=== PATIENT | female | born 1950 | race Caucasian/White ===

== ENCOUNTER 2022-09-21 09:51 | Outpatient (OUT) | payer MEDICARE, SELFPAY ==
--- NOTE | 2022-09-21 | MM_ITS ---
Patient: SANTOS VILLALPANDO Exam Date: 09/21/2022 : 1950 Gender:F Ordering : DR Jimmie Melendez D.O. Admission #: [id number] Family : Order #: [id number] CLICK HERE TO VIEW EXAM RADIOLOGY REPORT PROCEDURE: MM TOMOSYNTHESIS SCREENING BI COMPARISON: MG MAMM SCREEN 3D FERMÍN CAD, 09/05/2020. MG MAMM SCREEN 3D FERMÍN CAD, 09/17/2021. INDICATIONS: Screening Calculator Name NCI Breast Cancer Risk Assessment Tool 5 Year Breast Cancer Risk 8.90% Lifetime Breast Cancer Risk 22.70% Personal Breast Cancer No Personal Ovarian Cancer No Treatments None Family Cancers Sister with breast cancer at age 69; Sister with breast cancer at age 74. LOCATION: [facility] BREAST COMPOSITION: Heterogeneously dense,which may obscure small masses. FINDINGS: DIAGNOSTIC CATEGORY 1--NEGATIVE. NO CHANGE FROM COMPARISON ASSESSMENT. Scattered benign-appearing calcifications are present. RIGHT BREAST: No significant suspicious finding. LEFT BREAST: No significant suspicious finding. RECOMMENDATIONS: ROUTINE MAMMOGRAM AND CLINICAL EVALUATION IN 12 MONTHS. PLEASE NOTE: A NORMAL MAMMOGRAM DOES NOT EXCLUDE THE POSSIBILITY OF BREAST CANCER. A CLINICALLY SUSPICIOUS PALPABLE LUMP SHOULD BE BIOPSIED. Dictated by: Denzel Spears MD on 09/21/2022 at 13:09 Approved by: Denzel Spears MD on 09/21/2022 at 13:10
[2022-09-21 10:07] LABS: Basophils Percent Auto 0.7 % (0.2-2.0); Eosinophils Absolute Auto 0.1 10^3/uL (0.0-0.7); Eosinophils Percent Auto 1.9 % (0.9-7.0); Hematocrit 42.7 % (36.0-48.0); Immature Granulocytes Abs Auto 0.01 10^3/uL (0.00-0.03); Immature Granulocytes Pct Auto 0.2 % (0.0-0.5); Lymphocytes Absolute Auto 2.2 10^3/uL (1.2-3.8); Lymphocytes Percent Auto 37.4 % (20.5-60.0); Mean Corpuscular HGB Conc 32.8 g/dL (29.9-35.2); Mean Corpuscular Hemoglobin 30.1 pg (26.7-34.0); Mean Corpuscular Volume 91.8 fL (81.0-99.0); Mean Platelet Volume 8.9 fL (9.5-13.5); Monocytes Absolute Auto 0.4 10^3/uL (0.3-0.8); Monocytes Percent Auto 6.9 % (1.7-12.0); Neutrophils Absolute Auto 3.1 10^3/uL (1.4-6.5); Neutrophils Percent Auto 52.9 % (43.0-75.0); Platelet Count 233 10^3/uL (150-450); Red Blood Count 4.65 10^6/uL (4.20-5.40); Red Cell Distribution Width 13.9 % (11.0-15.0); White Blood Count 5.8 10^3/uL (4.0-11.0)
[2022-09-21 11:11] LABS: Alanine Aminotransferase 30 U/L (14-59); Anion Gap 12.1; BUN Creatinine Ratio 17.2; Carbon Dioxide 27.7 mmol/L (21.0-32.0); Chloride 106 mmol/L (98-107); Chol HDL Ratio 2.6; Cholesterol 159 mg/dL (<=200); Estimated GFR (African America 56 (>=60); Estimated GFR (Non-African Ame 46 (>=60); Glucose 99 mg/dL (74-106); HDL Cholesterol 61 mg/dL (40-60); Potassium 4.8 mmol/L (3.5-5.1); Sodium 141 mmol/L (136-145); Triglycerides 74 mg/dL (<=150); VLDL CHOLESTEROL 14.8 mg/dL
--- NOTE | 2022-09-21 11:15 | XR_ITS ---
[address] [address] Patient Name: SANTOS VILLALPANDO MRN: [id number] date: 1950 Sex: F Assigned Patient Location: [facility] Current Patient Location: [facility] Accession/Order Number: [id number] Exam Date: 09/21/2022 11:00 Report Date: 09/21/2022 18:34 At the request of: LANCE LONG Procedure: XR DEXA axial skeleton EXAMINATION: XR DEXA axial skeleton, 09/21/2022 11:00 AM EDT HISTORY: Screening for osteoporosis COMPARISON: 2019. TECHNIQUE: Dual-energy X-ray absorptiometry (DEXA) bone density study performed for the axial skeleton. HISTORY: Screening for osteoporosis FINDINGS: Bone mineral density left forearm radius measures 0.616 g/sq cm. T score -1.4. WHO classification: Osteopenia. Lowest bone mineral density left femoral neck measures 0.795 g/sq cm. T score -1.7. WHO classification: Osteopenia XR/XR DEXA axial skeleton IMPRESSION: Osteopenia. Moderate fracture risk Electronically authenticated by: PURNIMA CORTEZ Date: 09/21/2022 18:34
== END 2022-09-21 09:52 | disposition home or self-care (01) ==
LOC: RAD 09:51
PROVIDERS: PCP Internal Medicine; Visit Provider Internal Medicine
DX: E78.01 Familial hypercholesterolemia (principal); I10 Essential (primary) hypertension; Z79.899 Other long term (current) drug therapy; Z12.31 Encounter for screening mammogram for malignant neoplasm of breast; Z78.0 Asymptomatic menopausal state; Z80.3 Family history of malignant neoplasm of breast; M85.852 Other specified disorders of bone density and structure, left thigh; M85.832 Other specified disorders of bone density and structure, left forearm
CPT/HCPCS: 36415; 77063; 77067; 77080; 80048; 80061; 84460; 85025

== ENCOUNTER 2022-11-12 10:10 | Outpatient (OUT) | payer MEDICARE, SELFPAY ==
--- NOTE | 2022-11-12 10:21 | XR_ITS ---
[address] [address] Patient Name: SANTOS VILLALPANDO MRN: [id number] date: 1950 Sex: F Assigned Patient Location: [facility] Current Patient Location: [facility] Accession/Order Number: [id number] Exam Date: 11/12/2022 10:25 Report Date: 11/12/2022 11:17 At the request of: LANCE LONG Procedure: XR lumbar spine 6V w bending EXAMINATION: XR thoracic spine 2V, XR cervical spine 2-3V, XR lumbar spine 6V w bending HISTORY: Thoracogenic Scoliosis Of Thoracolumbar Region M41.35 ; chronic back pain , kufb-yxq-cvcmucs sensation in right arm COMPARISON: No relevant comparison available. FINDINGS: BONES: Reversal of normal lordotic curvature of cervical spine and mild grade 1 anterolisthesis of C4 on 5.. Moderate degenerative facet arthropathy throughout the cervical spine. No fracture. Thoracic spine marked left convex curvature and multilevel mild degenerative endplate changes. Lumbar spine moderate right convex curvature. 10 mm anterior listhesis of L4 on 5; stable between flexion and extension. Moderate-marked degenerative facet arthropathy L3-4 through L5-S1. No fracture. DISC SPACES: Moderate-marked degenerative disc disease C4-5, C5-6, C6-7. Multilevel mild degenerative disc disease of thoracic spine. Moderate-marked degenerative disc disease L4-5, L5-S1. PARASPINOUS: Negative. No paraspinous abnormality is seen. OTHER: Negative. XR/XR lumbar spine 6V w bending IMPRESSION: 1. Cervical spine reversal of normal lordotic curvature, moderate degenerative facet arthropathy, and moderate-marked degenerative disc disease. MRI should be considered for further evaluation 2. Thoracic spine and levoscoliosis and multilevel mild degenerative changes. 3. Lumbar spine dextroscoliosis with grade 1-2 anterior listhesis of L4 on 5, and marked degenerative disc disease and degenerative facet arthropathy of the lower lumbar spine. MRI should be considered for further evaluation. Electronically authenticated by: RONA MALONEY Date: 11/12/2022 11:17
--- NOTE | 2022-11-12 10:21 | XR_ITS ---
[address] [address] Patient Name: SANTOS VILLALPANDO MRN: [id number] date: 1950 Sex: F Assigned Patient Location: [facility] Current Patient Location: [facility] Accession/Order Number: [id number] Exam Date: 11/12/2022 10:25 Report Date: 11/12/2022 11:17 At the request of: LANCE LONG Procedure: XR thoracic spine 2V EXAMINATION: XR thoracic spine 2V, XR cervical spine 2-3V, XR lumbar spine 6V w bending HISTORY: Thoracogenic Scoliosis Of Thoracolumbar Region M41.35 ; chronic back pain , hhgk-aoc-dtesxhu sensation in right arm COMPARISON: No relevant comparison available. FINDINGS: BONES: Reversal of normal lordotic curvature of cervical spine and mild grade 1 anterolisthesis of C4 on 5.. Moderate degenerative facet arthropathy throughout the cervical spine. No fracture. Thoracic spine marked left convex curvature and multilevel mild degenerative endplate changes. Lumbar spine moderate right convex curvature. 10 mm anterior listhesis of L4 on 5; stable between flexion and extension. Moderate-marked degenerative facet arthropathy L3-4 through L5-S1. No fracture. DISC SPACES: Moderate-marked degenerative disc disease C4-5, C5-6, C6-7. Multilevel mild degenerative disc disease of thoracic spine. Moderate-marked degenerative disc disease L4-5, L5-S1. PARASPINOUS: Negative. No paraspinous abnormality is seen. OTHER: Negative. XR/XR thoracic spine 2V IMPRESSION: 1. Cervical spine reversal of normal lordotic curvature, moderate degenerative facet arthropathy, and moderate-marked degenerative disc disease. MRI should be considered for further evaluation 2. Thoracic spine and levoscoliosis and multilevel mild degenerative changes. 3. Lumbar spine dextroscoliosis with grade 1-2 anterior listhesis of L4 on 5, and marked degenerative disc disease and degenerative facet arthropathy of the lower lumbar spine. MRI should be considered for further evaluation. Electronically authenticated by: RONA MALONEY Date: 11/12/2022 11:17
--- NOTE | 2022-11-12 10:21 | XR_ITS ---
[address] [address] Patient Name: SANTOS VILLALPANDO MRN: [id number] date: 1950 Sex: F Assigned Patient Location: [facility] Current Patient Location: [facility] Accession/Order Number: [id number] Exam Date: 11/12/2022 10:25 Report Date: 11/12/2022 11:17 At the request of: LANCE LONG Procedure: XR cervical spine 2-3V EXAMINATION: XR thoracic spine 2V, XR cervical spine 2-3V, XR lumbar spine 6V w bending HISTORY: Thoracogenic Scoliosis Of Thoracolumbar Region M41.35 ; chronic back pain , tuqt-imh-mniinkx sensation in right arm COMPARISON: No relevant comparison available. FINDINGS: BONES: Reversal of normal lordotic curvature of cervical spine and mild grade 1 anterolisthesis of C4 on 5.. Moderate degenerative facet arthropathy throughout the cervical spine. No fracture. Thoracic spine marked left convex curvature and multilevel mild degenerative endplate changes. Lumbar spine moderate right convex curvature. 10 mm anterior listhesis of L4 on 5; stable between flexion and extension. Moderate-marked degenerative facet arthropathy L3-4 through L5-S1. No fracture. DISC SPACES: Moderate-marked degenerative disc disease C4-5, C5-6, C6-7. Multilevel mild degenerative disc disease of thoracic spine. Moderate-marked degenerative disc disease L4-5, L5-S1. PARASPINOUS: Negative. No paraspinous abnormality is seen. OTHER: Negative. XR/XR cervical spine 2-3V IMPRESSION: 1. Cervical spine reversal of normal lordotic curvature, moderate degenerative facet arthropathy, and moderate-marked degenerative disc disease. MRI should be considered for further evaluation 2. Thoracic spine and levoscoliosis and multilevel mild degenerative changes. 3. Lumbar spine dextroscoliosis with grade 1-2 anterior listhesis of L4 on 5, and marked degenerative disc disease and degenerative facet arthropathy of the lower lumbar spine. MRI should be considered for further evaluation. Electronically authenticated by: RONA MALONEY Date: 11/12/2022 11:17
== END 2022-11-12 10:11 | disposition home or self-care (01) ==
LOC: RAD 10:12
PROVIDERS: PCP Internal Medicine; Visit Provider Internal Medicine
DX: M41.35 Thoracogenic scoliosis, thoracolumbar region (principal)
CPT/HCPCS: 72040; 72070; 72114

== ENCOUNTER 2022-11-15 07:23 | Outpatient (RCR) | payer MEDICARE, SELFPAY | END 2022-11-16 16:39 | disposition home or self-care (01) | LOC: PT 07:23 | PROVIDERS: PCP Internal Medicine; Visit Provider Internal Medicine | DX: M41.9 Scoliosis, unspecified (principal); M62.830 Muscle spasm of back; M19.90 Unspecified osteoarthritis, unspecified site | CPT/HCPCS: 97110; 97161 ==

== ENCOUNTER 2022-12-02 08:13 | Outpatient (OUT) | payer MEDICARE, SELFPAY ==
--- NOTE | 2022-12-01 | XR_ITS ---
[address] [address] Patient Name: SANTOS VILLALPANDO MRN: [id number] date: 1950 Sex: F Assigned Patient Location: [facility] Current Patient Location: [facility] Accession/Order Number: [id number] Exam Date: 12/01/2022 10:22 Report Date: 12/01/2022 11:07 At the request of: KIERRA CASTORENA Procedure: XR foot LT min 3V STUDY: XR foot LT min 3V, [id number] HISTORY: LEFT FOOT PAIN COMPARISON: None FINDINGS/IMPRESSION: No acute fracture, dislocation, or suspicious osseous lesion. Hallux valgus with bunion deformity and severe osteophytosis of the first metatarsophalangeal joint. The first and second toes are crossed. Severe Achilles insertional enthesopathy and large plantar calcaneal spur. Moderate osteoarthritis at the dorsal talonavicular joint. Mild pes planus. Electronically authenticated by: CA PANDA Date: 12/01/2022 11:07
== END 2022-12-02 08:14 | disposition home or self-care (01) ==
LOC: RAD 08:13
PROVIDERS: PCP Internal Medicine; Visit Provider Podiatrist Foot & Ankle Surgery
DX: M79.672 Pain in left foot (principal); M20.12 Hallux valgus (acquired), left foot; M21.612 Bunion of left foot; M25.775 Osteophyte, left foot; M20.5X2 Other deformities of toe(s) (acquired), left foot; M76.62 Achilles tendinitis, left leg; M77.32 Calcaneal spur, left foot; M19.072 Primary osteoarthritis, left ankle and foot
CPT/HCPCS: 73630

== ENCOUNTER 2022-12-16 13:27 | Outpatient (OUT) | payer MEDICARE, SELFPAY ==
--- NOTE | 2022-12-16 11:10 | ECG_ITS ---
[facility] Test Date: 2022-12-16 Pat Name: SANTOS VILLALPANDO Department: Room: - Gender: Female Tipple Operator: : 1950 Requested By: KIERRA CASTORENA Order Number: [id number] Reading MD: LANCE LONG Measurements Intervals [place] Rate: 77 P: 37 MN: 180 QRS: 14 QRSD: 85 T: 17 QT: 334 QTc: 380 Interpretive Statements SINUS RHYTHM WITH OCCASIONAL SUPRAVENTRICULAR PREMATURE COMPLEXES No previous ECG available for comparison Electronically Signed On 12-17-2022 6:53:10 EDT by LANCE LONG
--- NOTE | 2022-12-16 11:52 | PM.PRESUREVA ---
History of Present Illness History of Present Illness Chief complaint: Halux valgus left foot, hammertoes left foot Narrative: Patient presents for preadmission testing. Please see HPI from Dr. Steele dated 12/01/2022. Review of Systems ROS Narrative Please see ROS from Dr. Steele dated 12/01/2022. [facility] Medical History (Updated 12/16/22 @ 11:51 by Andreia Valdes NP) Acquired hammer toe ?M20.40 - Other hammer toe(s) (acquired), unspecified foot (ICD-10) Arthritis ?M19.90 - Unspecified osteoarthritis, unspecified site (ICD-10) Breast mass ?N63.0 - Unspecified lump in unspecified breast (ICD-10) Bronchitis (09/18/20) ?J40 - Bronchitis, not specified as acute or chronic (ICD-10) COVID-19 ?U07.1 - COVID-19 (ICD-10) Delayed recovery from anesthesia Elevated liver enzymes (09/18/20) ?R74.8 - Abnormal levels of other serum enzymes (ICD-10) Hallux valgus ?M20.10 - Hallux valgus (acquired), unspecified foot (ICD-10) Heart murmur (~2020) ?R01.1 - Cardiac murmur, unspecified (ICD-10) High cholesterol ?E78.00 - Pure hypercholesterolemia, unspecified (ICD-10) History of blood transfusion ?Z92.89 - Personal history of other medical treatment (ICD-10) Hypertension ?I10 - Essential (primary) hypertension (ICD-10) Pneumonia ?J18.9 - Pneumonia, unspecified organism (ICD-10) Scoliosis ?M41.9 - Scoliosis, unspecified (ICD-10) Surgical History (Updated 12/16/22 @ 11:51 by Andreia Valdes NP) H/O left breast biopsy (09/24/20) ?Z98.890 - Other specified postprocedural states (ICD-10) H/O myringotomy ?Z98.890 - Other specified postprocedural states (ICD-10) H/O tubal ligation ?Z98.51 - Tubal ligation status (ICD-10) History of breast lump/mass excision ?Z98.890 - Other specified postprocedural states (ICD-10) History of ERCP ?Z98.890 - Other specified postprocedural states (ICD-10) Hx of tonsillectomy ?Z90.89 - Acquired absence of other organs (ICD-10) S/P spinal surgery ?Z98.890 - Other specified postprocedural states (ICD-10) S/P total knee replacement ?Z96.659 - Presence of unspecified artificial knee joint (ICD-10) Family History (Updated 12/16/22 @ 11:37 by Andreia Valdes NP) Other Family history of CHF (congestive heart failure) Family history of cancer Heart disease Suicide Social History (Updated 12/16/22 @ 11:51 by Andreia Valdes NP) Within the past year, how often did you have a drink containing alcohol: never Score interpretation: A score less than 3 is consistent with normal alcohol consumption. Smoking status: Never smoker Meds Home Medications and Allergies Home Medications Medication Instructions Recorded Confirmed Type atorvastatin 40 mg tablet 40 mg PO QDAY 12/16/22 12/16/22 History benazepril 20 mg tablet 20 mg PO QDAY 12/16/22 12/16/22 History latanoprost 0.005 % eye drops drp ophthalmic (eye) QPM 12/16/22 History triamcinolone acetonide 0.1 % applic topical 12/16/22 History topical cream Allergies Allergy/AdvReac Type Severity Reaction Status Date / Time bee venom protein (honey bee) Allergy Swelling Verified 12/16/22 11:13 of Lip/Tongue/Throat fish derived Allergy Hives Verified 12/16/22 11:13 latex Allergy itchy Verified 12/16/22 11:13 Exam Narrative Exam Narrative: Constitutional: Awake, alert, comfortable, well-appearing, nontoxic, interactive, vital signs as charted Head: Normocephalic, atraumatic Neck: Supple, normal appearance, normal range of motion, no meningeal signs, no lymphadenopathy Respiratory: No respiratory distress, breath sounds clear Cardiovascular: Regular rate and rhythm, strong and regular heart tones Psychiatric: Oriented ?3, normal affect Assessment and Plan Assessment and Plan (1) Acquired hammer toe: (2) Hallux valgus: Plan Left 1st MPJ fusion, hammertoe repairs as needed with soft tissue balancing/releases and repairs as needed, 2nd and possibly 3rd metatarsal osteotomy and bone graft as needed scheduled with Dr. Steele 12/30/2022.
[2022-12-16 12:23] LABS: Anion Gap 9.6; BUN Creatinine Ratio 19.8; Calcium 9.3 mg/dL (8.5-10.1); Chloride 107 mmol/L (98-107); Estimated GFR (African America 56 (>=60); Estimated GFR (Non-African Ame 46 (>=60); Glucose 81 mg/dL (74-106); Potassium 4.6 mmol/L (3.5-5.1); Sodium 139 mmol/L (136-145)
== END 2022-12-16 13:28 | disposition home or self-care (01) ==
LOC: PST 13:27
PROVIDERS: PCP Internal Medicine; Visit Provider Podiatrist Foot & Ankle Surgery
DX: Z01.810 Encounter for preprocedural cardiovascular examination (principal); M20.12 Hallux valgus (acquired), left foot; M20.42 Other hammer toe(s) (acquired), left foot; I10 Essential (primary) hypertension
CPT/HCPCS: 80048; 93005; G0463

== ENCOUNTER 2022-12-30 06:25 | Day surgery (SDC) | payer MEDICARE, SELFPAY ==
[2022-12-16 11:35] VITALS: BP 119/66; PULSE 82; RESP 18; TEMP 36.3; O2SAT 97; BMI 33.8
[2022-12-30] VITALS (16 sets, daily range): BP systolic 108–157; BP diastolic 56–83; PULSE 84–99; RESP 10–18; TEMP 36.3–37.1; O2SAT 91–97; BMI 33.6
--- NOTE | 2022-12-30 | FL_ITS ---
[address] [address] Patient Name: SANTOS VILLALPANDO MRN: [id number] date: 1950 Sex: F Assigned Patient Location: [facility] Current Patient Location: [facility] Accession/Order Number: [id number] Exam Date: 12/30/2022 08:10 Report Date: 01/03/2023 06:58 At the request of: KIERRA CASTORENA Procedure: FL fluoroscopy <1hr NON-READ EXAM: FL fluoroscopy <1hr NON-READ HISTORY: TECHNIQUE: FINDINGS: Please see Operative Report. Electronically authenticated by: RADIOLOGIST NO Date: 01/03/2023 06:58
[2022-12-30 06:54] LABS: Glucometer 88 mg/dL (74-106)
[2022-12-30 06:55] LABS: Basophils Percent Auto 0.6 % (0.2-2.0); Eosinophils Absolute Auto 0.2 10^3/uL (0.0-0.7); Eosinophils Percent Auto 3.2 % (0.9-7.0); Hematocrit 41.3 % (36.0-48.0); Hemoglobin 13.5 g/dL (12.0-16.0); Immature Granulocytes Abs Auto 0.01 10^3/uL (0.00-0.03); Immature Granulocytes Pct Auto 0.2 % (0.0-0.5); Lymphocytes Absolute Auto 2.1 10^3/uL (1.2-3.8); Lymphocytes Percent Auto 31.1 % (20.5-60.0); Mean Corpuscular HGB Conc 32.7 g/dL (29.9-35.2); Mean Corpuscular Volume 94.7 fL (81.0-99.0); Monocytes Absolute Auto 0.5 10^3/uL (0.3-0.8); Monocytes Percent Auto 8.2 % (1.7-12.0); Neutrophils Absolute Auto 3.8 10^3/uL (1.4-6.5); Neutrophils Percent Auto 56.7 % (43.0-75.0); Platelet Count 244 10^3/uL (150-450); Red Blood Count 4.36 10^6/uL (4.20-5.40); Red Cell Distribution Width 13.7 % (11.0-15.0); White Blood Count 6.6 10^3/uL (4.0-11.0)
[2022-12-30] MEDS: LACTATED RINGER'S SOLUTION 1,000 ML 50 ML IV (06:57)
[2022-12-30] MEDS: CEFAZOLIN SODIUM/DEXTROSE,ISO 2 GM/50 ML PIGGYBACK IV (07:37)
--- NOTE | 2022-12-30 07:38 | PC.NURSE ---
Time out performed with patient at 0726. Patient positioned per anesthesia request on right lateral hip. Patient alert and oriented and hooked up to monitors. Using ultrasound guidance, Dr. Mcguire initiated a popliteal block using sterile technique. 20cc's injected of ropivacaine using the ultrasound for guidance. patient tolerated well. See documented vital signs.
[2022-12-30] MEDS: LACTATED RINGER'S SOLUTION 1,000 ML 1000 ML IV (08:29)
[2022-12-30] MEDS: THROMBI-GEL SIZE 40 HEMOSTAT 1 EACH TOPICAL (08:44)
--- NOTE | 2022-12-30 09:42 | P.ORON_ITS ---
Brief Operative Note Date of procedure: 12/30/22 Pre-op diagnosis: left hallux valgus, 2+3 hammertoes, pre-dislocation syndrome Post-op diagnosis: other (left hallux valgus with arthritis, 2nd and 3rd hammertoes, pre-dislocation syndrome 2nd metatarsal phalangeal joint, toe contracture at 3rd metatarsophalangeal joint) Procedure: PROCEDURE(S) PERFORMED: 1. First metarsal phalangeal joint fusion 2. Holton of distal tibial bone graft 3. correction of 2nd and 3rd hammertoes with PIPJ arthroplasty 4. 2nd metatarsal Lauren osteotomy 5. Capsulotomy of 3rd metatarsal phalangeal joint 6. Application of short leg splint 7. Intraoperative fluoroscopy examination *All procedures were performed on the LEFT foot INTRAOPERATIVE FINDINGS: severe arthritic changes to the 1st metatarsophalangeal joint with large periarticular osteophytes and full-thickness cartilage erosion of seventy-five percent of the metatarsal head and greater than fifty percent of the proximal phalanx base. Bone quality of the 1st metatarsal head was soft and consistent with osteopenia whereas the phalanx was very sclerotic and hard. 2nd toe contracture at the metatarsal phalangeal joint and proximal interphalangeal joint is nonreducible and 2nd toe contracturecausing overlapping of the great toe. 3rd toe contracture also at the metatarsal phalangeal joint and proximal interphalangeal joint which were reducible. plantar plate noted to be intact of the 2nd metatarsophalangeal joint PROCEDURE IN DETAIL: Patient was identified in pre op and consent was reviewed. Correct side and site were identified and marked. Pre-op antibiotics were started. Patient was brought to OR suite and place on table in a supine position. General anesthesia was administered. A tourniquet was applied. Operative extremity was prepped and draped in usual sterile fashion. Formal time-out was performed and the foot/ankle were exsanguinated and tourniquet inflated. Incision created over dorsal aspect of the 1st MPJ. Bleeders coagulated. EHL protected throughout the procedure. Capsulotomy performed and McGlammry elevator inserted into 1st MPJ. Guide Pin place in 1st metatarsal head. Conical reamers used on 1st metatarsal head to remove cartilage and subchondral bone. Guide pin removed. Conical reamers used on proximal phalanx in a similar manner. 2.0 mm drill used to on each side of the joint. The site was irrigated. Distal Tibial Bone Graft: A 2 cm incision was created 2 cm proximal to the ank le joint and just medial to the tibialis anterior tendon. Combination sharp blunt dissection gained access to the distal tibial metaphysis and the periosteum was reflected carefully. An 65 mm bone harvester was drilled into the distal tibial metaphysis and 3 cc of cancellus autograft was obtained. Gelfoam was then packed into the harvest site and deep closure with absorbable suture was performed followed by closure with skin suture. Bone graft was mixed with 1 cc of Sparc allograft then packed into the fusion site. A stab incision was placed on the medial aspect of the hallux and blunt dissection down to the proximal phalanx base was performed. Two guide wires were then used to pin the MPJ in a rectus position under fluoroscopic guidance. Position was checked both on the table and under fluoroscopy. A saw was used to contour the dorsal aspect of the 1st metatarsal and proximal phalanx to accommodate plate fixation. A 3.[address] over the fusion site and temporarily fixed. Then airline transport pilot holes were drilled for locking 3.5 mm screws which were measured and placed according to the manufactor's standard directions. Again position was checked under fluoroscopy as well as on the table. Temporary fixation was removed and additional screws were placed. A 3.5 mm cannulated headed screw was inserted over the previously placed guide wire accordingly. Again position of the great toe and hardware placement were checked on the table and under fluoroscopy. The surgical site was irrigated with copious amounts of sterile saline. A dorsal incision over the 2nd digit and extended over the 2nd metatarsal was utilized to expose the extensor tendon. The tendon was cut and reflected dorsally and proximally exposing the proximal interphalangeal joint and metatarsophalangeal joint. Capsulotomy of the 2nd metatarsophalangeal joint was performed sharply. A McGlammry elevator was utilized to expose the 2nd metatarsal head and a sagittal saw was used to create an osteotomy parallel to the weightbearing surface of the foot. The metatarsal head was then translated proximally and temporarily fixated with a K wire and the elevator was removed. Position was checked under fluoroscopy followed by a 2.0 mm snap off screw which was placed from a dorsal plantar direction. an additional 2.0 mm screw was placed adjacent to the 1st for additional rotational stability. A rongeur was used to remove the dorsal cortical shelf. Temporary fixation was removed. Surgical site was irrigated with copious amounts of sterile saline. Capsulotomy was then performed exposing the proximal interphalangeal joint. A sagittal saw was used to remove the head of the proximal phalanx. The foot was then loaded noting reduction at the PIPJ and MPJ. A 1.6 mm K wire was then placed through the toe and into the metatarsal in an ideal position. Position was checked under fluoroscopy the K wire was then cut and bent. the extensor tendon was then repaired with absorbable suture. Surgical site was irrigated with copious saline. With attention to the 3rd digit a dorsal incision was created over the PIPJ. Sharp and blunt dissection down to the extensor tendon was performed. The tendon was incised transversely then reflected proximally. A sagittal saw was used to remove the proximal phalanx head. The site was flushed with sterile saline. the toe contracture at the proximal interphalangeal joint was corrected however reducible contracture of the 3rd metatarsophalangeal joint remained. The extensor tendon was then reflected further proximally in the incision was extended proximally as well. Combination sharp and blunt dissection gained access to the 3rd metatarsophalangeal joint which was sharply released of its capsule dorsally, medially and laterally. Then a McGlamry elevator was used to release the plantar soft tissues. The toe was now rectus at the metatarsal phalangeal joint and proximal interphalangeal joint. The tendon was repaired with absorbable suture. surgical sites were irrigated with copious saline and all incisions were then closed in layers. The tourniquet was deflated and a prompt hyperemic response was noted. A dry sterile dressing consisting of Xeroform on the incisions followed by 4 x 4 gauze, ABDs, and Kerlix were applied. Multiple layers of cast padding were then applied to ensure all bony prominences were well-padded. A plaster posterior splint was then applied which was held in place by Sarwat wraps. Capillary refill time to all digits was evaluated and had appropriate response. POSTOPERATIVE PLAN: Discharge home under family's care Post op instructions provided verbally and written prescription(s) were placed in chart NWB operative foot/ankle x1 wk Follow-up in 1 week Implants: Medline 3.5 mm 1st MPJ plate & 3.5 mm cannulated screw; 2.0 mm snap off screws x2; 1.6 mm k-wire Anesthesia: regional and General-ET Surgeon: Jarocho Steele Production Line Operator: Sp Alaniz Estimated blood loss (mL): 10 Pathology: none sent Condition: stable Disposition: PACU Preoperative Details Reason for procedure: patient is a 72-year-old female with long-standing left forefoot deformity associated with hallux valgus and toe contractures. She's had daily pain which is affected activities daily living over the last year. Despite conservative treatment with shoe modification, activity modification OTC pain medicine her symptoms only worsened. She presented to me for surgical consultation. Findings showed rigid hallux valgus deformity with associated arthritic changes and severe contractures of toes two and three with painful callus plantar forefoot. Due to failure to respond to nonsurgical care and she wished to proceed with surgery and I recommended the below procedures. She was educated all potential risks and benefits and all questions were answered to her satisfaction.
--- NOTE | 2022-12-30 10:28 | XR_ITS ---
The [address] [address] Patient Name: SANTOS VILLALPANDO MRN: [id number] date: 1950 Sex: F Assigned Patient Location: [facility] Current Patient Location: Accession/Order Number: [id number] Exam Date: 12/30/2022 10:50 Report Date: 12/31/2022 07:57 At the request of: RACHELE BUSTAMANTE Procedure: XR foot LT min 3V PROCEDURE: XR foot LT min 3V HISTORY: postop xr COMPARISON: XR foot left 12/01/2022, intraoperative left foot images 12/30/2022 FINDINGS: BONES:Mechanical fusion of the first metatarsophalangeal joint via dorsal plate and screws. Pinning of the second and third toes. 2 screws within head of second metatarsal. Marked degenerative enthesopathic spurring of the calcaneus. SOFT TISSUES:Images were obtained to cast material which limits evaluation. No appreciable significant swelling. EFFUSION:None visible. OTHER: Negative. XR/XR foot LT min 3V IMPRESSION: 1. Surgical changes without evidence of hardware failure or change in alignment compared to intraoperative images. Electronically authenticated by: RONA MALONEY Date: 12/31/2022 07:57
[2022-12-30 10:33] LABS: Glucometer 138 mg/dL (74-106)
== END 2022-12-30 13:15 | disposition home or self-care (01) ==
PROVIDERS: PCP Internal Medicine; Visit Provider Podiatrist Foot & Ankle Surgery
PROC: (CPT 20900; principal; 2022-12-30 07:30)
DX: M20.12 Hallux valgus (acquired), left foot (principal); M20.42 Other hammer toe(s) (acquired), left foot; I10 Essential (primary) hypertension; Z86.16 Personal history of COVID-19; E78.00 Pure hypercholesterolemia, unspecified; Z87.01 Personal history of pneumonia (recurrent); Z96.653 Presence of artificial knee joint, bilateral; Z90.49 Acquired absence of other specified parts of digestive tract
CPT/HCPCS: 20900; 28285 ×2; 28308; 28750; 36415; 64445; 73630; 76000; 76942; 82948; 85025; C1713; J1170; J2704

== ENCOUNTER 2023-01-20 13:53 | Outpatient (OUT) | payer MEDICARE, SELFPAY ==
--- NOTE | 2023-01-20 | XR_ITS ---
The [address] [address] Patient Name: SANTOS VILLALPANDO MRN: [id number] date: 1950 Sex: F Assigned Patient Location: [facility] Current Patient Location: Accession/Order Number: [id number] Exam Date: 01/20/2023 13:58 Report Date: 01/21/2023 01:19 At the request of: JERSEY BOB Procedure: XR foot LT min 3V PROCEDURE: XR foot LT min 3V HISTORY: LEFT FOOT PAIN COMPARISON: XR foot left 12/30/2022 FINDINGS: BONES:Mechanical fusion of the first metatarsophalangeal joint via dorsal plate and screws. Resection of heads of the second third proximal phalanges and pinning of the second third toes. 2 screws within head of second metatarsal. No bone fracture dislocation. Prominent degenerative enthesopathic spurring of the calcaneus. SOFT TISSUES:No visible soft tissue swelling. Cast material has been removed. EFFUSION:None visible. OTHER: Negative. XR/XR foot LT min 3V IMPRESSION: 1. Stable surgical changes without evidence of hardware failure or change in alignment. Electronically authenticated by: RONA MALONEY Date: 01/21/2023 01:19
== END 2023-01-20 13:54 | disposition home or self-care (01) ==
LOC: RAD 13:54
PROVIDERS: PCP Internal Medicine; Visit Provider Physician Assistant
DX: M79.672 Pain in left foot (principal)
CPT/HCPCS: 73630

== ENCOUNTER 2023-02-10 15:03 | Outpatient (OUT) | payer MEDICARE, SELFPAY ==
--- NOTE | 2023-02-10 | XR_ITS ---
The [address] [address] Patient Name: SANTOS VILLALPANDO MRN: [id number] date: 1950 Sex: F Assigned Patient Location: [facility] Current Patient Location: [facility] Accession/Order Number: [id number] Exam Date: 02/10/2023 15:10 Report Date: 02/10/2023 15:43 At the request of: JERSEY BOB Procedure: XR foot LT min 3V PROCEDURE: XR foot LT min 3V COMPARISON: 01/20/2023 HISTORY: LEFT FOOT PAIN FINDINGS: BONES:No acute fracture or dislocation. Severe enthesopathic spurring of the calcaneus. Stable fusion of the first metatarsal-phalangeal joint with a dorsal plate and screws. No mechanical failure. Remote osteotomy and internal fixation utilizing 2 screws head of the second metatarsal. Remote resection head of the second and third proximal phalanges. SOFT TISSUES:Negative. No visible soft tissue swelling. EFFUSION:None visible. OTHER: Negative. XR/XR foot LT min 3V IMPRESSION: Stable postsurgical changes Electronically authenticated by: PURNIMA CORTEZ Date: 02/10/2023 15:43
== END 2023-02-10 15:04 | disposition home or self-care (01) ==
LOC: RAD 15:03
PROVIDERS: PCP Internal Medicine; Visit Provider Physician Assistant
DX: M20.12 Hallux valgus (acquired), left foot (principal)
CPT/HCPCS: 73630

== ENCOUNTER 2023-03-03 10:23 | Outpatient (REF) | payer MEDICARE, SELFPAY ==
--- OUTSIDE RECORDS SUMMARY | 2023-03-03 10:43 | XMS_ITS | CCD ---
Author Name Unknown Address [address] [place] [address] Organization [facility] Care Team Providers Care Composition Floor Setter Name Role Phone Marivel Whitlock Unavailable AL, DR SAMUEL Primary Care Unavailable COLLIER, DR TOMEKA Delong Consulting Unavailable COLLIER, DR TOMEKA Delong Attending Unavailable COLLIER, DR TOMEKA Delong Admitting Unavailable ZIEBER, DR RONA Delong Consulting Unavailable YAROSH, RITA Consulting Unavailable MARKER, DR FLOWERS Consulting Unavailable MARKER, DR FLOWERS Attending Unavailable BALL, DR SAMUEL Primary Care Unavailable MARKER, DR FLOWERS Admitting Unavailable KLIPPER, PURNIMA Consulting Unavailable TIMMIS, DR KLINE Admitting Unavailable TIMMIS, DR KLINE Consulting Unavailable TIMMIS, DR KLINE Attending Unavailable BALL, DR SAMUEL Primary Care Unavailable TIMMIS, DR KLINE Admitting Unavailable TIMMIS, DR KLINE Attending Unavailable BALL, DR SAMUEL Primary Care Unavailable TIMMIS, DR KLINE Admitting Unavailable TIMMIS, DR KLINE Consulting Unavailable TIMMIS, DR KLINE Attending Unavailable BALL, DR SAMUEL Primary Care Unavailable AGUBOSIM, ANGELICA Consulting Unavailable LONG, SHAI Consulting Unavailable DORKOSKIE, RSAHIDA Consulting Unavailable TIMMIS, DR KLINE Admitting Unavailable TIMMIS, DR KLINE Consulting Unavailable TIMMIS, DR KLINE Attending Unavailable BALL, DR SAMUEL Primary Care Unavailable WEST, DR PURNIMA Sarkar Consulting Unavailable AL, DR SAMUEL Admitting Unavailable BALL, DR SAMUEL Primary Care Unavailable AL, DR SAMUEL Consulting Unavailable AL, DR SAMUEL Attending Unavailable BALL, DR SAMUEL Admitting Unavailable BALL, DR SAMUEL Primary Care Unavailable BALL, DR SAMUEL Consulting Unavailable BALL, DR SAMUEL Attending Unavailable BALL, DR SAMUEL Primary Care Unavailable HIGHLASHLEY, KIERRA Colmenares Attending Unavailable HIGHLASHLEY, KIERRA Colmenares Admitting Unavailable DANA, DR PURNIMA Sarkar Consulting Unavailable HIGHLASHLEY, KIERRA Colmenares Consulting Unavailable AL, DR SAMUEL Admitting Unavailable BALL, DR SAMUEL Primary Care Unavailable BALL, DR SAMUEL Consulting Unavailable BALL, DR SAMUEL Attending Unavailable PALMYRA, DR PURNIMA Sarkar Consulting Unavailable Jimmie Melendez Unavailable Alvaro Melendez DO Primary Care Unavailab laura Lopez PA-C, [address] Attending Alvaro Mars DO Primary Care Unavailab laura Lopez PA-C, [address] Attending Mee Melendez DO, Alvaro Samuel Primary Care Unavailab Alvaro Fernandez DO Primary Care Unavailab laura Lopez PA-C, [address] Attending Siomara Rodriguez Unavailable Allergies Allergy Classification Reported Allergen(s) Allergy Type Date of Onset Reaction(s) Facility (1 source) Chlorotrianisene Drug Allergy 02-27-20 13 [facility] (1 source) Latex Drug allergy (disorder) 02-27-20 13 [facility] (9 sources) Gold Drug Allergy Unknown [facility] Other (9 sources) Latex Drug allergy Unknown [facility] Other (7 sources) Gold and/or gold compound (FN) Drug allergy Unknown [facility] Other (1 source) No Known Medication Allergies; Translations: [No Known Medication Allergies] Propensity to adverse reactions to drug (disorder) [facility] Medications Current Medications Medication Drug Class(es) Dates Sig (Normalized) Sig (Original) alendronic acid 70 mg oral tablet (2 sources) Bisphosphonate Start: 02-05-2023 take 1 tablet by mouth once daily Alendronate Sodium 70 MG 1 tablet 30 minutes before the first food, beverage or medicine of the day with plain water Orally for 30 day(s) Feb, Active amoxicillin 875 mg / clavulanate 125 mg oral tablet (2 sources) Penicillin-class Antibacterial Start: 02-05-2023 take 1 tablet by mouth every twelve hours Amoxicillin-Pot Clavulanate 875-125 MG 1 tablet Orally every 12 hrs for 10 day(s) Feb, Active atorvastatin 40 mg oral tablet (11 sources) HMG-CoA Reductase Inhibitor take 1 tablet by mouth once daily Atorvastatin Calcium 40 MG TAKE 1 TABLET BY MOUTH EVERY DAY for 90 Active Atorvastatin [place] [facility] Active benazepril hydrochloride 20 mg oral tablet (7 sources) Angiotensin Converting Enzyme Inhibitor take 1 tablet by mouth every twenty-four hours Benazepril HCl 20 MG 1 tablet Orally Once a day Active latanoprost 0.05 mg/ml ophthalmic solution (2 sources) Prostaglandin Analog take 1 drop(s) into the eye(s) once daily in the evening Latanoprost 0.005 % 1 drop into affected eye in the evening Ophthalmic Once a day Active take 1 drop(s) into the eye(s) once daily in the evening Latanoprost 0.005 % 1 drop into affected eye in the evening Ophthalmic Once a day Active Lisinopril (1 source) Angiotensin Converting Enzyme Inhibitor Lisinopril Active predniSONE 20 mg oral tablet (1 source) Start: 02-28-20 take 1 tablet by mouth every twelve hours predniSONE 20 MG 1 tablet Orally bid for 5 day(s) Feb, Active Triamcinolone (2 sources) Corticosteroid Triamcinolone (oint)-Silicone Active Completed/Discontinued Medications Medication Drug Class(es) Dates Sig (Normalized) Sig (Original) hydroCHLOROthiazide 25 mg / triamterene 37.5 mg oral capsule (9 sources) Potassium-sparing Diuretic, Thiazide Diuretic Start: 06-21-2022 take 1 capsule by mouth every twenty-four hours Triamterene-HCT Z 37.5-25 MG 1 capsule in the morning Orally Once a day for 30 days Jun, Not-Taking/PRN hydrocortisone 10 mg/ml / neomycin 3.5 mg/ml / polymyxin b [id number] unt/ml otic suspension (6 sources) Aminoglycoside Antibacterial, Polymyxin-class Antibacterial, Corticosteroid Start: 11-02-2022 Neomycin-Polymy bee-HC 3.5-83538-8 3 drops right ear Three times a day for 7 days Oct, Not-Taking/PRN methylPREDNISolone 4 mg oral tablet (6 sources) Corticosteroid Start: 11-02-2022 Medrol 4 MG as directed Orally As Directed for 6 days Oct, Not-Taking/PRN Toradol 30 mg/ml (6 sources) Start: 11-02-2022 Toradol 30 mg/ml Oct, 30 mg Problems Active Problems Problem Classification Problem Date Documented Da te Episodic/Chronic Biliary tract disease (10 sources) Biliary sludge; Translations: [Other specified diseases of biliary tract] Chronic Cardiac dysrhythmias (10 sources) Intermittent palpitations; Translations: [Palpitations] Episodic Chronic kidney disease (7 sources) Chronic kidney disease stage 3A ; Translations: [Stage 3a chronic kidney disease] Chronic Disorders of lipid metabolism (12 sources) Pure hypercholesterolemi a, unspecified; Translations: [Hyperlipidemia, unspecified] Onset: 07-17-2021 Chronic E Codes: Fall (1 source) Fall from other furniture, initial encounter; Translations: [FALL FROM OTHER FURNITURE INITIAL] Onset: 11-30-2021 Episodic Essential hypertension (20 sources) Essential (primary) hypertension; Translations: [Essential hypertension] Onset: 09-18-2021 Chronic Headache; including migraine (3 sources) Headache; including migraine; Translations: [HEADACHE UNSPECIFIED] Onset: 11-26-2021 Heart valve disorders (10 sources) Murmur; Translations: [Cardiac murmur, unspecified] Episodic Immunizations and screening for infectious disease (2 sources) Contact with and (suspected) exposure to other viral communicable diseases; Translations: [Encounter for immunization] Onset: 02-27-2021 Resolved: 02-27-2021 Episodic Malaise and fatigue (1 source) Other fatigue; Translations: [OTHER FATIGUE] Onset: 11-24-2021 Episodic Open wounds of head; neck; and trunk (1 source) Laceration without foreign body of scalp, initial encounter; Translations: [LACERATION W/O FB SCALP INITIAL ENC] Onset: 11-30-2021 Episodic Osteoarthritis (2 sources) Unspecified osteoarthritis, unspecified site; Translations: [Primary osteoarthritis, right ankle and foot] Onset: 09-28-2021 Chronic Other acquired deformities (1 source) Scoliosis, unspecified; Translations: [SCOLIOSIS UNSPECIFIED] Onset: 09-18-2021 Chronic Other acquired deformities (5 sources) Thoracogenic scoliosis, thoracolumbar region; Translations: [Thoracogenic scoliosis of thoracolumbar region] Chronic Other aftercare (2 sources) Other remote computer terminal operator (current) drug therapy; Translations: [OTH [facility] CURRENT DRUG THERAPY] Onset: 11-30-2021 Episodic Other circulatory disease (9 sources) Orthostatic hypotension; Translations: [Orthostatic hypotension] Episodic Other connective tissue disease (1 source) Presence of artificial knee joint, bilateral; Translations: [PRESENCE ARTIFICIAL KNEE JNT BILAT] Onset: 09-18-2021 Chronic Other connective tissue disease (3 sources) Pain in right leg; Translations: [PAIN IN RIGHT LEG] Onset: 09-16-2021 Episodic Other connective tissue disease (1 source) Other specified soft tissue disorders; Translations: [OTHER SPEC SOFT TISSUE DISORDERS] Onset: 09-18-2021 Episodic Other connective tissue disease (9 sources) Muscle pain; Translations: [Myalgia, other site] Episodic Other ear and sense organ disorders (1 source) Unspecified acute noninfective otitis externa, right ear Episodic Other gastrointestinal disorders (9 sources) Irritable bowel syndrome with diarrhea; Translations: [Irritable bowel syndrome with diarrhea] Chronic Other gastrointestinal disorders (4 sources) Diarrhea, unspecified; Translations: [DIARRHEA UNSPECIFIED] Onset: 11-20-2021 Episodic Other gastrointestinal disorders (9 sources) Abnormal feces; Translations: [Other fecal abnormalities] Episodic Other liver diseases (1 source) Non-alcoholic fatty liver; Translations: [Fatty (change of) liver, not elsewhere classified] Chronic Other liver diseases (9 sources) Fatty (change of) liver, not elsewhere classified; Translations: [Non-alcoholic fatty liver disease] Chronic Other non-traumatic joint disorders (4 sources) Pain in right ankle and joints of right foot; Translations: [PAIN IN RIGHT ANKLE] Onset: 09-23-2021 Episodic Other nutritional; endocrine; and metabolic disorders (9 sources) Body mass index 30+ - obesity; Translations: [Obesity, unspecified] Chronic Other nutritional; endocrine; and metabolic disorders (1 source) Obesity, unspecified Chronic Other screening for suspected conditions (not mental disorders or infectious disease) (5 sources) Encounter for screening mammogram for malignant neoplasm of breast; Translations: [ENC SCR MAMMO MALIG NEOPLASM BREAST] Onset: 09-17-2021 Episodic Other skin disorders (9 sources) Callosity; Translations: [Corns and callosities] Episodic Other upper respiratory infections (7 sources) Acute sinusitis, unspecified; Translations: [Acute maxillary sinusitis, unspecified] Onset: 02-27-2021 Resolved: 02-27-2021 Episodic Residual codes; unclassified (1 source) Family history of malignant neoplasm of breast; Translations: [FAMILY HX MALIG NEOPLASM OF BREAST] Onset: 09-18-2021 Episodic Residual codes; unclassified (1 source) Asymptomatic menopausal state Episodic Spondylosis; intervertebral disc disorders; other back problems (15 sources) Lumbar spondylosis; Translations: [Spondylosis without myelopathy or radiculopathy, lumbar region] Chronic Sprains and strains (2 sources) Strain of muscle, fascia and tendon at neck level, initial encounter; Translations: [Strain of muscle, fascia and tendon of lower back, initial encounter] Onset: 11-30-2021 Episodic Superficial injury; contusion (1 source) Contusion of unspecified part of head, initial encounter; Translations: [CONTUS UNS PRT HEAD INITIAL ENCNTR] Onset: 11-30-2021 Episodic Past or Other Problems Problem Classification Problem Date Documented Da te Episodic/Chronic Chronic kidney disease (1 source) Chronic kidney disease Otitis media and related conditions (5 sources) Other specified disorders of Eustachian tube, right ear; Translations: [OTH SPEC D/O EUST TUBE RT EAR] Onset: 07-08-2021 Episodic Unclassified (9 sources) Elevated transaminase level; Translations: [Elevated transaminase level] Unclassified (1 source) Suspected COVID-19 virus infection Z20.822 Results Test Name Value Interpretation Reference Range Facility Otolaryngology Office/Clinic Noteon 12-15-2022 Otolaryngology Office/Clinic Note Chief Complaint pt states here for a follow up for my right ear after urgent care History of Present Illness Molly is a very pleasant 72-year-old female who presents today as a new patient, self-referral, for an overall ENT evaluation. Previous right PE tube was placed in July 2021 at an outlying otolaryngology office for middle ear effusion. About 8 months ago patient developed diminished hearing on the right side after COVID-19. She was having some bouts of imbalance at that time. She had an audiogram in July 2022 which was relatively unchanged from October 2021. 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 She took Dyazide for a short period of time though her blood pressure was dropping low as she was also on an ADALI inhibitor. She has not had any further vertigo. She has had a couple bouts of sharp pain to her right ear followed by otorrhea. She has not used otic drops during this time. This is patient's first tube placement. Currently she feels as though her hearing is stable bilaterally. She denies any associated otalgia, otorrhea, or vertigo. She has had no previous MRI, ECOG or VNG performed. Denies any history of loud noise exposure. Patient states that previous front desk agent had mentioned cochlear hydrops and/or M?ni?re's disease to her. She has maintained a low-salt diet. Past medical history is rather unremarkable. She does have a history of hypertension and cataracts. Physical Exam Vitals & Measurements T: 36.5 ?C (Temporal Artery) HR: 77 (Peripheral) BP: 126/74 HT: 155 cm WT: 78.6 kg WT: 78.6 kg (Dosing) BMI: 32.72 Additional Vitals BP Position/Location: Sitting, Left arm Constitutional: Well-developed, well-nourished Communication and Voice: Clear pitch and clarity, age appropriate Head and Face Inspection: Normocephalic and atraumatic without masses or lesions Palpation: Facial skeleton intact without bony stepoffs, no sinus tenderness Salivary Glands: No masses or tenderness Facial Strength: Left - House-Brackman Grade 1/6, normal rapid eye blink Right - House-Brackman Grade 1/6, normal rapid eye blink Eyes Nystagmus: None EOM: Equal extraocular motion bilaterally ENT External nose: No scar or anatomic deformity Internal Nose: Septum intact and midline. No edema, polyps, or rhinorrhea Lips, Teeth, and gums: Mucosa and teeth intact and viable TMJ: No pain to palpation with full mobility Oral cavity/oropharynx: No erythema or exudate with non-obstructive tonsils Neck Neck and Trachea: Midline trachea without mass or lesion Thyroid: No mass or nodularity Lymphatics No cervical lymphadenopathy Respiratory Equal inspiration & expiration without use of accessory muscles No stridor Cardiovascular Peripheral Vascular: Warm extremities with good skin perfusion Skin Warm and well-perfused Neuro/Psych/Balance Orientation: Patient oriented to person, place, and time Affect: Appropriate mood and affect Gait: Intact with no imbalance Cranial nerves: II-XII are intact bilaterally Ear Pinna: Left - External ear intact and fully developed Right - External ear intact and fully developed External canal: Left - Canal is patent with intact skin Right - Canal is patent with intact skin Cerumen: Left - Normal amount and character, non-obstructing Right - Normal amount and character, non-obstructing Tympanic Membranes: Left - Clear and mobile Right - TIPP Middle Ears: Left - Aerated, no effusion, no masses Right - Aerated, no effusion, no masses Data Reviewed Audiogram: Left: Mild downsloping to moderate and upsloping to mild sensorineural hearing loss. Right: Moderate mixed upsloping to mild and downsloping to severe hearing loss. SRT of 40 on the right 35 on the left. WRS of 84% on the right 92% on the left. Flat tympanogram on the right with a large canal volume consistent with a patent PE tube. Type a tympanogram on the left. 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 2. Left SNHL Reviewed patient's audiogram in depth today. This is relatively unchanged from previous performed in July 2022 at an outlying facility. Unclear if patient has cochlear hydrops or M?ni?re's disease. She is currently asymptomatic from this standpoint. Therefore, we discussed continued monitoring and a low-salt diet. We will defer any Dyazide at this time. If she redevelops any vertigo she will give me a call for further evaluation. Could always consider an ECOG versus VNG at that time. If patient ever needed to be placed back on Dyazide I would discuss with PCP as she is already on an ADALI inhibitor. We will plan to perform a 1 year follow-up with an audiogram prior. She is going to call sooner with any concerns, new symptoms, or worsening symptoms. 3. Tympanostomy tube check Tube is in place and patent. Medical Decision Making Chronic conditions NOT treated during this visit that (more content not included)... Normal [facility] PROF CHEM 8 (BAS METB)on Anion gap [Moles/Vol] 11.4 mmol/L Normal [facility] Comment on above: Performed By: #### B MP ####[facility] [id number] [place] [id number]. Glenda Basurto Calcium [Mass/Vol] 9.2 mg/dL Normal 8.5-10.1 [facility] Comment on above: Performed By: #### B MP ####[facility] [address] [place], [place] [address]Ue. Glenda Basurto Chloride [Moles/Vol] 106 mmol/L Normal 98-107 [facility] Comment on above: Performed By: #### B MP ####[facility] [address] [place] [address]Dr. Glenda Basurto CO2 [Moles/Vol] 27.6 mmol/L Normal 21.0-32.0 [facility] Comment on above: Performed By: #### B MP ####[facility] [address] [place], [place] [address]Dr. Glenda Basurto Creatinine [Mass/Vol] 1.19 mg/dL Critically high 0.55-1.02 [facility] Comment on above: Performed By: #### B MP ####[facility] [address] [place], [place] [address]Dr. Glenda Basurto EGFR-AF TANZANIAN 54 mL/min/1.73m2 Critically low >=60 [facility] Comment on above: Performed By: #### B MP ####[facility] [address] [place], [place] [address]Dr. Glenda Basurto EGFR-NON AF TANZANIAN 45 mL/min/1.73m2 Critically low >=60 [facility] Comment on above: Performed By: #### B MP ####[facility] [address] [place], [place] [address]Dr. Glenda Basurto Glucose [Mass/Vol] 100 mg/dL Normal 74-106 [facility] Comment on above: Performed By: #### B MP ####[facility] [address] [place], [place] [address]Dr. Glenda Basurto Potassium [Moles/Vol] 4.0 mmol/L Normal 3.5-5.1 [facility] Comment on above: Performed By: #### B MP ####[facility] [address] [place], [place] [address]Dr. Glenda Basurto Sodium [Moles/Vol] 141 mmol/L Normal 136-145 [facility] Comment on above: Performed By: #### B MP ####[facility] [address] [place], [place] [address]Dr. Glenda Basurto Urea nitrogen [Mass/Vol] 20.0 mg/dL Critically high 7.0-18.0 [facility] Comment on above: Performed By: #### B MP ####[facility] [address] [place], [place] [address]Cp. Glenda Basurto Urea nitrogen/Creatinin e [Mass ratio] 16.8 mg/mg Normal [facility] Comment on above: Performed By: #### B MP ####[facility] [address] [place], [place] [address]Qe. Glenda Basurto CT CSPINE WO CONon CT CSPINE WO CON EXAMINATION: CT CSPINE WO CON HISTORY: UNSPECIFIED INJURY OF HEAD, INITIAL ENCOUNTER ; fell, posterior head laceration COMPARISON: No relevant comparison available. TECHNIQUE: Axial, Coronal, and Sagittal images were created without IV contrast. Dose reduction techniques were achieved by using automated exposure control and/or adjustment of mA and/or kV according to patient size and/or use of iterative reconstruction technique. FINDINGS: VERTEBRAL BODIES: Slight reversal of normal lordotic curvature of lower cervical spine. No fracture or significant spondylolisthesis. FACET JOINTS: No disruption or abnormal widening. Multilevel marked degenerative facet arthropathy on the left side; mild-moderate on right side. CERVICAL DISCS: Moderate marked narrowing C4-C5 through C6-C7 with posterior endplate osteophytes causing moderate central canal and moderate-marked foramen narrowing. CENTRAL CANAL: No evidence of hemorrhage. PARASPINAL AREA: No visible mass. IMPRESSION: 1. No appreciable acute abnormality. 2. Multilevel moderate-marked degenerative changes of the cervical spine. Electronically authenticated by: RONA MALONEY Date: 2021-11-26 22:[address] [facility] [address] HEAD WO CONon 11-26-2021 CT HEAD WO CON EXAMINATION: CT HEAD WO CON HISTORY: UNSPECIFIED INJURY OF HEAD, INITIAL ENCOUNTER ; fall; posterior head laceration COMPARISON: No relevant comparison available. TECHNIQUE: Axial CT images were obtained without IV contrast. Dose reduction techniques were achieved by using automated exposure control and/or adjustment of mA and/or kV according to patient size and/or use of iterative reconstruction technique. FINDINGS: BRAIN: No edema, hemorrhage, mass, acute infarction, or inappropriate atrophy. CSF SPACES: No hydrocephalus, subarachnoid hemorrhage, or mass. Appropriate for age. SKULL: No fracture, mass, or other significant visible lesion. SINUSES: No significant mucosal thickening or fluid on the limited views. ORBITS: No appreciable abnormality on the limited views. OTHER: Scalp laceration posterior head extending to near vertex with moderate size subcutaneous hematoma. IMPRESSION: 1. No intracranial hemorrhage or acute abnormality of the brain. Age consistent atrophy. 2. No fracture of the calvarium. 3. Posterior scalp laceration and subcutaneous moderate size hematoma. Electronically authenticated by: RONA MALONEY Date: 2021-11-26 21:43 Normal [facility] CBC AUTO DIFFon 11-20-2021 BASO # 0.0 103/ul Normal 0.0-0.1 [facility] Comment on above: Performed By: #### C BC #### [facility] [address] [place] [address] Dr. Glenda Basurto Basophils/100 WBC (Bld) 0.7 % Normal 0.2-2.0 [facility] Comment on above: Performed By: #### C BC #### [facility] [address] [place] [address] Dr. Glenda Basurto EO # 0.1 103/ul Normal 0.0-0.7 [facility] Comment on above: Performed By: #### C BC #### [facility] [address] [place] [address] Dr. Glenda Basurto Eosinophils/100 WBC (Bld) 1.8 % Normal 0.9-7.0 [facility] Comment on above: Performed By: #### C BC #### [facility] [address] [place] [address] Dr. Glenda Basurto Erythrocyte distribution width (RBC) [Ratio] 13.2 % Normal 11.0-15.0 [facility] Comment on above: Performed By: #### C BC #### [facility] [address] [place] [address] Dr. Glenda Basurto Hematocrit (Bld) [Volume fraction] 39.4 % Normal 36.0-48.0 [facility] Comment on above: Performed By: #### C BC #### [facility] [address] [place] [address] Dr. Glenda Basurto Hemoglobin (Bld) [Mass/Vol] 12.9 g/dL Normal 12.0-16.0 [facility] Comment on above: Performed By: #### C BC #### [facility] [address] [place] [address] Dr. Glenda Basurto IG # 0.01 10e3/ul Normal 0.00-0.03 [facility] Comment on above: Performed By: #### C BC #### [facility] [address] [place] [address] Dr. Glenda Basurto IG % 0.2 % Normal 0.0-0.5 [facility] Comment on above: Performed By: #### C BC #### [facility] [address] [place] [address] Dr. Glenda Basurto LYMPH # 2.6 103/ul Normal 1.2-3.8 [facility] Comment on above: Performed By: #### C BC #### [facility] [address] [place] [address] Dr. Glenda Basurto Lymphocytes/100 WBC (Bld) 41.9 % Normal 20.5-60.0 [facility] Comment on above: Performed By: #### C BC #### [facility] [address] [place] [address] Dr. Glenda Basurto MANUAL DIFF REQ NO Normal [facility] Comment on above: Performed By: #### C BC #### [facility] [address] [place] [address] Dr. Glenda Basurto MCH (RBC) [Entitic mass] 30.1 pg Normal 26.7-34.0 [facility] Comment on above: Performed By: #### C BC #### [facility] [address] [place] [address] Dr. Glenda Basurto MCHC (RBC) [Mass/Vol] 32.7 g/dL Normal 29.9-35.2 [facility] Comment on above: Performed By: #### C BC #### [facility] [address] [place] [address] Dr. Glenda Basurto MCV (RBC) [Entitic vol] 92.1 fL Normal 81.0-99.0 [facility] Comment on above: Performed By: #### C BC #### [facility] [address] [place] [address] Dr. Glenda Basurto MONO # 0.5 103/ul Normal 0.3-0.8 [facility] Comment on above: Performed By: #### C BC #### [facility] [address] [place] [address] Dr. Glenda Basurto Monocytes/100 WBC (Bld) 7.7 % Normal 1.7-12.0 [facility] Comment on above: Performed By: #### C BC #### [facility] [address] [place] [address] Dr. Glenda Basurto NEUT # 2.9 103/ul Normal 1.4-6.5 [facility] Comment on above: Performed By: #### C BC #### [facility] [address] [place] [address] Dr. Glenda Basurto Neutrophils/100 WBC (Bld) 47.7 % Normal 43.0-75.0 [facility] Comment on above: Performed By: #### C BC #### [facility] [address] [place] [address] Dr. Glenda Basurto Platelet mean volume (Bld) [Entitic vol] 8.8 fL Critically low 9.5-13.5 [facility] Comment on above: Performed By: #### C BC #### [facility] [address] [place] [address] Dr. Glenda Basurto PLT 215 103/ul Normal 150-450 [facility] Comment on above: Performed By: #### C BC #### [facility] [address] [place] [address] Dr. Glenda Basurto RBC 4.28 106/ul Normal 4.20-5.40 [facility] Comment on above: Performed By: #### C BC #### [facility] [address] [place] [address] Dr. Glenda Basurto WBC 6.1 103/ul Normal 4.0-11.0 [facility] Comment on above: Performed By: #### C BC #### [facility] [address] [place], [place] [address] Dr. Glenda Basurto PROF CHEM 8 (BAS METB)on Anion gap [Moles/Vol] 10.1 mmol/L Normal [facility] Comment on above: Performed By: #### B MP, TSH ####[facility] [address] [place] [id number]. Glenda Basurto Calcium [Mass/Vol] 8.8 mg/dL Normal 8.5-10.1 [facility] Comment on above: Performed By: #### B NATALY, TSH ####[facility] [address] [place] [address]Dr. Glenda Basurto Chloride [Moles/Vol] 103 mmol/L Normal 98-107 [facility] Comment on above: Performed By: #### B NATALY, TSH ####[facility] [address] [place] [address]Dr. Glenda Basurto CO2 [Moles/Vol] 29.1 mmol/L Normal 21.0-32.0 [facility] Comment on above: Performed By: #### B MP, TSH ####[facility] [address] [place] [address]Dr. Glenda Basurto Creatinine [Mass/Vol] 1.62 mg/dL Critically high 0.55-1.02 [facility] Comment on above: Performed By: #### B MP, TSH ####[facility] [address] [place] [id number]. Glenda Basurto EGFR-AF TANZANIAN 38 mL/min/1.73m2 Critically low >=60 [facility] Comment on above: Performed By: #### B MP, TSH ####[facility] [address] [place] [address]Dr. Glenda Basurto EGFR-NON AF TANZANIAN 31 mL/min/1.73m2 Critically low >=60 [facility] Comment on above: Performed By: #### B NATALY, TSH ####[facility] [address] [place] [id number]. Glenda Basurto Glucose [Mass/Vol] 112 mg/dL Critically high 74-106 [facility] Comment on above: Performed By: #### B NATALY, TSH ####[facility] [address] [place] [address]Dr. Glenda Basurto Potassium [Moles/Vol] 4.2 mmol/L Normal 3.5-5.1 [facility] Comment on above: Performed By: #### B NATALY, TSH ####[facility] [address] [place] [address]Dr. Glenda Basurto Sodium [Moles/Vol] 138 mmol/L Normal 136-145 [facility] Comment on above: Performed By: #### B NATALY, TSH ####[facility] [address] [place], [place] [address]Dr. Glenda Basurto Urea nitrogen [Mass/Vol] 25.0 mg/dL Critically high 7.0-18.0 [facility] Comment on above: Performed By: #### Richelle INGRAM, TSH ####[facility] [address] [place], [place] [address]Dr. Glenda Basurto Urea nitrogen/Creatinin e [Mass ratio] 15.4 mg/mg Normal [facility] Comment on above: Performed By: #### B NATALY, TSH ####[facility] [address] [place], [place] [address]Dr. Glenda Basurto TSHon 11-20-2021 TSH 0.942 uIU/mL Normal 0.358-3.740 [facility] Comment on above: Performed By: #### Richelle INGRAM, TSH ####[facility] [address] [place], [place] [address]Dr. Glenda Basurto MG MAMM SCREEN 3D FERMÍN CADon 09-17-2021 MG MAMM SCREEN 3D FERMÍN CAD Patient: OMLLY GARCIA Exam Date: 09/17/2021 : 1950 Gender:F Ordering : DR JIMMIE MELENDEZ D.O. Admission #: [id number] Family : Order #: [id number] CLICK HERE TO VIEW EXAM RADIOLOGY REPORT PROCEDURE: MAMMOGRAM SCREENING 3D BILATERAL CAD COMPARISON: MG MAMM SCREEN 3D FERMÍN CAD, 09/05/2020. INDICATIONS: Screening mammography Calculator Name NCI Breast Cancer Risk Assessment Tool 5 Year Breast Cancer Risk 8.80% Lifetime Breast Cancer Risk 23.60% Personal Breast Cancer No Personal Ovarian Cancer No Treatments None Family Cancers Sister with breast cancer at age 69; Sister with breast cancer at age 74. LOCATION: [facility] BREAST COMPOSITION: Heterogeneously dense,which may obscure small masses. FINDINGS: DIAGNOSTIC CATEGORY 1--NEGATIVE. NO CHANGE FROM COMPARISON ASSESSMENT. Scattered benign-appearing nodules are present. Scattered benign-appearing calcifications are present. Scattered benign-appearing lymph nodes are present. RIGHT BREAST: No significant suspicious finding. LEFT BREAST: No significant suspicious finding. Previously noted nodule is absent likely representing interval resection with presence of a linear scar marker. RECOMMENDATIONS: ROUTINE MAMMOGRAM AND CLINICAL EVALUATION IN 12 MONTHS. PLEASE NOTE: A NORMAL MAMMOGRAM DOES NOT EXCLUDE THE POSSIBILITY OF BREAST CANCER. A CLINICALLY SUSPICIOUS PALPABLE LUMP SHOULD BE BIOPSIED. Dictated by: Purnima Cortez MD on 09/17/2021 at 12:42 Approved by: Purnima Cortez MD on 09/17/2021 at 12:43 Normal [facility] CBC AUTO DIFFon 09-16-2021 BASO # 0.0 103/ul Normal 0.0-0.1 [facility] Comment on above: Performed By: #### C BC #### [facility] [address] [place] [address] Dr. Glenda Basurto Basophils/100 WBC (Bld) 0.5 % Normal 0.2-2.0 [facility] Comment on above: Performed By: #### C BC #### [facility] [address] [place] [address] Dr. Glenda Basurto EO # 0.1 103/ul Normal 0.0-0.7 [facility] Comment on above: Performed By: #### C BC #### [facility] [address] [place] [address] Dr. Glenda Basurto Eosinophils/100 WBC (Bld) 2.2 % Normal 0.9-7.0 [facility] Comment on above: Performed By: #### C BC #### [facility] [address] [place] [address] Dr. Glenda Basurto Erythrocyte distribution width (RBC) [Ratio] 13.2 % Normal 11.0-15.0 [facility] Comment on above: Performed By: #### C BC #### [facility] [address] [place] [address] Dr. Glenda Basurto Hematocrit (Bld) [Volume fraction] 42.0 % Normal 36.0-48.0 [facility] Comment on above: Performed By: #### C BC #### [facility] [address] [place] [address] Dr. Glenda Basurto Hemoglobin (Bld) [Mass/Vol] 13.7 g/dL Normal 12.0-16.0 [facility] Comment on above: Performed By: #### C BC #### [facility] [address] [place] [address] Dr. Glenda Basurto IG # 0.01 10e3/ul Normal 0.00-0.03 [facility] Comment on above: Performed By: #### C BC #### [facility] [address] [place] [address] Dr. Glenda Basurto IG % 0.2 % Normal 0.0-0.5 [facility] Comment on above: Performed By: #### C BC #### [facility] [address] [place] [address] Dr. Glenda Basurto LYMPH # 2.7 103/ul Normal 1.2-3.8 [facility] Comment on above: Performed By: #### C BC #### [facility] [address] [place] [address] Dr. Glenda Basurto Lymphocytes/100 WBC (Bld) 41.9 % Normal 20.5-60.0 [facility] Comment on above: Performed By: #### C BC #### [facility] [address] [place] [address] Dr. Glenda Basurto MANUAL DIFF REQ NO Normal [facility] Comment on above: Performed By: #### C BC #### [facility] [address] [place] [address] Dr. Glenda Basurto MCH (RBC) [Entitic mass] 30.6 pg Normal 26.7-34.0 [facility] Comment on above: Performed By: #### C BC #### [facility] [address] [place] [address] [address] Glenda Basurto MCHC (RBC) [Mass/Vol] 32.6 g/dL Normal 29.9-35.2 [facility] Comment on above: Performed By: #### C BC #### [facility] [address] [place] [address] Dr. Glenda Basurto MCV (RBC) [Entitic vol] 93.8 fL Normal 81.0-99.0 [facility] Comment on above: Performed By: #### C BC #### [facility] [address] [place] [address] Dr. Glenda Basurto MONO # 0.6 103/ul Normal 0.3-0.8 [facility] Comment on above: Performed By: #### C BC #### [facility] [address] [place] [address] Dr. Glenda Basurto Monocytes/100 WBC (Bld) 9.8 % Normal 1.7-12.0 [facility] Comment on above: Performed By: #### C BC #### [facility] [address] [place] [address] Dr. Glenda Basurto NEUT # 2.9 103/ul Normal 1.4-6.5 [facility] Comment on above: Performed By: #### C BC #### [facility] [address] [place] [address] Dr. Glenda Basurto Neutrophils/100 WBC (Bld) 45.4 % Normal 43.0-75.0 [facility] Comment on above: Performed By: #### C BC #### [facility] [address] [place] [address] Dr. Glenda Basurto Platelet mean volume (Bld) [Entitic vol] 8.9 fL Critically low 9.5-13.5 [facility] Comment on above: Performed By: #### C BC #### [facility] [address] [place] [address] Dr. Glenda Basurto PLT 226 103/ul Normal 150-450 [facility] Comment on above: Performed By: #### C BC #### [facility] [address] [place] [address] [address] Glenda Basurto RBC 4.48 106/ul Normal 4.20-5.40 [facility] Comment on above: Performed By: #### C BC #### [facility] [address] [place] [address] [address] Glenda Basurto WBC 6.4 103/ul Normal 4.0-11.0 [facility] Comment on above: Performed By: #### C BC #### [facility] [address] [place] [address] [address] Glenda Basurto CRPon 09-16-2021 CRP [Mass/Vol] mg/L Normal <=1.0 [facility] Comment on above: Performed By: #### U LEANNA, CRP #### [facility] [address] [place] [address] [address] Glenda Basurto PROF CHEM 8 (BAS METB)on Anion gap [Moles/Vol] 12.2 mmol/L Normal [facility] Comment on above: Performed By: #### B MP #### [facility] [address] [place] [address] Dr. Glenda Basurto Calcium [Mass/Vol] 9.3 mg/dL Normal 8.5-10.1 [facility] Comment on above: Performed By: #### B MP #### [facility] [address] [address] [address] Glenda Basurto Chloride [Moles/Vol] 107 mmol/L Normal 98-107 [facility] Comment on above: Performed By: #### B MP #### [facility] [address] [place] [address] [address] Glenda Basurto CO2 [Moles/Vol] 27.3 mmol/L Normal 21.0-32.0 [facility] Comment on above: Performed By: #### B MP #### [facility] [address] [place] [address] [address] Glenda Basurto Creatinine [Mass/Vol] 1.04 mg/dL Critically high 0.55-1.02 [facility] Comment on above: Performed By: #### B MP #### [facility] [address] [place] [address] [address] Glenda Basurto EGFR-AF TANZANIAN >60 Normal >=60 [facility] Comment on above: Performed By: #### B MP #### [facility] [address] [place] [address] [address] Glenda Basurto EGFR-NON AF TANZANIAN 52 mL/min/1.73m2 Critically low >=60 [facility] Comment on above: Performed By: #### B MP #### [facility] [address] [place] [address] [address] Glenda Basurto Glucose [Mass/Vol] 92 mg/dL Normal 74-106 [facility] Comment on above: Performed By: #### B MP #### [facility] [address] [place] [address] [address] Glenda Basurto Potassium [Moles/Vol] 4.5 mmol/L Normal 3.5-5.1 [facility] Comment on above: Performed By: #### B MP #### [facility] [address] [place] [address] [address] Glenda Basurto Sodium [Moles/Vol] 142 mmol/L Normal 136-145 [facility] Comment on above: Performed By: #### B MP #### [facility] [address] [place] [address] [address] Glenda Basurto Urea nitrogen [Mass/Vol] 21.0 mg/dL Critically high 7.0-18.0 [facility] Comment on above: Performed By: #### B MP #### [facility] [address] [place] [address] [address] Glenda Basurto Urea nitrogen/Creatinin e [Mass ratio] 20.2 mg/mg Normal [facility] Comment on above: Performed By: #### B MP #### [facility] [address] [place] [address] [address] [facility] mm/hr Normal <=30 [facility] Comment on above: Performed By: #### S EDR ####[facility] [address] [place] [address]Dr. Glenda Basurto URIC ACID SERUMon 09-16-2021 Urate [Mass/Vol] 4.8 mg/dL Normal 2.6-6.0 [facility] Comment on above: Performed By: #### U LEANNA, CRP #### [facility] [address] [place] [address] [address] Glenda Basurto XR TIB_FIB RT 2Von 2 XR TIB_FIB RT 2V EXAM: XR TIB_FIB RT 2V HISTORY: Pain in lower limb COMPARISON: None. TECHNIQUE: 5 views FINDINGS: No fracture, dislocation, subluxation or osseous lesion. Patient is status post total knee replacement arthroplasty. The prosthesis is unremarkable. No joint effusion. Age-related dorsal bossing of the hindfoot. Dorsal and plantar calcaneal enthesophytes. IMPRESSION: No acute osseous abnormalities Electronically authenticated by: PURNIMA SANDOVAL Date: 2021-09-16 21:21 Normal [facility] CBC AUTO DIFFon 07-06-2021 BASO # 0.0 103/ul Normal 0.0-0.1 [facility] Comment on above: Performed By: #### C BC #### [facility] [address] [place] [address] Dr. Glenda Basurto Basophils/100 WBC (Bld) 0.6 % Normal 0.2-2.0 [facility] Comment on above: Performed By: #### C BC #### [facility] [address] [place] [address] Dr. Glenda Basurto EO # 0.1 103/ul Normal 0.0-0.7 [facility] Comment on above: Performed By: #### C BC #### [facility] [address] [place] [address] Dr. Glenda Basurto Eosinophils/100 WBC (Bld) 1.5 % Normal 0.9-7.0 [facility] Comment on above: Performed By: #### C BC #### [facility] [address] [place] [address] Dr. Glenda Basurto Erythrocyte distribution width (RBC) [Ratio] 13.6 % Normal 11.0-15.0 [facility] Comment on above: Performed By: #### C BC #### [facility] [address] [place] [address] Dr. Glenda Basurto Hematocrit (Bld) [Volume fraction] 43.9 % Normal 36.0-48.0 [facility] Comment on above: Performed By: #### C BC #### [facility] [address] [place] [address] Dr. Glenda Basurto Hemoglobin (Bld) [Mass/Vol] 14.2 g/dL Normal 12.0-16.0 [facility] Comment on above: Performed By: #### C BC #### [facility] [address] [place] [address] Dr. Glenda Basurto IG # 0.02 10e3/ul Normal 0.00-0.03 [facility] Comment on above: Performed By: #### C BC #### [facility] [address] [place] [address] Dr. Glenda Basurto IG % 0.3 % Normal 0.0-0.5 [facility] Comment on above: Performed By: #### C BC #### [facility] [address] [place] [address] Dr. Glenda Basurto LYMPH # 2.0 103/ul Normal 1.2-3.8 [facility] Comment on above: Performed By: #### C BC #### [facility] [address] [place] [address] Dr. Glenda Basurto Lymphocytes/100 WBC (Bld) 29.8 % Normal 20.5-60.0 [facility] Comment on above: Performed By: #### C BC #### [facility] [address] [place] [address] Dr. Glenda Basurto MANUAL DIFF REQ NO Normal [facility] Comment on above: Performed By: #### C BC #### [facility] [address] [place] [address] Dr. Glenda Basurto MCH (RBC) [Entitic mass] 30.9 pg Normal 26.7-34.0 [facility] Comment on above: Performed By: #### C BC #### [facility] [address] [place] [address] Dr. Glenda Basurto MCHC (RBC) [Mass/Vol] 32.3 g/dL Normal 29.9-35.2 [facility] Comment on above: Performed By: #### C BC #### [facility] [address] [place] [address] Dr. Glenda Basurto MCV (RBC) [Entitic vol] 95.4 fL Normal 81.0-99.0 [facility] Comment on above: Performed By: #### C BC #### [facility] [address] [place] [address] Dr. Glenda Basurto MONO # 0.5 103/ul Normal 0.3-0.8 [facility] Comment on above: Performed By: #### C BC #### [facility] [address] [place] [address] Dr. Glenda Basurto Monocytes/100 WBC (Bld) 7.1 % Normal 1.7-12.0 [facility] Comment on above: Performed By: #### C BC #### [facility] [address] [place] [address] Dr. Glenda Basurto NEUT # 4.1 103/ul Normal 1.4-6.5 [facility] Comment on above: Performed By: #### C BC #### [facility] [address] [place] [address] Dr. Glenda Basurto Neutrophils/100 WBC (Bld) 60.7 % Normal 43.0-75.0 [facility] Comment on above: Performed By: #### C BC #### [facility] [address] [place] [address] Dr. Glenda Basurto Platelet mean volume (Bld) [Entitic vol] 8.7 fL Critically low 9.5-13.5 [facility] Comment on above: Performed By: #### C BC #### [facility] [address] [place] [address] Dr. Glenda Basurto PLT 234 103/ul Normal 150-450 [facility] Comment on above: Performed By: #### C BC #### [facility] [address] [place], [place] [address] Dr. Glenda Basurto RBC 4.60 106/ul Normal 4.20-5.40 [facility] Comment on above: Performed By: #### C BC #### [facility] [address] [place], [place] [address] Dr. Glenda Basurto WBC 6.7 103/ul Normal 4.0-11.0 [facility] Comment on above: Performed By: #### C BC #### [facility] [address] [place], [place] [address] Dr. Glenda Basurto XR SINUSES 3 VIEWS OR GREATE Ray 05-21-2021 XR SINUSES 3 VIEWS OR GREATER EXAMINATION: XR SINUSES 3 VIEWS OR GREATER HISTORY: Acute maxillary sinusitis COMPARISON: No relevant comparison available. FINDINGS: MAXILLARY: No mucosal thickening or fluid level. ETHMOID: No mucosal thickening or fluid level. FRONTAL: No mucosal thickening or fluid level. SPHENOID: No mucosal thickening or fluid level. OTHER: Negative. IMPRESSION: Clear paranasal sinuses Electronically authenticated by: PURNIMA CORTEZ Date: 2021-05-21 12:11 Normal [facility] COVID Quick Testingon 2020 Result Negative [facility] Other Complete Blood Count Auto Di ffon 10-31-2020 Basophils (Bld) [#/Vol] 0.0 10*3/uL Normal 0.0-0.2 [facility] Comment on above: Result Comment: PERF ORMED BY: [place] [address] PATHOLOGIST [employer] JENNIFER IRIZARRY M.D. Performed By: #### C MP, LIPASE, CBC, JACOB #### [place] [address] [place] Basophils/100 WBC (Bld) 0.2 % Normal . [facility] Comment on above: Performed By: #### C MP, LIPASE, CBC, JACOB #### [facility] [address] [place] [address] [place] Eosinophils (Bld) [#/Vol] 0.1 10*3/uL Normal 0.0-0.45 [facility] Comment on above: Performed By: #### C MP, LIPASE, CBC, JACOB #### [address] Eosinophils/100 WBC (Bld) 1.0 % Normal . [facility] Comment on above: Performed By: #### C MP, LIPASE, CBC, JACOB #### [address] Erythrocyte distribution width (RBC) [Ratio] 13.9 % Normal 11.9-15.3 [facility] Comment on above: Performed By: #### C MP, LIPASE, CBC, JACOB #### [address] Hematocrit (Bld) [Volume fraction] 35.5 % Normal 34.0-46.4 [facility] Comment on above: Performed By: #### C MP, LIPASE, CBC, JACOB #### [address] Hemoglobin (Bld) [Mass/Vol] 12.1 g/dL Normal 11.8-15.4 [facility] Comment on above: Performed By: #### C MP, LIPASE, CBC, JACOB #### [address] Lymphocytes (Bld) [#/Vol] 1.3 10*3/uL Normal 1.00-4.8 [facility] Comment on above: Performed By: #### C MP, LIPASE, CBC, JACOB #### [address] Lymphocytes/100 WBC (Bld) 21.0 % Normal . [facility] Comment on above: Performed By: #### C MP, LIPASE, CBC, JACOB #### [address] MCH (RBC) [Entitic mass] 31.4 pg Normal 24.7-34.3 [facility] Comment on above: Performed By: #### C MP, LIPASE, CBC, JACOB #### [facility] [address] MCV (RBC) [Entitic vol] 92.3 fL Normal 80-100 [facility] Comment on above: Performed By: #### C MP, LIPASE, CBC, JACOB #### [address] Mean Corpuscular HGB Conc 34.0 g/dL Normal 32.0-35.0 [facility] Comment on above: Performed By: #### C MP, LIPASE, CBC, JACOB #### [address] Monocytes (Bld) [#/Vol] 0.4 10*3/uL Normal 0.0-0.8 [facility] Comment on above: Performed By: #### C MP, LIPASE, CBC, JACOB #### [address] Monocytes/100 WBC (Bld) 7.2 % Normal . [facility] Comment on above: Performed By: #### C MP, LIPASE, CBC, JACOB #### [address] Neutrophils (Bld) [#/Vol] 4.3 10*3/uL Normal 1.8-7.7 [facility] Comment on above: Performed By: #### C MP, LIPASE, CBC, JACOB #### [address] Neutrophils/100 WBC (Bld) 70.6 % Normal . [facility] Comment on above: Performed By: #### C MP, LIPASE, CBC, JACOB #### [place] [address] [place] Nucleated RBC/100 WBC (Bld) [Ratio] 0.0 % Normal 0-0.5 [facility] Comment on above: Performed By: #### C MP, LIPASE, CBC, JACOB #### [address] Platelet mean volume (Bld) [Entitic vol] 8.1 fL Normal 6.3-10.7 [facility] Comment on above: Performed By: #### C MP, LIPASE, CBC, JACOB #### [address] Platelets (Bld) [#/Vol] 163 10*3/uL Normal 150-450 [facility] Comment on above: Performed By: #### C MP, LIPASE, CBC, JACOB #### [address] RBC (Bld) [#/Vol] 3.85 10*6/uL Normal 3.60-5.00 [facility] Comment on above: Performed By: #### C MP, LIPASE, CBC, JACOB #### [address] WBC (Bld) [#/Vol] 6.0 10*3/uL Normal 4.5-11.0 [facility] Comment on above: Performed By: #### C MP, LIPASE, CBC, JACOB #### [address] Comprehensive Metabolic Pane phoebe 10-31-2020 Albumin [Mass/Vol] 2.6 g/dL Low 3.2-5.5 [facility] Comment on above: Performed By: #### C MP, LIPASE, CBC, JACOB #### [address] Albumin/Globulin [Mass ratio] 0.9 {ratio} Normal [facility] Comment on above: Performed By: #### C MP, LIPASE, CBC, JACOB #### [address] ALP [Catalytic activity/Vol] 269 U/L High 32-92 [facility] Comment on above: Performed By: #### C MP, LIPASE, CBC, JACOB #### [address] ALT [Catalytic activity/Vol] 180 U/L High 10-60 [facility] Comment on above: Performed By: #### C MP, LIPASE, CBC, JACOB #### [address] [place] [address] [place] AST [Catalytic activity/Vol] 73 U/L High 10-42 [facility] Comment on above: Performed By: #### C MP, LIPASE, CBC, JACOB #### [address] Bilirubin [Mass/Vol] 1.6 mg/dL High 0.3-1.2 [facility] Comment on above: Result Comment: Samp les from patients who have taken Naproxen have shown spurious elevation in Total Bilirubin levels. A metabolite of Naproxen, O-desmethylnaproxen, has been shown to interfere with the Jendrassik-Grof method for measuring Total Bilirubin. Performed By: #### C MP, LIPASE, CBC, JACOB #### [address] Calcium [Mass/Vol] 8.7 mg/dL Normal 8.2-10.2 [facility] Comment on above: Performed By: #### C MP, LIPASE, CBC, JACOB #### [address] Chloride [Moles/Vol] 108 mmol/L Normal 95-114 [facility] Comment on above: Performed By: #### C MP, LIPASE, CBC, JACOB #### [address] CO2 [Moles/Vol] 23.3 mmol/L Normal 22.0-30.0 [facility] Comment on above: Performed By: #### C MP, LIPASE, CBC, JACOB #### [address] Creatinine [Mass/Vol] 0.93 mg/dL Normal 0.44-1.03 [facility] Comment on above: Performed By: #### C MP, LIPASE, CBC, JACOB #### [address] Creatinine Clr Calc Pharmacy 53.01 Normal [facility] Comment on above: Result Comment: PERF ORMED BY: [place] [address] PATHOLOGIST [employer] JENNIFER IRIZARRY M.D. Performed By: #### C MP, LIPASE, CBC, JACOB #### [address] Estimated GFR ( Mariaa > 60 Normal [facility] Comment on above: Result Comment: GFR estimated reference range: According to KDOQI guidelines, <60 ml/min/1.73m2 is sufficient to diagnose a patient with chronic kidney disease. Performed By: #### C MP, LIPASE, CBC, JACOB #### [address] Estimated GFR (Non- Am 60 [facility] Comment on above: Performed By: #### C MP, LIPASE, CBC, JACOB #### [address] Globulin (S) [Mass/Vol] 2.9 g/dL Normal [facility] Comment on above: Performed By: #### C MP, LIPASE, CBC, JACOB #### [address] Glucose [Mass/Vol] 80 mg/dL Normal 70-100 [facility] Comment on above: Result Comment: [place] Glucose Reference Range is dependent on time and content of last meal. Glucose of more than 200 mg/dL in a nonstressed, ambulatory subject supports the diagnosis of Diabetes Mellitus. ADA recommended reference range Performed By: #### C MP, LIPASE, CBC, JACOB #### [address] Potassium [Moles/Vol] 3.7 mmol/L Normal 3.5-5.1 [facility] Comment on above: Performed By: #### C MP, LIPASE, CBC, JACOB #### [address] Protein [Mass/Vol] 5.5 g/dL Low 6.1-7.9 [facility] Comment on above: Performed By: #### C MP, LIPASE, CBC, JACOB #### [address] Sodium [Moles/Vol] 139 mmol/L Normal 136-146 [facility] Comment on above: Performed By: #### C MP, LIPASE, CBC, JACOB #### [address] Urea nitrogen [Mass/Vol] 13 mg/dL Normal 9-23 [facility] Comment on above: Performed By: #### C MP, LIPASE, CBC, JACOB #### [address] ABO/Rh Retypeon 10-30-2020 ABO/RH Recheck Result Positive Normal [facility] Comment on above: Result Comment: PERF ORMED BY: [place] [address] PATHOLOGIST [employer] JENNIFER IRIZARRY M.D. Complete Blood Count Auto Di ffon 10-30-2020 Basophils (Bld) [#/Vol] 0.0 10*3/uL Normal 0.0-0.2 [facility] Comment on above: Result Comment: PERF ORMED BY: [place] [address] PATHOLOGIST [employer] JENNIFER IRIZARRY M.D. Performed By: #### C BC, CMP, LIPASE #### [address] Basophils/100 WBC (Bld) 0.3 % Normal . [facility] Comment on above: Performed By: #### C BC, CMP, LIPASE #### [address] Eosinophils (Bld) [#/Vol] 0.0 10*3/uL Normal 0.0-0.45 [facility] Comment on above: Performed By: #### C BC, CMP, LIPASE #### [address] Eosinophils/100 WBC (Bld) 0.5 % Normal . [facility] Comment on above: Performed By: #### C BC, CMP, LIPASE #### [address] Erythrocyte distribution width (RBC) [Ratio] 13.9 % Normal 11.9-15.3 [facility] Comment on above: Performed By: #### C BC, CMP, LIPASE #### [address] Hematocrit (Bld) [Volume fraction] 39.3 % Normal 34.0-46.4 [facility] Comment on above: Performed By: #### C BC, CMP, LIPASE #### [address] Hemoglobin (Bld) [Mass/Vol] 13.3 g/dL Normal 11.8-15.4 [facility] Comment on above: Performed By: #### C BC, CMP, LIPASE #### [address] Lymphocytes (Bld) [#/Vol] 1.4 10*3/uL Normal 1.00-4.8 [facility] Comment on above: Performed By: #### C BC, CMP, LIPASE #### [address] Lymphocytes/100 WBC (Bld) 19.1 % Normal . [facility] Comment on above: Performed By: #### C BC, CMP, LIPASE #### [address] MCH (RBC) [Entitic mass] 31.1 pg Normal 24.7-34.3 [facility] Comment on above: Performed By: #### C BC, CMP, LIPASE #### [address] MCV (RBC) [Entitic vol] 91.7 fL Normal 80-100 [facility] Comment on above: Performed By: #### C BC, CMP, LIPASE #### [address] Mean Corpuscular HGB Conc 34.0 g/dL Normal 32.0-35.0 [facility] Comment on above: Performed By: #### C BC, CMP, LIPASE #### [address] [place] [address] [place] Monocytes (Bld) [#/Vol] 0.5 10*3/uL Normal 0.0-0.8 [facility] Comment on above: Performed By: #### C BC, CMP, LIPASE #### [facility] [address] [place] [address] [place] Monocytes/100 WBC (Bld) 7.1 % Normal . [facility] Comment on above: Performed By: #### C BC, CMP, LIPASE #### [facility] [address] [place] [address] [place] Neutrophils (Bld) [#/Vol] 5.5 10*3/uL Normal 1.8-7.7 [facility] Comment on above: Performed By: #### C BC, CMP, LIPASE #### [place] [address] [place] Neutrophils/100 WBC (Bld) 73.0 % Normal . [facility] Comment on above: Performed By: #### C BC, CMP, LIPASE #### [facility] [address] [place] [address] [place] Nucleated RBC/100 WBC (Bld) [Ratio] 0.1 % Normal 0-0.5 [facility] Comment on above: Performed By: #### C BC, CMP, LIPASE #### [place] [address] [place] Platelet mean volume (Bld) [Entitic vol] 7.6 fL Normal 6.3-10.7 [facility] Comment on above: Performed By: #### C BC, CMP, LIPASE #### [facility] [address] [place] [address] [place] Platelets (Bld) [#/Vol] 197 10*3/uL Normal 150-450 [facility] Comment on above: Performed By: #### C BC, CMP, LIPASE #### [facility] [address] [place] [address] [place] RBC (Bld) [#/Vol] 4.29 10*6/uL Normal 3.60-5.00 [facility] Comment on above: Performed By: #### C BC, CMP, LIPASE #### [facility] [address] WBC (Bld) [#/Vol] 7.5 10*3/uL Normal 4.5-11.0 [facility] Comment on above: Performed By: #### C BC, CMP, LIPASE #### [facility] [address] Comprehensive Metabolic Pane phoebe 10-30-2020 Albumin [Mass/Vol] 3.0 g/dL Low 3.2-5.5 [facility] Comment on above: Performed By: #### C BC, CMP, LIPASE #### [address] Albumin/Globulin [Mass ratio] 1.0 {ratio} Normal [facility] Comment on above: Performed By: #### C BC, CMP, LIPASE #### [address] ALP [Catalytic activity/Vol] 305 U/L High 32-92 [facility] Comment on above: Performed By: #### C BC, CMP, LIPASE #### [place] [id number] [facility] ALT [Catalytic activity/Vol] 275 U/L High 10-60 [facility] Comment on above: Performed By: #### C BC, CMP, LIPASE #### [place] [id number] [facility] AST [Catalytic activity/Vol] 142 U/L High 10-42 [facility] Comment on above: Performed By: #### C BC, CMP, LIPASE #### [place] [id number] [facility] Bilirubin [Mass/Vol] 2.4 mg/dL High 0.3-1.2 [facility] Comment on above: Result Comment: Samp les from patients who have taken Naproxen have shown spurious elevation in Total Bilirubin levels. A metabolite of Naproxen, O-desmethylnaproxen, has been shown to interfere with the Shanel-Sami method for measuring Total Bilirubin. Performed By: #### C BC, CMP, LIPASE #### [facility] [address] Calcium [Mass/Vol] 9.1 mg/dL Normal 8.2-10.2 [facility] Comment on above: Performed By: #### C BC, CMP, LIPASE #### [facility] [address] Chloride [Moles/Vol] 107 mmol/L Normal 95-114 [facility] Comment on above: Performed By: #### C BC, CMP, LIPASE #### [address] CO2 [Moles/Vol] 25.5 mmol/L Normal 22.0-30.0 [facility] Comment on above: Performed By: #### C BC, CMP, LIPASE #### [address] Creatinine [Mass/Vol] 1.03 mg/dL Normal 0.44-1.03 [facility] Comment on above: Performed By: #### C BC, CMP, LIPASE #### [place] [address] [place] Creatinine Clr Calc Pharmacy 46.30 [facility] Comment on above: Performed By: #### C BC, CMP, LIPASE #### [address] Estimated GFR ( Mariaa > 60 [facility] Comment on above: Result Comment: GFR estimated reference range: According to KDOQI guidelines, <60 ml/min/1.73m2 is sufficient to diagnose a patient with chronic kidney disease. Performed By: #### C BC, CMP, LIPASE #### [address] Estimated GFR (Non- Am 53 [facility] Comment on above: Performed By: #### C BC, CMP, LIPASE #### [address] Globulin (S) [Mass/Vol] 3.0 g/dL [facility] Comment on above: Performed By: #### C BC, CMP, LIPASE #### [facility] [address] Glucose [Mass/Vol] 114 mg/dL High 70-100 [facility] Comment on above: Result Comment: [place] Glucose Reference Range is dependent on time and content of last meal. Glucose of more than 200 mg/dL in a nonstressed, ambulatory subject supports the diagnosis of Diabetes Mellitus. ADA recommended reference range Performed By: #### C BC, CMP, LIPASE #### [facility] [address] Potassium [Moles/Vol] 4.0 mmol/L Normal 3.5-5.1 [facility] Comment on above: Performed By: #### C BC, CMP, LIPASE #### [facility] [address] Protein [Mass/Vol] 6.0 g/dL Low 6.1-7.9 [facility] Comment on above: Performed By: #### C BC, CMP, LIPASE #### [facility] [address] Sodium [Moles/Vol] 140 mmol/L Normal 136-146 [facility] Comment on above: Performed By: #### C BC, CMP, LIPASE #### [facility] [address] Urea nitrogen [Mass/Vol] 15 mg/dL Normal 9-23 [facility] Comment on above: Performed By: #### C BC, CMP, LIPASE #### [facility] [address] [place] ERCPon 10-30-2020 [place] ERCP [facility] [place] [address] [place] [address] Fluoroscopy Report Signed Patient: Molly Garcia MR#: [id number] : 1950 Acct:[id number] Age/Sex: 70 / F ADM Date: 10/29/20 Loc: Room: [address] [place] [address] Type: ADM IN Attending Dr: Amor Vaca MD Ordering Provider: Amor Vaca MD Date of Service: 10/30/20 [place]/FL ERCP: ERCP Copies to: Amor Vaca MD ERCP - 12 images CLINICAL DATA: Nausea. Biliary obstruction. Recent laparoscopic cholecystectomy. COMPARISON: None The procedure was performed by Dr. Vera. Multiple spot films were obtained during retrograde injection of contrast into the distal common duct. The duct is not significantly distended. Subsequent images demonstrate a wire passed through the duct and a balloon catheter. 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 Fluoroscopy time: 11 minutes 24 seconds Impression dictated by: Loyda Miranda M.D.10/30/2020 8:06 PM Dictation Location: [place] [address] Transcribed By: [facility] 10/30/202005 Dictated By: Loyda Miranda MD 10/30/202002 Signed By: 10/30/202005 Normal [facility] Lipaseon 10-30-2020 Lipase [Catalytic activity/Vol] 198.0 U/L High 22-51 [facility] Comment on above: Result Comment: PERF ORMED BY: [place] [address] PATHOLOGIST [employer] JENNIFER IRIZARRY M.D. Performed By: #### C BC, CMP, LIPASE #### [facility] [address] [place], [place] [id number] [facility] Prothrombin Time INRon 10-30 INR Coag (PPP) [Relative time] 1.2 {INR} [facility] Comment on above: Result Comment: INR Therapeutic Range A) Pre- and Peroperative OAT started two weeks before surgery. NOT HIP SURGERY: 1.5 - 2.5 HIP SURGERY: 2 - 3 B) Primary and secondary prevention of venous THROMBOSIS: 2 - 3 C) Active venous thrombosis, pulmonary embolism and prevention of recurrent venous thrombosis: 2 - 3 D) Prevention of arterial thromboembolism including patients with mechanical heart valves: 3 - 4.5 PERFORMED BY: [place] [address] PATHOLOGIST [employer] JENNIFER IRIZARRY M.D. Performed By: #### P T #### [facility] [address] [place] [id number] [facility] PT Coag (PPP) [Time] 13.3 s High 9.0-12.9 [facility] Comment on above: Performed By: #### P T #### [facility] [address] Type and Screenon 10-30-2020 ABO and Rh group Nom (Bld) Blood group O Rh(D) positive Normal [facility] Amylaseon 10-29-2020 Amylase [Catalytic activity/Vol] 1490 U/L High 28-100 [facility] Comment on above: Performed By: #### C MP, LIPASE, CBC, JACOB #### [facility] [address] [place] [address] COVID-19 FRMCon 10-29-2020 SARS-CoV-2 (COVID-19) RNA ROBE+probe Ql (Unsp spec) Negative Normal Negative [facility] Comment on above: Order Comment: Healt hcare Worker?: N Result Comment: Testing for SARS-CoV-2 by RT-PCR This test was developed and its performance characteristics determined by [employer] and validated at the [facility]. This test has not been FDA cleared or approved. This test has been authorized by FDA under an Emergency Use Authorization (EUA). This test has been validated in accordance with the FDA's Guidance Document (Policy for Diagnostics Testing in Laboratories Certified to Perform High Complexity Testing under CLIA prior to Emergency Use Authorization for Coronavirus Disease-2019 during the Public Health Emergency) issued on June 07, 2019. This test is only authorized for the duration of time the declaration that circumstances exist justifying the authorization of the emergency use of in vitro diagnostic tests for detection of SARS-CoV-2 virus and/or diagnosis of COVID-19 infection under section 564(b)(1) of the Act, 21 U.S.C. 360bbb-3(b)(1), unless the authorization is terminated or revoked sooner. PERFORMED BY: [address] [place] [address] PATHOLOGIST [employer] JENNIFER IRIZARRY M.D. Performed By: #### C MP, LIPASE, CBC, JACOB #### [address] Complete Blood Count Auto Di ffon 10-29-2020 Basophils (Bld) [#/Vol] 0.0 10*3/uL Normal 0.0-0.2 [facility] Comment on above: Result Comment: PERF ORMED BY: [place] [address] PATHOLOGIST [employer] JENNIFER IRIZARRY M.D. Performed By: #### C MP, LIPASE, CBC, JACOB #### [address] Basophils/100 WBC (Bld) 0.4 % Normal . [facility] Comment on above: Performed By: #### C MP, LIPASE, CBC, JACOB #### [address] Eosinophils (Bld) [#/Vol] 0.0 10*3/uL Normal 0.0-0.45 [facility] Comment on above: Performed By: #### C MP, LIPASE, CBC, JACOB #### [address] Eosinophils/100 WBC (Bld) 0.3 % Normal . [facility] Comment on above: Performed By: #### C MP, LIPASE, CBC, JACOB #### [address] Erythrocyte distribution width (RBC) [Ratio] 14.0 % Normal 11.9-15.3 [facility] Comment on above: Performed By: #### C MP, LIPASE, CBC, JACOB #### [address] Hematocrit (Bld) [Volume fraction] 39.7 % Normal 34.0-46.4 [facility] Comment on above: Performed By: #### C MP, LIPASE, CBC, JACOB #### [address] Hemoglobin (Bld) [Mass/Vol] 13.4 g/dL Normal 11.8-15.4 [facility] Comment on above: Performed By: #### C MP, LIPASE, CBC, JACOB #### [address] Lymphocytes (Bld) [#/Vol] 1.4 10*3/uL Normal 1.00-4.8 [facility] Comment on above: Performed By: #### C MP, LIPASE, CBC, JACOB #### [address] Lymphocytes/100 WBC (Bld) 19.0 % Normal . [facility] Comment on above: Performed By: #### C MP, LIPASE, CBC, JACOB #### [address] MCH (RBC) [Entitic mass] 31.0 pg Normal 24.7-34.3 [facility] Comment on above: Performed By: #### C MP, LIPASE, CBC, JACOB #### [address] MCV (RBC) [Entitic vol] 91.7 fL Normal 80-100 [facility] Comment on above: Performed By: #### C MP, LIPASE, CBC, JACOB #### [address] Mean Corpuscular HGB Conc 33.9 g/dL Normal 32.0-35.0 [facility] Comment on above: Performed By: #### C MP, LIPASE, CBC, JACOB #### [address] Monocytes (Bld) [#/Vol] 0.6 10*3/uL Normal 0.0-0.8 [facility] Comment on above: Performed By: #### C MP, LIPASE, CBC, JACOB #### [address] Monocytes/100 WBC (Bld) 7.7 % Normal . [facility] Comment on above: Performed By: #### C MP, LIPASE, CBC, JACOB #### [address] Neutrophils (Bld) [#/Vol] 5.4 10*3/uL Normal 1.8-7.7 [facility] Comment on above: Performed By: #### C MP, LIPASE, CBC, JACOB #### [address] Neutrophils/100 WBC (Bld) 72.6 % Normal . [facility] Comment on above: Performed By: #### C MP, LIPASE, CBC, JACOB #### [address] Nucleated RBC/100 WBC (Bld) [Ratio] 0.0 % Normal 0-0.5 [facility] Comment on above: Performed By: #### C MP, LIPASE, CBC, JACOB #### [address] Platelet mean volume (Bld) [Entitic vol] 7.4 fL Normal 6.3-10.7 [facility] Comment on above: Performed By: #### C MP, LIPASE, CBC, JACOB #### [address] Platelets (Bld) [#/Vol] 212 10*3/uL Normal 150-450 [facility] Comment on above: Performed By: #### C MP, LIPASE, CBC, JACOB #### [address] RBC (Bld) [#/Vol] 4.33 10*6/uL Normal 3.60-5.00 [facility] Comment on above: Performed By: #### C MP, LIPASE, CBC, JACOB #### [address] WBC (Bld) [#/Vol] 7.5 10*3/uL Normal 4.5-11.0 [facility] Comment on above: Performed By: #### C MP, LIPASE, CBC, JACOB #### [address] Comprehensive Metabolic Pane phoebe 10-29-2020 Albumin [Mass/Vol] 3.1 g/dL Low 3.2-5.5 [facility] Comment on above: Performed By: #### C MP, LIPASE, CBC, JACOB #### [facility] [address] Albumin/Globulin [Mass ratio] 1.0 {ratio} Normal [facility] Comment on above: Performed By: #### C MP, LIPASE, CBC, JACOB #### [facility] [address] [place] [id number] [facility] ALP [Catalytic activity/Vol] 295 U/L High 32-92 [facility] Comment on above: Performed By: #### C MP, LIPASE, CBC, JACOB #### [facility] [address] ALT [Catalytic activity/Vol] 331 U/L High 10-60 [facility] Comment on above: Performed By: #### C MP, LIPASE, CBC, JACOB #### [facility] [address] AST [Catalytic activity/Vol] 189 U/L High 10-42 [facility] Comment on above: Performed By: #### C MP, LIPASE, CBC, JACOB #### [facility] [address] Bilirubin [Mass/Vol] 5.4 mg/dL High 0.3-1.2 [facility] Comment on above: Result Comment: Samp les from patients who have taken Naproxen have shown spurious elevation in Total Bilirubin levels. A metabolite of Naproxen, O-desmethylnaproxen, has been shown to interfere with the Jendrassik-Grof method for measuring Total Bilirubin. Performed By: #### C MP, LIPASE, CBC, JACOB #### [facility] [address] [place] [id number] [place] Calcium [Mass/Vol] 9.2 mg/dL Normal 8.2-10.2 [facility] Comment on above: Performed By: #### C MP, LIPASE, CBC, JACOB #### [facility] [address] [place] [id number] [place] Chloride [Moles/Vol] 105 mmol/L Normal 95-114 [facility] Comment on above: Performed By: #### C MP, LIPASE, CBC, JACOB #### [facility] [address] CO2 [Moles/Vol] 24.0 mmol/L Normal 22.0-30.0 [facility] Comment on above: Performed By: #### C MP, LIPASE, CBC, JACOB #### [address] Creatinine [Mass/Vol] 1.23 mg/dL High 0.44-1.03 [facility] Comment on above: Performed By: #### C MP, LIPASE, CBC, JACOB #### [address] Creatinine Clr Calc Pharmacy 38.78 [facility] Comment on above: Performed By: #### C MP, LIPASE, CBC, JACOB #### [address] Estimated GFR ( Mariaa 52 [facility] Comment on above: Result Comment: GFR estimated reference range: According to KDOQI guidelines, <60 ml/min/1.73m2 is sufficient to diagnose a patient with chronic kidney disease. Performed By: #### C MP, LIPASE, CBC, JACOB #### [address] Estimated GFR (Non- Am 43 [facility] Comment on above: Performed By: #### C MP, LIPASE, CBC, JACOB #### [address] Globulin (S) [Mass/Vol] 3.0 g/dL [facility] Comment on above: Performed By: #### C MP, LIPASE, CBC, JACOB #### [address] Glucose [Mass/Vol] 92 mg/dL Normal 70-100 [facility] Comment on above: Result Comment: [place] Glucose Reference Range is dependent on time and content of last meal. Glucose of more than 200 mg/dL in a nonstressed, ambulatory subject supports the diagnosis of Diabetes Mellitus. ADA recommended reference range Performed By: #### C MP, LIPASE, CBC, JACOB #### [address] Potassium [Moles/Vol] 4.1 mmol/L Normal 3.5-5.1 [facility] Comment on above: Performed By: #### C MP, LIPASE, CBC, JACOB #### [address] Protein [Mass/Vol] 6.1 g/dL Normal 6.1-7.9 [facility] Comment on above: Performed By: #### C MP, LIPASE, CBC, JACOB #### [address] Sodium [Moles/Vol] 138 mmol/L Normal 136-146 [facility] Comment on above: Performed By: #### C MP, LIPASE, CBC, JACOB #### [address] Urea nitrogen [Mass/Vol] 16 mg/dL Normal 9-23 [facility] Comment on above: Performed By: #### C MP, LIPASE, CBC, JACOB #### [address] Dipstick and Microscopicon 0 10-29-2020 Appearance (U) Cloudy Critically abnormal Clear [facility] Comment on above: Order Comment: Name Collection Type:: Clean-Voided Midstream Performed By: #### A DDONUAPLUS, CUU #### [place] [address] [place] Bacteria,Urine None Seen Normal None Seen [facility] Comment on above: Order Comment: Name Collection Type:: Clean-Voided Midstream Performed By: #### A DDONUAPLUS, CUU #### [place] [address] [place] Bilirubin,Urine 2+ High Negative [facility] Comment on above: Order Comment: Name Collection Type:: Clean-Voided Midstream Performed By: #### A DDONUAPLUS, CUU #### [address] Color (U) Dark Yellow Critically abnormal Yellow [facility] Comment on above: Order Comment: Name Collection Type:: Clean-Voided Midstream Performed By: #### A DDONUAPLUS, CUU #### [facility] [address] [place] [address] [place] Glucose Ql (U) Normal Normal Normal [facility] Comment on above: Order Comment: Name Collection Type:: Clean-Voided Midstream Performed By: #### A DDONUAPLUS, CUU #### [place] [address] [place] Hyaline Casts,Urine 0-8 Normal 0-8 [facility] Comment on above: Order Comment: Name Collection Type:: Clean-Voided Midstream Result Comment: PERF ORMED BY: [place] [address] PATHOLOGIST [employer] JENNIFER IRIZARRY M.D. Performed By: #### A DDONUAPLUS, CUU #### [facility] [address] [place] [address] [place] Ketones Ql (U) 1+ High Negative [facility] Comment on above: Order Comment: Name Collection Type:: Clean-Voided Midstream Performed By: #### A DDONUAPLUS, CUU #### [place] [address] [place] Leukocyte esterase Test strip Ql (U) 2+ High Negative [facility] Comment on above: Order Comment: Name Collection Type:: Clean-Voided Midstream Performed By: #### A DDONUAPLUS, CUU #### [facility] [address] [place] [address] [place] Nitrite,Urine Negative Normal Negative [facility] Comment on above: Order Comment: Name Collection Type:: Clean-Voided Midstream Performed By: #### A DDONUAPLUS, CUU #### [place] [address] [place] Occult Blood,Urine Negative Normal Negative [facility] Comment on above: Order Comment: Name Collection Type:: Clean-Voided Midstream Result Comment: PERF ORMED BY: [place] [address] PATHOLOGIST POWER LINEMAN JENNIFER IRIZARRY M.D. Performed By: #### A DDONUAPLUS, CUU #### [address] pH (U) 5.5 [pH] Normal 5.0-9.0 [facility] Comment on above: Order Comment: Name Collection Type:: Clean-Voided Midstream Performed By: #### A DDONUAPLUS, CUU #### [address] Protein,Urine Trace High Negative [facility] Comment on above: Order Comment: Name Collection Type:: Clean-Voided Midstream Performed By: #### A DDONUAPLUS, CUU #### [address] RBC,Urine 3-4 Normal 0-4 [facility] Comment on above: Order Comment: Name Collection Type:: Clean-Voided Midstream Performed By: #### A DDONUAPLUS, CUU #### [address] Specificy [place],Urine 1.022 Normal 1.001-1.030 [facility] Comment on above: Order Comment: Name Collection Type:: Clean-Voided Midstream Performed By: #### A DDONUAPLUS, CUU #### [address] Squamous Epithelial Cell,Urine 0-1 Normal 0-2 [facility] Comment on above: Order Comment: Name Collection Type:: Clean-Voided Midstream Performed By: #### A DDONUAPLUS, CUU #### [address] Urobilinogen,Urine Normal Normal Normal [facility] Comment on above: Order Comment: Name Collection Type:: Clean-Voided Midstream Performed By: #### A DDONUAPLUS, CUU #### [place] [address] [place] WBC,Urine 10-19 High 0-4 [facility] Comment on above: Order Comment: Name Collection Type:: Clean-Voided Midstream Performed By: #### A DDONUAPLUS, CUU #### [facility] [address] [place] [address] Lipaseon 10-29-2020 Lipase [Catalytic activity/Vol] 662.0 U/L High 22-51 [facility] Comment on above: Result Comment: PERF ORMED BY: [place] [address] PATHOLOGIST POWER LINEMAN JENNIFER IRIZARRY M.D. Performed By: #### C MP, LIPASE, CBC, JACOB #### [facility] [address] [place] [address] Urine Cultureon 10-29-2020 Bacteria identified Cx Nom (U) No Growth 2 Days PERFORMED BY: [place] [address] PATHOLOGIST POWER LINEMAN JENNIFER IRIZARRY M.D. [facility] Comment on above: Performed By: #### A DDONUAPLUS, CUU #### [facility] [address] [place] [address] Vital Signs Date Time Vital Sign Value Performing Clinician Facility 02-05-2023 12:00-0500 Body height 154.94 cm Siomara Mcfarland Other [facility] Other 02-05-2023 12:00-0500 Body mass index (BMI) [Ratio] 34.2 kg/m2 Siomara Mcfarland Other [facility] Other 02-05-2023 12:00-0500 Body temperature 98.2 [degF] Siomara Mcfarland Other [facility] Other 02-05-2023 12:00-0500 Body weight 82.1 kg Siomara Mcfarland Other [facility] Other 02-05-2023 12:00-0500 Diastolic blood pressure 78 mm[Hg] Siomara Mcfarland Other [facility] Other 02-05-2023 12:00-0500 Respiratory rate 19 /min Siomara Mcfarland Other [facility] Other 02-05-2023 12:00-0500 SaO2% (BldA) [Mass fraction] 97 % Siomara Mcfarland Other [facility] Other 02-05-2023 12:00-0500 Systolic blood pressure 135 mm[Hg] Siomara Mcfarland Other [facility] Other 11-12-2022 09:15-0400 Body height 154.94 cm Jimmie Ball Other [facility] Other 11-12-2022 09:15-0400 Body mass index (BMI) [Ratio] 32.91 kg/m2 Jimmie Ball Other [facility] Other 11-12-2022 09:15-0400 Body weight 79.02 kg Jimmie Ball Other [facility] Other 11-12-2022 09:15-0400 Diastolic blood pressure 71 mm[Hg] Jimmie Ball Other [facility] Other 11-12-2022 09:15-0400 Respiratory rate 12 /min Jimmie Ball Other [facility] Other 11-12-2022 09:15-0400 Systolic blood pressure 130 mm[Hg] Jimmie Ball Other [facility] Other 11-02-2022 17:55-0400 Body height 154.94 cm Marivel Whitlock Other [facility] Other 11-02-2022 17:55-0400 Body mass index (BMI) [Ratio] 32.87 kg/m2 Marivel Whitlock Other [facility] Other 11-02-2022 17:55-0400 Body temperature 98.2 [degF] Marivel Whitlock Other [facility] Other 11-02-2022 17:55-0400 Body weight 78.93 kg Marivel Whitlock Other [facility] Other 11-02-2022 17:55-0400 Diastolic blood pressure 72 mm[Hg] Marivel Whitlock Other [facility] Other 11-02-2022 17:55-0400 Respiratory rate 18 /min Marivel Whitlock Other [facility] Other 11-02-2022 17:55-0400 SaO2% (BldA) [Mass fraction] 97 % Marivel Whitlock Other [facility] Other 11-02-2022 17:55-0400 Systolic blood pressure 136 mm[Hg] Marivel Whitlock Other [facility] Other 06-21-2022 12:30-0400 Body height 154.94 cm Jimmie Ball Other [facility] Other 06-21-2022 12:30-0400 Body mass index (BMI) [Ratio] 32.42 kg/m2 Jimmie Ball Other [facility] Other 06-21-2022 12:30-0400 Body weight 77.84 kg Jimmie Ball Other [facility] Other 06-21-2022 12:30-0400 Diastolic blood pressure 75 mm[Hg] Jimmie Ball Other [facility] Other 06-21-2022 12:30-0400 Respiratory rate 12 /min Jimmie Melendez Other [facility] Other 06-21-2022 12:30-0400 Systolic blood pressure 126 mm[Hg] Jimmie Melendez Other [facility] Other 02-27-2021 11:30-0500 Body height 154.94 cm Marivel Alvesmond Other [facility] Other 02-27-2021 11:30-0500 Body mass index (BMI) [Ratio] 31.17 kg/m2 Marivel Alvesmond Other [facility] Other 02-27-2021 11:30-0500 Body temperature 97.5 [degF] Marivel Alvesmond Other [facility] Other 02-27-2021 11:30-0500 Body weight 74.84 kg Marivel Whitlock Other [facility] Other 02-27-2021 11:30-0500 Respiratory rate 18 /min Marivel Alvesmond Other [facility] Other 02-27-2021 11:30-0500 SaO2% (BldA) [Mass fraction] 98 % Marivel Chinyere Other [facility] Other Encounters Encounter Date Encounter Type Care Provider Facility Start: 03-02-2023 End: 03-02-2023 ambulatory Jimmie Melendez Other [facility] Other Start: 03-02-2023 Office outpatient vi sit 15 minutes Jimmie Melendez [facility] Start: 02-05-2023 End: 02-05-2023 ambulatory Siomara Mcfarland Other [facility] Other Start: 02-05-2023 Office outpatient vi sit 15 minutes Siomara Mcfarland [facility] Start: 12-15-2022 ambulatory Alvaro Melendez DO [facility] Start: 12-15-2022 End: 12-16-2022 ambulatory Alvaro Melendez DO Facility[facility] Start: 11-12-2022 End: 11-12-2022 ambulatory Jimmie Melendez Other [facility] Other Start: 11-12-2022 Office outpatient vi sit 15 minutes Jimmie Melendez [facility] Start: 11-12-2022 Telephone encounter Jimmie Melendez [facility] Start: 11-05-2022 End: 11-05-2022 ambulatory Jimmie Melendez Other [facility] Other Start: 11-05-2022 Telephone encounter Jimmie Melendez [facility] Start: 11-02-2022 Office outpatient vi sit 15 minutes Marivel Whitlock [facility] Start: 11-02-2022 End: 11-02-2022 ambulatory Zulay Lopez PA-C [facility] Start: 10-05-2022 End: 10-05-2022 ambulatory Jimmie Melendez Other [facility] Other Start: 10-05-2022 Nursing evaluation o f patient and report Jimmie Melendez [facility] Start: 08-17-2022 End: 08-17-2022 ambulatory Jimmie Melendez Other [facility] Other Start: 08-17-2022 Telephone encounter Jimmie Melendez [facility] Start: 06-21-2022 End: 06-21-2022 ambulatory Jimmie Melendez Other [facility] Other Start: 06-21-2022 Office outpatient vi sit 25 minutes Jimmie LE [facility] Start: 12-07-2021 End: 12-08-[address] JIMMIE MELENDEZ Facility:[facility] Start: 11-26-2021 End: 11-27-[address] JIMMIE MELENDEZ Facility:[facility] Start: 11-20-2021 End: 11-21-[address] JIMMIE MELENDEZ Facility:[facility] Start: 09-23-2021 End: 09-24-[address] JIMMIE MELENDEZ Facility:[facility] Start: 09-17-2021 End: 09-18-[address] JIMMIE MELENDEZ Facility:[facility] Start: 09-16-2021 End: 09-17-[address] KRISTIE CERVANTES Facility:[facility] Start: 07-14-2021 End: 07-14-[address] CINTHIA BERNARD Facility:[facility] Start: 07-11-[address] CINTHIA BERNARD Facili ty:[facility] Start: 07-08-2021 Encounter for preprocedural cardiovascular examination DR CINTHIA BERNARD [facility] Start: 07-08-2021 Encounter for preprocedural laboratory examination DR CINTHIA BERNARD [facility] Start: 07-06-2021 End: 07-07-[address] CINTHIA BERNARD Facility:[facility] Start: 07-06-2021 End: 07-07-2021 Encounter for preprocedural cardiovascular examination DR CINTHIA BERNARD Facility:[facility] Start: 05-21-2021 End: 05-22-[address] CINTHIA BERNARD Facility:[facility] Start: 02-27-2021 End: 02-27-2021 ambulatory Marivel Whitlock Other [facility] Other Start: 02-27-2021 Office outpatient vi sit 15 minutes Marivel Whitlock [facility] Procedures Date Procedure Procedure Detail Performing Clinician Start: 10-30-2020 Antibody screen Comment on above: Result Comment: PERF ORMED BY: [facility] [address] [place] [address] PATHOLOGIST POWER LINEMAN JENNIFER IRIZARRY M.D. History of cholecystectomy B melchor Melendez Other Immunizations Immunization Date Immunization Notes Care Provider Venu modi 10-05-2022 Prevnar 20 Jimmie Al Other [facility] Other 01-20-2022 COVID-19 Pfizer (Pediatric) Jimmie Melendez Other [facility] Other 12-21-2021 influenza, high dose seasonal, preservative-free Jimmie Al Other [facility] Other 11-26-2021 diphtheria, tetanus toxoids and acellular pertussis vaccine, unspecified formulation Jimmie Melendez Other [facility] Other 08-20-2021 COVID-19 Vaccine Pfi zer - Documentation Purposes Only Jimmie Melendez Other [facility] Other 12-22-2020 COVID-19 Vaccine Pfi zer - Documentation Purposes Only Jimmie Melendez Other [facility] Other 11-30-2020 influenza virus vaccine, split virus (incl. purified surface antigen) Jimmie Melendez Other [facility] Other 04-23-2020 COVID-19 Vaccine Pfi zer - Documentation Purposes Only Jimmie Melendez Other [facility] Other 03-31-2020 COVID-19 Vaccine Pfi zer - Documentation Purposes Only Jimmie Melendez Other [facility] Other 12-27-2019 influenza virus vaccine, split virus (incl. purified surface antigen) Jimmie Melendez Other [facility] Other 08-09-2019 pneumococcal polysaccharide vaccine, 23 valent Jimmie Melendez Other [facility] Other 01-02-2019 influenza virus vaccine, split virus (incl. purified surface antigen) Jimmie Melendez Other [facility] Other 12-14-2017 diphtheria, tetanus toxoids and acellular pertussis vaccine, unspecified formulation Jimmie Melendez Other [facility] Other Payers Date Payer Category Payer Unknown 2016 Medicare 1958 Medicare [id number] 2.1 [id number] 1959 Private Health Insurance CLI [id number] 1951 Unknown [id number] 2.16.84 [id number] 1951 Unknown [id number] 2.16.84 0.1.891827.3.579.2.593 1951 Unknown [id number] 2.16.84 0.1.204935.3.579.2.593 1951 Unknown [id number] 2.16.84 0.1.544592.3.579.2.593 1951 Unknown [id number] 2.16.84 0.1.353456.3.579.2.593 1951 Unknown [id number] 2.16.84 0.1.522160.3.579.2.593 1951 Unknown [id number] 2.16.84 0.1.677231.3.579.2.593 1951 Unknown [id number] 2.16.84 0.1.520883.3.579.2.593 1951 Unknown [id number] 2.16.84 0.1.936385.3.579.2.593 1951 Unknown [id number] 2.16.84 0.1.801656.3.579.2.593 1951 Unknown [id number] 2.16. 840.1.303472.3.579.2.196 1951 Unknown [id number] 2.16. 840.1.183794.3.579.2.196 1950 Unknown [id number] 2.16. 840.1.582035.3.579.2.196 1950 Unknown [id number] 2.16. [id number] Self-pay Social History Date Type Detail Facility Sex Assigned At [facility] Other Clinical Notes 02-27-2021 to 03-02-2023 Note Date & Type Note Facility 03-02-2023 Evaluation note Encounter Date Diagnosis Assessment Notes Feb, Acute non-recurrent maxillary sinusitis (ICD-10 - J01.00) Instructed to use Robitussin or Mucinex for cough, saline or Flonase NS for congestion, Tylenol for pain and fever. Feb, Suspected COVID-19 virus infection (ICD-10 - Z20.822) Will send testing to [facility] to be completed tomorrow - this will decrease the risk of a FN w/ both Ag and PCR testing. Self isolate at home. - Cannot work - avoid contact with others - avoid pets - wipe counters, door knobs if touched - if can't avoid leaving home, must wear mask to protect others - need to stay isolated for 10 days from onset of symptoms - to discontinue isolation must be 5 days AND must be without fever for 24 hours AND symptoms must be improving. Always wear a mask in public places for complete 10 days Feb, Primary hypertension (ICD-10 - I10) Avoid use of decongestants. Rest and push fluids. Increases risk of more severe, prolonged illness [facility] Other 12-02-2023 Evaluation note* Encounter Date Diagnosis Assessment Notes Treatment Notes Treatment Clinical Notes Feb, Acute pansinusitis (ICD-10 - J01.40) rx sent, take as directed. continue symptomatic tx c otc meds prn. recommended hot steam baths and/or cool mist humidifier. push rest/fluids. reinforced universal infection control protocols and good hand hygiene for infection control. pt education and anticipatory guidance provided on viral vs bacterial infection progression. immediate eval if warning s/s of intractable fevers, respir distress or other emergent symptoms. otherwise f/u with PCP if febrile or new/worsening s/s. [facility] Other 09-08-2023 Evaluation note* Encounter Date Diagnosis Assessment Notes Treatment Notes Treatment Clinical Notes Nov, Thoracogenic scoliosis of thoracolumbar region (ICD-10 - M41.35) ROM/stretching exercises Heat/ice and Tylenol Has Oxycodone from previous surgery using for severe pain - aware of sedative side effects Nov, Cervical spondylosis (ICD-10 - M47.812) ROM exercises, heat/ice and Tylenol. XR to assess for arthritis Refer to PT if XR negative for fx Nov, Lumbar spondylosis (ICD-10 - M47.816) ROM exercises, heat/ice and Tylenol. XR to assess for arthritis Refer to PT if XR negative for fx Nov, Stage 3a chronic kidney disease (ICD-10 - N18.31) The patient is instructed on adequate control of hypertension and diabetes, if appropriate. They are also educated on the associated risks of NSAIDs and PPI use with kidney disease. They were instructed on adequate fluid balance and to avoid dehydration. AVoid use of NSAIDs Nov, Primary hypertension (ICD-10 - I10) This patient is instructed to consume a healthy, low-fat, low-salt diet. They are also encouraged to continue exercise to achieve/maintain a normal BMI. [facility] Other 08-29-2023 Evaluation note* Encounter Date Diagnosis Assessment Notes Treatment Notes Treatment Clinical Notes Oct, Acute otitis externa of right ear, unspecified type (ICD-10 - H60.501) Otitis externa home care material was printed Drink plenty fluids, get plenty of rest. Continue home medications as prescribed. Take the Medrol Dosepak as prescribed until gone. Use eardrops as prescribed. Follow-up with your family doctor if no improvement in 2 to 3 days. Take Tylenol as needed for pain. Oct, Strain of lumbar region, initial encounter (ICD-10 - S39.012A) Low back pain home care material was printed [facility] Other 04-17-2023 Evaluation note* Encounter Date Diagnosis Assessment Notes Treatment Notes Treatment Clinical Notes Jun, Essential (primary) hypertension (ICD-10 - I10) This patient is instructed to consume a healthy, low-fat, low-salt diet. They are also encouraged to continue exercise to achieve/maintain a normal BMI. Jun, Hyperlipidemia type II (ICD-10 - E78.01) Diet and exercise with continued statin therapy. Jun, Non-alcoholic fatty liver disease (ICD-10 - K76.0) Healthy low fat, high protein diet. Exercise w/ goal of weight loss Jun, Intermittent palpitations (ICD-10 - R00.2) Avoid stimulants and hydrate Jun, Obesity (BMI 30-39.9 ) (ICD-10 - E66.9) This patient has been instructed on a low-fat, high-fiber diet. They are instructed to reduce calories, portion sizes and snacks. It is recommended that they exercise for 30 minutes, 3-5 times weekly. Jun, Heart murmur (ICD-10 - R01.1) Asymptomatic, denies CP, palpitations, lightheadedness, orthopnea or edema Jun, Screening mammogram for breast cancer (ICD-10 - Z12.31) Monthly SBE and yearly mammogram Jun, Menopause (ICD-10 - Z78.0) DEXA scan qoy. Exercise, Ca and Vitamine D supplements Jun, High risk medication use (ICD-10 - Z79.899) [facility] Other 07-21-2022 NotePROCEDURE: XR FOOT RT MIN 3 VIEWS, XR ANKLE RT MIN 3 VIEWS COMPARISON: None. HISTORY: Pain FINDINGS: BONES:No acute fracture or dislocation. Severe osteoarthritis of the first metatarsal phalangeal joint with urux-nf-pcjv articulation and bony remodeling. Moderate bulky enthesopathic spurring of the calcaneus at the Achilles and plantar insertions. Moderate degenerative changes mid foot with joint space narrowing and marginal osteophyte formation SOFT TISSUES:Negative. No visible soft tissue swelling. EFFUSION:None visible. OTHER: Negative. IMPRESSION: Degenerative osteoarthritis with severe changes at the first metatarsal-phalangeal joint Electronically authenticated by: PURNIMA CORTEZ Date: 2021-09-24 07:23[facility]07-21-2022 NotePROCEDURE: XR FOOT RT MIN 3 VIEWS, XR ANKLE RT MIN 3 VIEWS COMPARISON: None. HISTORY: Pain FINDINGS: BONES:No acute fracture or dislocation. Severe osteoarthritis of the first metatarsal phalangeal joint with gsmc-ky-hcqc articulation and bony remodeling. Moderate bulky enthesopathic spurring of the calcaneus at the Achilles and plantar insertions. Moderate degenerative changes mid foot with joint space narrowing and marginal osteophyte formation SOFT TISSUES:Negative. No visible soft tissue swelling. EFFUSION:None visible. OTHER: Negative. IMPRESSION: Degenerative osteoarthritis with severe changes at the first metatarsal-phalangeal joint Electronically authenticated by: PURNIMA CORTEZ Date: 2021-09-24 07:23[facility]05-10-2022 NoteOPERATIVE NOTE OPERATION DATE: 07/14/2021 PRIMARY CARE PHYSICIAN: Jimmie Melendez D.O. SURGEON: Cinthia Bernard M.D. PREOPERATIVE DIAGNOSIS: Right eustachian tube dysfunction. POSTOPERATIVE DIAGNOSIS: Right eustachian tube dysfunction. PROCEDURE: Right myringotomy and tube with microdissection, placement of T-tube. ANESTHESIA: General LMA. COMPLICATIONS: None. FINDINGS: Dry middle ear with reduced posterior tympanic membrane retraction. INDICATIONS: This 71-year-old 2 woman presented with right eustachian tube dysfunction, unresponsive to aggressive medical management. PROCEDURE: Patient identified in the holding area and taken back to the OR where she was placed in the supine position. After induction of general anesthesia by LMA, the right ear was approached with the otomicroscope. An anterior radial myringotomy was performed. A modified Pierce's T-tube was folded and inserted through the myringotomy and opened in the middle ear using microdissection. Patient was then awakened and taken to the recovery room in good condition. [facility] Signed and Approved by: DR CINTHIA BERNARD 07/15/2021 07:48:00[facility]12-24-2021 Evaluation note* Encounter Date Diagnosis Assessment Notes Treatment Notes Treatment Clinical Notes Feb, Contact with and (suspected) exposure to other viral communicable diseases (ICD-10 - Z20.828) Feb, Acute sinusitis, recurrence not specified, unspecified location (ICD-10 - J01.90) Drink plenty fluids, get plenty of rest. Take Tylenol Motrin as needed for aches pains or fevers. Continue to use your Flonase inhaler as prescribed. Take your home medications as prescribed including the Zithromax. Take the prednisone as prescribed until gone. Follow-up with your family physician if no improvement in 2 to 3 days. Feb, Other Additional time spent conducting pre-visit phone call, screening for symptoms, instructions on social distancing, application and removal of PPE, and cleaning of examination room, equipment and supplies was preformed. Patient education given for testing methodology and results. Patient care instructions given in writting by [facility] document. [facility] Other Evaluation noteNo InformationNortWinkapp Other [facility] Narrative - Reported* Type Description Date Surgical History Bilateral Knees Replacement 03/07 4 Surgical History Herniated Discs-Low back Surgical History gallbladder removed 2020 Hospitalization History See past surgical histor y [facility] Other [facility] Narrative - Reported* Type Description Date Medical History Positive colorectal cancer screening using Cologuard test Medical History Intermittent palpitations Medical History Hyperlipidemia type II Medical History Irritable bowel syndrome with di arrhea Medical History Non-alcoholic fatty liver diseas e Medical History Essential (primary) hypertension Medical History Orthostatic hypotension Medical History Callus Medical History Murmur Medical History Brachioradialis muscle tendernes s Medical History History of cholecystectomy Medical History Elevated transaminase level Medical History Lumbar spondylosis Surgical History Bilateral Knees Replacement 03/07 4 Surgical History Herniated Discs-Low back Surgical History gallbladder removed 2020 Surgical History EXPLORATORY MYRINGOTOMY OF RIGH T EAR Surgical History ERCP, ADULT Hospitalization History See past surgical histor y [facility] Other [facility] Narrative - Reported* Type Description Date Medical History Positive colorectal cancer screening using Cologuard test Medical History Intermittent palpitations Medical History Hyperlipidemia type II Medical History Irritable bowel syndrome with di arrhea Medical History Non-alcoholic fatty liver diseas e Medical History Essential (primary) hypertension Medical History Orthostatic hypotension Medical History Callus Medical History Murmur Medical History Brachioradialis muscle tendernes s Medical History History of cholecystectomy Medical History Elevated transaminase level Medical History Lumbar spondylosis Surgical History Bilateral Knees Replacement 03/07 Surgical History Herniated Discs-Low back Surgical History gallbladder removed 2020 Surgical History EXPLORATORY MYRINGOTOMY OF RIGH T EAR Surgical History ERCP, ADULT Surgical History cataract surgery Surgical History bunionectomy Hospitalization History See past surgical histor y [employer] Other Summary Purpose Family History No Family History Records FoundNo Family History Records FoundNo Family History Records Found Advance Directives No Advanced Directives Records FoundNo Advanced Directives Records FoundNo Advanced Directives Records Found Additional Source Comments INFORMATION SOURCE (unrecogn ized section and content) DATE CREATED AUTHOR 11/01/2020 [facility] DATE CREATED AUTHOR AUTHOR'S ORGANIZ ATION 12/11/2021 [facility] DATE CREATED AUTHOR AUTHOR'S ORGANIZ ATION 12/17/2022 [place] REASON FOR VISIT (unrecogniz ed section and content) #7 [facility] COUGH, CONGESTI ON, SORE THROAT4 MONTH CHECK UPMedication ClarificationPNEUMONIA SHOTEAR ACHE IN RIGHT EAR, BACK PAIN ALSORefillReferralXray resultsPOSS SINUS INFECTIONExposed to COVID-Negative, All symptoms- [phone] FOR RECORDS PERTAINING TO PATIENTS WHO ARE OR HAVE BEEN ENROLLED IN A CHEMICAL DEPENDENCY/SUBSTANCEABUSE PROGRAM, SOME INFORMATION MAY BE OMITTED. This clinical summary was aggregated from multiple sources. Caution should be exercised in using it in the provision of clinical care. This summary normalizes information from multiple sources, and as a consequence, information in this document may materially change the coding, format and clinical context of patient data. In addition, data may be omitted in some cases. CLINICAL DECISIONS SHOULD BE BASED ON THE PRIMARY CLINICAL RECORDS. [employer] provides no warranty or guarantee of the accuracy or completeness of information in this document.
[2023-03-03 11:30] LABS: SARS-CoV-2 Ag NEGATIVE (NEGATIVE)
[2023-03-04 08:30] LABS: SARS-CoV-2 NAA NOT DETECTED (NOT DETECTE)
== END 2023-03-03 10:24 | disposition home or self-care (01) ==
LOC: LAB 10:23
PROVIDERS: PCP Internal Medicine; Visit Provider Internal Medicine
DX: Z20.822 Contact with and (suspected) exposure to COVID-19 (principal)
CPT/HCPCS: 87635; 87811

== ENCOUNTER 2023-03-15 09:05 | Outpatient (OUT) | payer MEDICARE, SELFPAY ==
--- NOTE | 2023-03-15 | XR_ITS ---
[address] [address] Patient Name: SANTOS VILLALPANDO MRN: [id number] date: 1950 Sex: F Assigned Patient Location: [facility] Current Patient Location: [facility] Accession/Order Number: [id number] Exam Date: 03/15/2023 09:07 Report Date: 03/15/2023 10:02 At the request of: KIERRA CASTORENA Procedure: XR foot LT min 3V PROCEDURE: XR foot LT min 3V COMPARISON: 02/10/2023 HISTORY: LEFT FOOT PAIN FINDINGS: BONES:Stable fusion of the first metatarsal-phalangeal joint with a dorsal plate and multiple screws. Osteotomy and screw placement at of the second metatarsal. Remote resection suspected head of the third proximal phalanx. No acute fracture, dislocation or mechanical failure. Mild to moderate diffuse degenerative changes with joint space narrowing marginal osteophyte formation. Bulky enthesopathic spurring of the calcaneus at the Achilles and plantar insertions SOFT TISSUES:Negative. No visible soft tissue swelling. EFFUSION:None visible. OTHER: Negative. XR/XR foot LT min 3V IMPRESSION: Stable degenerative and postsurgical changes Electronically authenticated by: PURNIMA CORTEZ Date: 03/15/2023 10:02
== END 2023-03-15 09:06 | disposition home or self-care (01) ==
LOC: RAD 09:05
PROVIDERS: PCP Internal Medicine; Visit Provider Podiatrist Foot & Ankle Surgery
DX: M20.12 Hallux valgus (acquired), left foot (principal)
CPT/HCPCS: 73630

== ENCOUNTER 2023-06-14 11:12 | Outpatient (OUT) | payer MEDICARE, SELFPAY ==
--- NOTE | 2023-06-14 | XR_ITS ---
The [address] [address] Patient Name: SANTOS VILLALPANDO MRN: [id number] date: 1950 Sex: F Assigned Patient Location: Current Patient Location: Accession/Order Number: [id number] Exam Date: 06/14/2023 11:15 Report Date: 06/15/2023 09:14 At the request of: KIERRA CASTORENA Procedure: XR foot LT min 3V PROCEDURE: XR foot LT min 3V COMPARISON: 03/15/2023 HISTORY: LEFT FOOT PAIN FINDINGS: BONES:Stable fusion first metatarsal-phalangeal joint with dorsal plate and screws. Osteotomy and screw placement at of the second metatarsal. Bulky enthesopathic spurring of the calcaneus at the Achilles and plantar insertions. Mild to moderate degenerative changes with joint space narrowing marginal osteophyte formation SOFT TISSUES:Negative. No visible soft tissue swelling. EFFUSION:None visible. OTHER: Negative. XR/XR foot LT min 3V IMPRESSION: Stable postsurgical and degenerative changes Electronically authenticated by: PURNIMA CORTEZ Date: 06/15/2023 09:14
== END 2023-06-14 11:13 | disposition home or self-care (01) ==
LOC: EC 11:12
PROVIDERS: PCP Internal Medicine; Visit Provider Podiatrist Foot & Ankle Surgery
DX: M20.12 Hallux valgus (acquired), left foot (principal); Z98.890 Other specified postprocedural states
CPT/HCPCS: 73630

== ENCOUNTER 2023-12-05 10:25 | Outpatient (OUT) | payer MEDICARE, SELFPAY ==
--- NOTE | 2023-12-05 10:29 | MM_ITS ---
Patient Name: SANTOS VILLALPANDO MR#: [id number] : 1950 Exam Date: 12/05/2023 Ordering Doctor: DR Jimmie Melendez D.O. RADIOLOGY REPORT PROCEDURE: MM TOMOSYNTHESIS SCREENING BI COMPARISON: MM TOMOSYNTHESIS SCREENING BI, 09/21/2022. MG MAMM SCREEN 3D FERMÍN CAD, 09/17/2021. MG MAMM SCREEN 3D FERMÍN CAD, 09/05/2020. INDICATIONS: Screening Calculator Name NCI Breast Cancer Risk Assessment Tool 5 Year Breast Cancer Risk 9.00% Lifetime Breast Cancer Risk 21.70% Personal Breast Cancer No Personal Ovarian Cancer No Treatments None Family Cancers Sister with breast cancer at age 69; Sister with breast cancer at age 74. LOCATION: [facility] BREAST COMPOSITION: The breasts are heterogeneously dense,which may obscure small masses. FINDINGS: DIAGNOSTIC CATEGORY 1--NEGATIVE. RIGHT BREAST: No significant suspicious finding. No significant change has occurred. LEFT BREAST: No significant suspicious finding. No significant change has occurred. RECOMMENDATIONS: ROUTINE MAMMOGRAM AND CLINICAL EVALUATION IN 12 MONTHS. PLEASE NOTE: A NORMAL MAMMOGRAM DOES NOT EXCLUDE THE POSSIBILITY OF BREAST CANCER. A CLINICALLY SUSPICIOUS PALPABLE LUMP SHOULD BE BIOPSIED. Dictated by: Luis Queen M.D. on 12/05/2023 at 16:32 Approved by: Luis Queen M.D. on 12/05/2023 at 16:33
--- OUTSIDE RECORDS SUMMARY | 2023-12-05 10:37 | XMS_ITS | CCD ---
Author Organization [facility] Inform ion Partnership [facility] Care Team Providers Care Buyer Intern Name Role Phone Marivel Whitlock Unavailable AL, DR LUCAS Primary Care Unavailable COLLIER, DR TOMEKA Delong Consulting Unavailable COLLIER, DR TOMEKA Delong Attending Unavailable COLLIER, DR TOMEKA Delong Admitting Unavailable ZIEBER, DR RONA Delong Consulting Unavailable YAROSH, RITA Consulting Unavailable MARKER, DR FLOWERS Consulting Unavailable MARKER, DR FLOWERS Attending Unavailable BALL, DR LUCAS Primary Care Unavailable MARKER, DR FLOWERS Admitting Unavailable KLIPPER, PURNIMA Consulting Unavailable TIMMIS, DR KLINE Admitting Unavailable TIMMIS, DR KLINE Consulting Unavailable TIMMIS, DR KLINE Attending Unavailable BALL, DR LUCAS Primary Care Unavailable TIMMIS, DR KLINE Admitting Unavailable TIMMIS, DR KLINE Attending Unavailable BALL, DR LUCAS Primary Care Unavailable TIMMIS, DR KLINE Admitting Unavailable TIMMIS, DR KLINE Consulting Unavailable TIMMIS, DR KLINE Attending Unavailable BALL, DR LUCAS Primary Care Unavailable AGUBOSIM, ANGELICA Consulting Unavailable LONG, SHAI Consulting Unavailable DORKOSKIE, RASHIDA Consulting Unavailable TIMMIS, DR KLINE Admitting Unavailable TIMMIS, DR KLINE Consulting Unavailable TIMMIS, DR KLINE Attending Unavailable BALL, DR LUCAS Primary Care Unavailable WEST, DR PURNIMA Sarkar Consulting Unavailable BALL, DR LUCAS Admitting Unavailable BALL, DR LUCAS Primary Care Unavailable BALL, DR LUCAS Consulting Unavailable BALL, DR LUCAS Attending Unavailable BALL, DR LUCAS Admitting Unavailable BALL, DR LUCAS Primary Care Unavailable BALL, DR LUCAS Consulting Unavailable BALL, DR LUCAS Attending Unavailable BALL, DR LUCAS Primary Care Unavailable HIGHLANDER, KIERRA Colmenares Attending Unavailable HIGHLASHLEY, KIERRA Colmenares Admitting Unavailable DANA, DR PURNIMA Sarkar Consulting Unavailable KIERRA CASTORENA Consulting Unavailable AL, DR LUCAS Admitting Unavailable BALL, DR LUCAS Primary Care Unavailable BALL, DR LUCAS Consulting Unavailable BALL, DR LUCAS Attending Unavailable WEST, DR PURNIMA Sarkar Consulting Unavailable Jimmie Melendez Unavailable Siomara Mcfarland Unavailable John NOEL, Zulay St Attending Unavai lable Ball DO, [facility] Unavailab le John ZUNIGA-C, Zulay St Attending Unavai lable Ball DO, [facility] Unavailab le John NADIA-C, Zulay St Attending Unavai lable Ball DO, [facility] [place] Unavailab le Ball DO, [facility] Care Unavailab le John ZUNIGA-C, Zulay St Attending Unava lable John ZUNIGA-C, Zulay St Attending Unavai lable Ball DO, [facility] Unavailab le John ZUNIGA-C, Zulay St Attending Unavai lable Ball DO, [facility] Unavailab le John ZUNIGA-C, Zulay St Attending Unavai lable Ball DO, [facility] Unavailab le Allergies Allergy Classification Reported Allergen(s) Allergy Type Date of Onset Reaction(s) Facility (1 source) Chlorotrianisene Drug Allergy 02-27-20 13 [facility] Repository (2 sources) Latex Drug allergy (disorder) 02-27-20 13 [facility] Repository (9 sources) Gold Drug Allergy Unknown [facility] [employer] Other (9 sources) Latex Drug allergy Unknown [facility] [employer] Other (7 sources) Gold and/or gold compound (FN) Drug allergy Unknown [facility] [employer] Other (1 source) No Known Medication Allergies; Translations: [No Known Medication Allergies] Propensity to adverse reactions to drug (disorder) [facility] Repository (1 source) Bee pollen Allergy to substance 09-20-19 [facility] (1 source) Gold Drug Allergy 09-20-19 Unknown Reaction [facility] (1 source) Gold-containing Drug Products Allergy to substance 09-20-19 24 Unknown Reaction [facility] (1 source) gold jewery Allergy to substance 10-30-19 21 [facility] Medications Current Medications Medication Drug Class(es) Dates Sig (Normalized) Sig (Original) acetaminophen 325 mg / oxyCODONE hydrochloride 5 mg oral tablet (1 source) Opioid Agonist Start: 10-29-2020 take 1 tablet by mouth every six hours Oxycodone-Acetami nophen Active 1 TAB PO Q6H October 29, 2020 12:00am [id number] 200 actuat albuterol 0.09 mg/actuat metered dose inhaler (1 source) beta2-Adrenergic Agonist Start: 09-20-2023 Albuterol Sulfate Active INHALATION September 20, 2023 12:00am alendronic acid 70 mg oral tablet (2 [...] Feb, Active atorvastatin 40 mg oral tablet (12 sources) HMG-CoA Reductase Inhibitor Start: 10-29-2020 take 40 mg by mouth once daily Atorvastatin Active 40 MG PO Daily October 29, 2020 12:00am Atorvastatin [place] cium Active benazepril (9 sources) Angiotensin Converting Enzyme Inhibitor Start: 08-17-2023 take 1 tablet by mouth once daily Benazepril Active 0 .ROUTE .COMPLEX 90 August 17, 2023 12:53pm TAKE 1 TABLET BY MOUTH EVERY DAY FOR 90 DAYS Start: 10-29-2020 End: 08-17-2023 take 20 mg by mouth once daily Benazepril Discontinued 20 MG PO Daily October 29, 2020 12:00am August 17, 2023 12:53pm benzonatate 200 mg oral capsule (1 source) Non-narcotic Antitussive Start: 09-20-2023 Benzonatate Active MG PO September 20, 2023 12:00am doxycycline hyclate 100 mg oral capsule (1 source) Tetracycline-class Drug Start: 09-20-2023 Doxycycline Hyclate Active MG PO September 20, 2023 12:00am latanoprost 0.05 mg/ml ophthalmic solution (2 sources) [...] source) Angiotensin Converting Enzyme Inhibitor Lisinopril Active Methylprednisolone (7 sources) Corticosteroid Start: 09-20-2023 Methylprednisolone Active MG PO September 20, 2023 12:00am Start: 11-02-2022 Medrol 4 MG as directed Orally As Directed for 6 days Oct, Not-Taking/PRN predniSONE 20 mg oral tablet (1 source) Start: 02-27-2021 take 1 tablet by mouth every twelve [...] / neomycin 3.5 mg/ml / polymyxin b [id number] unt/ml otic suspension (6 sources) Aminoglycoside Antibacterial, Polymyxin-class Antibacterial, Corticosteroid Start: 11-02-2022 Neomycin-Polymy bee-HC [id number] 3 drops right ear Three times a day for 7 days Oct, Not-Taking/PRN Toradol 30 mg/ml (6 sources) Start: 11-02-2022 Toradol 30 mg/ml Oct, 30 mg Problems Active Problems Problem Classification Problem Date Documented Da te Episodic/Chronic Acute and unspecified renal failure (1 source) Acute renal failure syndrome; Translations: [Acute kidney failure, unspecified] 02-16-2023 Episodic Biliary tract disease (11 sources) Biliary sludge; Translations: [Other specified diseases of biliary tract] 02-16-2023 Chronic Cardiac dysrhythmias (10 sources) Intermittent palpitations; Translations: [Palpitations] Episodic Chronic kidney disease (7 sources) Chronic kidney disease stage 3A ; Translations: [Stage 3a chronic kidney disease] Chronic Disorders of lipid metabolism (13 sources) Pure hypercholesterolemi a, unspecified; Translations: [Hyperlipidemia, [...] fatigue; Translations: [OTHER FATIGUE] Onset: 11-24-2021 Episodic Nausea and vomiting (1 source) Nausea and vomiting; Translations: [Nausea with vomiting, unspecified] 02-16-2023 Episodic Open wounds of head; neck; and [...] region] Chronic Other aftercare (2 sources) Other usp (current) drug therapy; Translations: [OTH INSPECTOR MATERIALS AND PROCESSES CURRENT DRUG THERAPY] Onset: 11-30-2021 Episodic Other [...] conditions (not mental disorders or infectious disease) (6 sources) Encounter for screening mammogram for malignant neoplasm of breast; Translations: [Other specified abnormal findings of blood chemistry] Onset: 09-17-2021 Episodic Other skin disorders (9 sources) Callosity; Translations: [Corns and callosities] Episodic Other upper respiratory infections (7 sources) Acute sinusitis, unspecified; Translations: [Acute maxillary sinusitis, unspecified] Onset: 02-27-2021 Resolved: 02-27-2021 Episodic Pancreatic disorders (not diabetes) (2 sources) Acute pancreatitis; Translations: [Biliary acute pancreatitis without necrosis or infection] 02-16-2023 Episodic Residual codes; unclassified (1 source) Family [...] Interpretation Reference Range Facility Otolaryngology Office/Clinic Noteon 05-31-2023 Otolaryngology Office/Clinic Note Chief Complaint pt states I am here to have my ears checked History of Present Illness Molly is a very pleasant 73-year-old female who presents today as a fu. Last visit was 12/15/22. Previous right PE tube was placed in July 2021 at an outlying otolaryngology office for middle ear effusion. Previous grinder operator had mentioned that she may have cochlear hydrops and/or M?ni?re's disease. She had been on a low-salt diet for several years. She did take Dyazide for short period of time though her blood pressure was dropping and she was switched to an ADALI inhibitor. She has not had any vertigo episodes in over 2 years. No previous MRI, ECOG, or VNG. 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 She presents today for repeat audiogram and ear check. She denies any otalgia, otorrhea, or vertigo. She has had some intermittent plugging of her right ear for the last couple months. This was thought to be due to eustachian tube dysfunction by PCP. She was placed on Flonase though she did not like this medication. She has since started Astepro. Physical Exam Vitals & Measurements T: 36.6 ?C (Temporal Artery) HT: 156 cm WT: 82 kg WT: 82 kg (Dosing) BMI: 33.69 Constitutional: Well-developed, well-nourished Communication and Voice: Clear pitch and clarity, age appropriate Head and Face Inspection: Normocephalic and atraumatic without masses or lesions Palpation: Facial skeleton intact without bony stepoffs, no sinus tenderness Ear Pinna: Left - External ear intact and fully developed Right - External ear intact and fully developed External canal: Left - Canal is patent with intact skin Right - Canal is patent with intact skin Cerumen: Left -cerumen removed with microinstrumentation Right -cerumen removed with microinstrumentation Tympanic Membranes: Left - Clear and mobile Right - TIPP Middle Ears: Left - Aerated, no effusion, no masses Right - Aerated, no effusion, no masses Audiogram: Compared to previous on 12-15-2022 and there has been slight worsening of right sided hearing loss at a couple frequencies. Left: Mild downsloping to moderate sensorineural hearing loss. Right: Moderate downsloping to severe mixed hearing loss. SRT of 45 on the right and 35 on the left. WRs of 92% bilaterally. Flat tympanogram on the right with a large canal volume consistent with a patent PE tube. Type a tympanogram on the left. Additional Vitals No qualifying data available. Assessment/Plan 1. Tympanostomy tube check PE tube is in place and patent. 2. Mixed hearing loss of right ear She has persistent mixed hearing loss on the right that is slightly worsened at a couple frequencies. We discussed taking her audiogram from today to her nuclear medical technologist for hearing aid adjustment. 3. Left SNHL Continue to wear hearing amplification. 4. Bilateral impacted cerumen Cerumen was removed without difficulty today. Patient's hearing has improved after cerumen removal. Patient has had no vertigo since our last appointment. If she were to have any reoccurrence of vertigo we discussed how she may benefit from an ECOG versus VNG to further evaluate for the possibility of M?ni?re's disease. Suspicion for M?ni?re's disease or cochlear hydrops is low at this time. She will continue on a low-salt diet in the meantime. Medical Decision Making Chronic conditions NOT treated during this visit that affected my overall medical decision making: [] Treatment plans discussed but not opted for at this time: [] Prescribed medication that requires intensive monitoring for toxicity: [] I have reviewed the patient?s medication list for medication interactions/contraindi cations and/or for upcoming procedures: [yes or no] Time Spent with the Patient I have personally spent [] minutes on this date, directly related to today's patient visit, including pre and post visit work, for this date of service. Time listed does not include time spent on separately billable services. Problem List/Past Medical History Ongoing Bilateral cataracts Historical No qualifying data Procedure/Surgical History Ear and auditory finding (07/09/2021) bilateral cataract surgery (12/05/2022) Medications atorvastatin 40 mg oral tablet benazepril 20 mg oral tablet latanoprost 0.005% ophthalmic solution, 1 drops, Eye-Both, HS (at bedtime) Allergies No Known Allergies No Known Medication Allergies Social History Tobacco Never (less than 100 in lifetime) Use:. Family History Family history is negative Immunizations Vaccine Date Status diphth/haemoph/pertussi s/tetanus/polio 11/13/2022 Given pneumococcal 13-valent conjugate vaccine 07/11/2022 Given Electronically signed by ___ Zulay Lopez PA-C 05/31/23 14:44 EDT Patient is also having some residual nasal congestion. A exam was performed. Anterior rhinoscopy revealed anterior septal deviation with (more content not included)... Normal [facility] Otolaryngology Office/Clinic Noteon 10-11-2023 Otolaryngology Office/Clinic Note Chief Complaint pt states [...] loud noise exposure. Patient states that previous grinder operator had mentioned cochlear hydrops and/or M?ni?re's disease [...] visit that (more content not included)... Normal [facility] PROF CHEM 8 (BAS METB)on Anion gap [Moles/Vol] 11.4 mmol/L Normal [facility] Comment on above: Performed By: #### B MP ####[facility] [address] [address]Dr. Glenda Basurto Calcium [Mass/Vol] 9.2 mg/dL Normal 8.5-10.1 [facility] Comment on above: Performed By: #### B MP ####[facility] [address] [place], [place] [address]Dr. Glenda Basurto Chloride [Moles/Vol] 106 mmol/L Normal 98-107 [facility] Comment on above: Performed By: #### B MP ####[facility] [address] [place], [place] [address]Dr. Glenda Basurto CO2 [Moles/Vol] 27.6 mmol/L Normal 21.0-32.0 [facility] Comment on above: Performed By: #### B MP ####[facility] [address] [place], [place] [address]Dr. Glenda Basurto Creatinine [Mass/Vol] 1.19 mg/dL Critically high 0.55-1.02 [facility] Comment on above: Performed By: #### B MP ####[facility] [address] [place], [place] [address]Dr. Glenda Basurto EGFR-AF BELARUSIAN 54 mL/min/1.73m2 Critically low >=60 [facility] Comment on above: Performed By: #### B MP ####[facility] [address] [place], [place] [address]Dr. Glenda Basurto EGFR-NON AF BELARUSIAN 45 mL/min/1.73m2 Critically low >=60 [facility] Comment on above: Performed By: #### B MP ####[facility] [address] [address]Dr. Glenda Basurto Glucose [Mass/Vol] 100 mg/dL Normal 74-106 [facility] Comment on above: Performed By: #### B MP ####[facility] [address] [address]Dr. Rolajaron Sb Potassium [Moles/Vol] 4.0 mmol/L Normal 3.5-5.1 [facility] Comment on above: Performed By: #### B MP ####[facility] [address] [address]Dr. Rolajaron Sb Sodium [Moles/Vol] 141 mmol/L Normal 136-145 [facility] Comment on above: Performed By: #### B MP ####[facility] [address] [address]Dr. Glenda Sb Urea nitrogen [Mass/Vol] 20.0 mg/dL Critically high 7.0-18.0 [facility] Comment on above: Performed By: #### B MP ####[facility] [address] [place], [place] [address]Dr. Rolajaron Sb Urea nitrogen/Creatinin e [Mass ratio] 16.8 mg/mg Normal [facility] Comment on above: Performed By: #### B MP ####[facility] [address] [place], [place] [address]Dr. Glenda Sb CT CSPINE WO CONon 2 CT CSPINE WO CON EXAMINATION: CT CSPI NE WO CON HISTORY: UNSPECIFIED INJURY OF HEAD, [...] by: RONA MALONEY Date: 2021-11-26 22:07 Normal [facility] CT HEAD WO CONon 11-26-2021 CT [...] RONA MALONEY Date: 2021-11-26 21:43 Normal [facility] CBC AUTO DIFFon 11-20-2021 BASO # 0.0 103/ul Normal 0.0-0.1 [facility] Comment on above: Performed By: #### C BC #### [facility] [address] [address] [address] Glenda Basurto Basophils/100 WBC (Bld) 0.7 % Normal 0.2-2.0 [facility] Comment on above: Performed By: #### C BC #### [facility] [address] [address] [address] Glenda Basurto EO # 0.1 103/ul Normal 0.0-0.7 [facility] Comment on above: Performed By: #### C BC #### [facility] [address] [place] [address] Dr. Glenda Basurto Eosinophils/100 WBC (Bld) 1.8 % Normal 0.9-7.0 [facility] Comment on above: Performed By: #### C BC #### [facility] [address] [place] [address] Dr. Glenda Basurto Erythrocyte distribution width (RBC) [Ratio] 13.2 % Normal 11.0-15.0 [facility] Comment on above: Performed By: #### C BC #### [facility] [address] [place] [address] Dr. Glenda Basurto Hematocrit (Bld) [Volume fraction] 39.4 % Normal 36.0-48.0 [facility] Comment on above: Performed By: #### C BC #### [facility] [address] [place] [address] Dr. Glenda Basurto Hemoglobin (Bld) [Mass/Vol] 12.9 g/dL Normal 12.0-16.0 [facility] Comment on above: Performed By: #### C BC #### [facility] [address] [place] [address] Dr. Glenda Basurto IG # 0.01 10e3/ul Normal 0.00-0.03 [facility] Comment on above: Performed By: #### C BC #### [facility] [address] [place] [address] Dr. Glenda Basurto IG % 0.2 % Normal 0.0-0.5 [facility] Comment on above: Performed By: #### C BC #### [facility] [address] [place] [address] Dr. Glenda Basurto LYMPH # 2.6 103/ul Normal 1.2-3.8 [facility] Comment on above: Performed By: #### C BC #### [facility] [address] [place] [address] Dr. Glenda Basurto Lymphocytes/100 WBC (Bld) 41.9 % Normal 20.5-60.0 [facility] Comment on above: Performed By: #### C BC #### [facility] [address] [place] [address] Dr. Glenda Basurto MANUAL DIFF REQ NO Normal [facility] Comment on above: Performed By: #### C BC #### [facility] [address] [place] [address] Dr. Glenda Basurto MCH (RBC) [Entitic mass] 30.1 pg Normal 26.7-34.0 [facility] Comment on above: Performed By: #### C BC #### [facility] [address] [place] [address] Dr. Glenda Basurto MCHC (RBC) [Mass/Vol] 32.7 g/dL Normal 29.9-35.2 [facility] Comment on above: Performed By: #### C BC #### [facility] [address] [place] [address] Dr. Glenda Basurto MCV (RBC) [Entitic vol] 92.1 fL Normal 81.0-99.0 [facility] Comment on above: Performed By: #### C BC #### [facility] [address] [place] [address] Dr. Glenda Basurto MONO # 0.5 103/ul Normal 0.3-0.8 [facility] Comment on above: Performed By: #### C BC #### [facility] [address] [place] [address] Dr. Glenda Basurto Monocytes/100 WBC (Bld) 7.7 % Normal 1.7-12.0 [facility] Comment on above: Performed By: #### C BC #### [facility] [address] [place] [address] Dr. Glenda Basurto NEUT # 2.9 103/ul Normal 1.4-6.5 [facility] Comment on above: Performed By: #### C BC #### [facility] [address] [place] [address] Dr. Glenda Basurto Neutrophils/100 WBC (Bld) 47.7 % Normal 43.0-75.0 [facility] Comment on above: Performed By: #### C BC #### [facility] [address] [address] [address] Glenda Basurto Platelet mean volume (Bld) [Entitic vol] 8.8 fL Critically low 9.5-13.5 [facility] Comment on above: Performed By: #### C BC #### [facility] [address] [address] [address] Glenda Basurto PLT 215 103/ul Normal 150-450 [facility] Comment on above: Performed By: #### C BC #### [facility] [address] [address] [address] Glenda Basurto RBC 4.28 106/ul Normal 4.20-5.40 [facility] Comment on above: Performed By: #### C BC #### [facility] [address] [address] [address] Glenda Basurto WBC 6.1 103/ul Normal 4.0-11.0 [facility] Comment on above: Performed By: #### C BC #### [facility] [address] [address] [address] Glenda Basurto PROF CHEM 8 (BAS METB)on Anion gap [Moles/Vol] 10.1 mmol/L Normal [facility] Comment on above: Performed By: #### B MP, TSH ####[facility] [address] [address]Dr. Glenda Basurto Calcium [Mass/Vol] 8.8 mg/dL Normal 8.5-10.1 [facility] Comment on above: Performed By: #### B MP, TSH ####[facility] [address]DrHamzah Basurto Chloride [Moles/Vol] 103 mmol/L Normal 98-107 [facility] Comment on above: Performed By: #### B MP, TSH ####[facility] [address] [id number]. Glenda Basurto CO2 [Moles/Vol] 29.1 mmol/L Normal 21.0-32.0 [facility] Comment on above: Performed By: #### B MP, TSH ####[facility] [address] [address]Dr. Glenda Basurto Creatinine [Mass/Vol] 1.62 mg/dL Critically high 0.55-1.02 [facility] Comment on above: Performed By: #### B MP, TSH ####[facility] [address] [address]Dr. Glenda Basurto EGFR-AF BELARUSIAN 38 mL/min/1.73m2 Critically low >=60 [facility] Comment on above: Performed By: #### B NATALY, TSH ####[facility] [address] [address]Dr. Glenda Sb EGFR-NON AF BELARUSIAN 31 mL/min/1.73m2 Critically low >=60 [facility] Comment on above: Performed By: #### B NATALY, TSH ####[facility] [address] [place], [place] [address]Dr. Glenda Basurto Glucose [Mass/Vol] 112 mg/dL Critically high 74-106 [facility] Comment on above: Performed By: #### B NATALY, TSH ####[facility] [address] [place], [place] [address]Dr. Glenda Basurto Potassium [Moles/Vol] 4.2 mmol/L Normal 3.5-5.1 [facility] Comment on above: Performed By: #### B NATALY, TSH ####[facility] [address] [place], [place] [address]Dr. Glenda Basurto Sodium [Moles/Vol] 138 mmol/L Normal 136-145 [facility] Comment on above: Performed By: #### B NATALY, TSH ####[facility] [address] [place] [address]Dr. Glenda Sb Urea nitrogen [Mass/Vol] 25.0 mg/dL Critically high 7.0-18.0 [facility] Comment on above: Performed By: #### B NATALY, TSH ####[facility] [address] [place], [place] [address]DrHamzah Basurto Urea nitrogen/Creatinin e [Mass ratio] 15.4 mg/mg Normal [facility] Comment on above: Performed By: #### B MP, TSH ####[facility] [address] [place], [place] [address]VeHamzah Basurto TSHon 11-20-2021 TSH 0.942 uIU/mL Normal 0.358-3.740 [facility] Comment on above: Performed By: #### B MP, TSH ####[facility] [address] [place], [place] [address]Qi. Glenda Basurto MG MAMM SCREEN 3D FERMÍN CADon 09-17-2021 MG MAMM SCREEN 3D FERMÍN CAD Patient: MOLLY GARCIA Exam Date: 09/17/2021 : 1950 Gender:F Ordering : DR JIMMIE MELENDEZ D.O. Admission #: [id number] Family : Order #: [id number] CLICK HERE TO VIEW EXAM RADIOLOGY REPORT [...] breast cancer at age 75. LOCATION: [facility] BREAST COMPOSITION: Heterogeneously dense,which may obscure [...] MD on 09/17/2021 at 12:42 Approved by: Purnmia Cortez MD on 09/17/2021 at 12:43 Normal [facility] CBC AUTO DIFFon 09-16-2021 BASO # 0.0 103/ul Normal 0.0-0.1 [facility] Comment on above: Performed By: #### C BC #### [facility] [address] [place] [address] Dr. Glenda Basurto Basophils/100 WBC (Bld) 0.5 % Normal 0.2-2.0 [facility] Comment on above: Performed By: #### C BC #### [facility] [address] [place] [address] Dr. Glenda Basurto EO # 0.1 103/ul Normal 0.0-0.7 [facility] Comment on above: Performed By: #### C BC #### [facility] [address] [place] [address] Dr. Glenda Basurto Eosinophils/100 WBC (Bld) 2.2 % Normal 0.9-7.0 [facility] Comment on above: Performed By: #### C BC #### [facility] [address] [place] [address] Dr. Glenda Basurto Erythrocyte distribution width (RBC) [Ratio] 13.2 % Normal 11.0-15.0 [facility] Comment on above: Performed By: #### C BC #### [facility] [address] [place] [address] Dr. Glenda Basurto Hematocrit (Bld) [Volume fraction] 42.0 % Normal 36.0-48.0 [facility] Comment on above: Performed By: #### C BC #### [facility] [address] [place] [address] Dr. Glenda Basurto Hemoglobin (Bld) [Mass/Vol] 13.7 g/dL Normal 12.0-16.0 [facility] Comment on above: Performed By: #### C BC #### [facility] [address] [place] [address] Dr. Glenda Basurto IG # 0.01 10e3/ul Normal 0.00-0.03 [facility] Comment on above: Performed By: #### C BC #### [facility] [address] [place] [address] Dr. Glenda Basurto IG % 0.2 % Normal 0.0-0.5 [facility] Comment on above: Performed By: #### C BC #### [facility] [address] [place] [address] Dr. Glenda Basurto LYMPH # 2.7 103/ul Normal 1.2-3.8 [facility] Comment on above: Performed By: #### C BC #### [facility] [address] [place] [address] Dr. Glenda Basurto Lymphocytes/100 WBC (Bld) 41.9 % Normal 20.5-60.0 [facility] Comment on above: Performed By: #### C BC #### [facility] [address] [place] [address] Dr. Glenda Basurto MANUAL DIFF REQ NO Normal [facility] Comment on above: Performed By: #### C BC #### [facility] [address] [place] [address] Dr. Glenda Basurto MCH (RBC) [Entitic mass] 30.6 pg Normal 26.7-34.0 [facility] Comment on above: Performed By: #### C BC #### [facility] [address] [place] [address] Dr. Glenda Basurto MCHC (RBC) [Mass/Vol] 32.6 g/dL Normal 29.9-35.2 [facility] Comment on above: Performed By: #### C BC #### [facility] [address] [place] [address] Dr. Glenda Basurto MCV (RBC) [Entitic vol] 93.8 fL Normal 81.0-99.0 [facility] Comment on above: Performed By: #### C BC #### [facility] [address] [place] [address] Dr. Glenda Basurto MONO # 0.6 103/ul Normal 0.3-0.8 [facility] Comment on above: Performed By: #### C BC #### [facility] [address] [place] [address] Dr. Glenda Basurto Monocytes/100 WBC (Bld) 9.8 % Normal 1.7-12.0 [facility] Comment on above: Performed By: #### C BC #### [facility] [address] [address] [address] Glenda Basurto NEUT # 2.9 103/ul Normal 1.4-6.5 [facility] Comment on above: Performed By: #### C BC #### [facility] [address] [place] [address] Dr. Glenda Basurot Neutrophils/100 WBC (Bld) 45.4 % Normal 43.0-75.0 [facility] Comment on above: Performed By: #### C BC #### [facility] [address] [place] [address] Dr. Glenda Basurto Platelet mean volume (Bld) [Entitic vol] 8.9 fL Critically low 9.5-13.5 [facility] Comment on above: Performed By: #### C BC #### [facility] [address] [place] [address] Dr. Glenda Basurto PLT 226 103/ul Normal 150-450 [facility] Comment on above: Performed By: #### C BC #### [facility] [address] [place] [address] Dr. Glenda Basurto RBC 4.48 106/ul Normal 4.20-5.40 [facility] Comment on above: Performed By: #### C BC #### [facility] [address] [place] [address] Dr. Glenda Basurto WBC 6.4 103/ul Normal 4.0-11.0 [facility] Comment on above: Performed By: #### C BC #### [facility] [address] [place] [address] Dr. Glenda Basurto CRPon 09-16-2021 CRP [Mass/Vol] mg/L Normal <=1.0 [facility] Comment on above: Performed By: #### U LEANNA, CRP #### [facility] [address] [place] [address] Dr. Glenda Basurto PROF CHEM 8 (BAS METB)on Anion gap [Moles/Vol] 12.2 mmol/L Normal [facility] Comment on above: Performed By: #### B MP #### [facility] [address] [address] [address] Glenda Basurto Calcium [Mass/Vol] 9.3 mg/dL Normal 8.5-10.1 [facility] Comment on above: Performed By: #### B MP #### [facility] [address] [address] [address] Glenda Basurto Chloride [Moles/Vol] 107 mmol/L Normal 98-107 [facility] Comment on above: Performed By: #### B MP #### [facility] [address] [address] [address] Glenda Basurto CO2 [Moles/Vol] 27.3 mmol/L Normal 21.0-32.0 [facility] Comment on above: Performed By: #### B MP #### [facility] [address] [address] [address] Glenda Basurto Creatinine [Mass/Vol] 1.04 mg/dL Critically high 0.55-1.02 [facility] Comment on above: Performed By: #### B MP #### [facility] [address] [address] [address] Glenda Basurto EGFR-AF BELARUSIAN >60 Normal >=60 [facility] Comment on above: Performed By: #### B MP #### [facility] [address] [address] [address] Glenda Basurto EGFR-NON AF BELARUSIAN 52 mL/min/1.73m2 Critically low >=60 [facility] Comment on above: Performed By: #### B MP #### [facility] [address] [address] [address] Glenda Basurto Glucose [Mass/Vol] 92 mg/dL Normal 74-106 [facility] Comment on above: Performed By: #### B MP #### [facility] [address] [address] [address] Glenda Basurto Potassium [Moles/Vol] 4.5 mmol/L Normal 3.5-5.1 [facility] Comment on above: Performed By: #### B MP #### [facility] [address] [place], [place] [address] Dr. Glenda Basurto Sodium [Moles/Vol] 142 mmol/L Normal 136-145 [facility] Comment on above: Performed By: #### B MP #### [facility] [address] [place], [place] [address] Dr. Glenda Basurto Urea nitrogen [Mass/Vol] 21.0 mg/dL Critically high 7.0-18.0 [facility] Comment on above: Performed By: #### B MP #### [facility] [address] [address] [address] Glenda Basurto Urea nitrogen/Creatinin e [Mass ratio] 20.2 mg/mg Normal [facility] Comment on above: Performed By: #### B MP #### [facility] [address] [address] [address] Glenda Basurto SED RATE WESTERGRENon 2021 SED RATE 22 mm/hr Normal <=30 [facility] Comment on above: Performed By: #### S EDR ####[facility] [address] [place], [place] [address]HzDr. Glenda Basurto URIC ACID SERUMon 09-16-2021 Urate [Mass/Vol] 4.8 mg/dL Normal 2.6-6.0 [facility] Comment on above: Performed By: #### U LEANNA, CRP #### [facility] [address] [address] [address] Glenda Basurto XR TIB_FIB RT 2Von [...] PURNIMA SANDOVAL Date: 2021-09-16 21:21 Normal [facility] CBC AUTO DIFFon 07-06-2021 BASO # 0.0 103/ul Normal 0.0-0.1 [facility] Comment on above: Performed By: #### C BC #### [facility] [address] [place] [address] Dr. Glenda Basurto Basophils/100 WBC (Bld) 0.6 % Normal 0.2-2.0 [facility] Comment on above: Performed By: #### C BC #### [facility] [address] [place] [address] Dr. Glenda Basurto EO # 0.1 103/ul Normal 0.0-0.7 [facility] Comment on above: Performed By: #### C BC #### [facility] [address] [place] [address] Dr. Glenda Basurto Eosinophils/100 WBC (Bld) 1.5 % Normal 0.9-7.0 [facility] Comment on above: Performed By: #### C BC #### [facility] [address] [place] [address] Dr. Glenda Basurto Erythrocyte distribution width (RBC) [Ratio] 13.6 % Normal 11.0-15.0 [facility] Comment on above: Performed By: #### C BC #### [facility] [address] [place] [address] Dr. Glenda Basurto Hematocrit (Bld) [Volume fraction] 43.9 % Normal 36.0-48.0 [facility] Comment on above: Performed By: #### C BC #### [facility] [address] [place] [address] Dr. Glenda Basurto Hemoglobin (Bld) [Mass/Vol] 14.2 g/dL Normal 12.0-16.0 [facility] Comment on above: Performed By: #### C BC #### [facility] [address] [place] [address] Dr. Glenda Basurto IG # 0.02 10e3/ul Normal 0.00-0.03 [facility] Comment on above: Performed By: #### C BC #### [facility] [address] [place] [address] Dr. Glenda Basurto IG % 0.3 % Normal 0.0-0.5 [facility] Comment on above: Performed By: #### C BC #### [facility] [address] [place] [address] Dr. Glenda Basurto LYMPH # 2.0 103/ul Normal 1.2-3.8 [facility] Comment on above: Performed By: #### C BC #### [facility] [address] [place] [address] Dr. Glenda Basurto Lymphocytes/100 WBC (Bld) 29.8 % Normal 20.5-60.0 [facility] Comment on above: Performed By: #### C BC #### [facility] [address] [place] [address] Dr. Glenda Basurto MANUAL DIFF REQ NO Normal [facility] Comment on above: Performed By: #### C BC #### [facility] [address] [place] [address] Dr. Glenda Basurto MCH (RBC) [Entitic mass] 30.9 pg Normal 26.7-34.0 [facility] Comment on above: Performed By: #### C BC #### [facility] [address] [place] [address] Dr. Glenda Basurto MCHC (RBC) [Mass/Vol] 32.3 g/dL Normal 29.9-35.2 [facility] Comment on above: Performed By: #### C BC #### [facility] [address] [place] [address] Dr. Glenda Basurto MCV (RBC) [Entitic vol] 95.4 fL Normal 81.0-99.0 [facility] Comment on above: Performed By: #### C BC #### [facility] [address] [place] [address] Dr. Glenda Basurto MONO # 0.5 103/ul Normal 0.3-0.8 [facility] Comment on above: Performed By: #### C BC #### [facility] [address] [place] [address] Dr. Glenda Basurto Monocytes/100 WBC (Bld) 7.1 % Normal 1.7-12.0 [facility] Comment on above: Performed By: #### C BC #### [facility] [address] [address] [address] Glenda Basruto NEUT # 4.1 103/ul Normal 1.4-6.5 [facility] Comment on above: Performed By: #### C BC #### [facility] [address] [address] [address] Glenda Basurto Neutrophils/100 WBC (Bld) 60.7 % Normal 43.0-75.0 [facility] Comment on above: Performed By: #### C BC #### [facility] [address] [place] [address] Dr. Glenda Basurto Platelet mean volume (Bld) [Entitic vol] 8.7 fL Critically low 9.5-13.5 [facility] Comment on above: Performed By: #### C BC #### [facility] [address] [place] [address] Dr. Glenda Basurto PLT 234 103/ul Normal 150-450 [facility] Comment on above: Performed By: #### C BC #### [facility] [address] [place] [address] Dr. Glenda Basurto RBC 4.60 106/ul Normal 4.20-5.40 [facility] Comment on above: Performed By: #### C BC #### [facility] [address] [place] [address] Dr. Glenda Basurto WBC 6.7 103/ul Normal 4.0-11.0 [facility] Comment on above: Performed By: #### C BC #### [facility] [address] [place] [address] Dr. Glenda Basurto XR SINUSES 3 VIEWS [...] PURNIMA CORTEZ Date: 2021-05-21 12:11 Normal [facility] COVID Quick Testingon 2020 Result Negative [employer] Other Complete Blood Count Auto Di ffon 10-31-2020 Basophils (Bld) [#/Vol] 0.0 10*3/uL Normal 0.0-0.2 [facility] Comment on above: Result Comment: PERF ORMED BY: [place] [address] PATHOLOGIST [employer] JENNIFER IRIZARRY M.D. Performed By: #### C MP, LIPASE, CBC, JACOB #### [address] Basophils/100 WBC (Bld) 0.2 % Normal . [facility] Comment on above: Performed By: #### C MP, LIPASE, CBC, JACOB #### [address] Eosinophils (Bld) [#/Vol] 0.1 10*3/uL Normal 0.0-0.45 [facility] Comment on above: Performed By: #### C MP, LIPASE, CBC, JACOB #### [address] Eosinophils/100 WBC (Bld) 1.0 % Normal . [facility] Comment on above: Performed By: #### C MP, LIPASE, CBC, JACOB #### [address] Erythrocyte distribution width (RBC) [Ratio] 13.9 % Normal 11.9-15.3 [facility] Comment on above: Performed By: #### C MP, LIPASE, CBC, JACOB #### [address] Hematocrit (Bld) [Volume fraction] 35.5 % Normal 34.0-46.4 [facility] Comment on above: Performed By: #### C MP, LIPASE, CBC, JACOB #### [address] Hemoglobin (Bld) [Mass/Vol] 12.1 g/dL Normal 11.8-15.4 [facility] Comment on above: Performed By: #### C MP, LIPASE, CBC, JACOB #### [address] Lymphocytes (Bld) [#/Vol] 1.3 10*3/uL Normal 1.00-4.8 [facility] Comment on above: Performed By: #### C MP, LIPASE, CBC, JACOB #### [address] Lymphocytes/100 WBC (Bld) 21.0 % Normal . [facility] Comment on above: Performed By: #### C MP, LIPASE, CBC, JACOB #### [address] MCH (RBC) [Entitic mass] 31.4 pg Normal 24.7-34.3 [facility] Comment on above: Performed By: #### C MP, LIPASE, CBC, JACOB #### [address] MCV (RBC) [Entitic vol] 92.3 fL Normal 80-100 [facility] Comment on above: Performed By: #### C MP, LIPASE, CBC, JACOB #### [address] Mean Corpuscular HGB Conc 34.0 g/dL Normal 32.0-35.0 [facility] Comment on above: Performed By: #### C MP, LIPASE, CBC, JACOB #### [address] Monocytes (Bld) [#/Vol] 0.4 10*3/uL Normal 0.0-0.8 [facility] Comment on above: Performed By: #### C MP, LIPASE, CBC, JACOB #### [address] Monocytes/100 WBC (Bld) 7.2 % Normal . [facility] Comment on above: Performed By: #### C MP, LIPASE, CBC, JACOB #### [address] [place] [address] [place] Neutrophils (Bld) [#/Vol] 4.3 10*3/uL Normal 1.8-7.7 [facility] Comment on above: Performed By: #### C MP, LIPASE, CBC, JACOB #### [address] Neutrophils/100 WBC (Bld) 70.6 % Normal . [facility] Comment on above: Performed By: #### C MP, LIPASE, CBC, JACOB #### [address] Nucleated RBC/100 WBC (Bld) [Ratio] 0.0 % Normal 0-0.5 [facility] Comment on above: Performed By: #### C MP, LIPASE, CBC, JACOB #### [address] Platelet mean volume (Bld) [Entitic vol] 8.1 fL Normal 6.3-10.7 [facility] Comment on above: Performed By: #### C MP, LIPASE, CBC, JACOB #### [address] Platelets (Bld) [#/Vol] 163 10*3/uL Normal 150-450 [facility] Comment on above: Performed By: #### C MP, LIPASE, CBC, JACOB #### [address] RBC (Bld) [#/Vol] 3.85 10*6/uL Normal 3.60-5.00 [facility] Comment on above: Performed By: #### C MP, LIPASE, CBC, JACOB #### [address] WBC (Bld) [#/Vol] 6.0 10*3/uL Normal 4.5-11.0 [facility] Comment on above: Performed By: #### C MP, LIPASE, CBC, JACOB #### [address] Comprehensive Metabolic Pane phoebe 10-31-2020 Albumin [Mass/Vol] 2.6 g/dL Low 3.2-5.5 [facility] Comment on above: Performed By: #### C MP, LIPASE, CBC, JACOB #### [address] Albumin/Globulin [Mass ratio] 0.9 {ratio} Normal [facility] Comment on above: Performed By: #### C MP, LIPASE, CBC, JACOB #### [facility] [address] ALP [Catalytic activity/Vol] 269 U/L High 32-92 [facility] Comment on above: Performed By: #### C MP, LIPASE, CBC, JACOB #### [address] ALT [Catalytic activity/Vol] 180 U/L High 10-60 [facility] Comment on above: Performed By: #### C MP, LIPASE, CBC, JACOB #### [address] AST [Catalytic activity/Vol] 73 U/L High 10-42 [facility] Comment on above: Performed By: #### C MP, LIPASE, CBC, JACOB #### [address] Bilirubin [Mass/Vol] 1.6 mg/dL High 0.3-1.2 [facility] Comment on above: Result Comment: [facility] who have taken Nap[facility]en have shown spurious elevation in Total Bilirubin levels. A metabolite of Naproxen, O-desmethylnaproxen, has been shown to interfere with the Jendrassik-Grof method for measuring Total Bilirubin. Performed By: #### C MP, LIPASE, CBC, JACOB #### [address] Calcium [Mass/Vol] 8.7 mg/dL Normal 8.2-10.2 [facility] Comment on above: Performed By: #### C MP, LIPASE, CBC, JACOB #### [place] [address] [place] Chloride [Moles/Vol] 108 mmol/L Normal 95-114 [facility] Comment on above: Performed By: #### C MP, LIPASE, CBC, JACOB #### [address] CO2 [Moles/Vol] 23.3 mmol/L Normal 22.0-30.0 [facility] Comment on above: Performed By: #### C MP, LIPASE, CBC, JACOB #### [address] Creatinine [Mass/Vol] 0.93 mg/dL Normal 0.44-1.03 [facility] Comment on above: Performed By: #### C MP, LIPASE, CBC, JACOB #### [address] Creatinine Clr Calc Pharmacy 53.01 [facility] Comment on above: Result Comment: PERF ORMED BY: [place] [address] PATHOLOGIST [employer] T[employer]ER JENNIFER IRIZARRY M.D. Performed By: #### C MP, LIPASE, CBC, JACOB #### [address] Estimated GFR ( Mariaa > 60 [facility] Comment on above: Result Comment: GFR estimated reference range: According to KDOQI guidelines, <60 ml/min/1.73m2 is sufficient to diagnose a patient with chronic kidney disease. Performed By: #### C MP, LIPASE, CBC, JACOB #### [address] Estimated GFR (Non- Am 60 [facility] Comment on above: Performed By: #### C MP, LIPASE, CBC, JACOB #### [address] Globulin (S) [Mass/Vol] 2.9 g/dL [facility] Comment on above: Performed By: #### C MP, LIPASE, CBC, JACOB #### [address] Glucose [Mass/Vol] 80 mg/dL Normal 70-100 [facility] Comment on above: Result Comment: [facility] Glucose Reference Range is dependent on time and content of last meal. Glucose of more than 200 mg/dL in a nonstressed, ambulatory subject supports the diagnosis of Diabetes Mellitus. ADA recommended reference range Performed By: #### C MP, LIPASE, CBC, JACOB #### [facility] [address] Potassium [Moles/Vol] 3.7 mmol/L Normal 3.5-5.1 [facility] Comment on above: Performed By: #### C MP, LIPASE, CBC, JACOB #### [facility] [address] Protein [Mass/Vol] 5.5 g/dL Low 6.1-7.9 [facility] Comment on above: Performed By: #### C MP, LIPASE, CBC, JACOB #### [address] Sodium [Moles/Vol] 139 mmol/L Normal 136-146 [facility] Comment on above: Performed By: #### C MP, LIPASE, CBC, JACOB #### [address] Urea nitrogen [Mass/Vol] 13 mg/dL Normal 9-23 [facility] Comment on above: Performed By: #### C MP, LIPASE, CBC, JACOB #### [address] ABO/Rh Retypeon 10-30-2020 ABO/RH Recheck Result Positive Normal [facility] Comment on above: Result Comment: PERF ORMED BY: [place] [address] PATHOLOGIST [employer] T[employer] JENNIFER IRIZARRY M.D. Complete Blood Count Auto Di ffon 10-30-2020 Basophils (Bld) [#/Vol] 0.0 10*3/uL Normal 0.0-0.2 [facility] Comment on above: Result Comment: PERF ORMED BY: [place] [address] PATHOLOGIST [employer] T[employer] JENNIFER IRIZARRY M.D. Performed By: #### C BC, CMP, LIPASE #### [facility] [address] Basophils/100 WBC (Bld) 0.3 % Normal . [facility] Comment on above: Performed By: #### C BC, CMP, LIPASE #### [address] Eosinophils (Bld) [#/Vol] 0.0 10*3/uL Normal 0.0-0.45 [facility] [facility] Comment on above: Performed By: #### C BC, CMP, LIPASE #### [address] Eosinophils/100 WBC (Bld) 0.5 % Normal . [facility] Comment on above: Performed By: #### C BC, CMP, LIPASE #### [address] Erythrocyte distribution width (RBC) [Ratio] 13.9 % Normal 11.9-15.3 [facility] Comment on above: Performed By: #### C BC, CMP, LIPASE #### [address] Hematocrit (Bld) [Volume fraction] 39.3 % Normal 34.0-46.4 [facility] Comment on above: Performed By: #### C BC, CMP, LIPASE #### [place] [address] [place] Hemoglobin (Bld) [Mass/Vol] 13.3 g/dL Normal 11.8-15.4 [facility] Comment on above: Performed By: #### C BC, CMP, LIPASE #### [place] [address] [place] Lymphocytes (Bld) [#/Vol] 1.4 10*3/uL Normal 1.00-4.8 [facility] Comment on above: Performed By: #### C BC, CMP, LIPASE #### [place] [address] [place] Lymphocytes/100 WBC (Bld) 19.1 % Normal . [facility] Comment on above: Performed By: #### C BC, CMP, LIPASE #### [address] MCH (RBC) [Entitic mass] 31.1 pg Normal 24.7-34.3 [facility] Comment on above: Performed By: #### C BC, CMP, LIPASE #### [address] MCV (RBC) [Entitic vol] 91.7 fL Normal 80-100 [facility] Comment on above: Performed By: #### C BC, CMP, LIPASE #### [address] Mean Corpuscular HGB Conc 34.0 g/dL Normal 32.0-35.0 [facility] Comment on above: Performed By: #### C BC, CMP, LIPASE #### [address] Monocytes (Bld) [#/Vol] 0.5 10*3/uL Normal 0.0-0.8 [facility] Comment on above: Performed By: #### C BC, CMP, LIPASE #### [address] Monocytes/100 WBC (Bld) 7.1 % Normal . [facility] Comment on above: Performed By: #### C BC, CMP, LIPASE #### [address] Neutrophils (Bld) [#/Vol] 5.5 10*3/uL Normal 1.8-7.7 [facility] Comment on above: Performed By: #### C BC, CMP, LIPASE #### [address] Neutrophils/100 WBC (Bld) 73.0 % Normal . [facility] Comment on above: Performed By: #### C BC, CMP, LIPASE #### [address] Nucleated RBC/100 WBC (Bld) [Ratio] 0.1 % Normal 0-0.5 [facility] Comment on above: Performed By: #### C BC, CMP, LIPASE #### [address] Platelet mean volume (Bld) [Entitic vol] 7.6 fL Normal 6.3-10.7 [facility] Comment on above: Performed By: #### C BC, CMP, LIPASE #### [address] Platelets (Bld) [#/Vol] 197 10*3/uL Normal 150-450 [facility] Comment on above: Performed By: #### C BC, CMP, LIPASE #### [address] RBC (Bld) [#/Vol] 4.29 10*6/uL Normal 3.60-5.00 [facility] Comment on above: Performed By: #### C BC, CMP, LIPASE #### [address] WBC (Bld) [#/Vol] 7.5 10*3/uL Normal 4.5-11.0 [facility] Comment on above: Performed By: #### C BC, CMP, LIPASE #### [address] Comprehensive Metabolic Pane phoebe 10-30-2020 Albumin [Mass/Vol] 3.0 g/dL Low 3.2-5.5 [facility] Comment on above: Performed By: #### C BC, CMP, LIPASE #### [address] Albumin/Globulin [Mass ratio] 1.0 {ratio} Normal [facility] Comment on above: Performed By: #### C BC, CMP, LIPASE #### [address] ALP [Catalytic activity/Vol] 305 U/L High 32-92 [facility] Comment on above: Performed By: #### C BC, CMP, LIPASE #### [facility] [address] [place] [id number] [place] ALT [Catalytic activity/Vol] 275 U/L High 10-60 [facility] Comment on above: Performed By: #### C BC, CMP, LIPASE #### [facility] [address] [place] [id number] [place] AST [Catalytic activity/Vol] 142 U/L High 10-42 [facility] Comment on above: Performed By: #### C BC, CMP, LIPASE #### [facility] [address] Bilirubin [Mass/Vol] 2.4 mg/dL High 0.3-1.2 [facility] Comment on above: Result Comment: Samp les from patients who have taken Naproxen have shown spurious elevation in Total Bilirubin levels. A metabolite of Naproxen, O-desmethylnaproxen, has been shown to interfere with the Jendrmelizaik-Grof method for measuring Total Bilirubin. Performed By: #### C BC, CMP, LIPASE #### [facility] [address] Calcium [Mass/Vol] 9.1 mg/dL Normal 8.2-10.2 [facility] Comment on above: Performed By: #### C BC, CMP, LIPASE #### [facility] [address] [place] [address] [place] Chloride [Moles/Vol] 107 mmol/L Normal 95-114 [facility] Comment on above: Performed By: #### C BC, CMP, LIPASE #### [facility] [address] [place] [id number] [place] CO2 [Moles/Vol] 25.5 mmol/L Normal 22.0-30.0 [facility] Comment on above: Performed By: #### C BC, CMP, LIPASE #### [facility] [address] [place] [id number] [place] Creatinine [Mass/Vol] 1.03 mg/dL Normal 0.44-1.03 [facility] Comment on above: Performed By: #### C BC, CMP, LIPASE #### [facility] [address] Creatinine Clr Calc Pharmacy 46.30 [facility] Comment on above: Performed By: #### C BC, CMP, LIPASE #### [facility] [address] Estimated GFR ( Mariaa > 60 [facility] Comment on above: Result Comment: GFR estimated reference range: According to KDOQI guidelines, <60 ml/min/1.73m2 is sufficient to diagnose a patient with chronic kidney disease. Performed By: #### C BC, CMP, LIPASE #### [address] Estimated GFR (Non- Am 53 [facility] Comment on above: Performed By: #### C BC, CMP, LIPASE #### [address] Globulin (S) [Mass/Vol] 3.0 g/dL [facility] Comment on above: Performed By: #### C BC, CMP, LIPASE #### [address] Glucose [Mass/Vol] 114 mg/dL High 70-100 [facility] Comment on above: Result Comment: [place] Glucose Reference Range is dependent on time and content of last meal. Glucose of more than 200 mg/dL in a nonstressed, ambulatory subject supports the diagnosis of Diabetes Mellitus. ADA recommended reference range Performed By: #### C BC, CMP, LIPASE #### [address] Potassium [Moles/Vol] 4.0 mmol/L Normal 3.5-5.1 [facility] Comment on above: Performed By: #### C BC, CMP, LIPASE #### [address] Protein [Mass/Vol] 6.0 g/dL Low 6.1-7.9 [facility] Comment on above: Performed By: #### C BC, CMP, LIPASE #### [address] Sodium [Moles/Vol] 140 mmol/L Normal 136-146 [facility] Comment on above: Performed By: #### C BC, CMP, LIPASE #### [facility] [address] [place], [place] [id number] [facility] Urea nitrogen [Mass/Vol] 15 mg/dL Normal 9-23 [facility] Comment on above: Performed By: #### C BC, CMP, LIPASE #### [facility] [address] [place] [id number] [facility] [place] ERCPon 10-30-2020 [place] ERCP [facility] [place] [address] [place] [address] Fluoroscopy Report Signed Patient: Molly Garcia MR#: [id number] : 1950 Acct:[id number] Age/Sex: 70 / F ADM Date: 10/29/20 Loc: Room: [address] [place] [address] Type: ADM IN Attending Dr: Amor Vaca [...] Loyda Miranda M.D.10/30/2020 8:06 PM Dictation Location: [place] [address] Transcribed By: [facility] 10/30/202005 Dictated By: Loyda Miranda MD 10/30/202002 Signed By: 10/30/202005 Normal [facility] Lipaseon 10-30-2020 Lipase [Catalytic activity/Vol] 198.0 U/L High 22-51 [facility] Comment on above: Result Comment: PERF ORMED BY: [place] [address] PATHOLOGIST PULPER TENDER JENNIFER IRIZARRY M.D. Performed By: #### C BC, CMP, LIPASE #### [address] Prothrombin Time INRon 10-30 INR Coag (PPP) [Relative time] 1.2 {INR} Normal [facility] Comment on above: Result Comment: INR [...] heart valves: 3 - 4.5 PERFORMED BY: [place] [address] PATHOLOGIST PULPER TENDER JENNIFER IRIZARRY M.D. Performed By: #### P T #### [address] PT Coag (PPP) [Time] 13.3 s High 9.0-12.9 [facility] Comment on above: Performed By: #### P T #### [address] Type and Screenon 10-30-2020 ABO and Rh group Nom (Bld) Blood group O Rh(D) positive Normal [facility] Amylaseon 10-29-2020 Amylase [Catalytic activity/Vol] 1490 U/L High 28-100 [facility] Comment on above: Performed By: #### C MP, LIPASE, CBC, JACOB #### [facility] [address] [place] [address] COVID-19 FRMCon 10-29-2020 SARS-CoV-2 (COVID-19) RNA ROBE+probe Ql (Unsp spec) Negative Normal Negative [facility] Comment on above: Order Comment: Healt hcare Worker?: N Result Comment: Testing for SARS-CoV-2 by RT-PCR This test was developed and its performance characteristics determined by [employer] ([employer] and validated at the [facility]. This test has not been FDA [...] is terminated or revoked sooner. PERFORMED BY: [place] [address] PATHOLOGIST PULPER TENDER JENNIFER IRIZARRY M.D. Performed By: #### C MP, LIPASE, CBC, JACOB #### [address] Complete Blood Count Auto Di ffon 10-29-2020 Basophils (Bld) [#/Vol] 0.0 10*3/uL Normal 0.0-0.2 [facility] Comment on above: Result Comment: PERF ORMED BY: [place] [address] PATHOLOGIST PULPER TENDER JENNIFER IRIZARRY M.D. Performed By: #### C MP, LIPASE, CBC, JACOB #### [address] Basophils/100 WBC (Bld) 0.4 % Normal . [facility] Comment on above: Performed By: #### C MP, LIPASE, CBC, JACOB #### [address] Eosinophils (Bld) [#/Vol] 0.0 10*3/uL Normal 0.0-0.45 [facility] Comment on above: Performed By: #### C MP, LIPASE, CBC, JACOB #### [address] Eosinophils/100 WBC (Bld) 0.3 % Normal . [facility] Comment on above: Performed By: #### C MP, LIPASE, CBC, JACOB #### [address] Erythrocyte distribution width (RBC) [Ratio] 14.0 % Normal 11.9-15.3 [facility] Comment on above: Performed By: #### C MP, LIPASE, CBC, JACOB #### [address] Hematocrit (Bld) [Volume fraction] 39.7 % Normal 34.0-46.4 [facility] Comment on above: Performed By: #### C MP, LIPASE, CBC, JACOB #### [address] Hemoglobin (Bld) [Mass/Vol] 13.4 g/dL Normal 11.8-15.4 [facility] Comment on above: Performed By: #### C MP, LIPASE, CBC, JACOB #### [address] Lymphocytes (Bld) [#/Vol] 1.4 10*3/uL Normal 1.00-4.8 [facility] Comment on above: Performed By: #### C MP, LIPASE, CBC, JACOB #### [address] Lymphocytes/100 WBC (Bld) 19.0 % Normal . [facility] Comment on above: Performed By: #### C MP, LIPASE, CBC, JACOB #### [address] MCH (RBC) [Entitic mass] 31.0 pg Normal 24.7-34.3 [facility] Comment on above: Performed By: #### C MP, LIPASE, CBC, JACOB #### [address] MCV (RBC) [Entitic vol] 91.7 fL Normal 80-100 [facility] Comment on above: Performed By: #### C MP, LIPASE, CBC, JACOB #### [address] Mean Corpuscular HGB Conc 33.9 g/dL Normal 32.0-35.0 [facility] Comment on above: Performed By: #### C MP, LIPASE, CBC, JACOB #### [address] Monocytes (Bld) [#/Vol] 0.6 10*3/uL Normal 0.0-0.8 [facility] Comment on above: Performed By: #### C MP, LIPASE, CBC, JACOB #### [address] Monocytes/100 WBC (Bld) 7.7 % Normal . [facility] Comment on above: Performed By: #### C MP, LIPASE, CBC, JACOB #### [address] Neutrophils (Bld) [#/Vol] 5.4 10*3/uL Normal 1.8-7.7 [facility] Comment on above: Performed By: #### C MP, LIPASE, CBC, JACOB #### [address] Neutrophils/100 WBC (Bld) 72.6 % Normal . [facility] Comment on above: Performed By: #### C MP, LIPASE, CBC, JACOB #### [place] [address] [place] Nucleated RBC/100 WBC (Bld) [Ratio] 0.0 % Normal 0-0.5 [facility] Comment on above: Performed By: #### C MP, LIPASE, CBC, JACOB #### [address] Platelet mean volume (Bld) [Entitic vol] 7.4 fL Normal 6.3-10.7 [facility] Comment on above: Performed By: #### C MP, LIPASE, CBC, JACOB #### [place] [address] [place] Platelets (Bld) [#/Vol] 212 10*3/uL Normal 150-450 [facility] Comment on above: Performed By: #### C MP, LIPASE, CBC, JACOB #### [address] RBC (Bld) [#/Vol] 4.33 10*6/uL Normal 3.60-5.00 [facility] Comment on above: Performed By: #### C MP, LIPASE, CBC, JACOB #### [address] WBC (Bld) [#/Vol] 7.5 10*3/uL Normal 4.5-11.0 [facility] Comment on above: Performed By: #### C MP, LIPASE, CBC, JACOB #### [address] Comprehensive Metabolic Pane phoebe 10-29-2020 Albumin [Mass/Vol] 3.1 g/dL Low 3.2-5.5 [facility] Comment on above: Performed By: #### C MP, LIPASE, CBC, JACOB #### [address] Albumin/Globulin [Mass ratio] 1.0 {ratio} Normal [facility] Comment on above: Performed By: #### C MP, LIPASE, CBC, JACOB #### [facility] [address] [place] [address] ALP [Catalytic activity/Vol] 295 U/L High 32-92 [facility] Comment on above: Performed By: #### C MP, LIPASE, CBC, JACOB #### [facility] [address] [place] [address] ALT [Catalytic activity/Vol] 331 U/L High 10-60 [facility] Comment on above: Performed By: #### C MP, LIPASE, CBC, JACOB #### [address] AST [Catalytic activity/Vol] 189 U/L High 10-42 [facility] Comment on above: Performed By: #### C MP, LIPASE, CBC, JACOB #### [facility] [address] Bilirubin [Mass/Vol] 5.4 mg/dL High 0.3-1.2 [facility] Comment on above: Result Comment: Samp les from patients who have taken Naproxen have shown spurious elevation in Total Bilirubin levels. A metabolite of Naproxen, O-desmethylnaproxen, has been shown to interfere with the Jendrassik-Grof method for measuring Total Bilirubin. Performed By: #### C MP, LIPASE, CBC, JACOB #### [facility] [address] Calcium [Mass/Vol] 9.2 mg/dL Normal 8.2-10.2 [facility] Comment on above: Performed By: #### C MP, LIPASE, CBC, JACOB #### [address] Chloride [Moles/Vol] 105 mmol/L Normal 95-114 [facility] Comment on above: Performed By: #### C MP, LIPASE, CBC, JACOB #### [address] CO2 [Moles/Vol] 24.0 mmol/L Normal 22.0-30.0 [facility] Comment on above: Performed By: #### C MP, LIPASE, CBC, JACOB #### [place] [id number] [place] Creatinine [Mass/Vol] 1.23 mg/dL High 0.44-1.03 [facility] Comment on above: Performed By: #### C MP, LIPASE, CBC, JACOB #### [place] [address] [place] Creatinine Clr Calc Pharmacy 38.78 [facility] Comment on above: Performed By: #### C MP, LIPASE, CBC, JACOB #### [facility] [address] Estimated GFR ( Mariaa 52 Normal [facility] Comment on above: Result Comment: GFR estimated reference range: According to KDOQI guidelines, <60 ml/min/1.73m2 is sufficient to diagnose a patient with chronic kidney disease. Performed By: #### C MP, LIPASE, CBC, JACOB #### [facility] [address] Estimated GFR (Non- Am 43 Normal [facility] Comment on above: Performed By: #### C MP, LIPASE, CBC, JACOB #### [facility] [address] Globulin (S) [Mass/Vol] 3.0 g/dL Normal [facility] Comment on above: Performed By: #### C MP, LIPASE, CBC, JACOB #### [address] Glucose [Mass/Vol] 92 mg/dL Normal 70-100 [facility] Comment on above: Result Comment: [facility] Glucose Reference Range is dependent on time and content of last meal. Glucose of more than 200 mg/dL in a nonstressed, ambulatory subject supports the diagnosis of Diabetes Mellitus. ADA recommended reference range Performed By: #### C MP, LIPASE, CBC, JACOB #### [address] Potassium [Moles/Vol] 4.1 mmol/L Normal 3.5-5.1 [facility] Comment on above: Performed By: #### C MP, LIPASE, CBC, JACOB #### [address] Protein [Mass/Vol] 6.1 g/dL Normal 6.1-7.9 [facility] Comment on above: Performed By: #### C MP, LIPASE, CBC, JACOB #### [address] Sodium [Moles/Vol] 138 mmol/L Normal 136-146 [facility] Comment on above: Performed By: #### C MP, LIPASE, CBC, JACOB #### [address] Urea nitrogen [Mass/Vol] 16 mg/dL Normal 9-23 [facility] Comment on above: Performed By: #### C MP, LIPASE, CBC, JACOB #### [facility] [address] [place] [address] [place] Dipstick and Microscopicon 0 10-29-2020 Appearance (U) Cloudy Critically abnormal Clear [facility] Comment on above: Order Comment: Name Collection Type:: Clean-Voided Midstream Performed By: #### A DDONUAPLUS, CUU #### [address] Bacteria,Urine None Seen Normal None Seen [facility] Comment on above: Order Comment: Name Collection Type:: Clean-Voided Midstream Performed By: #### A DDONUAPLUS, CUU #### [place] [address] [place] Bilirubin,Urine 2+ High Negative [facility] Comment on above: Order Comment: Name Collection Type:: Clean-Voided Midstream Performed By: #### A DDONUAPLUS, CUU #### [place] [address] [place] Color (U) Dark Yellow Critically abnormal Yellow [facility] Comment on above: Order Comment: Name Collection Type:: Clean-Voided Midstream Performed By: #### A DDONUAPLUS, CUU #### [place] [address] [place] Glucose Ql (U) Normal Normal Normal [facility] Comment on above: Order Comment: Name Collection Type:: Clean-Voided Midstream Performed By: #### A DDONUAPLUS, CUU #### [place] [address] [place] Hyaline Casts,Urine 0-8 Normal 0-8 [facility] Comment on above: Order Comment: Name Collection Type:: Clean-Voided Midstream Result Comment: PERF ORMED BY: [place] [address] PATHOLOGIST PULPER TENDER JENNIFER IRIZARRY M.D. Performed By: #### A DDONUAPLUS, CUU #### [place] [address] [place] Ketones Ql (U) 1+ High Negative [facility] Comment on above: Order Comment: Name Collection Type:: Clean-Voided Midstream Performed By: #### A DDONUAPLUS, CUU #### [address] Leukocyte esterase Test strip Ql (U) 2+ High Negative [facility] Comment on above: Order Comment: Name Collection Type:: Clean-Voided Midstream Performed By: #### A DDONUAPLUS, CUU #### [address] Nitrite,Urine Negative Normal Negative [facility] Comment on above: Order Comment: Name Collection Type:: Clean-Voided Midstream Performed By: #### A DDONUAPLUS, CUU #### [address] Occult Blood,Urine Negative Normal Negative [facility] Comment on above: Order Comment: Name Collection Type:: Clean-Voided Midstream Result Comment: PERF ORMED BY: [place] [address] PATHOLOGIST PULPER TENDER JENNIFER IRIZARRY M.D. Performed By: #### A DDONUAPLUS, CUU #### [address] pH (U) 5.5 [pH] Normal 5.0-9.0 [facility] Comment on above: Order Comment: Name Collection Type:: Clean-Voided Midstream Performed By: #### A DDONUAPLUS, CUU #### [address] Protein,Urine Trace High Negative [facility] Comment on above: Order Comment: Name Collection Type:: Clean-Voided Midstream Performed By: #### A DDONUAPLUS, CUU #### [address] RBC,Urine 3-4 Normal 0-4 [facility] Comment on above: Order Comment: Name Collection Type:: Clean-Voided Midstream Performed By: #### A DDONUAPLUS, CUU #### [facility] [address] [place] [address] Specificy [place],Urine 1.022 Normal 1.001-1.030 [facility] Comment on above: Order Comment: Name Collection Type:: Clean-Voided Midstream Performed By: #### A DDONUAPLUS, CUU #### [address] Squamous Epithelial Cell,Urine 0-1 Normal 0-2 [facility] Comment on above: Order Comment: Name Collection Type:: Clean-Voided Midstream Performed By: #### A DDONUAPLUS, CUU #### [address] Urobilinogen,Urine Normal Normal Normal [facility] Comment on above: Order Comment: Name Collection Type:: Clean-Voided Midstream Performed By: #### A DDONUAPLUS, CUU #### [address] WBC,Urine 10-19 High 0-4 [facility] Comment on above: Order Comment: Name Collection Type:: Clean-Voided Midstream Performed By: #### A DDONUAPLUS, CUU #### [address] Lipaseon 10-29-2020 Lipase [Catalytic activity/Vol] 662.0 U/L High 22-51 [facility] Comment on above: Result Comment: PERF ORMED BY: [place] [address] PATHOLOGIST PULPER TENDER JENNIFER IRIZARRY M.D. Performed By: #### C MP, LIPASE, CBC, JACOB #### [facility] [address] [place] [address] Urine Cultureon 10-29-2020 Bacteria identified Cx Nom (U) No Growth 2 Days PERFORMED BY: [place] [address] PATHOLOGIST PULPER TENDER JENNIFER IRIZARRY M.D. Normal [facility] Comment on above: Performed By: #### A DDONUAPLUS, CUU #### [facility] [address] [place] [id number] [facility] Vital Signs Date Time Vital Sign Value Performing Clinician Facility 09-20-2023 10:54-0400 Body height 154.94 cm [facility] 09-20-2023 10:54-0400 Body mass index (BMI) [Ratio] 33.3 kg/m2 [facility] 09-20-2023 10:54-0400 Body temperature 97.5 [degF] [facility] 09-20-2023 10:54-0400 Body weight 79.97 kg [facility] 09-20-2023 10:54-0400 Diastolic blood pressure 78 mm[Hg] [facility] 09-20-2023 10:54-0400 Heart rate 70 /min [facility] 09-20-2023 10:54-0400 Respiratory rate 16 /min [facility] 09-20-2023 10:54-0400 SaO2% (BldA) [Mass fraction] 96 % [facility] 09-20-2023 10:54-0400 Systolic blood pressure 121 mm[Hg] [facility] 02-05-2023 12:00-0500 Body height 154.94 cm Siomara Mcfarland Other [employer] [facility] [employer] Other 02-05-2023 12:00-0500 Body mass index (BMI) [Ratio] 34.2 kg/m2 Siomara Mcfarland Other [employer] Other 02-05-2023 12:00-0500 Body temperature 98.2 [degF] Siomara Mcfarland Other [employer] Other 02-05-2023 12:00-0500 Body weight 82.1 kg Siomara Mcfarland Other [employer] Other 02-05-2023 12:00-0500 Diastolic blood pressure 78 mm[Hg] Siomara Mcfarland Other [employer] Other 02-05-2023 12:00-0500 Respiratory rate 19 /min Siomara Mcfarland Other [employer] Other 02-05-2023 12:00-0500 SaO2% (BldA) [Mass fraction] 97 % Siomara Mcfarland Other [employer] Other 02-05-2023 12:00-0500 Systolic blood pressure 135 mm[Hg] Siomara Mcfarland Other [employer] Other 11-12-2022 09:15-0400 Body height 154.94 cm Jimmie Ball Other [employer] Other 11-12-2022 09:15-0400 Body mass index (BMI) [Ratio] 32.91 kg/m2 Jmimie Ball Other [employer] Other 11-12-2022 09:15-0400 Body weight 79.02 kg Jimmie Ball Other [employer] Other 11-12-2022 09:15-0400 Diastolic blood pressure 71 mm[Hg] Jimmie Ball Other [employer] Other 11-12-2022 09:15-0400 Respiratory rate 12 /min Jimmie Ball Other [employer] Other 11-12-2022 09:15-0400 Systolic blood pressure 130 mm[Hg] Jimmie Ball Other [employer] Other 11-02-2022 17:55-0400 Body height 154.94 cm Marivel Whitlock Other [employer] Other 11-02-2022 17:55-0400 Body mass index (BMI) [Ratio] 32.87 kg/m2 Marivel Whitlock Other [employer] Other 11-02-2022 17:55-0400 Body temperature 98.2 [degF] Marivel Whitlock Other [employer] Other 11-02-2022 17:55-0400 Body weight 78.93 kg Marivel Whitlock Other [employer] Other 11-02-2022 17:55-0400 Diastolic blood pressure 72 mm[Hg] Marivel Alvesmond Other [employer] Other 11-02-2022 17:55-0400 Respiratory rate 18 /min Marivel Whitlock Other [employer] Other 11-02-2022 17:55-0400 SaO2% (BldA) [Mass fraction] 97 % Marivel Whitlock Other [employer] Other 11-02-2022 17:55-0400 Systolic blood pressure 136 mm[Hg] Marivel Whitlock Other [employer] Other 06-21-2022 12:30-0400 Body height 154.94 cm Jimmie Ball Other [employer] Other 06-21-2022 12:30-0400 Body mass index (BMI) [Ratio] 32.42 kg/m2 Jimmie Ball Other [employer] Other 06-21-2022 12:30-0400 Body weight 77.84 kg Jimmie Ball Other [employer] Other 06-21-2022 12:30-0400 Diastolic blood pressure 75 mm[Hg] Jimmie Ball Other [employer] Other 06-21-2022 12:30-0400 Respiratory rate 12 /min Jimmie Ball Other [employer] Other 06-21-2022 12:30-0400 Systolic blood pressure 126 mm[Hg] Jimmie Ball Other [employer] Other 02-27-2021 11:30-0500 Body height 154.94 cm Marivel Whitlock Other [employer] Other 02-27-2021 11:30-0500 Body mass index (BMI) [Ratio] 31.17 kg/m2 Marivel Whitlock Other [employer] Other 02-27-2021 11:30-0500 Body temperature 97.5 [degF] Marivel Whitlock Other [employer] Other 02-27-2021 11:30-0500 Body weight 74.84 kg Marivel Whitlock Other [employer] Other 02-27-2021 11:30-0500 Respiratory rate 18 /min Marivel Alvesmond Other [employer] Other 02-27-2021 11:30-0500 SaO2% (BldA) [Mass fraction] 98 % Marivel Whitlock Other [employer] Other Encounters Encounter Date Encounter Type Care Provider Facility Start: 05-29-2024 ambulatory Zulay oh PA-C [facility] Start: 05-29-2024 ambulatory Zulay oh PA-C Facility[facility] Start: 09-20-2023 End: 09-20-2023 ambulatory [facility] Work Phone: Start: 09-20-2023 End: 09-20-2023 Patient encounter procedure [facility] Work Phone: Start: 05-31-2023 ambulatory Zulay ZUNIGA-C Facility[facility] Start: 05-31-2023 End: 06-01-2023 ambulatory Zulay Lopez PA-C Facility[facility] Start: 03-02-2023 End: 03-02-2023 ambulatory Jimmie Melendez Other [employer] Other Start: 03-02-2023 Office outpatient vi sit 15 minutes Jimmie Melendez [facility] Start: 02-05-2023 End: 02-05-2023 ambulatory Siomara Mcfarland Other [employer] Other Start: 02-05-2023 Office outpatient vi sit 15 minutes Siomara Mcfarland [facility] Start: 12-15-2022 ambulatory Zulay ZUNIGA-C Facility:[facility] Start: 12-15-2022 End: 12-16-2022 ambulatory Zulay ZUNIGA-Shaista [facility] Start: 11-12-2022 End: 11-12-2022 ambulatory Jimmie Melendez Other [employer] Other Start: 11-12-2022 Office outpatient vi sit 15 minutes Jimmie Melendez [facility] Start: 11-12-2022 Telephone encounter Jimmie Al [facility] Start: 11-05-2022 End: 11-05-2022 ambulatory Jimmie Melendez Other [employer] Other Start: 11-05-2022 Telephone encounter Jimmie Melendez [facility] Start: 11-02-2022 Office outpatient vi sit 15 minutes Marivel Chinyere [facility] Start: 11-02-2022 End: 11-02-2022 ambulatory Alvaro Melendez DO [employer] Other Start: 10-05-2022 End: 10-05-2022 ambulatory Jimmie Melendez Other [employer] Other Start: 10-05-2022 Nursing evaluation o f patient and report Jimmie Melendez [facility] Start: 08-17-2022 End: 08-17-2022 ambulatory Jimmie Melendez Other [employer] Other Start: 08-17-2022 Telephone encounter Jimmie Melendez [facility] Start: 06-21-2022 End: 06-21-2022 ambulatory Jimmie Melendez Other [employer] Other Start: 06-21-2022 Office outpatient vi sit 25 minutes Jimmie Melendez [facility] Start: 12-07-2021 End: 12-08-[address] JIMMIE [...] preprocedural cardiovascular examination DR CINTHIA BERNARD [facility] Start: 07-08-2021 Encounter for preprocedural laboratory examination DR CINTHIA BERNARD [facility] Start: 07-06-2021 End: 07-07-[address] CINTHIA BERNARD Facility:[facility] Start: 07-06-2021 End: 07-07-2021 Encounter for preprocedural cardiovascular examination DR CINTHIA BERNARD Facility:[facility] Start: 05-21-2021 End: 05-22-[address] CINTHIA BERNARD Facility:[facility] Start: 02-27-2021 End: 02-27-2021 ambulatory Marivel Whitlock Other [employer] Other Start: 02-27-2021 Office outpatient vi sit 15 minutes Marivel Whitlock [facility] Procedures Date Procedure Procedure Detail Performing Clinician Start: 10-30-2020 Antibody screen Comment on above: Result Comment: PERF ORMED BY: [facility] [address] [place] [address] PATHOLOGIST PULPER T[employer]ER JENNIFER IRIZARRY M.D. History of cholecystectomy Jimmie Melendez Other History of cholecystectomy Status post laparoscopic cholecystectomy Immunizations Immunization Date Immunization Notes Care Provider [facility] 10-05-2022 Prevnar 20 Jimmie Melendez Other [facility] 01-20-2022 COVID-19 Pfizer (Pediatric) Jimmie Melendez Other [facility] 12-21-2021 influenza virus vaccine, unspecified formulation [facility] 12-21-2021 influenza, high dose seasonal, preservative-free Jimmie Melendez Other [facility] [employer] Other 11-26-2021 diphtheria, tetanus toxoids and acellular pertussis vaccine, unspecified formulation Jimmie Melendez Other [facility] 08-20-2021 COVID-19 Vaccine Pfi zer - Documentation Purposes Only Jimmie Melendez Other [facility] 12-22-2020 COVID-19 Vaccine Pfi zer - Documentation Purposes Only Jimmie Melendez Other [facility] 11-30-2020 influenza virus vaccine, split virus (incl. purified surface antigen) Jimmie Melendez Other [employer] Other 11-30-2020 influenza virus vaccine, unspecified formulation [facility] 04-23-2020 COVID-19 Vaccine Pfi zer - Documentation Purposes Only Jimmie Melendez Other [facility] 03-31-2020 COVID-19 Vaccine Pfi zer - Documentation Purposes Only Jimmie Melendez Other [facility] 12-27-2019 influenza virus vaccine, split virus (incl. purified surface antigen) Jimmie Melendez Other [employer] Other 12-27-2019 influenza virus vaccine, unspecified formulation [facility] 08-09-2019 pneumococcal polysaccharide vaccine, 23 valent Jimmie Melendez Other [facility] 01-02-2019 influenza virus vaccine, split virus (incl. purified surface antigen) Jimmie Melendez Other [employer] Other 01-02-2019 influenza virus vaccine, unspecified formulation [facility] 12-14-2017 diphtheria, tetanus toxoids and acellular pertussis vaccine, unspecified formulation Jimmie Melendez Other [facility] Payers Date Payer Category Payer Unknown 2016 Medicare 1958 Medicare [id number] 2.1 [id number] 1959 Private Health Insurance CLI [id number] 1950 Unknown [id number] 2.16.84 0.1.600665.3.579.2.593 1950 Unknown [id number] 2.16.84 0.1.009035.3.579.2.593 1950 Unknown [id number] 2.16.84 0.1.597467.3.579.2.593 1950 Unknown [id number] 2.16.84 0.1.452437.3.579.2.593 1950 Unknown [id number] 2.16.84 0.1.403817.3.579.2.593 1950 Unknown [id number] 2.16.84 0.1.889707.3.579.2.593 1950 Unknown [id number] 2.16.84 0.1.978786.3.579.2.593 1950 Unknown [id number] 2.16.84 0.1.247820.3.579.2.593 1950 Unknown [id number] 2.16.84 0.1.410825.3.579.2.593 1950 Unknown [id number] 2.16.84 0.1.321076.3.579.2.593 1950 Unknown [id number] 2.16. 840.1.446598.3.579.2.196 1950 Unknown [id number] 2.16. 840.1.997806.3.579.2.196 1950 Unknown [id number] 2.16. 840.1.067092.3.579.2.196 1950 Unknown [id number] 2.16. 840.1.472785.3.579.2.196 1950 Unknown [id number] 2.16. 840.1.488622.3.579.2.196 1950 Unknown [id number] 2.16. 840.1.648261.3.579.2.196 1950 Unknown [id number] 2.16. 840.1.937296.3.579.2.196 Self-pay Social History Date Type Detail Facility Sex Assigned At [employer] Other Start: 03-02-2023 Tobacco smoking stat us MAIS Never smoked tobacco (finding) [facility] Start: 1950 Sex Assigned At Female [facility] Clinical Notes 02-27-2021 to 03-02-2023 Note Date & Type Note Facility 03-02-2023 Evaluation note Encounter Date Diagnosis Assessment Notes Feb, Acute non-recurrent maxillary sinusitis (ICD-10 - J01.00) Instructed to use Robitussin or Mucinex for cough, saline or Flonase NS for congestion, Tylenol for pain and fever. Feb, Suspected COVID-19 virus infection (ICD-10 - Z20.822) Will send testing to [facility] to be completed tomorrow - this will [...] Increases risk of more severe, prolonged illness [employer] Other 12-02-2023 Evaluation note* Encounter Date Diagnosis [...] with PCP if febrile or new/worsening s/s. [employer] Other 09-08-2023 Evaluation note* Encounter Date Diagnosis [...] continue exercise to achieve/maintain a normal BMI. [employer] Other 08-29-2023 Evaluation note* Encounter Date Diagnosis [...] back pain home care material was printed [employer] Other 04-17-2023 Evaluation note* Encounter Date Diagnosis [...] High risk medication use (ICD-10 - Z79.899) [employer] Other 07-21-2022 NotePROCEDURE: XR FOOT RT MIN 3 VIEWS, XR ANKLE RT MIN 3 VIEWS COMPARISON: None. HISTORY: Pain FINDINGS: BONES:No acute fracture or dislocation. Severe osteoarthritis of the first metatarsal phalangeal joint with cjqb-zu-whnq articulation and bony remodeling. Moderate bulky enthesopathic spurring of the calcaneus at the Achilles and plantar insertions. Moderate degenerative changes mid foot with joint space narrowing and marginal osteophyte formation SOFT TISSUES:Negative. No visible soft tissue swelling. EFFUSION:None visible. OTHER: Negative. IMPRESSION: Degenerative osteoarthritis with severe changes at the first metatarsal-phalangeal joint Electronically authenticated by: PURNIMA CORTEZ Date: 2021-09-24 07:[facility]07-21-2022 NotePROCEDURE: XR FOOT RT MIN 3 VIEWS, XR ANKLE RT MIN 3 VIEWS COMPARISON: None. HISTORY: Pain FINDINGS: BONES:No acute fracture or dislocation. Severe osteoarthritis of the first metatarsal phalangeal joint with xphy-ak-kalm articulation and bony remodeling. Moderate bulky enthesopathic spurring of the calcaneus at the Achilles and plantar insertions. Moderate degenerative changes mid foot with joint space narrowing and marginal osteophyte formation SOFT TISSUES:Negative. No visible soft tissue swelling. EFFUSION:None visible. OTHER: Negative. IMPRESSION: Degenerative osteoarthritis with severe changes at the first metatarsal-phalangeal joint Electronically authenticated by: PURNIMA CORTEZ Date: 2021-09-24 07:[address] [place], [place] [address]05-10-2022 NoteOPERATIVE NOTE OPERATION DATE: 07/14/2021 PRIMARY CARE [...] to the recovery room in good condition. [facility] Signed and Approved by: DR CINTHIA BERNARD 07/15/2021 07:48:00[facility]12-24-2021 Evaluation note* Encounter Date Diagnosis Assessment [...] Patient care instructions given in writting by [facility] document. [employer] Other Evaluation noteNo InformationNort [employer] Other Evaluation noteNo assessment information available [facility] Work Phone: History general Narrative - Reported* Type Description Date Surgical History Bilateral Knees Replacement 03/07 Surgical History Herniated Discs-Low back Surgical History gallbladder removed 2020 Hospitalization History See past surgical histor Group 47 Other Hisgzny general Narrative - Reported* Type Description Date [...] ADULT Hospitalization History See past surgical histor Group 47 Other history general Narrative - Reported* Type Description Date [...] bunionectomy Hospitalization History See past surgical histor Group 47 Other Summary Purpose Family History Relationship Condition Age at Onset Recorded Date/T lavonne sister Malignant neoplasm of breast Unknown mother Hypertension Unknown Heart failure Unknown father Unknown mother Unknown Hypertension Unknown son Unknown Advance Directives Advance Directive Response Recorded Date/ Time Advance Directives Yes October 29, 2020 2:29pm Chief Complaint and Reason for Visit Chief Complaint Congestion Additional Source Comments INFORMATION SOURCE (unrecogn ized section and content) DATE CREATED AUTHOR 11/01/2020 [facility] DATE CREATED AUTHOR AUTHOR'S ORGANIZ ATION 12/11/2021 [facility] DATE CREATED AUTHOR AUTHOR'S ORGANIZ ATION 06/02/[address] [facility] REASON FOR VISIT (unrecogniz ed section and content) #7 [facility] COUGH, CONGESTI ON, SORE THROAT4 MONTH CHECK UPMedication ClarificationPNEUMONIA SHOTEAR ACHE IN RIGHT EAR, BACK PAIN ALSORefillReferralXray resultsPOSS SINUS INFECTIONExposed to COVID-Negative, All symptoms- [phone] Care Teams (unrecognized sec tion and content) Team Status: Active Member Role Status Dates Jimmie Melendez DO Primary Care Provider Active Team Status: Inactive Member Role Status Dates Jimmie Melendez DO Primary Care Provider Active Start: September 20, 2023 End: September 20, 2023 Doreen Cortez APRN Attending Provider Active S tart: September 20, 2023 End: September 20, 2023 Goals (unrecognized section and content) Goals may be documented in a n alternate section FOR RECORDS PERTAINING TO PATIENTS WHO ARE [...] BE BASED ON THE PRIMARY CLINICAL RECORDS. [facility] 9+ [facility]. provides no warranty or guarantee of the accuracy or completeness of information in this document.
== END 2023-12-05 10:26 | disposition home or self-care (01) ==
LOC: MAMMO 10:25
PROVIDERS: PCP Internal Medicine; Visit Provider Internal Medicine
DX: Z12.31 Encounter for screening mammogram for malignant neoplasm of breast (principal); Z80.3 Family history of malignant neoplasm of breast
CPT/HCPCS: 77063; 77067

== ENCOUNTER 2023-12-08 09:01 | Outpatient (OUT) | payer MEDICARE, SELFPAY ==
[2023-12-08 09:52] LABS: Basophils Percent Auto 0.6 % (0.2-2.0); Eosinophils Absolute Auto 0.1 10^3/uL (0.0-0.7); Eosinophils Percent Auto 2.3 % (0.9-7.0); Hematocrit 44.4 % (36.0-48.0); Hemoglobin 14.3 g/dL (12.0-16.0); Immature Granulocytes Abs Auto 0.01 10^3/uL (0.00-0.03); Immature Granulocytes Pct Auto 0.2 % (0.0-0.5); Lymphocytes Absolute Auto 1.8 10^3/uL (1.2-3.8); Lymphocytes Percent Auto 33.6 % (20.5-60.0); Mean Corpuscular HGB Conc 32.2 g/dL (29.9-35.2); Mean Corpuscular Hemoglobin 30.1 pg (26.7-34.0); Mean Corpuscular Volume 93.5 fL (81.0-99.0); Monocytes Absolute Auto 0.4 10^3/uL (0.3-0.8); Neutrophils Percent Auto 56.3 % (43.0-75.0); Platelet Count 241 10^3/uL (150-450); Red Blood Count 4.75 10^6/uL (4.20-5.40); Red Cell Distribution Width 13.2 % (11.0-15.0); White Blood Count 5.3 10^3/uL (4.0-11.0)
[2023-12-08 10:31] LABS: Alanine Aminotransferase 31 U/L (14-59); Albumin Globulin Ratio 1.1; Albumin Level 3.7 g/dL (3.4-5.0); Alkaline Phosphatase 124 U/L (46-116); Anion Gap 12.3; Aspartate Amino Transferase 25 U/L (15-37); BUN Creatinine Ratio 16.3; Bilirubin Total 0.7 mg/dL (0.2-1.0); Calcium 9.6 mg/dL (8.5-10.1); Carbon Dioxide 26.5 mmol/L (21.0-32.0); Chloride 104 mmol/L (98-107); Chol HDL Ratio 2.6; Cholesterol 161 mg/dL (<=200); Estimated GFR (African America 52 (>=60 mL/min/1.73m^2); Estimated GFR (Non-African Ame 43 (>=60 mL/min/1.73m^2); Globulin 3.5 g/dL; Glucose 88 mg/dL (74-106); HDL Cholesterol 61 mg/dL (40-60); Potassium 3.8 mmol/L (3.5-5.1); Sodium 139 mmol/L (136-145); Thyroid Stimulating Hormone 1.173 uIU/mL (0.358-3.740); Total Protein 7.2 g/dL (6.4-8.2); Triglycerides 62 mg/dL (<=150); VLDL CHOLESTEROL 12.4 mg/dL
[2023-12-08 10:35] LABS: C Reactive Protein <0.50 mg/dL (<=0.50)
[2023-12-09 08:13] LABS: Rheumatoid Factor (RF) <10.0 IU/mL (<14.0)
[2023-12-09 15:08] LABS: Antinuclear Antibodies, IFA Positive (.)
== END 2023-12-08 09:02 | disposition home or self-care (01) ==
LOC: LAB 09:03
PROVIDERS: PCP Internal Medicine; Visit Provider Internal Medicine
DX: R53.83 Other fatigue (principal); N18.9 Chronic kidney disease, unspecified; E78.00 Pure hypercholesterolemia, unspecified; K76.0 Fatty (change of) liver, not elsewhere classified; M06.4 Inflammatory polyarthropathy; I12.9 Hypertensive chronic kidney disease with stage 1 through stage 4 chronic kidney disease, or unspecified chronic kidney disease
CPT/HCPCS: 36415; 80053; 80061; 84443; 85025; 86038; 86140; 86431

== ENCOUNTER 2024-02-03 12:58 | Outpatient (OUT) | payer MEDICARE, SELFPAY ==
--- NOTE | 2024-02-03 | US_ITS ---
The [address] [address] Patient Name: SANTOS VILLALPANDO MRN: [id number] date: 1950 Sex: F Assigned Patient Location: US Current Patient Location: Accession/Order Number: [id number] Exam Date: 02/03/2024 13:03 Report Date: 02/04/2024 08:46 At the request of: LANCE LONG Procedure: US thyroid EXAMINATION: US thyroid HISTORY: E04.1, Thyroid nodule COMPARISON: No relevant comparison available. FINDINGS: RIGHT LOBE: Contains a 6 mm TR 3 nodule. Lobe size: 5.3 x 1.8 x 1.4 cm LEFT LOBE: Contains a few tiny colloid cysts. Lobe size: 4.3 x 1.6 x 1.5 cm ISTHMUS: Normal size and echotexture. Thickness: 3 mm US/US thyroid IMPRESSION: 1. Normal size and echogenicity of the thyroid gland. 2. Within the right lobe is a 6 mm TR 3 nodule. No additional follow-up is recommended. TR3 (mildly suspicious): > 1.5 cm, follow-up ultrasound in 1, 3, and 5 years. > 2.5 cm, fine needle aspiration. Electronically authenticated by: RONA MALONEY Date: 02/04/2024 08:46
--- OUTSIDE RECORDS SUMMARY | 2024-02-03 13:01 | XMS_ITS | CCD ---
Author Organization [facility] Inform ion Partnership [facility] Care Team Providers Care Steam Tunnel Feeder Name Role Phone Marivel Whitlock Unavailable AL, [...] Unavailable WEST, DR PURNIMA Sarkar Consulting Unavailable Al, Jimmie Unavailable Siomara Mcfarland Unavailable John NOEL, [address] Attending Unavai lable Ball DO, [facility] Unavailab le John PA-C, [address] Attending Unavai lable Ball DO, [facility] Unavailab le John PA-C, [address] Attending Unavai lable Ball DO, [facility] Unavailab le Ball DO, [facility] Unavailab le John PA-C, [address] Attending Unavai lable John PA-C, [address] [facility] Attending Unavai lable Ball DO, [facility] Unavailab le John ZUNIGA-C, [address] Attending Unavai lable Ball DO, [facility] Unavailab le John PA-C, [address] Attending Unavai lable Ball DO, [facility] Unavailab le Ball, DO Jimmie Primary [facility] Provider MD Mohamud Lee Attending Provider [phone] Mohamud Lee Attending Unavailable Mohamud Lee Admitting Unavailable Al Jimmie Primary Care Unavailable Allergies Allergy Classification Reported Allergen(s) Allergy Type Date of Onset Reaction(s) Facility (1 source) Chlorotrianisene Drug Allergy 02-27-20 13 [facility] Repository (4 sources) Latex Drug allergy (disorder) 02-27-20 13 [facility] Repository (9 sources) Gold Drug Allergy Unknown [facility] [employer] ([place] Other (9 sources) Latex Drug allergy Unknown [facility] [employer] ([place] Other (7 sources) Gold and/or gold compound (FN) Drug allergy Unknown [facility] [employer] ([place] Other (1 source) No Known Medication Allergies; Translations: [No Known Medication Allergies] Propensity to adverse reactions to drug (disorder) [facility] Repository (3 sources) Bee pollen Allergy to substance 09-20-19 24 [facility] (3 sources) Gold Drug Allergy 09-20-19 24 Unknown Reaction [facility] (3 sources) Gold-containing Drug Products Allergy to substance 09-20-19 24 Unknown Reaction [facility] (3 sources) gold jewery Allergy to substance 10-30-19 21 Hives [facility] Medications Current Medications Medication Drug Class(es) Dates Sig (Normalized) Sig (Original) alendronic acid 70 mg oral tablet (2 sources) Bisphosphonate Start: 02-05-2023 take 1 tablet by mouth once daily Alendronate Sodium 70 MG 1 tablet 30 minutes before the first food, beverage or medicine of the day with plain water Orally for 30 day(s) Feb, Active atorvastatin 40 mg oral tablet (14 sources) HMG-CoA Reductase Inhibitor Start: 10-29-2020 take 40 mg by mouth once daily Atorvastatin Active 40 MG PO Daily October 29, 2020 12:00am Atorvastatin [place] cium Active benazepril (15 sources) Angiotensin Converting Enzyme Inhibitor Start: 11-22-2023 take 1 tablet by mouth once daily Benazepril Active 0 .ROUTE .COMPLEX November 22, 2023 10:18pm TAKE 1 TABLET BY MOUTH EVERY DAY FOR 90 DAYS Start: 08-17-2023 End: 11-22-2023 take 1 tablet by mouth once daily Benazepril Discontinued 0 .ROUTE .COMPLEX August 17, 2023 12:53pm November 22, 2023 10:20pm TAKE 1 TABLET BY MOUTH EVERY DAY FOR 90 DAYS Start: 08-17-2023 take 1 tablet by arvind th once daily Benazepril Active 0 .ROUTE .COMPLEX August 17, 2023 12:53pm TAKE 1 TABLET BY MOUTH EVERY DAY FOR 90 DAYS Start: 10-29-2020 End: 08-17-2023 take 20 mg by mouth once daily Benazepril Discontinued 20 MG PO Daily October 29, 2020 12:00am August 17, 2023 12:53pm latanoprost 0.05 mg/ml ophthalmic solution (2 sources) [...] / oxyCODONE hydrochloride 5 mg oral tablet (3 sources) Opioid Agonist Start: 10-29-2020 End: 12-07-2023 take 1 tablet by mouth every six hours Oxycodone-Acetamin ophen Discontinued 1 TAB PO Q6H October 29, 2020 12:00am December 07, 2023 11:30am [id number] 200 actuat albuterol 0.09 mg/actuat metered dose inhaler (3 sources) beta2-Adrenergic Agonist Start: 09-20-2023 End: 12-07-2023 Albuterol Sulfate Discontinued INHALATION September 20, 2023 12:00am December 07, 2023 11:31am amoxicillin 875 mg / clavulanate 125 mg oral tablet (4 sources) Penicillin-class Antibacterial Start: 09-20-2023 End: 12-07-2023 take 1 tablet by mouth twice daily Amoxicillin-Pot Clavulanate Discontinued 1 TAB PO Twice daily 20 September 20, 2023 12:00am December 07, 2023 11:30am Start: 02-05-2023 take 1 tablet by arvind th every twelve hours Amoxicillin-Pot Clavulanate 875-125 MG 1 tablet Orally every 12 hrs for 10 day(s) Feb, Active benzonatate 200 mg oral capsule (3 sources) Non-narcotic Antitussive Start: 09-20-2023 End: 12-07-2023 Benzonatate Discontinued MG PO September 20, 2023 12:00am December 07, 2023 11:31am doxycycline hyclate 100 mg oral capsule (3 sources) Tetracycline-class Drug Start: 09-20-2023 End: 12-07-2023 Doxycycline Hyclate Discontinued MG PO September 20, 2023 12:00am December 07, 2023 11:30am hydroCHLOROthiazide 25 mg / triamterene 37.5 mg oral capsule (9 sources) Potassium-sparing Diuretic, Thiazide Diuretic Start: 06-21-2022 take 1 capsule by mouth every twenty-fou r hours Triamterene-HCTZ 37.5-25 MG 1 capsule in the morning Orally Once a day for 30 days Jun, Not-Taking/PRN hydrocortisone 10 mg/ml / neomycin 3.5 mg/ml / polymyxin b [id number] unt/ml otic suspension (6 sources) Aminoglycoside Antibacterial, Polymyxin-class Antibacterial, Corticosteroid Start: 11-02-2022 Syefwlno-Imbwtufmp-OQ 3.5-13761-4 3 drops right ear Three times a day for 7 days Oct, Not-Taking/PRN Methylprednisolone (9 sources) Corticosteroid Start: 09-20-2023 End: 12-07-2023 Methylprednisolone Discontinued MG PO September 20, 2023 12:00am December 07, 2023 11:30am Start: 09-20-2023 Methylpredniso lone Active MG PO September 20, 2023 12:00am Start: 11-02-2022 Medrol 4 MG as directed Orally As Directed for 6 days Oct, Not-Taking/PRN Toradol 30 mg/ml (6 sources) Start: 11-02-2022 Toradol 30 mg/ ml Oct, 30 mg Problems Active Problems Problem Classification Problem Date Documented Da te Episodic/Chronic Acute and unspecified renal failure (3 sources) Acute renal failure syndrome; Translations: [Acute kidney failure, unspecified] 02-16-2023 Episodic Biliary tract disease (13 sources) Biliary sludge; Translations: [Other specified diseases of biliary tract] 02-16-2023 Chronic Cardiac dysrhythmias (10 sources) Intermittent palpitations; Translations: [Palpitations] Episodic Chronic kidney disease (11 sources) Chronic kidney disease stage 3A ; Translations: [Stage 3a chronic kidney disease] 12-04-2023 Chronic Disorders of lipid metabolism (19 sources) Pure hypercholesterolemi a, unspecified; Translations: [Hyperlipidemia, [...] Episodic Immunizations and screening for infectious disease (3 sources) Contact with and (suspected) exposure to other viral communicable diseases; Translations: [Encounter for immunization] Onset: 02-27-2021 Resolved: 02-27-2021 Episodic Malaise and fatigue (5 sources) Other fatigue; Translations: [Fatigue] Onset: 11-24-2021 12-07-2023 Episodic Nausea and vomiting (3 sources) Nausea and vomiting; Translations: [Nausea with vomiting, [...] region] Chronic Other aftercare (2 sources) Other halfway (current) drug therapy; Translations: [OTH TIRE SPOTTER CURRENT DRUG THERAPY] Onset: 11-30-2021 Episodic Other [...] not elsewhere classified] Chronic Other liver diseases (11 sources) Fatty (change of) liver, not elsewhere classified; Translations: [Non-alcoholic fatty liver disease] Chronic Other liver diseases (2 sources) Steatosis of liver; Translations: [Fatty (change of) liver, not elsewhere classified] 12-04-2023 Chronic Other non-traumatic joint disorders (4 sources) Pain in right ankle and joints of right foot; Translations: [PAIN IN RIGHT ANKLE] Onset: 09-23-2021 Episodic Other nutritional; endocrine; and metabolic disorders (9 sources) Body mass index 30+ - obesity; Translations: [Obesity, unspecified] Chronic Other nutritional; endocrine; and metabolic disorders (3 sources) Obesity, unspecified; Translations: [Obesity, unspecified] Chronic Other nutritional; endocrine; and metabolic disorders (2 sources) Obesity; Translations: [Obesity, unspecified] 12-07-2023 Chronic Other screening for suspected conditions (not mental disorders or infectious disease) (10 sources) Encounter for screening mammogram for malignant neoplasm of breast; Translations: [Other specified abnormal findings of blood chemistry] Onset: 09-17-2021 Episodic Other skin disorders (9 sources) Callosity; Translations: [Corns and callosities] Episodic Other upper respiratory infections (7 sources) Acute sinusitis, unspecified; Translations: [Acute maxillary sinusitis, unspecified] Onset: 02-27-2021 Resolved: 02-27-2021 Episodic Pancreatic disorders (not diabetes) (6 sources) Acute pancreatitis; Translations: [Biliary acute pancreatitis without necrosis or infection] 02-16-2023 Episodic Residual codes; unclassified (1 source) Family history of malignant neoplasm of breast; Translations: [FAMILY HX MALIG NEOPLASM OF BREAST] Onset: 09-18-2021 Episodic Residual codes; unclassified (1 source) Asymptomatic menopausal state Episodic Rheumatoid arthritis and related disease (4 sources) Inflammatory polyarthropathy; Translations: [Inflammatory polyarthropathy] 12-07-2023 Chronic Spondylosis; intervertebral disc disorders; other back problems [...] Test Name Value Interpretation Reference Range Facility Bacteria [Presence] in Urine by AutomatedOrdered By: Mohamud Lee on 01-03-2024 Bacteria Auto Ql (U) None seen [HPF] None Seen [facility] Bilirubin Test strip Ql (U)O rdered By: Mohamud Lee on 01-03-2024 Bilirubin Ql (U) Negative Negative [facility] C reactive protein [Mass/vol ume] in Serum or PlasmaOrdered By: Mohamud Lee on 01-03-2024 CRP [Mass/Vol] < 0.5 mg/dL 0.0-0.5 [facility] C-Reactive Proteinon 024 CRP [Mass/Vol] mg/L Normal 0.0-0.5 [facility] Comment on above: Performed By: #### C RP, ESR, TSH3, PTH, ADDONUAPLUS #### [facility] [address] [place] [address] #### C4, C3, CH50 #### [facility] , Color of Urine by AutoOrdere d By: Mohamud Lee on 01-03-2024 Color (U) Light-yellow Normal Yellow [facility] Comment on above: Order Comment: Name Collection Type:: Clean-Voided Midstream Performed By: #### C RP, ESR, TSH3, PTH, ADDONUAPLUS #### [address] #### C4, C3, CH50 #### [facility] , Complement C3on 01-03-2024 Complement C3 138 mg/dL Normal 82-167 [facility] Comment on above: Result Comment: Perf ormed at: [facility] [id number] Retail Services Professional: Reid West PhD, Phone: [phone] Performed By: #### C RP, ESR, TSH3, PTH, ADDONUAPLUS #### [address] #### C4, C3, CH50 #### [facility] , Complement C4on 01-03-2024 Complement C4 32 mg/dL Normal 12-38 [facility] Comment on above: Result Comment: PERF ORMED BY: [place] [address] PATHOLOGIST LABORER [employer] JENNIFER IRIZARRY M.D. Performed By: #### C RP, ESR, TSH3, PTH, ADDONUAPLUS #### [address] #### C4, C3, CH50 #### [facility] , Complement Total (CH50)on Complement Total (CH50) 52 Normal >41 [facility] Comment on above: Result Comment: Age Male Female 1 - 30 days Not Estab. Not Estab. 31 days - 6 months >32 >20 7 months - 17 years >39 >39 >17 years >41 >41 NOTE: The adult ( >17 years ) reference interval range is used to flag abnormals on this report. If the patient is 17 years old or younger, use the table above to determine out of range values. Performed at: - [address] [id number] Retail Services Professional: Reid West PhD, Phone: [phone] PERFORMED BY: [place] [address] PATHOLOGIST LAB[employer] JENNIFER IRIZARRY M.D. Performed By: #### C RP, ESR, TSH3, PTH, ADDONUAPLUS #### [address] #### C4, C3, CH50 #### [facility] , Dipstick and Microscopicon 1 Bacteria,Urine None Seen Normal None Seen [facility] Comment on above: Order Comment: Name Collection Type:: Clean-Voided Midstream Performed By: #### C RP, ESR, TSH3, PTH, ADDONUAPLUS #### [address] #### C4, C3, CH50 #### [facility] , Bilirubin,Urine Negative Normal Negative [facility] Comment on above: Order Comment: Name Collection Type:: Clean-Voided Midstream Performed By: #### C RP, ESR, TSH3, PTH, ADDONUAPLUS #### [address] #### C4, C3, CH50 #### [facility] , Glucose Ql (U) Normal Normal Normal [facility] Comment on above: Order Comment: Name Collection Type:: Clean-Voided Midstream Performed By: #### C RP, ESR, TSH3, PTH, ADDONUAPLUS #### [address] #### C4, C3, CH50 #### [facility] , Hyaline Casts,Urine None Normal 0-[address] [facility] Comment on above: Order Comment: Name Collection Type:: Clean-Voided Midstream Performed By: #### C RP, ESR, TSH3, PTH, ADDONUAPLUS #### [address] #### C4, C3, CH50 #### [facility] , Mucus,Urine Rare Normal [facility] Comment on above: Order Comment: Name Collection Type:: Clean-Voided Midstream Result Comment: PERF ORMED BY: [place] [address] PATHOLOGIST LAB[employer] JENNIFER IRIZARRY M.D. Performed By: #### C RP, ESR, TSH3, PTH, ADDONUAPLUS #### [address] #### C4, C3, CH50 #### [facility] , Nitrite,Urine Negative Normal Negative [facility] Comment on above: Order Comment: Name Collection Type:: Clean-Voided Midstream Performed By: #### C RP, ESR, TSH3, PTH, ADDONUAPLUS #### [address] #### C4, C3, CH50 #### [facility] , Non-Squamous Epithelial Cell,U 1-2 High None Seen [facility] Comment on above: Order Comment: Name Collection Type:: Clean-Voided Midstream Performed By: #### C RP, ESR, TSH3, PTH, ADDONUAPLUS #### [address] #### C4, C3, CH50 #### [facility] , Occult Blood,Urine Trace High Negative [facility] Comment on above: Order Comment: Name Collection Type:: Clean-Voided Midstream Performed By: #### C RP, ESR, TSH3, PTH, ADDONUAPLUS #### [address] #### C4, C3, CH50 #### [facility] , Protein,Urine Negative Normal Negative [facility] Comment on above: Order Comment: Name Collection Type:: Clean-Voided Midstream Performed By: #### C RP, ESR, TSH3, PTH, ADDONUAPLUS #### [address] #### C4, C3, CH50 #### [facility] , RBC,Urine 3-4 Normal 0-4 [facility] Comment on above: Order Comment: Name Collection Type:: Clean-Voided Midstream Performed By: #### C RP, ESR, TSH3, PTH, ADDONUAPLUS #### [address] #### C4, C3, CH50 #### [facility] , Specificy [place],Urine 1.020 Normal 1.001-1.030 [facility] Comment on above: Order Comment: Name Collection Type:: Clean-Voided Midstream Performed By: #### C RP, ESR, TSH3, PTH, ADDONUAPLUS #### [address] #### C4, C3, CH50 #### [facility] , Squamous Epithelial Cell,Urine 1-2 Normal 0-2 [facility] Comment on above: Order Comment: Name Collection Type:: Clean-Voided Midstream Performed By: #### C RP, ESR, TSH3, PTH, ADDONUAPLUS #### [address] #### C4, C3, CH50 #### [facility] , Urobilinogen,Urine Normal Normal Normal [facility] Comment on above: Order Comment: Name Collection Type:: Clean-Voided Midstream Performed By: #### C RP, ESR, TSH3, PTH, ADDONUAPLUS #### [address] #### C4, C3, CH50 #### [facility] , WBC,Urine 3-4 Normal 0-4 [facility] Comment on above: Order Comment: Name Collection Type:: Clean-Voided Midstream Performed By: #### C RP, ESR, TSH3, PTH, ADDONUAPLUS #### [address] #### C4, C3, CH50 #### [facility] , Epithelial cells.non-squamou s [#/area] in Urine sediment by Automated countOrdered By: Mohamud Lee on 01-03-2024 Epithelial cells.non-squamous Auto (Urine sed) [#/Area] 1-2 [HPF] High None Seen [facility] Epithelial cells.squamous [# /area] in Urine sediment by Automated countOrdered By: Mohamud Lee on 01-03-2024 Epithelial cells.squamous Auto (Urine sed) [#/Area] 1-2 [HPF] 0-2 [facility] Erythrocyte Sedimentation Ra yandy 01-03-2024 ESR (Bld) [Velocity] 24 mm/h Normal 0-29 [facility] Comment on above: Result Comment: PERF ORMED BY: [place] [address] PATHOLOGIST LAB[employer] JENNIFER IRIZARRY M.D. Performed By: #### C RP, ESR, TSH3, PTH, ADDONUAPLUS #### [address] #### C4, C3, CH50 #### [facility] , Erythrocyte sedimentation ra te by Photometric methodOrdered By: Mohamud Lee on 01-03-2024 ESR Photometric method (Bld) [Velocity] 24 mm/hr 0-29 [facility] Erythrocytes [#/area] in Uri ne sediment by Automated countOrdered By: Mohamud Lee on 01-03-2024 RBC Auto (Urine sed) [#/Area] 3-4 [HPF] 0-4 [facility] Glucose [Mass/volume] in Uri ne by Test stripOrdered By: Mohamud Lee on 01-03-2024 Glucose Test strip (U) [Mass/Vol] Normal mg/dL Normal [facility] Hemoglobin Test strip Ql (U) Ordered By: Mohamud Lee on 01-03-2024 Hemoglobin Ql (U) Trace High Negative [facility] Hyaline casts [#/area] in Ur ine sediment by Automated countOrdered By: Mohamud Lee on 01-03-2024 Hyaline casts Auto (Urine sed) [#/Area] None [LPF] 0-8 [facility] Ketones [Presence] in Urine by Test stripOrdered By: Mohamud Lee on 01-03-2024 Ketones Ql (U) Negative Normal Negative [facility] Comment on above: Order Comment: Name Collection Type:: Clean-Voided Midstream Performed By: #### C RP, ESR, TSH3, PTH, ADDONUAPLUS #### [place] [address] [place] #### C4, C3, CH50 #### [facility] , Leukocyte esterase [Presence ] in Urine by Test stripOrdered By: Mohamud Lee on 01-03-2024 Leukocyte esterase Test strip Ql (U) 2+ High Negative [facility] Comment on above: Order Comment: Name Collection Type:: Clean-Voided Midstream Performed By: #### C RP, ESR, TSH3, PTH, ADDONUAPLUS #### [facility] [address] [place] [address] [place] #### C4, C3, CH50 #### [facility] , Leukocytes [#/area] in Urine sediment by Automated countOrdered By: Mohamud Lee on 01-03-2024 WBC Auto (Urine sed) [#/Area] 3-4 [HPF] 0-4 [facility] Mucus [Presence] in Urine by AutomatedOrdered By: Mohamud Lee on 01-03-2024 Mucus Auto Ql (U) Rare [LPF] [facility] Nitrite Test strip Ql (U)Ord ered By: Mohamud Lee on 01-03-2024 Nitrite Ql (U) Negative Negative [facility] Parathyrin.intact [Mass/volu me] in Serum or PlasmaOrdered By: Mohamud Lee on 01-03-2024 Parathyrin.intact [Mass/Vol] 40.7 pg/mL [facility] Parathyroid Hormone Intacton 01-03-2024 Parathyroid Hormone Intact 40.7 pg/mL Normal [facility] Comment on above: Result Comment: PERF ORMED BY: [place] [address] PATHOLOGIST LAB[employer] JENNIFER IRIZARRY M.D. Performed By: #### C RP, ESR, TSH3, PTH, ADDONUAPLUS #### [address] #### C4, C3, CH50 #### [facility] , Protein Test strip (U) [Mass /Vol]Ordered By: Mohamud Lee on 01-03-2024 Protein (U) [Mass/Vol] Negative Negative [facility] Specific gravity Test strip (U) [Rel density]Ordered By: Mohamud Lee on 01-03-2024 Specific gravity (U) [Rel density] 1.020 1.001-1.030 [facility] Thyrotropin [Units/volume] i n Serum or PlasmaOrdered By: Mohamud Lee on 01-03-2024 TSH Qn 0.84 m[IU]/L Normal 0.45-5.33 [facility] Comment on above: Result Comment: PERF ORMED BY: [place] [address] PATHOLOGIST LAB[employer] JENNIFER IRIZARRY M.D. Performed By: #### C RP, ESR, TSH3, PTH, ADDONUAPLUS #### [facility] [address] [place] [address] [place] #### C4, C3, CH50 #### [facility] , Urine appearanceOrdered By: Mohamud Lee on 01-03-2024 Appearance (U) Clear Normal Clear [facility] Comment on above: Order Comment: Name Collection Type:: Clean-Voided Midstream Performed By: #### C RP, ESR, TSH3, PTH, ADDONUAPLUS #### [place] [address] [place] #### C4, C3, CH50 #### [facility] , Urobilinogen Test strip (U) [Mass/Vol]Ordered By: Mohamud Lee on 01-03-2024 Urobilinogen (U) [Mass/Vol] Normal mg/dL Normal [facility] XR hand BI 2Von 01-03-2024 XR hand BI 2V [facility] [employer] [address] [place] [address] XRay Report Signed Patient: Molly Garcia MR#: [id number] : 1950 Acct:[id number] Age/Sex: 73 / F ADM Date: 01/03/24 Loc: ICXD Room: Type: [facility] Attending Dr: Mohamud Lee MD Copies to: Mohamud Lee MD Ordering Provider: Mohamud Lee MD Date of Service: 01/03/24 XR/XR hand BI 2V: pain 2 views both hand plain film COMPARISON: None HISTORY: Annual bilateral hand pain. ACUTE FINDINGS: None DEGENERATIVE CHANGE: Extensive bilateral 1st carpometacarpal degeneration. Sensitive bilateral STT arthritis. Extensive bilateral interphalangeal and metacarpal phalangeal degenerative change. SOFT TISSUE FINDINGS: Unremarkable JOINT EFFUSION: None POSTOP CHANGES: None BONY MINERALIZATION: Adequate XR/XR hand BI 2V IMPRESSION: Extensive bilateral hand degeneration. Impression dictated by: Abbe Ludwig M.D.01/03/2024 6:04 PM Dictation Location: [place] [address] Transcribed By: [facility] 01/03/241803 Dictated By: Abbe Ludwig DO 01/03/241801 Signed By: 01/03/241803 [place] [facility] pH of Urine by Test stripOrd ered By: Mohamud Lee on 01-03-2024 pH (U) 5.5 [pH] Normal 5.0-9.0 [facility] Comment on above: Order Comment: Name Collection Type:: Clean-Voided Midstream Performed By: #### C RP, ESR, TSH3, PTH, ADDONUAPLUS #### [facility] [address] #### C4, C3, CH50 #### [facility] , Basophils Auto (Bld) [#/Vol] on 12-08-2023 Basophils (Bld) [#/Vol] 0.0 10 3/uL 0.0-0.1 [facility] Basophils/100 WBC Auto (Bld) on 12-08-2023 Basophils/100 WBC (Bld) 0.6 % 0.2-2.0 [facility] Centriole Ab [Titer] in Seru m by Immunofluorescenceon 12-08-2023 Centriole Ab IF (S) [Titer] TNP . [facility] Centromere Ab [Titer] in Ser um by Immunofluorescenceon 12-08-2023 Centromere Ab IF (S) [Titer] TN . [facility] Cholesterol in LDL Calc [Mas s/Vol]on 12-08-2023 Cholesterol in LDL [Mass/Vol] 88.0 mg/dL [facility] Comment on above: <100 mg/dl [id number] 0-129 mg/dl NEAR OR ABOVE [id number] mg/dl BORDERLINE [id number] mg/dl HIGH>190 mg/dl VERY HIGH Cholesterol in VLDL Calc [Ma ss/Vol]on 12-08-2023 Cholesterol in VLDL [Mass/Vol] 12.4 mg/dL [facility] Eosinophils/100 WBC Auto (Bl d)on 12-08-2023 Eosinophils/100 WBC (Bld) 2.3 % 0.9-7.0 [facility] Erythrocyte distribution wid th Auto (RBC) [Ratio]on 12-08-2023 Erythrocyte distribution width (RBC) [Ratio] 13.2 % 11.0-15.0 [facility] Estimated glomerular filtrat ion rate (GFR) non- Americanon 12-08-2023 GFR/1.73 sq M.predicted among non-blacks MDRD (S/P/Bld) [Vol rate/Area] 43 mL/min/{1.73_m2} Low >=60 mL/min/1.73 m 2 [facility] Globulin Calc (S) [Mass/Vol] on 12-08-2023 Globulin (S) [Mass/Vol] 3.5 g/dL [facility] Hematocrit Auto (Bld) [Volum e fraction]on 12-08-2023 Hematocrit (Bld) [Volume fraction] 44.4 % 36.0-48.0 [facility] Hemoglobin [Mass/volume] in Bloodon 12-08-2023 Hemoglobin (Bld) [Mass/Vol] 14.3 g/dL 12.0-16.0 [facility] Laboratory - Chemistry and C hemistry - challengeon 12-08-2023 Albumin [Mass/Vol] 3.7 g/dL 3.4-5.0 [facility] ALP [Catalytic activity/Vol] 124 U/L High 46-116 [facility] ALT [Catalytic activity/Vol] 31 U/L 14-59 [facility] AST [Catalytic activity/Vol] 25 U/L 15-37 [facility] Bilirubin [Mass/Vol] 0.7 mg/dL 0.2-1.0 [facility] Calcium [Mass/Vol] 9.6 mg/dL 8.5-10.1 [facility] Chloride [Moles/Vol] 104 mmol/L 98-107 [facility] Cholesterol [Mass/Vol] 161 mg/dL <=200 [facility] Cholesterol in HDL [Mass/Vol] 61 mg/dL High 40-60 [facility] Comment on above: > or =60 mg/dl - LOW CARDIOVASCULAR RISK<40 mg/dl - HIGH CARDIOVASCULAR RISK CO2 [Moles/Vol] 26.5 mmol/L 21.0-32.0 [facility] Creatinine [Mass/Vol] 1.23 mg/dL High 0.55-1.02 [facility] GFR/1.73 sq M.predicted MDRD (S/P/Bld) [Vol rate/Area] 52 mL/min/{1.73_m2} Low >=60 mL/min/1.73 m 2 [facility] Glucose [Mass/Vol] 88 mg/dL 74-106 [facility] Potassium [Moles/Vol] 3.8 mmol/L 3.5-5.1 [facility] Protein [Mass/Vol] 7.2 g/dL 6.4-8.2 [facility] Sodium [Moles/Vol] 139 mmol/L 136-145 [facility] Triglyceride [Mass/Vol] 62 mg/dL <=150 [facility] TSH Qn 1.173 m[IU]/L 0.358-3.740 [facility] Urea nitrogen [Mass/Vol] 20.0 mg/dL High 7.0-18.0 [facility] Urea nitrogen/Creatinine [Mass ratio] 16.3 mg/mg [facility] Laboratory - Hematology and Cell countson 12-08-2023 Immature granulocytes/100 WBC (Bld) 0.2 % 0.0-0.5 [facility] Leukocytes [#/volume] correc magali for nucleated erythrocytes in Blood by Automated counon 12-08-2023 WBC corrected for nucl RBC Auto (Bld) [#/Vol] 5.3 10 3/uL 4.0-11.0 [facility] Lymphocytes Auto (Bld) [#/Vo l]on 12-08-2023 Lymphocytes (Bld) [#/Vol] 1.8 10 3/uL 1.2-3.8 [facility] Lymphocytes/100 WBC Auto (Bl d)on 12-08-2023 Lymphocytes/100 WBC (Bld) 33.6 % 20.5-60.0 [facility] MCH Auto (RBC) [Entitic mass ]on 12-08-2023 MCH (RBC) [Entitic mass] 30.1 pg 26.7-34.0 [facility] MCHC Auto (RBC) [Mass/Vol]on 12-08-2023 MCHC (RBC) [Mass/Vol] 32.2 g/dL 29.9-35.2 [facility] MCV Auto (RBC) [Entitic vol] on 12-08-2023 MCV (RBC) [Entitic vol] 93.5 fL 81.0-99.0 [facility] Midbody Ab [Titer] in Serum by Immunofluorescenceon 12-08-2023 Midbody Ab IF (S) [Titer] TNP . [facility] Mitotic spindle apparatus Ab [Titer] in Serum or Plasma by Immunofluorescenceon 12-08-2023 Mitotic spindle apparatus Ab IF [Titer] TNP . [facility] Monocytes Auto (Bld) [#/Vol] on 12-08-2023 Monocytes (Bld) [#/Vol] 0.4 10 3/uL 0.3-0.8 [facility] Monocytes/100 WBC Auto (Bld) on 12-08-2023 Monocytes/100 WBC (Bld) 7.0 % 1.7-12.0 [facility] Neutrophils Auto (Bld) [#/Vo l]on 12-08-2023 Neutrophils (Bld) [#/Vol] 3.0 10 3/uL 1.4-6.5 [facility] Neutrophils/100 WBC Auto (Bl d)on 12-08-2023 Neutrophils/100 WBC (Bld) 56.3 % 43.0-75.0 [facility] No Panel Informationon 12-07 Anti-Nuclear Antibody Comment 2 Comment . [facility] Comment on above: Pattern Potential Di sease Association Homogeneous Systemic Lupus Erythematosus, Drug Induced Systemic Lupus Erythematosus, Chronic Autoimmune hepatitis, Juvenile Idiopathic Arthritis Speckled Sjogren Syndrome, Systemic Lupus Erythematosus, Subacute Cutaneous Lupus, Lupus, Congenital Heart Block, Mixed Connective Tissue Disease, Scleroderma-diffuse, Scleroderma-Autoimmune Myositis Overlap Syndrome, Systemic Lupus Twfxhplgwliny-Isltdhlofdz-Komllnhdrx Myositis Overlap Syndrome, Systemic Autoimmune Rheumatic Disease, Undifferentiated Connective Tissue Disease Nucleolar Systemic Sclerosis, Scleroderma-Autoimmune Myositis Overlap Syndrome, Sjogren Syndrome, Raynaud phenomenon, Pulmonary Arterial Hypertension, Systemic Autoimmune Rheumatic Disease, Cancer Centromere Scleroderma-CREST, Limited Cutaneous SSc, Raynaud's Phenomenon, Primary Biliary Cholangitis Nuclear Dot Primary Biliary Cholangitis Nuclear Primary Biliary Cholangitis, AutoimmuneMembrane Hepatitis/Liver disease, Systemic Autoimmune Rheumatic Disease, Autoimmune Cytopenias, Linear Scleroderma, Antiphospholipid Syndrome Performed at: [employer] [id number] Director: Reid West PhD, Phone: [phone] C-Reactive Protein, Quantitative <0.50 mg/dL <=0.50 [facility] Eosinophils # (Auto) 0.1 10 3/uL 0.0-0.7 [facility] Immature Granulocyte # (Auto) 0.01 10 3/uL 0.00-0.03 [facility] Nuclear dots nuclear Ab seth dilia [Titer] in Serum by Immunofluorescenceon 12-08-2023 Nuclear dots nuclear Ab pattern IF (S) [Titer] TNP . [facility] Nuclear membrane pores nucle ar Ab pattern [Titer] in Serum by Immunofluorescenceon 12-08-2023 Nuclear membrane pores nuclear Ab pattern IF (S) [Titer] TNP . [facility] PCNA extractable nuclear Ab [Titer] in Serum by Immunofluorescenceon 12-08-2023 PCNA extractable nuclear Ab IF (S) [Titer] TNP . [facility] Platelet mean volume Auto (B ld) [Entitic vol]on 12-08-2023 Platelet mean volume (Bld) [Entitic vol] 9.0 fL Low 9.5-13.5 [facility] Platelets Auto (Bld) [#/Vol] on 12-08-2023 Platelets (Bld) [#/Vol] 241 10 3/uL 150-450 [facility] RBC Auto (Bld) [#/Vol]on RBC (Bld) [#/Vol] 4.75 10 6/uL 4.20-5.40 [facility] Serum homogeneous pattern an tinuclear antibody (ROHIT) titeron 12-08-2023 Homogenous nuclear Ab pattern (S) [Titer] 1:160 Abnormal . [facility] Comment on above: ICAP nomenclature: A C-1 Serum nuclear antibody titer on 12-08-2023 Nuclear Ab (S) [Titer] Positive Abnormal . [facility] Comment on above: Negative <1:80 Borde rline 1:80 Positive >1:80 Serum nucleolar pattern anti nuclear antibody (ROHIT) titeron 12-08-2023 Nucleolar nuclear Ab pattern (S) [Titer] TNP . [facility] Serum or plasma albumin/glob ulin mass ratioon 12-08-2023 Albumin/Globulin [Mass ratio] 1.1 {ratio} [facility] Serum or plasma anion gap de terminationon 12-08-2023 Anion gap [Moles/Vol] 12.3 mmol/L [facility] Serum or plasma rheumatoid f actor measurement (units/volume)on 12-08-2023 Rheumatoid factor Qn [IU]/mL <14.0 [facility] Comment on above: Performed at: [address] [id number] Director: Reid West PhD, Phone: [phone] Serum or plasma total choles terol/high density lipoprotein (HDL) cholesterol mass shania 12-08-2023 Cholesterol.total/Chol esterol in HDL [Mass ratio] 2.6 {ratio} [facility] Comment on above: 3.3 - 4.4 LOW RISK4. 4 - 7.1 AVERAGE RISK7.1 - 11.0 MODERATE RISK>11.0 HIGH RISK Serum speckled pattern antin uclear antibody (ROHIT) titeron 12-08-2023 Speckled nuclear Ab pattern (S) [Titer] TNP . [facility] Otolaryngology Office/Clinic Noteon 05-31-2023 Otolaryngology Office/Clinic Note Chief Complaint pt states I am here to have my ears checked History of Present Illness Molly is a very pleasant 73-year-old female who presents today as a fu. Last visit was 12/15/22. Previous right PE tube was placed in July 2021 at an outlying otolaryngology office for middle ear effusion. 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 3. Left SNHL [...] reviewed the patient?s medication list for medication interactions/contraind ications and/or for upcoming procedures: [yes or no] [...] history is negative Immunizations Vaccine Date Status diphth/haemoph/pertuss is/tetanus/polio 11/13/2022 Given pneumococcal 13-valent conjugate vaccine 07/11/2022 Given Electronically signed by Zulay Lopez PA-C 05/31/23 14:44 EDT Patient is also having some residual nasal congestion. A exam was performed. Anterior rhinoscopy revealed anterior septal deviation with (more content not included)... Normal [facility] Otolaryngology Office/Clinic Noteon 12-15-2022 Otolaryngology Office/Clinic Note [...] loud noise exposure. Patient states that previous guard rail installer had mentioned cochlear hydrops and/or M?ni?re's disease [...] PCP as she is already on an ADAIL inhibitor. We will plan to perform a 1 year follow-up with an audiogram prior. She is going to call sooner with any concerns, new symptoms, or worsening symptoms. 3. Tympanostomy tube check Tube is in place and patent. Medical Decision Making Chronic conditions NOT treated during this visit that (more content not included)... Normal [facility] PROF CHEM 8 (BAS METB)on Anion gap [Moles/Vol] 11.4 mmol/L Normal [facility] Comment on above: Performed By: #### B MP ####[facility] [address] [address]DrHamzah Basurto Calcium [Mass/Vol] 9.2 mg/dL Normal 8.5-10.1 [facility] Comment on above: Performed By: #### B MP ####[facility] [address] [id number]. Glenda Sb Chloride [Moles/Vol] 106 mmol/L Normal 98-107 [facility] Comment on above: Performed By: #### B MP ####[facility] [address] [id number]. Rolajaron Sb CO2 [Moles/Vol] 27.6 mmol/L Normal 21.0-32.0 [facility] Comment on above: Performed By: #### B MP ####[facility] [address] [address]Dr. Glenda Sb Creatinine [Mass/Vol] 1.19 mg/dL Critically high 0.55-1.02 [facility] Comment on above: Performed By: #### B MP ####[facility] [address] [place], [place] [address]Dr. Glenda Basurto EGFR-AF IRAQI 54 mL/min/1.73m2 Critically low >=60 [facility] Comment on above: Performed By: #### B MP ####[facility] [address] [place], [place] [address]Dr. Glenda Sb EGFR-NON AF IRAQI 45 mL/min/1.73m2 Critically low >=60 [facility] Comment on above: Performed By: #### B MP ####[facility] [address] [address]Dr. Glenda Basurto Glucose [Mass/Vol] 100 mg/dL Normal 74-106 [facility] Comment on above: Performed By: #### B MP ####[facility] [address] [place], [place] [id number]. Glenda Basurto Potassium [Moles/Vol] 4.0 mmol/L Normal 3.5-5.1 [facility] Comment on above: Performed By: #### B MP ####[facility] [address] [address]Dr. Glenda Basurto Sodium [Moles/Vol] 141 mmol/L Normal 136-145 [facility] Comment on above: Performed By: #### B MP ####[facility] [address] [place], [place] [address]Mu. Glenda Basurto Urea nitrogen [Mass/Vol] 20.0 mg/dL Critically high 7.0-18.0 [facility] Comment on above: Performed By: #### B MP ####[facility] [address] [place], [place] [address]En. Glenda Basurto Urea nitrogen/Creatinine [Mass ratio] 16.8 mg/mg Normal [facility] Comment on above: Performed By: #### B MP ####[facility] [address] [place], [place] [address]Od. Glenda Basurto CT CSPINE WO CONon 2 CT CSPINE [...] RONA MALONEY Date: 2021-11-26 22:07 Normal [facility] CT HEAD WO CONon 11-26-2021 [...] RONA MALONEY Date: 2021-11-26 21:43 Normal [facility] CBC AUTO DIFFon 11-20-2021 BASO # 0.0 103/ul Normal 0.0-0.1 [facility] Comment on above: Performed By: #### C BC #### [facility] [address] [address] [address] Glenda Basurto Basophils/100 WBC (Bld) 0.7 % Normal 0.2-2.0 [facility] Comment on above: Performed By: #### C BC #### [facility] [address] [address] [address] Glenda Basurto EO # 0.1 103/ul Normal 0.0-0.7 [facility] Comment on above: Performed By: #### C BC #### [facility] [address] [address] [address] Glenda Basurto Eosinophils/100 WBC (Bld) 1.8 % Normal 0.9-7.0 [facility] Comment on above: Performed By: #### C BC #### [facility] [address] [address] [address] Glenda Basurto Erythrocyte distribution width (RBC) [Ratio] 13.2 % Normal 11.0-15.0 [facility] Comment on above: Performed By: #### C BC #### [facility] [address] [place] [address] Dr. Glenda Basurto Hematocrit (Bld) [Volume fraction] 39.4 % Normal 36.0-48.0 [facility] Comment on above: Performed By: #### C BC #### [facility] [address] [address] [address] Glenda Basurto Hemoglobin (Bld) [Mass/Vol] 12.9 g/dL Normal 12.0-16.0 [facility] Comment on above: Performed By: #### C BC #### [facility] [address] [address] [address] Glenda Basurto IG # 0.01 10e3/ul Normal 0.00-0.03 [facility] Comment on above: Performed By: #### C BC #### [facility] [address] [place] [address] Dr. Glenda Basurto IG % 0.2 % Normal 0.0-0.5 [facility] Comment on above: Performed By: #### C BC #### [facility] [address] [place] [address] Dr. Glenda Basurto LYMPH # 2.6 103/ul Normal 1.2-3.8 [facility] Comment on above: Performed By: #### C BC #### [facility] [address] [place] [address] Dr. Glenda Basurto Lymphocytes/100 WBC (Bld) 41.9 % Normal 20.5-60.0 [facility] Comment on above: Performed By: #### C BC #### [facility] [address] [place] [address] Dr. Glenda Basurot MANUAL DIFF REQ NO Normal [facility] Comment on above: Performed By: #### C BC #### [facility] [address] [place] [address] Dr. Glenda Basurto MCH (RBC) [Entitic mass] 30.1 pg Normal 26.7-34.0 [facility] Comment on above: Performed By: #### C BC #### [facility] [address] [place] [address] Dr. Glenda Basurto MCHC (RBC) [Mass/Vol] 32.7 g/dL Normal 29.9-35.2 [facility] Comment on above: Performed By: #### C BC #### [facility] [address] [address] [address] Glenda Basurto MCV (RBC) [Entitic vol] 92.1 fL Normal 81.0-99.0 [facility] Comment on above: Performed By: #### C BC #### [facility] [address] [address] [address] Glenda Basurto MONO # 0.5 103/ul Normal 0.3-0.8 [facility] Comment on above: Performed By: #### C BC #### [facility] [address] [address] [address] Glenda Basurto Monocytes/100 WBC (Bld) 7.7 % Normal 1.7-12.0 [facility] Comment on above: Performed By: #### C BC #### [facility] [address] [place] [address] Dr. Glenda Basurto NEUT # 2.9 103/ul Normal 1.4-6.5 [facility] Comment on above: Performed By: #### C BC #### [facility] [address] [place] [address] Dr. Glenda Basurto Neutrophils/100 WBC (Bld) 47.7 % Normal 43.0-75.0 [facility] Comment on above: Performed By: #### C BC #### [facility] [address] [place] [address] Dr. Glenda Basurto Platelet mean volume (Bld) [Entitic vol] 8.8 fL Critically low 9.5-13.5 [facility] Comment on above: Performed By: #### C BC #### [facility] [address] [place] [address] Dr. Glenda Basurto PLT 215 103/ul Normal 150-450 [facility] Comment on above: Performed By: #### C BC #### [facility] [address] [place] [address] Dr. Glenda Basurto RBC 4.28 106/ul Normal 4.20-5.40 [facility] Comment on above: Performed By: #### C BC #### [facility] [address] [address] [address] Glenda Basurto WBC 6.1 103/ul Normal 4.0-11.0 [facility] Comment on above: Performed By: #### C BC #### [facility] [address] [address] [address] Glenda Basurto PROF CHEM 8 (BAS METB)on Anion gap [Moles/Vol] 10.1 mmol/L Normal [facility] [place] Comment on above: Performed By: #### B MP, TSH ####[facility] [address] [address]Dr. Glenda Basurto Calcium [Mass/Vol] 8.8 mg/dL Normal 8.5-10.[address] [facility] Comment on above: Performed By: #### B NATALY, TSH ####[facility] [address] [address]Dr. Glenda Basurto Chloride [Moles/Vol] 103 mmol/L Normal 98-107 [facility] Comment on above: Performed By: #### B NATALY, TSH ####[facility] [address] [address]Dr. Glenda Basurto CO2 [Moles/Vol] 29.1 mmol/L Normal 21.0-32.0 [facility] Comment on above: Performed By: #### B MP, TSH ####[facility] [address] [address]Dr. Glenda Basurto Creatinine [Mass/Vol] 1.62 mg/dL Critically high 0.55-1.02 [facility] Comment on above: Performed By: #### B MP, TSH ####[facility] [address] [address]Dr. Glenda Basurto EGFR-AF IRAQI 38 mL/min/1.73m2 Critically low >=60 [facility] Comment on above: Performed By: #### B MP, TSH ####[facility] [address] [address]Dr. Glenda Basurto EGFR-NON AF IRAQI 31 mL/min/1.73m2 Critically low >=60 [facility] Comment on above: Performed By: #### B MP, TSH ####[facility] [address] [address]Dr. Glenda Sb Glucose [Mass/Vol] 112 mg/dL Critically high 74-[address] [facility] Comment on above: Performed By: #### B MP, TSH ####[facility] [address] [address]Dr. Rolajaron Sb Potassium [Moles/Vol] 4.2 mmol/L Normal 3.5-5.1 [facility] Comment on above: Performed By: #### B MP, TSH ####[facility] [address] [address]Dr. Glenda Basurto Sodium [Moles/Vol] 138 mmol/L Normal 136-[address] [facility] Comment on above: Performed By: #### B MP, TSH ####[facility] [address] [address]Dr. Glenda Basurto Urea nitrogen [Mass/Vol] 25.0 mg/dL Critically high 7.0-18.0 [facility] Comment on above: Performed By: #### B MP, TSH ####[facility] [address] [address]Dr. Rolajaron Sb Urea nitrogen/Creatinine [Mass ratio] 15.4 mg/mg Normal [facility] Comment on above: Performed By: #### B MP, TSH ####[facility] [address] [address]Dr. Glenda Basurto TSHon 11-20-2021 TSH 0.942 uIU/mL Normal 0.358-3.740 [facility] Comment on above: Performed By: #### B MP, TSH ####[facility] [address] [address]Dr. Glenda Basurto MG MAMM SCREEN 3D FERMÍN CADon 09-17-2021 MG MAMM SCREEN 3D FERMÍN CAD Patient: MOLLY GARCIA Exam Date: 09/17/2021 : 1950 Gender:F Ordering : DR JIMMIE MELENDEZ D.O. Admission #: [id number] Family : Order #: [id number] CLICK HERE TO VIEW EXAM RADIOLOGY REPORT [...] breast cancer at age 75. LOCATION: [facility] BREAST COMPOSITION: Heterogeneously dense,which may [...] MD on 09/17/2021 at 12:43 Normal [facility] CBC AUTO DIFFon 09-16-2021 BASO # 0.0 103/ul Normal 0.0-0.1 [facility] Comment on above: Performed By: #### C BC #### [facility] [address] [address] [address] Glenda Basurto Basophils/100 WBC (Bld) 0.5 % Normal 0.2-2.0 [facility] Comment on above: Performed By: #### C BC #### [facility] [address] [address] [address] Glenda Basurto EO # 0.1 103/ul Normal 0.0-0.7 [facility] Comment on above: Performed By: #### C BC #### [facility] [address] [address] [address] Glenda Basurto Eosinophils/100 WBC (Bld) 2.2 % Normal 0.9-7.0 [facility] Comment on above: Performed By: #### C BC #### [facility] [address] [place] [address] Dr. Glenda Basurto Erythrocyte distribution width (RBC) [Ratio] 13.2 % Normal 11.0-15.0 [facility] Comment on above: Performed By: #### C BC #### [facility] [address] [place] [address] Dr. Glenda Basurto Hematocrit (Bld) [Volume fraction] 42.0 % Normal 36.0-48.0 [facility] Comment on above: Performed By: #### C BC #### [facility] [address] [place] [address] Dr. Glenda Basurto Hemoglobin (Bld) [Mass/Vol] 13.7 g/dL Normal 12.0-16.0 [facility] Comment on above: Performed By: #### C BC #### [facility] [address] [place] [address] Dr. Glenda Basurto IG # 0.01 10e3/ul Normal 0.00-0.03 [facility] Comment on above: Performed By: #### C BC #### [facility] [address] [place] [address] Dr. Glenda Basurto IG % 0.2 % Normal 0.0-0.5 [facility] Comment on above: Performed By: #### C BC #### [facility] [address] [place] [address] Dr. Glenda Basurto LYMPH # 2.7 103/ul Normal 1.2-3.8 [facility] Comment on above: Performed By: #### C BC #### [facility] [address] [place] [address] Dr. Glenda Basurto Lymphocytes/100 WBC (Bld) 41.9 % Normal 20.5-60.0 [facility] Comment on above: Performed By: #### C BC #### [facility] [address] [place] [address] Dr. Glenda Basurto MANUAL DIFF REQ NO Normal [facility] Comment on above: Performed By: #### C BC #### [facility] [address] [address] [address] Glenda Basurto MCH (RBC) [Entitic mass] 30.6 pg Normal 26.7-34.0 [facility] Comment on above: Performed By: #### C BC #### [facility] [address] [place] [address] Dr. Glenda Basurto MCHC (RBC) [Mass/Vol] 32.6 g/dL Normal 29.9-35.2 [facility] Comment on above: Performed By: #### C BC #### [facility] [address] [place] [address] Dr. Glenda Basurto MCV (RBC) [Entitic vol] 93.8 fL Normal 81.0-99.0 [facility] Comment on above: Performed By: #### C BC #### [facility] [address] [place] [address] Dr. Glenda Basurto MONO # 0.6 103/ul Normal 0.3-0.8 [facility] Comment on above: Performed By: #### C BC #### [facility] [address] [place] [address] Dr. Glenda Basurto Monocytes/100 WBC (Bld) 9.8 % Normal 1.7-12.0 [facility] Comment on above: Performed By: #### C BC #### [facility] [address] [place] [address] Dr. Glenda Basurto NEUT # 2.9 103/ul Normal 1.4-6.5 [facility] Comment on above: Performed By: #### C BC #### [facility] [address] [place] [address] Dr. Glenda Basurto Neutrophils/100 WBC (Bld) 45.4 % Normal 43.0-75.0 [facility] Comment on above: Performed By: #### C BC #### [facility] [address] [place] [address] Dr. Glenda Basurto Platelet mean volume (Bld) [Entitic vol] 8.9 fL Critically low 9.5-13.5 [facility] Comment on above: Performed By: #### C BC #### [facility] [address] [address] [address] Glenda Basurto PLT 226 103/ul Normal 150-450 [facility] Comment on above: Performed By: #### C BC #### [facility] [address] [place] [address] Dr. Glenda Basurto RBC 4.48 106/ul Normal 4.20-5.40 [facility] Comment on above: Performed By: #### C BC #### [facility] [address] [address] [address] Glenda Basurto WBC 6.4 103/ul Normal 4.0-11.0 [facility] Comment on above: Performed By: #### C BC #### [facility] [address] [place] [address] Dr. Glenda Basurto CRPon 09-16-2021 CRP [Mass/Vol] mg/L Normal <=1.0 [facility] Comment on above: Performed By: #### U LEANNA, CRP #### [facility] [address] [place] [address] Dr. Glenda Basurto PROF CHEM 8 (BAS METB)on Anion gap [Moles/Vol] 12.2 mmol/L Normal [facility] Comment on above: Performed By: #### B MP #### [facility] [address] [place] [address] Dr. Glenda Basurto Calcium [Mass/Vol] 9.3 mg/dL Normal 8.5-10.[address] [facility] Comment on above: Performed By: #### B MP #### [facility] [address] [place] [address] Dr. Glenda Basurto Chloride [Moles/Vol] 107 mmol/L Normal 98-107 [facility] Comment on above: Performed By: #### B MP #### [facility] [address] [place] [address] Dr. Glenda Basurto CO2 [Moles/Vol] 27.3 mmol/L Normal 21.0-32.0 [facility] Comment on above: Performed By: #### B MP #### [facility] [address] [address] [address] Glenda Basurto Creatinine [Mass/Vol] 1.04 mg/dL Critically high 0.55-1.02 [facility] Comment on above: Performed By: #### B MP #### [facility] [address] [address] [address] Glenda Basurto EGFR-AF IRAQI >60 Normal >=60 [facility] Comment on above: Performed By: #### B MP #### [facility] [address] [address] [address] Glenda Basurto EGFR-NON AF IRAQI 52 mL/min/1.73m2 Critically low >=60 [facility] Comment on above: Performed By: #### B MP #### [facility] [address] [address] [address] Glenda Basurto Glucose [Mass/Vol] 92 mg/dL Normal 74-[address] [facility] Comment on above: Performed By: #### B MP #### [facility] [address] [address] [address] Glenda Basurto Potassium [Moles/Vol] 4.5 mmol/L Normal 3.5-5.1 [facility] Comment on above: Performed By: #### B MP #### [facility] [address] [address] [address] Glenda Basurto Sodium [Moles/Vol] 142 mmol/L Normal 136-145 [facility] Comment on above: Performed By: #### B MP #### [facility] [address] [address] [address] Glenda Basurto Urea nitrogen [Mass/Vol] 21.0 mg/dL Critically high 7.0-18.0 [facility] Comment on above: Performed By: #### B MP #### [facility] [address] [address] [address] Glenda Basurto Urea nitrogen/Creatinine [Mass ratio] 20.2 mg/mg Normal [facility] Comment on above: Performed By: #### B MP #### [facility] [address] [address] [address] Glenda Basurto SED RATE WESTERGRENon 2021 SED RATE 22 mm/hr Normal <=30 [facility] Comment on above: Performed By: #### S EDR ####[facility] [address] [address]Dr. Glenda Basurto URIC ACID SERUMon 09-16-2021 Urate [Mass/Vol] 4.8 mg/dL Normal 2.6-6.0 [facility] Comment on above: Performed By: #### U LEANNA, CRP #### [facility] [address] [address] [address] Glenda Basurto XR TIB_FIB RT 2Von [...] PURNIMA SANDOVAL Date: 2021-09-16 21:21 Normal [facility] CBC AUTO DIFFon 07-06-2021 BASO # 0.0 103/ul Normal 0.0-0.1 [facility] Comment on above: Performed By: #### C BC #### [facility] [address] [address] [address] Glenda Basurto Basophils/100 WBC (Bld) 0.6 % Normal 0.2-2.0 [facility] Comment on above: Performed By: #### C BC #### [facility] [address] [address] [address] Glenda Basurto EO # 0.1 103/ul Normal 0.0-0.7 [facility] Comment on above: Performed By: #### C BC #### [facility] [address] [address] [address] Glenda Basurto Eosinophils/100 WBC (Bld) 1.5 % Normal 0.9-7.0 [facility] Comment on above: Performed By: #### C BC #### [facility] [address] [place] [address] Dr. Glenda Basurto Erythrocyte distribution width (RBC) [Ratio] 13.6 % Normal 11.0-15.0 [facility] Comment on above: Performed By: #### C BC #### [facility] [address] [place] [address] Dr. Glenda Basurto Hematocrit (Bld) [Volume fraction] 43.9 % Normal 36.0-48.0 [facility] Comment on above: Performed By: #### C BC #### [facility] [address] [place] [address] Dr. Glenda Basurto Hemoglobin (Bld) [Mass/Vol] 14.2 g/dL Normal 12.0-16.0 [facility] Comment on above: Performed By: #### C BC #### [facility] [address] [place] [address] Dr. Glenda Basurto IG # 0.02 10e3/ul Normal 0.00-0.03 [facility] Comment on above: Performed By: #### C BC #### [facility] [address] [place] [address] Dr. Glenda Basurto IG % 0.3 % Normal 0.0-0.5 [facility] Comment on above: Performed By: #### C BC #### [facility] [address] [place] [address] Dr. Glenda Basurto LYMPH # 2.0 103/ul Normal 1.2-3.8 [facility] Comment on above: Performed By: #### C BC #### [facility] [address] [place] [address] Dr. Glenda Basurto Lymphocytes/100 WBC (Bld) 29.8 % Normal 20.5-60.0 [facility] Comment on above: Performed By: #### C BC #### [facility] [address] [place] [address] Dr. Glenda Basurto MANUAL DIFF REQ NO Normal [facility] Comment on above: Performed By: #### C BC #### [facility] [address] [address] [address] Glenda Basurto MCH (RBC) [Entitic mass] 30.9 pg Normal 26.7-34.0 [facility] Comment on above: Performed By: #### C BC #### [facility] [address] [place] [address] Dr. Glenda Basurto MCHC (RBC) [Mass/Vol] 32.3 g/dL Normal 29.9-35.2 [facility] Comment on above: Performed By: #### C BC #### [facility] [address] [place] [address] Dr. Glenda Basurto MCV (RBC) [Entitic vol] 95.4 fL Normal 81.0-99.0 [facility] Comment on above: Performed By: #### C BC #### [facility] [address] [place] [address] Dr. Glenda Basurto MONO # 0.5 103/ul Normal 0.3-0.8 [facility] Comment on above: Performed By: #### C BC #### [facility] [address] [place] [address] Dr. Glenda Basurto Monocytes/100 WBC (Bld) 7.1 % Normal 1.7-12.0 [facility] Comment on above: Performed By: #### C BC #### [facility] [address] [place] [address] Dr. Glenda Basurto NEUT # 4.1 103/ul Normal 1.4-6.5 [facility] Comment on above: Performed By: #### C BC #### [facility] [address] [place] [address] Dr. Glenda Basurto Neutrophils/100 WBC (Bld) 60.7 % Normal 43.0-75.0 [facility] Comment on above: Performed By: #### C BC #### [facility] [address] [place] [address] Dr. Glenda Basurto Platelet mean volume (Bld) [Entitic vol] 8.7 fL Critically low 9.5-13.5 [facility] Comment on above: Performed By: #### C BC #### [facility] [address] [place], [place] [address] Dr. Glenda Basurto PLT 234 103/ul Normal 150-450 [facility] Comment on above: Performed By: #### C BC #### [facility] [address] [address] [address] Glenda Basurto RBC 4.60 106/ul Normal 4.20-5.40 [facility] Comment on above: Performed By: #### C BC #### [facility] [address] [address] [address] Glenda Basurto WBC 6.7 103/ul Normal 4.0-11.0 [facility] Comment on above: Performed By: #### C BC #### [facility] [address] [address] [address] Glenda Basurto XR SINUSES 3 VIEWS [...] by: PURNIMA CORTEZ Date: 2021-05-21 12:11 Normal [facility] COVID Quick Testingon 02-27 Result Negative [facility] Other Vital Signs Date Time Vital Sign Value Performing Clinician Facility 12-07-2023 11: Body height 154.94 cm [facility] 12-07-2023 11: Body mass index (BMI) [Ratio] 33.1 kg/m2 [facility] 12-07-2023 11: Body weight 79.54 kg [facility] 12-07-2023 11: Diastolic blood pressure 72 mm[Hg] [facility] 12-07-2023 11:[id number] Heart rate 76 /min [facility] 12-07-2023 11: Respiratory rate 12 /min [facility] 12-07-2023 11:28-0400 Systolic blood pressure 123 mm[Hg] [facility] 09-20-2023 10:54-0400 Body height 154.94 cm [facility] 09-20-2023 10:54-0400 Body mass index (BMI) [Ratio] 33.3 kg/m2 [facility] 09-20-2023 10:54-0400 Body temperature 97.5 [degF] [facility] 09-20-2023 10:54-0400 Body weight 79.97 kg [facility] 09-20-2023 10:54-0400 Diastolic blood pressure 78 mm[Hg] [facility] 09-20-2023 10:54-0400 Heart rate 70 /min [facility] 09-20-2023 10:54-0400 Respiratory rate 16 /min [facility] 09-20-2023 10:54-0400 SaO2% (BldA) [Mass fraction] 96 % [facility] 09-20-2023 10:54-0400 Systolic blood pressure 121 mm[Hg] [facility] 02-05-2023 12:00-0500 Body height 154.94 cm Siomara Mcfarland Other [facility] 02-05-2023 12:00-0500 Body mass index (BMI) [Ratio] 34.2 kg/m2 Siomara Mcfarland Other [facility] Other 02-05-2023 12:00-0500 Body temperature 98.2 [degF] Siomara Mcfarland Other [facility] Other 02-05-2023 12:00-0500 Body weight 82.1 kg Siomara Mcfarland Other [facility] Other 02-05-2023 12:00-0500 Diastolic blood pressure 78 mm[Hg] Siomara Mcfarland Other [facility] Other 02-05-2023 12:00-0500 Respiratory rate 19 /min Siomara Mcfarland Other [facility] Other 02-05-2023 12:00-0500 SaO2% (BldA) [Mass fraction] 97 % Siomara Mcfarland Other [facility] Other 02-05-2023 12:00-0500 Systolic blood pressure 135 mm[Hg] Siomara Mcfarland Other [facility] Other 11-12-2022 09:15-0400 Body height 154.94 cm Jimmie Ball Other [facility] Other 11-12-2022 09:15-0400 Body mass index (BMI) [Ratio] 32.91 kg/m2 Jimmie Ball Other [facility] Other 11-12-2022 09:15-0400 Body weight 79.02 kg Jimmie Ball Other [facility] Other 11-12-2022 09:15-0400 Diastolic blood pressure 71 mm[Hg] Jimmie Ball Other [facility] Other 11-12-2022 09:15-0400 Respiratory rate 12 /min Jimmie Ball Other [facility] Other 11-12-2022 09:15-0400 Systolic blood pressure 130 mm[Hg] Jimmie Ball Other [facility] Other 11-02-2022 17:55-0400 Body height 154.94 cm Marivel Whitlock Other [facility] Other 11-02-2022 17:55-0400 Body mass index (BMI) [Ratio] 32.87 kg/m2 Marivel Whitlock Other [facility] Other 11-02-2022 17:55-0400 Body temperature 98.2 [degF] Marivel Whitlock Other [facility] Other 11-02-2022 17:55-0400 Body weight 78.93 kg Marivel Whitlock Other [facility] Other 11-02-2022 17:55-0400 Diastolic blood pressure 72 mm[Hg] Marivel Whitlock Other [facility] Other 11-02-2022 17:55-0400 Respiratory rate 18 /min Marivel Whitlock Other [facility] Other 11-02-2022 17:55-0400 SaO2% (BldA) [Mass fraction] 97 % Marivel Whitlock Other [facility] Other 11-02-2022 17:55-0400 Systolic blood pressure 136 mm[Hg] Marivel Whitlock Other [facility] Other 06-21-2022 12:30-0400 Body height 154.94 cm Jimmie Ball Other [facility] Other 06-21-2022 12:30-0400 Body mass index (BMI) [Ratio] 32.42 kg/m2 Jimmie Ball Other [facility] Other 06-21-2022 12:30-0400 Body weight 77.84 kg Jimmie Ball Other [facility] Other 06-21-2022 12:30-0400 Diastolic blood pressure 75 mm[Hg] Jimmie Ball Other [facility] Other 06-21-2022 12:30-0400 Respiratory rate 12 /min Jimmie Melendez Other [facility] Other 06-21-2022 12:30-0400 Systolic blood pressure 126 mm[Hg] Jimmie Melendez Other [facility] Other 02-27-2021 11:30-0500 Body height 154.94 cm Marivel Whitlock Other [facility] Other 02-27-2021 11:30-0500 Body mass index (BMI) [Ratio] 31.17 kg/m2 Marivel Whitlock Other [facility] Other 02-27-2021 11:30-0500 Body temperature 97.5 [degF] Marivel Whitlock Other [facility] Other 02-27-2021 11:30-0500 Body weight 74.84 kg Marivel Whitlock Other [facility] Other 02-27-2021 11:30-0500 Respiratory rate 18 /min Marivel Alvesmond Other [facility] Other 02-27-2021 11:30-0500 SaO2% (BldA) [Mass fraction] 98 % Marivel Alvesmond Other [facility] Other Encounters Encounter Date Encounter Type Care Provider Facility Start: 05-29-2024 ambulatory Zulay oh PA-C [facility] Start: 05-29-2024 ambulatory Zulay oh PA-C Facility[facility] Start: 01-03-2024 End: 01-03-2024 Patient encounter procedure DO Jimmie Melendez Work Phone: [facility] [address] Work Phone: Start: 01-03-2024 End: 01-03-2024 ambulatory DO Jimmie Melendez Work Phone: [facility] Work Phone: Start: 12-08-2023 Non-patient / Non-visit DO David Melendez Work Phone: [facility] Work Phone: Start: 12-07-2023 End: 12-07-2023 ambulatory [facility] Work Phone: Start: 12-07-2023 End: 12-07-2023 Patient encounter procedure [facility] Work Phone: Start: 12-04-2023 Patient encounter procedure [facility] Start: 09-20-2023 End: 09-20-2023 ambulatory [facility] Work Phone: Start: 09-20-2023 End: 09-20-2023 Patient encounter procedure [facility] Work Phone: Start: 05-31-2023 ambulatory Zulay oh PA-C Facility[facility] Start: 05-31-2023 End: 06-01-2023 ambulatory Zulay Lopez PA-C Facility[facility] Start: 03-02-2023 End: 03-02-2023 ambulatory Jimmie Melendez Other [facility] Other Start: 03-02-2023 Office outpatient vi sit 15 minutes Jimmie Melendez [facility] Start: 02-05-2023 End: 02-05-2023 ambulatory Siomara Mcfarland Other [employer] Other Start: 02-05-2023 Office outpatient vi sit 15 minutes Siomara Mcfarland [facility] Start: 12-15-2022 ambulatory Zulay oh PA-C Facility[facility] Start: 12-15-2022 End: 12-16-2022 ambulatory Zulay Lopez PA-C Facility[facility] Start: 11-12-2022 End: 11-12-2022 ambulatory Jimmie Melendez Other [facility] Other Start: 11-12-2022 Office outpatient vi sit 15 minutes Jimmie Melendez [facility] Start: 11-12-2022 Telephone encounter Jimmie Melendez [facility] Start: 11-05-2022 End: 11-05-2022 ambulatory Jimmie Melendez Other [facility] Other Start: 11-05-2022 Telephone encounter Jimmie Melendez [facility] Start: 11-02-2022 Office outpatient vi sit 15 minutes Marivel Whitlock [facility] Start: 11-02-2022 End: 11-02-2022 ambulatory Alvaro Melendez DO [facility] Other Start: 10-05-2022 End: 10-05-2022 ambulatory Jimmie Melendez Other [facility] Other Start: 10-05-2022 Nursing evaluation o f patient and report Jimmie Melendez [facility] Start: 08-17-2022 End: 08-17-2022 ambulatory Jimmie Melendez Other [facility] Other Start: 08-17-2022 Telephone encounter Jimmie FLANNERY [facility] Start: 06-21-2022 End: 06-21-2022 ambulatory Jimmie Melendez Other [facility] Other Start: 06-21-2022 Office outpatient vi sit 25 minutes Jimmie Melendez [facility] Start: 12-07-2021 End: 12-08-[address] JIMMIE [...] BERNARD Facility:[facility] Start: 07-11-[address] CINTHIA BRENARD Facili ty:[facility] Start: 07-08-2021 Encounter for preprocedural cardiovascular examination DR CINTHIA BERNARD [facility] Start: 07-08-2021 Encounter for preprocedural laboratory examination DR CINTHIA BERNARD [facility] Start: 07-06-2021 End: 07-07-[address] CINTHIA BERNARD Facility:[facility] Start: 07-06-2021 End: 07-07-2021 Encounter for preprocedural cardiovascular examination DR CINTHIA BERNARD Facility:[facility] Start: 05-21-2021 End: 05-22-[address] CINTHIA BERNARD Facility:[facility] Start: 02-27-2021 End: 02-27-2021 ambulatory Marivel Whitlock Other [facility] Other Start: 02-27-2021 Office outpatient vi sit 15 minutes Marivel Whitlock [facility] Procedures Date Procedure Procedure Detail Performing Clinician Start: 01-03-2024 Plain X-ray of bilateral hands DO Jimmie Melendez Work Phone: History of cholecystectomy Jimmie Melendez Other History of cholecystectomy Status post laparoscopic cholecystectomy Plan of Treatment Date Care Activity Detail Author Start: 01-03-2024 Hemolytic complement CH50 level [facility] Complement C3 [Mass/ volume] in Serum or Plasma [facility] Complement C4 [Mass/ volume] in Serum or Plasma [facility] Comprehensive metabo lic 2000 panel - Serum or Plasma [facility] Rheumatoid factor [U nits/volume] in Serum or Plasma [facility] Immunizations Immunization Date Immunization Notes Care Provider Venu modi 11-04-2023 Fluzone QIV High-Dos e 65YR+ [facility] 10-05-2022 Prevnar 20 Jimmie Melendez Other [facility] 01-20-2022 COVID-19 Pfizer (Pediatric) Jimmie Melendez Other [facility] 12-21-2021 influenza virus vaccine, unspecified formulation [facility] 12-21-2021 influenza, high dose seasonal, preservative-free Jimmie Melendez Other [facility] Other 11-26-2021 diphtheria, tetanus toxoids and acellular pertussis vaccine, unspecified formulation Jimmie Melendez Other [facility] 08-20-2021 COVID-19 Vaccine Pfi zer - Documentation Purposes Only Jimmie Melendez Other [facility] 12-22-2020 COVID-19 Vaccine Pfi zer - Documentation Purposes Only Jimmie Melendez Other [facility] 11-30-2020 influenza virus vaccine, split virus (incl. purified surface antigen) Jimmie Melendez Other [facility] 11-30-2020 influenza virus vaccine, unspecified formulation [facility] 04-23-2020 COVID-19 Vaccine Pfi zer - Documentation Purposes Only Jimmie Melendez Other [facility] 03-31-2020 COVID-19 Vaccine Pfi zer - Documentation Purposes Only Jimmie Melendez Other [facility] 12-27-2019 influenza virus vaccine, split virus (incl. purified surface antigen) Jimmie Melendez Other [facility] 12-27-2019 influenza virus vaccine, unspecified formulation [facility] 08-09-2019 pneumococcal polysaccharide vaccine, 23 valent Jimmie Melendez Other [facility] 01-02-2019 influenza virus vaccine, split virus (incl. purified surface antigen) Jimmie Melendez Other [facility] 01-02-2019 influenza virus vaccine, unspecified formulation [facility] 12-14-2017 diphtheria, tetanus toxoids and acellular pertussis vaccine, unspecified formulation Jimmie Ball Other [facility] Payers Date Payer Category Payer Unknown 2016 Medicare 1958 Medicare [id number] 2.1 [id number] 1959 Private Health Insurance CLI [id number] 1950 Unknown [id number] 2.16.84 [id number] 1950 Unknown [id number] 2.16.84 0.1.212168.3.579.2.593 1950 Unknown [id number] 2.16.84 0.1.356022.3.579.2.593 1950 Unknown [id number] 2.16.84 0.1.347784.3.579.2.593 1950 Unknown [id number] 2.16.84 0.1.255601.3.579.2.593 1950 Unknown [id number] 2.16.84 0.1.187275.3.579.2.593 1950 Unknown [id number] 2.16.84 0.1.954453.3.579.2.593 1950 Unknown [id number] 2.16.84 0.1.598529.3.579.2.593 1950 Unknown [id number] 2.16.84 0.1.086347.3.579.2.593 1950 Unknown [id number] 2.16.84 0.1.848619.3.579.2.593 1950 Unknown [id number] 2.16. 840.1.800030.3.579.2.196 1950 Unknown [id number] 2.16. 840.1.724802.3.579.2.196 1950 Unknown [id number] 2.16. 840.1.840181.3.579.2.196 1950 Unknown [id number] 2.16. 840.1.474307.3.579.2.196 1950 Unknown [id number] 2.16. 840.1.195629.3.579.2.196 1950 Unknown [id number] 2.16. 840.1.256473.3.579.2.196 1950 Unknown [id number] 2.16. 840.1.870631.3.579.2.196 Self-pay Social History Date Type Detail Facility Sex Assigned At [facility] Other Start: 03-02-2023 Tobacco smoking stat [facility] Never smoked tobacco (finding) [facility] Start: 1950 Sex Assigned At Female F [facility] Clinical Notes 02-27-2021 to 03-02-2023 Note Date & Type Note Facility 03-02-2023 Evaluation note Encounter Date Diagnosis Assessment Notes Feb, Acute non-recurrent maxillary sinusitis (ICD-10 - J01.00) Instructed to use Robitussin or Mucinex for cough, saline or Flonase NS for congestion, Tylenol for pain and fever. Feb, Suspected COVID-19 virus infection (ICD-10 - Z20.822) Will send testing to [facility] to be completed tomorrow - this will [...] Increases risk of more severe, prolonged illness [facility] 12-02-2023 Evaluation note* Encounter Date Diagnosis [...] with PCP if febrile or new/worsening s/s. [facility] Other 09-08-2023 Evaluation note* Encounter Date Diagnosis [...] continue exercise to achieve/maintain a normal BMI. [facility] Other 08-29-2023 Evaluation note* Encounter Date Diagnosis [...] back pain home care material was printed [facility] Other 04-17-2023 Evaluation note* Encounter Date Diagnosis [...] High risk medication use (ICD-10 - Z79.899) [facility] Other 07-21-2022 NotePROCEDURE: XR FOOT RT MIN 3 VIEWS, XR ANKLE RT MIN 3 VIEWS COMPARISON: None. HISTORY: Pain FINDINGS: BONES:No acute fracture or dislocation. Severe osteoarthritis of the first metatarsal phalangeal joint with [id number] articulation and bony remodeling. Moderate bulky enthesopathic spurring of the calcaneus at the Achilles and plantar insertions. Moderate degenerative changes mid foot with joint space narrowing and marginal osteophyte formation SOFT TISSUES:Negative. No visible soft tissue swelling. EFFUSION:None visible. OTHER: Negative. IMPRESSION: Degenerative osteoarthritis with severe changes at the first metatarsal-phalangeal joint Electronically authenticated by: PURNIMA CORTEZ Date: 2021-09-24 07:[facility]07-21-2022 NotePROCEDURE: XR FOOT RT MIN 3 VIEWS, XR ANKLE RT MIN 3 VIEWS COMPARISON: None. HISTORY: Pain FINDINGS: BONES:No acute fracture or dislocation. Severe osteoarthritis of the first metatarsal phalangeal joint with [id number] articulation and bony remodeling. Moderate bulky enthesopathic spurring of the calcaneus at the Achilles and plantar insertions. Moderate degenerative changes mid foot with joint space narrowing and marginal osteophyte formation SOFT TISSUES:Negative. No visible soft tissue swelling. EFFUSION:None visible. OTHER: Negative. IMPRESSION: Degenerative osteoarthritis with severe changes at the first metatarsal-phalangeal joint Electronically authenticated by: PURNIMA CORTEZ Date: 2021-09-24 07:[facility]05-10-2022 NoteOPERATIVE NOTE OPERATION DATE: 07/14/2021 PRIMARY [...] to the recovery room in good condition. [facility] Signed and Approved by: DR CINTHIA BERNARD 07/15/2021 07:48:00[facility]12-24-2021 Evaluation note* Encounter Date Diagnosis Assessment [...] Patient care instructions given in writting by [facility] document. [facility] Other Evaluation noteNo InformationNort EthicsGame Other Evaluation noteNo assessment information available [facility] [place] Work Phone: Evaluation note* Diagnosis Onset Date Resolution Status Chronic kidney disease acute Fatigue acute Hypercholesterolemia acute Inflammatory polyarthritis a cute Medicare annual wellness visit, subsequent acute Metabolic dysfunction-associ ated steatotic liver disease (MASLD) acute Obesity acute Primary hypertension acute Screening for colon cancer n oneactive [facility] Work Phone: History general Narrative - Reported* Type Description Date Surgical History Bilateral Knees Replacement 03/07 Surgical History Herniated Discs-Low back Surgical History gallbladder removed 2020 Hospitalization History See past surgical histor y [facility] Other Hisys[facility] general Narrative - Reported* Type Description Date [...] Hospitalization History See past surgical histor y [facility] Other History general Narrative - Reported* Type Description [...] Hospitalization History See past surgical histor y [facility] Other Summary Purpose Family History No Family History Records Found Relationship Condition Age at Onset Recorded Date/T lavonne sister Malignant neoplasm of breast Unknown mother Hypertension Unknown Heart failure Unknown father Unknown mother Unknown Hypertension Unknown son Unknown Advance Directives No Advanced Directives Records Found Advance Directive Response Recorded Date/ Time Advance Directives Yes October 29, 2020 2:29pm Chief Complaint and Reason for Visit Chief Complaint Congestion Chief Complaint Congestion Wellness Reason for Visit Chronic kidney disea se Fatigue Hypercholesterolemia Inflammatory polyarthritis Medicare annual wellness visit, subsequent Metabolic dysfunction-associated steatotic liver disease (MASLD) Obesity Primary hypertension Screening for colon cancer Chief Complaint Wellness Reason for Visit Chronic kidney disea se Fatigue Hypercholesterolemia Inflammatory polyarthritis Medicare annual wellness visit, subsequent Metabolic dysfunction-associated steatotic liver disease (MASLD) Obesity Primary hypertension Screening for colon cancer Additional Source Comments REASON FOR VISIT (unrecogniz ed section and content) #7 [facility] COUGH, CONGESTI ON, SORE THROAT4 MONTH CHECK UPMedication ClarificationPNEUMONIA SHOTEAR ACHE IN RIGHT EAR, BACK PAIN ALSORefillReferralXray resultsPOSS SINUS INFECTIONExposed to COVID-Negative, All symptoms- [phone] INFORMATION SOURCE (unrecogn ized section and content) DATE CREATED AUTHOR 12/11/2021 [facility] DATE CREATED AUTHOR AUTHOR'S ORGANIZ ATION 06/02/2023 [facility] DATE CREATED AUTHOR AUTHOR'S ORGANIZ ATION 01/05/2024 [facility] Care Teams (unrecognized sec tion and content) Team Status: Active Member Role Status Dates Jimmie Melendez , Primary Care Provider Active Team Status: Inactive Member Role Status Dates Jimmie Melendez DO Primary Care Provider Active Start: September 20, 2023 End: September 20, 2023 Doreen Cortez APRN Attending Provider Active S tart: September 20, 2023 End: September 20, 2023 Team Status: Inactive Member Role Status Dates Jimmie Melendez DO Primary Care Provide r, Attending Provider Active Start: December 07, 2023 End: December 07, 2023 Team Status: Active Member Role Status Dates Jimmie Melendez DO Primary Care Provide r, Attending Provider Active Start: December 08, 2023 Team Status: Inactive Member Role Status Dates Jimmie Melendez , Primary Care Provider Active Start: January 03, 2024 End: January 03, 2024 Mohamud Lee MD Attending Provider Active St art: January 03, 2024 End: January 03, 2024 Goals (unrecognized section and content) Goals may [...] BE BASED ON THE PRIMARY CLINICAL RECORDS. [email or web address] provides no warranty or guarantee of the accuracy or completeness of information in this document.
== END 2024-02-03 12:59 | disposition home or self-care (01) ==
LOC: US 12:58
PROVIDERS: PCP Internal Medicine; Visit Provider Internal Medicine
DX: E04.1 Nontoxic single thyroid nodule (principal)
CPT/HCPCS: 76536

== ENCOUNTER 2024-06-15 10:02 | Outpatient (OUT) | payer MEDICARE, SELFPAY ==
--- OUTSIDE RECORDS SUMMARY | 2024-06-15 10:14 | XMS_ITS | CCD ---
Author Organization [facility] Care Team Providers Care Power Tool Repair Technician Name Role Phone Marivel Whitlock Unavailable AL, [...] TIMMIS, DR KLINE Attending Unavailable BALL, DR LUACS Primary Care Unavailable TIMMIS, DR KLINE Admitting [...] DR PURNIMA Sarkar Consulting Unavailable AL, DR LUCAS Admitting Unavailable [...] Unavailable DANA, DR PURNIMA Sarkar Consulting Unavailable HIGHLKIERRA RAMIREZ Consulting Unavailable AL, DR LUCAS Admitting Unavailable BALL, DR LUCAS Primary Care Unavailable BALL, DR LUCAS Consulting Unavailable BALL, DR LUCAS Attending Unavailable WEST, DR PURNIMA Sarkar Consulting Unavailable Jimmie Melendez Unavailable Siomara Mcfarland Unavailable DO Jimmie Melendez Primary Care Provider MD Mohamud Lee Attending Provider Mohamud Lee Attending Unavailable Mohamud Lee Admitting Unavailable Al Jimmie Primary Care Unavailable Ball DO, [facility] Primary Care Unavailab le John PA-C, [address] Attending Unavai lable John PA-C, [address] Attending Unavai lable Ball DO, [facility] Primary Care Unavailab le Ball DO, [facility] Care Unavailab le John PA-C, [address] Attending [facility] lable Ball DO, [facility] Unavailab le John PA-C, [address] Attending Unava lable Allergies Allergy Classification Reported Allergen(s) Allergy Type Date of Onset Reaction(s) Facility (1 source) Chlorotrianisene Drug Allergy 02-27-20 13 [facility] Repository (4 sources) Latex Drug allergy (disorder) 02-27-[address] [facility] Repository (9 sources) Gold Drug Allergy Unknown [facility] Other (9 sources) Latex Drug allergy Unknown [facility] Other (7 sources) Gold and/or gold compound (FN) Drug allergy Unknown [facility] Other (3 sources) Bee pollen Allergy to substance 09-20-19 24 [facility] (3 sources) Gold Drug Allergy 09-20-19 24 Unknown Reaction [facility] (3 sources) Gold-containing Drug Products Allergy to substance 09-20-19 24 Unknown Reaction [facility] (3 sources) gold jewery Allergy to substance 10-30-19 21 [facility] (1 source) No Known Medication Allergies; Translations: [No Known Medication Allergies] Propensity to adverse reactions to drug (disorder) [facility] Repository Medications Current Medications Medication Drug Class(es) [...] Start: 08-17-2023 take 1 tablet by arvind once daily Benazepril Active 0 .ROUTE .COMPLEX [...] 29, 2020 12:00am December 07, 2023 11:30am [id number] 200 actuat albuterol 0.09 mg/actuat metered dose [...] / neomycin 3.5 mg/ml / polymyxin b [id number] unt/ml otic suspension (6 sources) Aminoglycoside Antibacterial, Polymyxin-class Antibacterial, Corticosteroid Start: 11-02-2022 Wtyslifp-Geeyabmmr-GL [id number] 3 drops right ear Three times a [...] region] Chronic Other aftercare (2 sources) Other 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 History of Present Illness Molly is a very pleasant 73-year-old female who presents today as a fu. Last visit was May of 2023. Previous right PE tube was placed in July 2021 at an outlying otolaryngology office for middle ear effusion. Previous stamp pad maker had mentioned that she may have cochlear hydrops and/or M?ni?re's disease. She had been on a low-salt diet for several years. She did take Dyazide for short period of time though her blood pressure was dropping and she was switched to an ADALI inhibitor. She has not had any vertigo episodes in over 3 years. No previous MRI, ECOG, or VNG. 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 She presents today for repeat audiogram and ear check. She denies any otalgia, otorrhea, or vertigo. Reports hx of throat clearing and feeling as though she has post nasal drip. Has always thought it was allergy or sinonasal related. Has tried oral antihistamines and nasal sprays without significant improvement. Denies any nasal drainage, anosmia, facial pressure, recurrent sinusitis, purulence, or headaches. No associated dysphagia, globus sensation, or cough. Physical Exam Vitals & Measurements T: 37.0 ?C (Temporal Artery) HR: 78 (Peripheral) BP: 125/70 HT: 153.5 cm WT: 79.8 kg WT: 79.8 kg (Dosing) BMI: 33.87 Constitutional: Well-developed, well-nourished Communication and Voice: Clear [...] Left - Clear and mobile Right - Tube in place with small amount of cerumen overlying the opening Middle Ears: Left - Aerated, no effusion, no masses Right - Aerated, no effusion, no masses Audiogram: Compared to previous from 05-31-2023 and there is relatively no change. Left: Mild to moderate sensorineural hearing loss. Right: Moderate to severe mixed hearing loss. SRT of 50 on the right and 35 on the left. WR S of 96% on the right and 88% on the left. Type B tympanogram on the left. Flat tympanogram on the right with a large canal volume. Additional Vitals BP Position/Location: Sitting, Left arm Assessment/Plan 1. Tympanostomy tube check Patient's PE tube is still in place though there is some cerumen overlying this. Will start her on ofloxacin drops twice daily for 7 days. Will also write for refills to be used as needed. We will follow-up in 1 year for her tube check. Call sooner with concerns. We will also repeat an audiogram at that time. Ordered: ofloxacin otic, 5 drops, Ear-Both, BID, X 7 days, # 5 mL, 3 Refill(s), 07/03/24 14:29:00 EDT, Pharmacy: [facility]/pharmacy #[id number] 2. Mixed hearing loss of right ear Reviewed audiogram and compared to previous from 05-31-2023 this has remained unchanged. She has left-sided sensorineural hearing loss and mixed hearing loss on the right. Continue with hearing amplification. She is going to take this most recent audiogram to her director radiation oncology next week. 3. Left SNHL 4. Throat clearing Regarding her symptoms of throat clearing we discussed how this could be due to postnasal drip from sinonasal symptoms versus LPR. She would like to trial the allergy route first. We will trial her on Xyzal at bedtime. Side effects were reviewed. We will have a telephone encounter in roughly 1 month. If she has not had improvement we discussed considering treatment for LPR. Ordered: levocetirizine, 1 tabs, Oral, qPM, # 30 tabs, 3 Refill(s), Pharmacy: [facility]/pharmacy #[id number] Medical Decision Making Chronic conditions NOT treated during this visit that affected my overall medical decision making: [] Treatment plans discussed but not opted for at this time: [] Prescribed medication that requires intensive monitoring for toxicity: [] I have reviewed the patient?s medication list for medication interactions/contrain dications and/or for upcoming procedures: [yes or no] [...] oral tablet latanoprost 0.005% ophthalmic solution, 1 (more content not included)... Normal [facility] Bacteria [Presence] in Urine by AutomatedOrdered By: Mohamud Lee on 01-03-2024 Bacteria Auto Ql (U) None seen [HPF] None Seen [facility] Bilirubin Test strip Ql (U)O rdered By: Mohamud Lee on 01-03-2024 Bilirubin Ql (U) Negative Negative [facility] C reactive protein [Mass/vol ume] in Serum or PlasmaOrdered By: Mohamud Lee on 01-03-2024 CRP [Mass/Vol] < 0.5 mg/dL 0.0-0.5 [facility] C-Reactive Proteinon 024 CRP [Mass/Vol] mg/L Normal 0.0-0.5 [facility] Comment on above: Performed By: #### C RP, ESR, TSH3, PTH, ADDONUAPLUS #### [address] #### C4, C3, CH50 #### [facility] , Color of Urine by AutoOrdere d By: Mohamud Lee on 01-03-2024 Color (U) Light-yellow Normal Yellow [facility] Comment on above: Order Comment: Name Collection Type:: Clean-Voided Midstream Performed By: #### C RP, ESR, TSH3, PTH, ADDONUAPLUS #### [address] #### C4, C3, CH50 #### [facility] , Complement C3on 01-03-2024 Complement C3 138 mg/dL Normal 82-167 [facility] Comment on above: Result Comment: Perf ormed at: - [facility] [place] [id number] Contact Center Assistant: Reid West PhD, Phone: [phone] Performed By: #### C RP, ESR, TSH3, PTH, ADDONUAPLUS #### [address] #### C4, C3, CH50 #### [facility] , Complement C4on 01-03-2024 Complement C4 32 mg/dL Normal 12-38 [facility] Comment on above: Result Comment: PERF ORMED BY: [place] [address] PATHOLOGIST CERTIFIED ACTIVITIES DIRECTOR JENNIFER IRIZARRY M.D. Performed By: #### C RP, ESR, TSH3, PTH, ADDONUAPLUS #### [address] #### C4, C3, CH50 #### [facility] , Complement Total (CH50)on Complement Total (CH50) 52 Normal >41 T [facility] Comment on above: Result Comment: [...] out of range values. Performed at: - [facility] [id number] Contact Center Assistant: Reid West PhD, Phone: [phone] PERFORMED BY: [place] [address] PATHOLOGIST CERTIFIED ACTIVITIES DIRECTOR JENNIFER IRIZARRY M.D. Performed By: #### C RP, ESR, TSH3, PTH, ADDONUAPLUS #### [address] #### C4, C3, CH50 #### [facility] , Dipstick and Microscopicon 1 Bacteria,Urine None Seen Normal None Seen [facility] Comment on above: Order Comment: Name Collection Type:: Clean-Voided Midstream Performed By: #### C RP, ESR, TSH3, PTH, ADDONUAPLUS #### [address] #### C4, C3, CH50 #### [facility] , Bilirubin,Urine Negative Normal Negative [facility] Comment on above: Order Comment: Name Collection Type:: Clean-Voided Midstream Performed By: #### C RP, ESR, TSH3, PTH, ADDONUAPLUS #### [address] #### C4, C3, CH50 #### [facility] , Glucose Ql (U) Normal Normal Normal [facility] Comment on above: Order Comment: Name Collection Type:: Clean-Voided Midstream Performed By: #### C RP, ESR, TSH3, PTH, ADDONUAPLUS #### [address] #### C4, C3, CH50 #### [facility] , Hyaline Casts,Urine None Normal 0-8 [facility] Comment on above: Order Comment: Name Collection Type:: Clean-Voided Midstream Performed By: #### C RP, ESR, TSH3, PTH, ADDONUAPLUS #### [address] #### C4, C3, CH50 #### [facility] , Mucus,Urine Rare Normal [facility] Comment on above: Order Comment: Name Collection Type:: Clean-Voided Midstream Result Comment: PERF ORMED BY: [place] [address] PATHOLOGIST CERTIFIED ACTIVITIES DIRECTOR JENNIFER IRIZARRY M.D. Performed By: #### C RP, ESR, TSH3, PTH, ADDONUAPLUS #### [address] #### C4, C3, CH50 #### [facility] , Nitrite,Urine Negative Normal Negative [facility] Comment on above: Order Comment: Name Collection Type:: Clean-Voided Midstream Performed By: #### C RP, ESR, TSH3, PTH, ADDONUAPLUS #### [address] #### C4, C3, CH50 #### [facility] , Non-Squamous Epithelial Cell,U 1-2 High None Seen [facility] Comment on above: Order Comment: Name Collection Type:: Clean-Voided Midstream Performed By: #### C RP, ESR, TSH3, PTH, ADDONUAPLUS #### [address] #### C4, C3, CH50 #### [facility] , Occult Blood,Urine Trace High Negative [facility] Comment on above: Order Comment: Name Collection Type:: Clean-Voided Midstream Performed By: #### C RP, ESR, TSH3, PTH, ADDONUAPLUS #### [address] #### C4, C3, CH50 #### [facility] , Protein,Urine Negative Normal Negative [facility] Comment on above: Order Comment: Name Collection Type:: Clean-Voided Midstream Performed By: #### C RP, ESR, TSH3, PTH, ADDONUAPLUS #### [address] #### C4, C3, CH50 #### [facility] , RBC,Urine 3-4 Normal 0-4 [facility] Comment on above: Order Comment: Name Collection Type:: Clean-Voided Midstream Performed By: #### C RP, ESR, TSH3, PTH, ADDONUAPLUS #### [address] #### C4, C3, CH50 #### [facility] , Specificy [place],Urine 1.020 Normal 1.001-1.030 [facility] Comment on above: Order Comment: Name Collection Type:: Clean-Voided Midstream Performed By: #### C RP, ESR, TSH3, PTH, ADDONUAPLUS #### [address] #### C4, C3, CH50 #### [facility] , Squamous Epithelial Cell,Urine 1-2 Normal 0-2 [facility] Comment on above: Order Comment: Name Collection Type:: Clean-Voided Midstream Performed By: #### C RP, ESR, TSH3, PTH, ADDONUAPLUS #### [address] #### C4, C3, CH50 #### [facility] , Urobilinogen,Urine Normal Normal Normal [facility] Comment on above: Order Comment: Name Collection Type:: Clean-Voided Midstream Performed By: #### C RP, ESR, TSH3, PTH, ADDONUAPLUS #### [address] #### C4, C3, CH50 #### [facility] , WBC,Urine 3-4 Normal 0-4 [facility] Comment on above: Order Comment: Name Collection Type:: Clean-Voided Midstream Performed By: #### C RP, ESR, TSH3, PTH, ADDONUAPLUS #### [address] #### C4, C3, CH50 #### [facility] , Epithelial cells.non-squamou s [#/area] in Urine sediment by Automated countOrdered By: Mohamud Lee on 01-03-2024 Epithelial cells.non-squamous Auto (Urine sed) [#/Area] 1-2 [HPF] High None Seen [facility] Epithelial cells.squamous [# /area] in Urine sediment by Automated countOrdered By: Mohamud Lee on 01-03-2024 Epithelial cells.squamous Auto (Urine sed) [#/Area] 1-2 [HPF] 0-2 [facility] Erythrocyte Sedimentation Ra yandy 01-03-2024 ESR (Bld) [Velocity] 24 mm/h Normal 0-29 [facility] Comment on above: Result Comment: PERF ORMED BY: [place] [address] PATHOLOGIST CERTIFIED ACTIVITIES DIRECTOR JENNIFER IRIZARRY M.D. Performed By: #### C RP, ESR, TSH3, PTH, ADDONUAPLUS #### [place] [address] [place] #### C4, C3, CH50 #### [facility] , Erythrocyte sedimentation ra te by Photometric methodOrdered By: Mohamud Lee on 10-29-2024 ESR Photometric method (Bld) [Velocity] 24 mm/hr 0- [facility] Erythrocytes [#/area] in Uri ne sediment by Automated countOrdered By: Mohamdu Lee on 01-03-2024 RBC Auto (Urine sed) [#/Area] 3-4 [HPF] 0-4 [facility] Glucose [Mass/volume] in Uri ne by Test stripOrdered By: Mohamud Lee on 01-03-2024 Glucose Test strip (U) [Mass/Vol] Normal mg/dL Normal [facility] Hemoglobin Test strip Ql (U) Ordered By: Mohamud Lee on 01-03-2024 Hemoglobin Ql (U) Trace High Negative [facility] Hyaline casts [#/area] in Ur ine sediment by Automated countOrdered By: Mohamud Lee on 01-03-2024 Hyaline casts Auto (Urine sed) [#/Area] None [LPF] 0-8 [facility] Ketones [Presence] in Urine by Test stripOrdered By: Mohamud Lee on 01-03-2024 Ketones Ql (U) Negative Normal Negative [facility] Comment on above: Order Comment: Name Collection Type:: Clean-Voided Midstream Performed By: #### C RP, ESR, TSH3, PTH, ADDONUAPLUS #### [facility] [address] [place] [address] #### C4, C3, CH50 #### [facility] , Leukocyte esterase [Presence ] in Urine by Test stripOrdered By: Mohamud Lee on 01-03-2024 Leukocyte esterase Test strip Ql (U) 2+ High Negative [facility] Comment on above: Order Comment: Name Collection Type:: Clean-Voided Midstream Performed By: #### C RP, ESR, TSH3, PTH, ADDONUAPLUS #### [facility] [address] [place] [address] [place] #### C4, C3, CH50 #### [facility] , Leukocytes [#/area] in Urine sediment by Automated countOrdered By: Mohamud Lee on 01-03-2024 WBC Auto (Urine sed) [#/Area] 3-4 [HPF] 0-4 [facility] Mucus [Presence] in Urine by AutomatedOrdered By: Mohamud Lee on 01-03-2024 Mucus Auto Ql (U) Rare [LPF] [facility] Nitrite Test strip Ql (U)Ord ered By: Mohamud Lee on 01-03-2024 Nitrite Ql (U) Negative Negative [facility] Parathyrin.intact [Mass/volu me] in Serum or PlasmaOrdered By: Mohamud Lee on 01-03-2024 Parathyrin.intact [Mass/Vol] 40.7 pg/mL [facility] Parathyroid Hormone Intacton 01-03-2024 Parathyroid Hormone Intact 40.7 pg/mL Normal [facility] Comment on above: Result Comment: PERF ORMED BY: [place] [address] PATHOLOGIST CERTIFIED ACTIVITIES DIRECTOR JENNIFER IRIZARRY M.D. Performed By: #### C RP, ESR, TSH3, PTH, ADDONUAPLUS #### [address] #### C4, C3, CH50 #### [facility] , Protein Test strip (U) [Mass /Vol]Ordered By: Mohamud Lee on 01-03-2024 Protein (U) [Mass/Vol] Negative Negative [facility] Specific gravity Test strip (U) [Rel density]Ordered By: Mohamud Lee on 01-03-2024 Specific gravity (U) [Rel density] 1.020 1.001-1.030 [facility] Thyrotropin [Units/volume] i n Serum or PlasmaOrdered By: Mohamud Lee on 01-03-2024 TSH Qn 0.84 m[IU]/L Normal 0.45-5.33 [facility] Comment on above: Result Comment: PERF ORMED BY: [place] [address] PATHOLOGIST CERTIFIED ACTIVITIES DIRECTOR JENNIFER IRIZARRY M.D. Performed By: #### C RP, ESR, TSH3, PTH, ADDONUAPLUS #### [facility] [address] [place] [address] [place] #### C4, C3, CH50 #### [facility] , Urine appearanceOrdered By: Mohamud Lee on 01-03-2024 Appearance (U) Clear Normal Clear [facility] Comment on above: Order Comment: Name Collection Type:: Clean-Voided Midstream Performed By: #### C RP, ESR, TSH3, PTH, ADDONUAPLUS #### [facility] [address] [place] [address] #### C4, C3, CH50 #### [facility] , Urobilinogen Test strip (U) [Mass/Vol]Ordered By: Mohamud Lee on 01-03-2024 Urobilinogen (U) [Mass/Vol] Normal mg/dL Normal [facility] XR hand BI 2Von 01-03-2024 XR hand BI 2V [facility] [place] [address] [place] [address] XRay Report Signed Patient: Molly Garcia MR#: [id number] : 1950 Acct:[id number] Age/Sex: 73 / F ADM Date: 01/03/24 Loc: ICXD Room: Type: [facility] Attending Dr: Mohamud Lee MD Copies [...] Abbe Ludwig M.D.01/03/2024 6:04 PM Dictation Location: [place] [address] Transcribed By: ALE 01/03/241803 Dictated By: Abbe Ludwig DO 01/03/241801 Signed By: 01/03/241803 Normal [facility] pH of Urine by Test stripOrd ered By: Mohamud Lee on 01-03-2024 pH (U) 5.5 [pH] Normal 5.0-9.0 [facility] Comment on above: Order Comment: Name Collection Type:: Clean-Voided Midstream Performed By: #### C RP, ESR, TSH3, PTH, ADDONUAPLUS #### [facility] [address] #### C4, C3, CH50 #### [facility] , Basophils Auto (Bld) [#/Vol] on 12-08-2023 Basophils (Bld) [#/Vol] 0.0 10 3/uL 0.0-0.1 [facility] Basophils/100 WBC Auto (Bld) on 12-08-2023 Basophils/100 WBC (Bld) 0.6 % 0.2-2.0 [facility] Centriole Ab [Titer] in Seru m by Immunofluorescenceon 12-08-2023 Centriole Ab IF (S) [Titer] TNP . [facility] Centromere Ab [Titer] in Ser um by Immunofluorescenceon 12-08-2023 Centromere Ab IF (S) [Titer] TN . [facility] Cholesterol in LDL Calc [Mas s/Vol]on 12-08-2023 Cholesterol in LDL [Mass/Vol] 88.0 mg/dL [facility] Comment on above: <100 mg/dl [id number] 0-129 mg/dl NEAR OR ABOVE [id number] mg/dl BORDERLINE [id number] mg/dl HIGH>190 mg/dl VERY HIGH Cholesterol in VLDL Calc [Ma ss/Vol]on 12-08-2023 Cholesterol in VLDL [Mass/Vol] 12.4 mg/dL [facility] Eosinophils/100 WBC Auto (Bl d)on 12-08-2023 Eosinophils/100 WBC (Bld) 2.3 % 0.9-7.0 [facility] Erythrocyte distribution wid th Auto (RBC) [Ratio]on 12-08-2023 Erythrocyte distribution width (RBC) [Ratio] 13.2 % 11.0-15.0 [facility] Estimated glomerular filtrat ion rate (GFR) non- Americanon 12-08-2023 GFR/1.73 sq M.predicted among non-blacks MDRD (S/P/Bld) [Vol rate/Area] 43 mL/min/{1.73_m2} Low >=60 mL/min/1.73 m 2 [facility] Globulin Calc (S) [Mass/Vol] on 12-08-2023 Globulin (S) [Mass/Vol] 3.5 g/dL [facility] Hematocrit Auto (Bld) [Volum e fraction]on 12-08-2023 Hematocrit (Bld) [Volume fraction] 44.4 % 36.0-48.0 [facility] Hemoglobin [Mass/volume] in Bloodon 12-08-2023 Hemoglobin (Bld) [Mass/Vol] 14.3 g/dL 12.0-16.0 [facility] Laboratory - Chemistry and C hemistry - challengeon 12-08-2023 Albumin [Mass/Vol] 3.7 g/dL 3.4-5.0 [facility] ALP [Catalytic activity/Vol] 124 U/L High 46-116 [facility] ALT [Catalytic activity/Vol] 31 U/L 14-59 [facility] AST [Catalytic activity/Vol] 25 U/L 15-37 [facility] Bilirubin [Mass/Vol] 0.7 mg/dL 0.2-1.0 [facility] Calcium [Mass/Vol] 9.6 mg/dL 8.5-10.1 [facility] Chloride [Moles/Vol] 104 mmol/L 98-107 [facility] Cholesterol [Mass/Vol] 161 mg/dL <=200 [facility] Cholesterol in HDL [Mass/Vol] 61 mg/dL High 40-60 [facility] Comment on above: > or =60 mg/dl - LOW CARDIOVASCULAR RISK<40 mg/dl - HIGH CARDIOVASCULAR RISK CO2 [Moles/Vol] 26.5 mmol/L 21.0-32.0 [facility] Creatinine [Mass/Vol] 1.23 mg/dL High 0.55-1.02 [facility] GFR/1.73 sq M.predicted MDRD (S/P/Bld) [Vol rate/Area] 52 mL/min/{1.73_m2} Low >=60 mL/min/1.73 m 2 [facility] Glucose [Mass/Vol] 88 mg/dL 74-106 [facility] Potassium [Moles/Vol] 3.8 mmol/L 3.5-5.1 [facility] Protein [Mass/Vol] 7.2 g/dL 6.4-8.2 [facility] Sodium [Moles/Vol] 139 mmol/L 136-145 [facility] Triglyceride [Mass/Vol] 62 mg/dL <=150 [facility] TSH Qn 1.173 m[IU]/L 0.358-3.740 [facility] Urea nitrogen [Mass/Vol] 20.0 mg/dL High 7.0-18.0 [facility] Urea nitrogen/Creatinine [Mass ratio] 16.3 mg/mg [facility] Laboratory - Hematology and Cell countson 12-08-2023 Immature granulocytes/100 WBC (Bld) 0.2 % 0.0-0.5 [facility] Leukocytes [#/volume] correc magali for nucleated erythrocytes in Blood by Automated counon 12-08-2023 WBC corrected for nucl RBC Auto (Bld) [#/Vol] 5.3 10 3/uL 4.0-11.0 [facility] Lymphocytes Auto (Bld) [#/Vo l]on 12-08-2023 Lymphocytes (Bld) [#/Vol] 1.8 10 3/uL 1.2-3.8 [facility] Lymphocytes/100 WBC Auto (Bl d)on 12-08-2023 Lymphocytes/100 WBC (Bld) 33.6 % 20.5-60.0 [facility] MCH Auto (RBC) [Entitic mass ]on 12-08-2023 MCH (RBC) [Entitic mass] 30.1 pg 26.7-34.0 [facility] MCHC Auto (RBC) [Mass/Vol]on 12-08-2023 MCHC (RBC) [Mass/Vol] 32.2 g/dL 29.9-35.2 [facility] MCV Auto (RBC) [Entitic vol] on 12-08-2023 MCV (RBC) [Entitic vol] 93.5 fL 81.0-99.0 [facility] Midbody Ab [Titer] in Serum by Immunofluorescenceon 12-08-2023 Midbody Ab IF (S) [Titer] TNP . [facility] Mitotic spindle apparatus Ab [Titer] in Serum or Plasma by Immunofluorescenceon 12-08-2023 Mitotic spindle apparatus Ab IF [Titer] TNP . [facility] Monocytes Auto (Bld) [#/Vol] on 12-08-2023 Monocytes (Bld) [#/Vol] 0.4 10 3/uL 0.3-0.8 [facility] Monocytes/100 WBC Auto (Bld) on 12-08-2023 Monocytes/100 WBC (Bld) 7.0 % 1.7-12.0 [facility] Neutrophils Auto (Bld) [#/Vo l]on 12-08-2023 Neutrophils (Bld) [#/Vol] 3.0 10 3/uL 1.4-6.5 [facility] Neutrophils/100 WBC Auto (Bl d)on 12-08-2023 Neutrophils/100 WBC (Bld) 56.3 % 43.0-75.0 [facility] No Panel Informationon 12-07 Anti-Nuclear Antibody Comment 2 Comment . [facility] Comment on above: Pattern Potential Di sease Association Homogeneous Systemic Lupus Erythematosus, Drug Induced Systemic Lupus Erythematosus, Chronic Autoimmune hepatitis, Juvenile Idiopathic Arthritis Speckled Sjogren Syndrome, Systemic Lupus Erythematosus, Subacute Cutaneous Lupus, Lupus, Congenital Heart Block, Mixed Connective Tissue Disease, Scleroderma-diffuse, Scleroderma-Autoimmune Myositis Overlap Syndrome, Systemic Lupus Synthupxileft-Zsyrsmxtxhb-Ucywoeplxo Myositis Overlap Syndrome, Systemic Autoimmune Rheumatic Disease, [...] Cytopenias, Linear Scleroderma, Antiphospholipid Syndrome Performed at: CB - [facility] [id number] [place], [place] [id number] Director: Reid West PhD, Phone: [phone] C-Reactive Protein, Quantitative <0.50 mg/dL <=0.50 [facility] Eosinophils # (Auto) 0.1 10 3/uL 0.0-0.7 [facility] Immature Granulocyte # (Auto) 0.01 10 3/uL 0.00-0.03 [facility] Nuclear dots nuclear Ab seth dilia [Titer] in Serum by Immunofluorescenceon 12-08-2023 Nuclear dots nuclear Ab pattern IF (S) [Titer] TNP . [facility] Nuclear membrane pores nucle ar Ab pattern [Titer] in Serum by Immunofluorescenceon 12-08-2023 Nuclear membrane pores nuclear Ab pattern IF (S) [Titer] TNP . [facility] PCNA extractable nuclear Ab [Titer] in Serum by Immunofluorescenceon 12-08-2023 PCNA extractable nuclear Ab IF (S) [Titer] TNP . [facility] Platelet mean volume Auto (B ld) [Entitic vol]on 12-08-2023 Platelet mean volume (Bld) [Entitic vol] 9.0 fL Low 9.5-13.5 [facility] Platelets Auto (Bld) [#/Vol] on 12-08-2023 Platelets (Bld) [#/Vol] 241 10 3/uL 150-450 [facility] RBC Auto (Bld) [#/Vol]on RBC (Bld) [#/Vol] 4.75 10 6/uL 4.20-5.40 [facility] Serum homogeneous pattern an tinuclear antibody (ROHIT) titeron 12-08-2023 Homogenous nuclear Ab pattern (S) [Titer] 1:160 Abnormal . [facility] Comment on above: ICAP nomenclature: A C-1 Serum nuclear antibody titer on 12-08-2023 Nuclear Ab (S) [Titer] Positive Abnormal . [facility] Comment on above: Negative <1:80 Borde rline 1:80 Positive >1:80 Serum nucleolar pattern anti nuclear antibody (ROHIT) titeron 12-08-2023 Nucleolar nuclear Ab pattern (S) [Titer] TNP . [facility] Serum or plasma albumin/glob ulin mass ratioon 12-08-2023 Albumin/Globulin [Mass ratio] 1.1 {ratio} [facility] Serum or plasma anion gap de terminationon 12-08-2023 Anion gap [Moles/Vol] 12.3 mmol/L [facility] Serum or plasma rheumatoid f actor measurement (units/volume)on 12-08-2023 Rheumatoid factor Qn [IU]/mL <14.0 [facility] Comment on above: Performed at: [facility] [address] [id number] Director: Reid West PhD, Phone: [phone] Serum or plasma total choles terol/high density lipoprotein (HDL) cholesterol mass shania 12-08-2023 Cholesterol.total/Yuko sterol in HDL [Mass ratio] 2.6 {ratio} [facility] Comment on above: 3.3 - 4.4 LOW RISK4. 4 - 7.1 AVERAGE RISK7.1 - 11.0 MODERATE RISK>11.0 HIGH RISK Serum speckled pattern antin uclear antibody (ROHIT) titeron 12-08-2023 Speckled nuclear Ab pattern (S) [Titer] TNP . [facility] PROF CHEM 8 (BAS METB)on Anion gap [Moles/Vol] 11.4 mmol/L Normal [facility] Comment on above: Performed By: #### B MP ####[facility] [address] [place] [address]Dr. Glenda Basurto Calcium [Mass/Vol] 9.2 mg/dL Normal 8.5-10.1 [facility] Comment on above: Performed By: #### B MP ####[facility] [address] [place] [address]Dr. Glenda Basurto Chloride [Moles/Vol] 106 mmol/L Normal 98-107 [facility] Comment on above: Performed By: #### B MP ####[facility] [address] [place] [id number]. Glenda Basurto CO2 [Moles/Vol] 27.6 mmol/L Normal 21.0-32.0 [facility] Comment on above: Performed By: #### B MP ####[facility] [address] [place] [address]Dr. Glenda Basurto Creatinine [Mass/Vol] 1.19 mg/dL Critically high 0.55-1.02 [facility] Comment on above: Performed By: #### B MP ####[facility] [address] [place] [id number]. Rolajaron Sb EGFR-AF PANAMANIAN 54 mL/min/1.73m2 Critically low >=60 [facility] Comment on above: Performed By: #### B MP ####[facility] [address] [place] [id number]. Rolajaron Sb EGFR-NON AF PANAMANIAN 45 mL/min/1.73m2 Critically low >=60 [facility] Comment on above: Performed By: #### B MP ####[facility] [address] [place] [id number]. Glenda Basurto Glucose [Mass/Vol] 100 mg/dL Normal 74-106 [facility] Comment on above: Performed By: #### B MP ####[facility] [address] [place] [address]Dr. Glenda Basurto Potassium [Moles/Vol] 4.0 mmol/L Normal 3.5-5.1 [facility] Comment on above: Performed By: #### B MP ####[facility] [address] [place] [address]Dr. Glenda Basurto Sodium [Moles/Vol] 141 mmol/L Normal 136-145 [facility] Comment on above: Performed By: #### B MP ####[facility] [address] [place] [address]Dr. Glenda Basurto Urea nitrogen [Mass/Vol] 20.0 mg/dL Critically high 7.0-18.0 [facility] Comment on above: Performed By: #### B MP ####[facility] [address] [place] [phone]. Glenda Basurto Urea nitrogen/Creatinine [Mass ratio] 16.8 mg/mg Normal [facility] Comment on above: Performed By: #### B MP ####[facility] [address] [place] [phone]. Glenda Basurto CT CSPINE WO CONon 2 CT CSPINE WO CON EXAMINATION: CT CSPINE [...] RONA MALONEY Date: 2021-11-26 22:07 Normal [facility] CT HEAD WO CONon 11-26-2021 CT [...] RONA MALONEY Date: 2021-11-26 21:43 Normal [facility] CBC AUTO DIFFon 11-20-2021 BASO # 0.0 103/ul Normal 0.0-0.1 [facility] Comment on above: Performed By: #### C BC #### [facility] [address] [address] [address] Glenda Basurto Basophils/100 WBC (Bld) 0.7 % Normal 0.2-2.0 [facility] Comment on above: Performed By: #### C BC #### [facility] [address] [address] [address] Glenda Basurto EO # 0.1 103/ul Normal 0.0-0.7 [facility] Comment on above: Performed By: #### C BC #### [facility] [address] [place] [address] Dr. Glenda Basurto Eosinophils/100 WBC (Bld) 1.8 % Normal 0.9-7.0 [facility] Comment on above: Performed By: #### C BC #### [facility] [address] [place] [address] Dr. Glenda Basurto Erythrocyte distribution width (RBC) [Ratio] 13.2 % Normal 11.0-15.0 [facility] Comment on above: Performed By: #### C BC #### [facility] [address] [place] [address] Dr. Glenda Basurto Hematocrit (Bld) [Volume fraction] 39.4 % Normal 36.0-48.0 [facility] Comment on above: Performed By: #### C BC #### [facility] [address] [place] [address] Dr. Glenda Basurto Hemoglobin (Bld) [Mass/Vol] 12.9 g/dL Normal 12.0-16.0 [facility] Comment on above: Performed By: #### C BC #### [facility] [address] [place] [address] Dr. Glenda Basurto IG # 0.01 10e3/ul Normal 0.00-0.03 [facility] Comment on above: Performed By: #### C BC #### [facility] [address] [place] [address] Dr. Glenda Basurto IG % 0.2 % Normal 0.0-0.5 [facility] Comment on above: Performed By: #### C BC #### [facility] [address] [place] [address] Dr. Glenda Basurto LYMPH # 2.6 103/ul Normal 1.2-3.8 [facility] Comment on above: Performed By: #### C BC #### [facility] [address] [place] [address] Dr. Glenda Basurto Lymphocytes/100 WBC (Bld) 41.9 % Normal 20.5-60.0 [facility] Comment on above: Performed By: #### C BC #### [facility] [address] [place] [address] Dr. Glenda Basurto MANUAL DIFF REQ NO Normal [facility] Comment on above: Performed By: #### C BC #### [facility] [address] [place] [address] Dr. Glenda Basurto MCH (RBC) [Entitic mass] 30.1 pg Normal 26.7-34.0 [facility] Comment on above: Performed By: #### C BC #### [facility] [address] [place] [address] Dr. Glenda Basurto MCHC (RBC) [Mass/Vol] 32.7 g/dL Normal 29.9-35.2 [facility] Comment on above: Performed By: #### C BC #### [facility] [address] [place] [address] Dr. Glenda Basurto MCV (RBC) [Entitic vol] 92.1 fL Normal 81.0-99.0 [facility] Comment on above: Performed By: #### C BC #### [facility] [address] [place] [address] Dr. Glenda Basurto MONO # 0.5 103/ul Normal 0.3-0.8 [facility] Comment on above: Performed By: #### C BC #### [facility] [address] [place] [address] Dr. Glenda Basurto Monocytes/100 WBC (Bld) 7.7 % Normal 1.7-12.0 [facility] Comment on above: Performed By: #### C BC #### [facility] [address] [address] [address] Glenda Basurto NEUT # 2.9 103/ul Normal 1.4-6.5 [facility] Comment on above: Performed By: #### C BC #### [facility] [address] [address] [address] Glenda Basurto Neutrophils/100 WBC (Bld) 47.7 % Normal 43.0-75.0 [facility] Comment on above: Performed By: #### C BC #### [facility] [address] [address] [address] Glenda Basurto Platelet mean volume (Bld) [Entitic vol] 8.8 fL Critically low 9.5-13.5 [facility] Comment on above: Performed By: #### C BC #### [facility] [address] [place] [address] Dr. Glenda Basurto PLT 215 103/ul Normal 150-450 [facility] Comment on above: Performed By: #### C BC #### [facility] [address] [address] [address] Glenda Basurto RBC 4.28 106/ul Normal 4.20-5.40 [facility] Comment on above: Performed By: #### C BC #### [facility] [address] [place] [address] Dr. Glenda Basurto WBC 6.1 103/ul Normal 4.0-11.0 [facility] Comment on above: Performed By: #### C BC #### [facility] [address] [place] [address] Dr. Glenda Basurto PROF CHEM 8 (BAS METB)on Anion gap [Moles/Vol] 10.1 mmol/L Normal [facility] Comment on above: Performed By: #### B MP, TSH ####[facility] [address] [place] [address]Dr. Glenda Basurto Calcium [Mass/Vol] 8.8 mg/dL Normal 8.5-10.1 [facility] Comment on above: Performed By: #### B MP, TSH ####[facility] [address] [place] [phone]. Glenda Basurto Chloride [Moles/Vol] 103 mmol/L Normal 98-107 [facility] Comment on above: Performed By: #### B MP, TSH ####[facility] [address] [place] [phone]. Glenda Basurto CO2 [Moles/Vol] 29.1 mmol/L Normal 21.0-32.0 [facility] Comment on above: Performed By: #### B NATALY, TSH ####[facility] [address] [place] [address]Dr. Glenda Basurto Creatinine [Mass/Vol] 1.62 mg/dL Critically high 0.55-1.02 [facility] Comment on above: Performed By: #### B NATALY, TSH ####[facility] [address] [place] [address]Dr. Glenda Sb EGFR-AF PANAMANIAN 38 mL/min/1.73m2 Critically low >=60 [facility] Comment on above: Performed By: #### B NATALY, TSH ####[facility] [address] [place] [address]Dr. Glenda Basurto EGFR-NON AF PANAMANIAN 31 mL/min/1.73m2 Critically low >=60 [facility] Comment on above: Performed By: #### B NATALY, TSH ####[facility] [address] [place] [address]Dr. Glenda Basurto Glucose [Mass/Vol] 112 mg/dL Critically high 74-106 [facility] Comment on above: Performed By: #### B NATALY, TSH ####[facility] [address] [place] [phone]. Glenda Basurto Potassium [Moles/Vol] 4.2 mmol/L Normal 3.5-5.1 [facility] Comment on above: Performed By: #### B NATALY, TSH ####[facility] [address] [place] [phone]. Glenda Basurto Sodium [Moles/Vol] 138 mmol/L Normal 136-145 [facility] Comment on above: Performed By: #### B MP, TSH ####[facility] [address] [place] [phone]. Glenda Basurto Urea nitrogen [Mass/Vol] 25.0 mg/dL Critically high 7.0-18.0 [facility] Comment on above: Performed By: #### B MP, TSH ####[facility] [address] [place] [phone]. Glenda Basurto Urea nitrogen/Creatinine [Mass ratio] 15.4 mg/mg Normal [facility] Comment on above: Performed By: #### B MP, TSH ####[facility] [address] [place] [phone]. Glenda Basurto TSHon 11-20-2021 TSH 0.942 uIU/mL Normal 0.358-3.740 [facility] Comment on above: Performed By: #### B MP, TSH ####[facility] [address] [place] [id number]. Glenda Basurto MG MAMM SCREEN 3D FERMÍN CADon 09-17-2021 MG MAMM SCREEN 3D FERMÍN CAD Patient: MOLLY GARCIA Exam Date: 09/17/2021 : 1950 Gender:F Ordering : DR JIMMIE MELENDEZ D.O. Admission #: [id number] Family : Order #: [id number] CLICK HERE TO VIEW EXAM RADIOLOGY REPORT [...] breast cancer at age 75. LOCATION: [facility] BREAST COMPOSITION: Heterogeneously dense,which may obscure [...] Cortez MD on 09/17/2021 at 12:43 Normal [facility] CBC AUTO DIFFon 09-16-2021 BASO # 0.0 103/ul Normal 0.0-0.1 [facility] Comment on above: Performed By: #### C BC #### [facility] [address] [place] [address] Dr. Glenda Basurto Basophils/100 WBC (Bld) 0.5 % Normal 0.2-2.0 [facility] Comment on above: Performed By: #### C BC #### [facility] [address] [place] [address] Dr. Glenda Basurto EO # 0.1 103/ul Normal 0.0-0.7 [facility] Comment on above: Performed By: #### C BC #### [facility] [address] [place] [address] Dr. Glenda Basurto Eosinophils/100 WBC (Bld) 2.2 % Normal 0.9-7.0 [facility] Comment on above: Performed By: #### C BC #### [facility] [address] [place] [address] Dr. Gelnda Basurto Erythrocyte distribution width (RBC) [Ratio] 13.2 % Normal 11.0-15.0 [facility] Comment on above: Performed By: #### C BC #### [facility] [address] [place] [address] Dr. Glenda Basurto Hematocrit (Bld) [Volume fraction] 42.0 % Normal 36.0-48.0 [facility] Comment on above: Performed By: #### C BC #### [facility] [address] [place] [address] Dr. Glenda Basurto Hemoglobin (Bld) [Mass/Vol] 13.7 g/dL Normal 12.0-16.0 [facility] Comment on above: Performed By: #### C BC #### [facility] [address] [place] [address] Dr. Glenda Basurto IG # 0.01 10e3/ul Normal 0.00-0.03 [facility] Comment on above: Performed By: #### C BC #### [facility] [address] [place] [address] Dr. Glenda Basurto IG % 0.2 % Normal 0.0-0.5 [facility] Comment on above: Performed By: #### C BC #### [facility] [address] [place] [address] Dr. Glenda Basurto LYMPH # 2.7 103/ul Normal 1.2-3.8 [facility] Comment on above: Performed By: #### C BC #### [facility] [address] [place] [address] Dr. Glenda Basurto Lymphocytes/100 WBC (Bld) 41.9 % Normal 20.5-60.0 [facility] Comment on above: Performed By: #### C BC #### [facility] [address] [place] [address] Dr. Glenda Basurto MANUAL DIFF REQ NO Normal [facility] Comment on above: Performed By: #### C BC #### [facility] [address] [place] [address] Dr. Glenda Basurto MCH (RBC) [Entitic mass] 30.6 pg Normal 26.7-34.0 [facility] Comment on above: Performed By: #### C BC #### [facility] [address] [place] [address] Dr. Glenda Basurto MCHC (RBC) [Mass/Vol] 32.6 g/dL Normal 29.9-35.2 [facility] Comment on above: Performed By: #### C BC #### [facility] [address] [place] [address] Dr. Glenda Basurto MCV (RBC) [Entitic vol] 93.8 fL Normal 81.0-99.0 [facility] Comment on above: Performed By: #### C BC #### [facility] [address] [place] [address] Dr. Glenda Basurto MONO # 0.6 103/ul Normal 0.3-0.8 [facility] Comment on above: Performed By: #### C BC #### [facility] [address] [place] [address] Dr. Glenda Basurto Monocytes/100 WBC (Bld) 9.8 % Normal 1.7-12.0 [facility] Comment on above: Performed By: #### C BC #### [facility] [address] [place] [address] Dr. Glenda Basurto NEUT # 2.9 103/ul Normal 1.4-6.5 [facility] Comment on above: Performed By: #### C BC #### [facility] [address] [place] [address] Dr. Glenda Basurto Neutrophils/100 WBC (Bld) 45.4 % Normal 43.0-75.0 [facility] Comment on above: Performed By: #### C BC #### [facility] [address] [place] [address] Dr. Glenda Basurto Platelet mean volume (Bld) [Entitic vol] 8.9 fL Critically low 9.5-13.5 [facility] Comment on above: Performed By: #### C BC #### [facility] [address] [place] [address] Dr. Glenda Basurto PLT 226 103/ul Normal 150-450 [facility] Comment on above: Performed By: #### C BC #### [facility] [address] [place] [address] Dr. Glenda Basurto RBC 4.48 106/ul Normal 4.20-5.40 [facility] Comment on above: Performed By: #### C BC #### [facility] [address] [place] [address] Dr. Glenda Basurto WBC 6.4 103/ul Normal 4.0-11.0 [facility] Comment on above: Performed By: #### C BC #### [facility] [address] [address] [address] Glenda Basurto CRPon 09-16-2021 CRP [Mass/Vol] mg/L Normal <=1.0 [facility] Comment on above: Performed By: #### U LEANNA, CRP #### [facility] [address] [address] [address] Glenda Basurto PROF CHEM 8 (BAS METB)on Anion gap [Moles/Vol] 12.2 mmol/L Normal [facility] Comment on above: Performed By: #### B MP #### [facility] [address] [address] [address] Glenda Basurto Calcium [Mass/Vol] 9.3 mg/dL Normal 8.5-10.1 [facility] Comment on above: Performed By: #### B MP #### [facility] [address] [address] [address] Glenda Basurto Chloride [Moles/Vol] 107 mmol/L Normal 98-107 [facility] Comment on above: Performed By: #### B MP #### [facility] [address] [address] [address] Glenda Basurto CO2 [Moles/Vol] 27.3 mmol/L Normal 21.0-32.0 [facility] Comment on above: Performed By: #### B MP #### [facility] [address] [address] [address] Glenda Basurto Creatinine [Mass/Vol] 1.04 mg/dL Critically high 0.55-1.02 [facility] Comment on above: Performed By: #### B MP #### [facility] [address] [address] [address] Glenda Basurto EGFR-AF PANAMANIAN >60 Normal >=60 [facility] Comment on above: Performed By: #### B MP #### [facility] [address] [address] [address] Glenda Basurto EGFR-NON AF PANAMANIAN 52 mL/min/1.73m2 Critically low >=60 [facility] Comment on above: Performed By: #### B MP #### [facility] [address] [address] [address] Glenda Basurto Glucose [Mass/Vol] 92 mg/dL Normal 74-106 [facility] Comment on above: Performed By: #### B MP #### [facility] [address] [address] [address] Glenda Basurto Potassium [Moles/Vol] 4.5 mmol/L Normal 3.5-5.1 [facility] Comment on above: Performed By: #### B MP #### [facility] [address] [address] [address] Glenda Basurto Sodium [Moles/Vol] 142 mmol/L Normal 136-145 [facility] Comment on above: Performed By: #### B MP #### [facility] [address] [address] [address] Glenda Basurto Urea nitrogen [Mass/Vol] 21.0 mg/dL Critically high 7.0-18.0 [facility] Comment on above: Performed By: #### B MP #### [facility] [address] [address] [address] Glenda Basurto Urea nitrogen/Creatinine [Mass ratio] 20.2 mg/mg Normal [facility] Comment on above: Performed By: #### B MP #### [facility] [address] [address] [address] Glenda Basurto SED RATE WESTERGRENon 2021 SED RATE 22 mm/hr Normal <=30 [facility] Comment on above: Performed By: #### S EDR ####[facility] [address] [place] [address]Dr. Glenda Basurto URIC ACID SERUMon 09-16-2021 Urate [Mass/Vol] 4.8 mg/dL Normal 2.6-6.0 [facility] Comment on above: Performed By: #### U LEANNA, CRP #### [facility] [address] [address] [address] Glenda Basurto XR TIB_FIB RT 2Von [...] PURNIMA SANDOVAL Date: 2021-09-16 21:21 Normal [facility] CBC AUTO DIFFon 07-06-2021 BASO # 0.0 103/ul Normal 0.0-0.1 [facility] Comment on above: Performed By: #### C BC #### [facility] [address] [address] [address] Glenda Basurto Basophils/100 WBC (Bld) 0.6 % Normal 0.2-2.0 [facility] Comment on above: Performed By: #### C BC #### [facility] [address] [place] [address] Dr. Glenda Basurto EO # 0.1 103/ul Normal 0.0-0.7 [facility] Comment on above: Performed By: #### C BC #### [facility] [address] [address] [address] Glenda Basurto Eosinophils/100 WBC (Bld) 1.5 % Normal 0.9-7.0 [facility] Comment on above: Performed By: #### C BC #### [facility] [address] [address] [address] Glenda Basurto Erythrocyte distribution width (RBC) [Ratio] 13.6 % Normal 11.0-15.0 [facility] Comment on above: Performed By: #### C BC #### [facility] [address] [address] [address] Glenda Basurto Hematocrit (Bld) [Volume fraction] 43.9 % Normal 36.0-48.0 [facility] Comment on above: Performed By: #### C BC #### [facility] [address] [address] [address] Glenda Basurto Hemoglobin (Bld) [Mass/Vol] 14.2 g/dL Normal 12.0-16.0 [facility] Comment on above: Performed By: #### C BC #### [facility] [address] [place] [address] Dr. Glenda Basurto IG # 0.02 10e3/ul Normal 0.00-0.03 [facility] Comment on above: Performed By: #### C BC #### [facility] [address] [place] [address] Dr. Glenda Basurto IG % 0.3 % Normal 0.0-0.5 [facility] Comment on above: Performed By: #### C BC #### [facility] [address] [place] [address] Dr. Glenda Basurto LYMPH # 2.0 103/ul Normal 1.2-3.8 [facility] Comment on above: Performed By: #### C BC #### [facility] [address] [place] [address] Dr. Glenda Basurto Lymphocytes/100 WBC (Bld) 29.8 % Normal 20.5-60.0 [facility] Comment on above: Performed By: #### C BC #### [facility] [address] [place] [address] Dr. Glenda Basurto MANUAL DIFF REQ NO Normal [facility] Comment on above: Performed By: #### C BC #### [facility] [address] [place] [address] Dr. Glenda Basurto MCH (RBC) [Entitic mass] 30.9 pg Normal 26.7-34.0 [facility] Comment on above: Performed By: #### C BC #### [facility] [address] [place] [address] Dr. Glenda Basurto MCHC (RBC) [Mass/Vol] 32.3 g/dL Normal 29.9-35.2 [facility] Comment on above: Performed By: #### C BC #### [facility] [address] [place] [address] Dr. Glenda Basurto MCV (RBC) [Entitic vol] 95.4 fL Normal 81.0-99.0 [facility] Comment on above: Performed By: #### C BC #### [facility] [address] [place] [address] Dr. Glenda Basurto MONO # 0.5 103/ul Normal 0.3-0.8 [facility] Comment on above: Performed By: #### C BC #### [facility] [address] [place] [address] Dr. Glenda Basurto Monocytes/100 WBC (Bld) 7.1 % Normal 1.7-12.0 [facility] Comment on above: Performed By: #### C BC #### [facility] [address] [place] [address] Dr. Glenda Basurto NEUT # 4.1 103/ul Normal 1.4-6.5 [facility] Comment on above: Performed By: #### C BC #### [facility] [address] [place] [address] Dr. Glenda Basurto Neutrophils/100 WBC (Bld) 60.7 % Normal 43.0-75.0 [facility] Comment on above: Performed By: #### C BC #### [facility] [address] [place] [address] Dr. Glenda Basurto Platelet mean volume (Bld) [Entitic vol] 8.7 fL Critically low 9.5-13.5 [facility] Comment on above: Performed By: #### C BC #### [facility] [address] [place] [address] Dr. Glenda Basurto PLT 234 103/ul Normal 150-450 [facility] Comment on above: Performed By: #### C BC #### [facility] [address] [place] [address] Dr. Glenda Basurto RBC 4.60 106/ul Normal 4.20-5.40 [facility] Comment on above: Performed By: #### C BC #### [facility] [address] [place] [address] Dr. Glenda Basurto WBC 6.7 103/ul Normal 4.0-11.0 [facility] Comment on above: Performed By: #### C BC #### [facility] [address] [address] [address] Glenda Basurto XR SINUSES 3 VIEWS [...] by: PURNIMA CORTEZ Date: 2021-05-21 12:11 Normal [facility] Quick Testingon 2020 Result Negative [facility] Other Vital Signs Date Time Vital Sign Value Performing Clinician Facility 12-07-2023 11:28-0400 Body height 154.94 cm [facility] 12-07-2023 11:28-0400 Body mass index (BMI) [Ratio] 33.1 kg/m2 [facility] 12-07-2023 11:28-0400 Body weight 79.54 kg [facility] 12-07-2023 11:28-0400 Diastolic blood pressure 72 mm[Hg] [facility] 12-07-2023 11:28-0400 Heart rate 76 /min [facility] 12-07-2023 11:28-0400 Respiratory rate 12 /min [facility] 12-07-2023 11:28-0400 Systolic blood pressure 123 mm[Hg] [facility] 09-20-2023 10:54-0400 Body height 154.94 cm [facility] 09-20-2023 10:54-0400 Body mass index (BMI) [Ratio] 33.3 kg/m2 [facility] 09-20-2023 10:54-0400 Body temperature 97.5 [degF] [facility] 09-20-2023 10:54-0400 Body weight 79.97 kg [facility] 09-20-2023 10:54-0400 Diastolic blood pressure 78 mm[Hg] [facility] 09-20-2023 10:54-0400 Heart rate 70 /min [facility] 09-20-2023 10:54-0400 Respiratory rate 16 /min [facility] 09-20-2023 10:54-0400 SaO2% (BldA) [Mass fraction] 96 % [facility] 09-20-2023 10:54-0400 Systolic blood pressure 121 mm[Hg] [facility] 02-05-2023 12:00-0500 Body height 154.94 cm Siomara Mcfarland Other [facility] Other 02-05-2023 12:00-0500 Body mass index (BMI) [Ratio] 34.2 kg/m2 Siomara Mcfarland Other [facility] Other 02-05-2023 12:00-0500 Body temperature 98.2 [degF] Siomara Mcfarland Other [facility] Other 02-05-2023 12:00-0500 Body weight 82.1 kg Siomara Mcfarland Other [facility] Other 02-05-2023 12:00-0500 Diastolic blood pressure 78 mm[Hg] Siomara Mcfarland Other [facility] Other 02-05-2023 12:00-0500 Respiratory rate 19 /min Siomara Mcfarland Other [facility] Other 02-05-2023 12:00-0500 SaO2% (BldA) [Mass fraction] 97 % Siomara Mcfarland Other [facility] Other 02-05-2023 12:00-0500 Systolic blood pressure 135 mm[Hg] Siomara Mcfarland Other [facility] Other 11-12-2022 09:15-0400 Body height 154.94 cm Jimmie Ball Other [facility] Other 11-12-2022 09:15-0400 Body mass index (BMI) [Ratio] 32.91 kg/m2 Jimmie Ball Other [facility] Other 11-12-2022 09:15-0400 Body weight 79.02 kg Jimmie Ball Other [facility] Other 11-12-2022 09:15-0400 Diastolic blood pressure 71 mm[Hg] Jimmie Ball Other [facility] Other 11-12-2022 09:15-0400 Respiratory rate 12 /min Jimmie Ball Other [facility] Other 11-12-2022 09:15-0400 Systolic blood pressure 130 mm[Hg] Jimmie Ball Other [facility] Other 11-02-2022 17:55-0400 Body height 154.94 cm Marivel Chinyere Other [facility] Other 11-02-2022 17:55-0400 Body mass index (BMI) [Ratio] 32.87 kg/m2 Marivel Chinyere Other [facility] Other 11-02-2022 17:55-0400 Body temperature 98.2 [degF] Marivel Chinyere Other [facility] Other 11-02-2022 17:55-0400 Body weight 78.93 kg Marivel Chinyere Other [facility] Other 11-02-2022 17:55-0400 Diastolic blood pressure 72 mm[Hg] Marivel Chinyere Other [facility] Other 11-02-2022 17:55-0400 Respiratory rate 18 /min Marivel Whitlock Other [facility] Other 11-02-2022 17:55-0400 SaO2% (BldA) [Mass fraction] 97 % Marivel Whitlock Other [facility] Other 11-02-2022 17:55-0400 Systolic blood pressure 136 mm[Hg] Marivel Whitlock Other [facility] Other 06-21-2022 12:30-0400 Body height 154.94 cm Jimmie Ball Other [facility] Other 06-21-2022 12:30-0400 Body mass index (BMI) [Ratio] 32.42 kg/m2 Jimmie Ball Other [facility] Other 06-21-2022 12:30-0400 Body weight 77.84 kg Jimmie Ball Other [facility] Other 06-21-2022 12:30-0400 Diastolic blood pressure 75 mm[Hg] Jimmie Ball Other [facility] Other 06-21-2022 12:30-0400 Respiratory rate 12 /min Jimmie Ball Other [facility] Other 06-21-2022 12:30-0400 Systolic blood pressure 126 mm[Hg] Jimmie Ball Other [facility] Other 02-27-2021 11:30-0500 Body height 154.94 cm Marivel Whitlock Other [facility] Other 02-27-2021 11:30-0500 Body mass index (BMI) [Ratio] 31.17 kg/m2 Marivel Whitlokc Other [facility] Other 02-27-2021 11:30-0500 Body temperature 97.5 [degF] Marivel Whitlock Other [facility] Other 02-27-2021 11:30-0500 Body weight 74.84 kg Marivel Whitlock Other [facility] Other 02-27-2021 11:30-0500 Respiratory rate 18 /min Marivel Whitlock Other [facility] Other 02-27-2021 11:30-0500 SaO2% (BldA) [Mass fraction] 98 % Marivel Whitlock Other [facility] Other Encounters Encounter Date Encounter Type Care Provider Facility Start: 06-05-2024 End: 06-05-2024 ambulatory Alvaro Jimmie Melendez DO Facility:[facility] Start: 05-29-2024 ambulatory Alvaro Jimmie Ball DO Facility[facility] Start: 05-29-2024 ambulatory Zulay oh PA-C Facility:[facility] Start: 01-03-2024 End: 01-03-2024 Patient encounter procedure DO Jimmie Ball Work Phone: [facility] [address] Work Phone: Start: 01-03-2024 End: 01-03-2024 ambulatory DO Jimmie Ball Work Phone: [facility] Work Phone: Start: 12-08-2023 Non-patient / Non-visit DO David webb Ball Work Phone: [facility] Work Phone: Start: 12-07-2023 End: 12-07-2023 ambulatory [facility] Work Phone: Start: 12-07-2023 End: 12-07-2023 Patient encounter procedure [facility] Work Phone: Start: 12-04-2023 Patient encounter procedure [facility] Start: 09-20-2023 End: 09-20-2023 ambulatory [facility] Work Phone: Start: 09-20-2023 End: 09-20-2023 Patient encounter procedure [facility] Work Phone: Start: 03-02-2023 End: 03-02-2023 ambulatory Jimmie Melendez Other [facility] Other Start: 03-02-2023 Office outpatient vi sit 15 minutes Jimmie Melendez [facility] Start: 02-05-2023 End: 02-05-2023 ambulatory Siomara Mcfarland Other [facility] Other Start: 02-05-2023 Office outpatient vi sit 15 minutes Siomara Mcfarland [facility] Start: 11-12-2022 End: 11-12-2022 ambulatory Jimmie Melendez Other [facility] Other Start: 11-12-2022 Office outpatient vi sit 15 minutes Jimmie Melendez [facility] Start: 11-12-2022 Telephone encounter Jimmie FLANNERY [facility] Start: 11-05-2022 End: 11-05-2022 ambulatory Jimmie Melendez Other [facility] Other Start: 11-05-2022 Telephone encounter Jimmie Melendez [facility] Start: 11-02-2022 End: 11-02-2022 ambulatory Marivel Whitlock Other [facility] Other Start: 11-02-2022 Office outpatient vi sit 15 minutes Mariveldoug Whitlock [facility] Start: 10-05-2022 End: 10-05-2022 ambulatory Jimmie Melendez Other [facility] Other Start: 10-05-2022 Nursing evaluation o f patient and report Jimmie Melendez [facility] Start: 08-17-2022 End: 08-17-2022 ambulatory Jimmie Melendez Other [facility] Other Start: 08-17-2022 Telephone encounter Jimmie Melendez [facility] Start: 06-21-2022 End: 06-21-2022 ambulatory Jimmie Melendez Other [facility] Other Start: 06-21-2022 Office outpatient vi sit 25 minutes Jimmie Melendez [facility] Start: 12-07-2021 End: 12-08-[address] JIMMIE [...] preprocedural cardiovascular examination DR CINTHIA BERNARD [facility] Start: 07-08-2021 Encounter for preprocedural laboratory examination DR CINTHIA BERNARD [facility] Start: 07-06-2021 End: 07-07-[address] CINTHIA BERNARD Facility:[facility] Start: 07-06-2021 End: 07-07-2021 Encounter for preprocedural cardiovascular examination DR CINTHIA BERNARD Facility:[facility] Start: 05-21-2021 End: 05-22-[address] CINTHIA BERNARD Facility:[facility] Start: 02-27-2021 End: 02-27-2021 ambulatory Marivel Whitlock Other [facility] Other Start: 02-27-2021 Office outpatient vi sit 15 minutes Marivel Whitlock [facility] Procedures Date Procedure Procedure Detail Performing Clinician Start: 01-03-2024 Plain X-ray of bilateral hands DO Jimmie Melendez Work Phone: History of cholecystectomy Jimmie Melendez Other History of cholecystectomy Status post laparoscopic cholecystectomy Plan of Treatment Date Care Activity Detail Author Start: 01-03-2024 Hemolytic complement CH50 level [facility] Complement C3 [Mass/ volume] in Serum or Plasma [facility] Complement C4 [Mass/ volume] in Serum or Plasma [facility] Comprehensive metabo lic 2000 panel - Serum or Plasma [facility] Rheumatoid factor [U nits/volume] in Serum or Plasma [facility] Immunizations Immunization Date Immunization Notes Care Provider Fa rian 11-04-2023 Fluzone QIV High-Dos e 65YR+ [facility] 10-05-2022 Prevnar 20 Jimmie Melendez Other [facility] 01-20-2022 COVID-19 Pfizer (Pediatric) Jimmie Melendez Other [facility] 12-21-2021 influenza virus vaccine, unspecified formulation [facility] 12-21-2021 influenza, high dose seasonal, preservative-free Jimmie Melendez Other [facility] Other 11-26-2021 diphtheria, tetanus toxoids and acellular pertussis vaccine, unspecified formulation Jimmie Melendez Other [facility] 08-20-2021 COVID-19 Vaccine Pfi zer - Documentation Purposes Only Jimmie Melendez Other [facility] 12-22-2020 COVID-19 Vaccine Pfi zer - Documentation Purposes Only Jimmie Melendez Other [facility] 11-30-2020 influenza virus vaccine, split virus (incl. purified surface antigen) Jimmie Melendez Other [facility] Other 11-30-2020 influenza virus vaccine, unspecified formulation [facility] 04-23-2020 COVID-19 Vaccine Pfi zer - Documentation Purposes Only Jimmie Melendez Other [facility] 03-31-2020 COVID-19 Vaccine Pfi zer - Documentation Purposes Only Jimmie Melendez Other [facility] 12-27-2019 influenza virus vaccine, split virus (incl. purified surface antigen) Jimmie Melendez Other [facility] Other 12-27-2019 influenza virus vaccine, unspecified formulation [facility] 08-09-2019 pneumococcal polysaccharide vaccine, 23 valent Jimmie Melendez Other [facility] 01-02-2019 influenza virus vaccine, split virus (incl. purified surface antigen) Jimmie Melendez Other [facility] Other 01-02-2019 influenza virus vaccine, unspecified formulation [facility] 12-14-2017 diphtheria, tetanus toxoids and acellular pertussis vaccine, unspecified formulation Jimmie Melendez Other [facility] Payers Date Payer Category Payer Unknown 2016 Medicare 1958 Medicare [id number] 2.1 [id number] 1958 Private Health Insurance CLI [id number] 1950 Unknown [id number] 2.16.84 [id number] 1950 Unknown [id number] 2.16.84 0.1.884635.3.579.2.593 1950 Unknown [id number] 2.16.84 0.1.649596.3.579.2.593 1950 Unknown [id number] 2.16.84 0.1.481111.3.579.2.593 1950 Unknown [id number] 2.16.84 0.1.577882.3.579.2.593 1950 Unknown [id number] 2.16.84 0.1.135439.3.579.2.593 1950 Unknown [id number] 2.16.84 0.1.086515.3.579.2.593 1950 Unknown [id number] 2.16.84 0.1.802698.3.579.2.593 1950 Unknown [id number] 2.16.84 0.1.854858.3.579.2.593 1950 Unknown [id number] 2.16.84 0.1.807355.3.579.2.593 1950 Unknown [id number] 2.16. 840.1.440838.3.579.2.196 1950 Unknown [id number] 2.16. 840.1.269590.3.579.2.196 1950 Unknown [id number] 2.16. 840.1.114230.3.579.2.196 1950 Unknown [id number] 2.16. 840.1.585244.3.579.2.196 Self-pay Self Pay [id number] Social History Date Type Detail Facility Sex Assigned At [facility] Other Start: 03-02-2023 [facility] Start: 1950 Sex Assigned At Female [facility] Clinical Notes 02-27-2021 to 03-02-2023 Note Date & Type Note Facility 03-02-2023 Evaluation note Encounter Date Diagnosis Assessment Notes Feb, Acute non-recurrent maxillary sinusitis (ICD-10 - J01.00) Instructed to use Robitussin or Mucinex for cough, saline or Flonase NS for congestion, Tylenol for pain and fever. Feb, Suspected COVID-19 virus infection (ICD-10 - Z20.822) Will send testing to [facility] to be completed tomorrow - this will [...] Increases risk of more severe, prolonged illness [facility] Other 12-02-2023 Evaluation note* Encounter Date Diagnosis [...] with PCP if febrile or new/worsening s/s. [facility] Other 09-08-2023 Evaluation note* Encounter Date Diagnosis [...] continue exercise to achieve/maintain a normal BMI. [facility] Other 08-29-2023 Evaluation note* Encounter Date Diagnosis [...] back pain home care material was printed [facility] Other 04-17-2023 Evaluation note* Encounter Date Diagnosis [...] High risk medication use (ICD-10 - Z79.899) [facility] Other 07-21-2022 NotePROCEDURE: XR FOOT RT MIN 3 VIEWS, XR ANKLE RT MIN 3 VIEWS COMPARISON: None. HISTORY: Pain FINDINGS: BONES:No acute fracture or dislocation. Severe osteoarthritis of the first metatarsal phalangeal joint with nncf-jb-qxav articulation and bony remodeling. Moderate bulky enthesopathic spurring of the calcaneus at the Achilles and plantar insertions. Moderate degenerative changes mid foot with joint space narrowing and marginal osteophyte formation SOFT TISSUES:Negative. No visible soft tissue swelling. EFFUSION:None visible. OTHER: Negative. IMPRESSION: Degenerative osteoarthritis with severe changes at the first metatarsal-phalangeal joint Electronically authenticated by: PURNIMA CORTEZ Date: 2021-09-24 07:23[facility]07-21-2022 NotePROCEDURE: XR FOOT RT MIN 3 VIEWS, XR ANKLE RT MIN 3 VIEWS COMPARISON: None. HISTORY: Pain FINDINGS: BONES:No acute fracture or dislocation. Severe osteoarthritis of the first metatarsal phalangeal joint with nhwb-dt-rcad articulation and bony remodeling. Moderate bulky enthesopathic spurring of the calcaneus at the Achilles and plantar insertions. Moderate degenerative changes mid foot with joint space narrowing and marginal osteophyte formation SOFT TISSUES:Negative. No visible soft tissue swelling. EFFUSION:None visible. OTHER: Negative. IMPRESSION: Degenerative osteoarthritis with severe changes at the first metatarsal-phalangeal joint Electronically authenticated by: PURNIMA CORTEZ Date: 2021-09-24 07:23[facility]05-10-2022 NoteOPERATIVE NOTE OPERATION DATE: 07/14/2021 PRIMARY CARE [...] to the recovery room in good condition. [facility] Signed and Approved by: DR CINTHIA BERNARD 07/15/2021 07:48:00[facility]12-24-2021 Evaluation note* Encounter Date Diagnosis Assessment Notes [...] given in writting by [facility] document. [facility] Other Evaluation noteNo InformationNort [employer] Other Evaluation noteNo assessment information available [facility] Work Phone: Evaluation note* Diagnosis Onset Date Resolution Status Chronic kidney disease acute Fatigue acute Hypercholesterolemia acute Inflammatory polyarthritis a cute Medicare annual wellness visit, subsequent acute Metabolic dysfunction-associ ated steatotic liver disease (MASLD) acute Obesity acute Primary hypertension acute Screening for colon cancer n oneactive [facility] Work Phone: [facility] general Narrative - Reported* Type Description Date Surgical History Bilateral Knees Replacement 03/07 Surgical History Herniated Discs-Low back Surgical History gallbladder removed 2020 Hospitalization History See past surgical histor y [facility] Other Hisklpt general Narrative - Reported* Type Description Date [...] Hospitalization History See past surgical histor y [facility] Other Hisanfz general Narrative - Reported* Type Description Date [...] bunionectomy Hospitalization History See past surgical histor [facility] Other Summary Purpose Family History No Family [...] resultsPOSS SINUS INFECTIONExposed to COVID-Negative, All symptoms- [phone] INFORMATION SOURCE (unrecogn ized section and content) DATE CREATED AUTHOR 12/11/2021 [facility] DATE CREATED AUTHOR AUTHOR'S ORGANIZ ATION 01/05/2024 [facility] DATE CREATED AUTHOR AUTHOR'S ORGANIZ ATION 06/08/2024 [facility] Care Teams (unrecognized sec tion and content) [...] Melendez DO Primary Care Provider Active Start: January 03, [...] BE BASED ON THE PRIMARY CLINICAL RECORDS. [facility] [email or web address] [facility]. provides no warranty or guarantee of the accuracy or completeness of information in this document.
[2024-06-15 10:55] LABS: Anion Gap 10.4; Calcium 9.7 mg/dL (8.5-10.1); Carbon Dioxide 27.1 mmol/L (21.0-32.0); Chloride 106 mmol/L (98-107); Estimated GFR (African America 53 (>=60 mL/min/1.73m^2); Estimated GFR (Non-African Ame 44 (>=60 mL/min/1.73m^2); Glucose 97 mg/dL (74-106); Potassium 4.5 mmol/L (3.5-5.1); Sodium 139 mmol/L (136-145)
[2024-06-15 11:25] LABS: Creatinine Urine Random 75.87 mg/dL (20.00-300.00); Total Protein Urine Random <6.0 mg/dL (<=11.9)
== END 2024-06-15 10:03 | disposition home or self-care (01) ==
LOC: LAB 10:03
PROVIDERS: PCP Internal Medicine; Visit Provider Internal Medicine
DX: N18.31 Chronic kidney disease, stage 3a (principal)
CPT/HCPCS: 36415; 80048; 82570; 84156

== ENCOUNTER 2024-12-20 10:06 | Outpatient (OUT) | payer MEDICARE, SELFPAY ==
--- OUTSIDE RECORDS SUMMARY | 2024-07-20 06:30 | XMS_ITS ---
Author Organization [employer] [facility] Address [address] [place] [address] Care Team Providers Care Glass Cylinder Flanger Name Role Phone Sharifa Thornton Primary Care Provider [phone] Viviana Valdez [phone] REASON FOR VISIT 6 MONTHS 4-2 SENT MESSAGE TO R/S D/T PROVIDER OUT OF THE OFFICE- Encounters Encounter Location Date Provider Diagnosis [address] [place] [address] 07/20/2024 Viviana Valdez Plan Of Treatment No Information [facility] * IRVIN VILLALPANDOOB:1949 (74 yo F)Acc No.[id number]:07/20/2024 Patient: SANTOS TAYLOR Provider: Shaista Llanes :1950 A ge:74 Y S ex:Female Date:07/20/2024 Address:[address] [place], [place] [id number] Pcp:Sharifa Thornton Subjective: * Chief Complaints: * 6 MONTHS 4-2 SENT MESSAGE TO R/S D/T PROVIDER OUT OF THE OFFICE- * Electronic signature of Mignon Valdez on 12/20/2024 at 10:13 AM EDT Sign off status: Pending * Provider: Shaista Llanes Date: 0 07/20/2024 Generated for Hyun calvin/Aníbal/Nidaitting on: 1 10:13 AM EDT
--- OUTSIDE RECORDS SUMMARY | 2024-12-20 10:13 | XMS_ITS | Clinical Summary ---
Author Organization [facility] Address [address] [place] [address] Care Team Providers Care Sorting Cows Worker Name Role Phone Jimmie Melendez Mauricio ANTUNEZ Primary Care Provider [phone] Allergies Active Allergy Reactions Criticality Noted Date Comments Bee Pollen Unknown 07/23/2022 Fish Protein-Containing Drug Products Unknown 07/23/2022 Gold Itching 07/23/2022 Latex Hives 07/23/2022 Medications atorvastatin (Lipitor) 40 MG tablet Take 40 mg by mouth in the morning. Active fluticasone (Flonase) 50 MCG/ACT nasal spray Administer 2 sprays into each nostril in the morning and 2 sprays before bedtime. 2 Active triamterene-hyd roCHLOROthiazid e (Dyazide) 37.5-25 MG capsule Take 1 capsule by mouth in the morning. 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 Dysfunction of both eustachian tubes 07/23/2022 Perforation of tympanic membrane 07/23/2022 Sensorineural hearing loss (SNHL), bilateral Family History Medical History Relation Name Comments Mental illness Father Heart failure Mother Hypertension Mother Osteoarthritis Mother Relation Name Status Comments Father Mother Social History Tobacco Use Types Packs/Day Years Used Date Smoking Tobacco: Never Smokeless Tobacco: Never Tobacco Cessation:Counseling Given: Not Answered Alcohol Use Standard Drinks/Week Comments Not Currently 0 (1 standard drink = 0.6 oz pur e alcohol) Comments Unknown Sex and Gender Information Value Date Recorded Sex Assigned at Not on file Legal Sex Female 6:57 PM EDT Gender Identity Not on file Sexual Orientation Not on file Last Filed Vital Signs Vital Sign Reading Time Taken Comments Blood Pressure 133/69 08/06/2022 10:20 AM EDT Pulse - - Temperature - - Respiratory Rate - - Oxygen Saturation - - Inhaled Oxygen Concentration - - Weight 77.6 kg (171 lb) 08/06/2022 10:20 AM EDT Height 152.4 cm (5') 08/06/2022 10:20 AM EDT Body Mass Index 33.4 08/06/2022 10:20 AM EDT Plan of Treatment Not on file Insurance MEDICARE [employer] Care Teams Sorting Cows Worker Relationship Specialty Start Date End Date Jimmie Melendez DO PCP - General Internal Medicine 08/03/22
--- OUTSIDE RECORDS SUMMARY | 2024-12-20 10:13 | XMS_ITS | Encounter Summary ---
Author Organization [facility] Address [address] [place] [address] Care Team Providers Care State Trooper Name Role Phone Jimmie Melendez DO Primary Care Provider [phone] Encounter Details Date Type Department Care Team (Late st Contact Info) Description 08/05/2022 Abstract [facility] [address] [place] [address] Cinthia Diaz MD [address] [facility] [address] [place] [address] Social History Tobacco Use Types Packs/Day Years Used Date Smoking Tobacco: Never Smokeless Tobacco: Never Alcohol Use Standard Drinks/Week Comments Not Currently 0 (1 standard drink = 0.6 oz pur e alcohol) Comments Unknown Sex and Gender Information Value Date Recorded Sex Assigned at Not on file Legal Sex Female 6:57 PM EDT Gender Identity Not on file Sexual Orientation Not on file COVID-19 Exposure Response Date Recorded In the last 10 days, have yo u been in contact with someone who was confirmed or suspected to have Coronavirus/COVID-19? No / Unsure 08/05/2022 8:50 AM EDT documented as of this encounter Plan of Treatment Not on file documented as of this encounter Visit Diagnoses Not on filedocumented in this encounter Care Teams State Trooper Relationship Specialty Start Date End Date Jimmie Melendez DO PCP - General Internal Medicine 08/03/22 documented as of this encounter
--- OUTSIDE RECORDS SUMMARY | 2024-12-20 10:14 | XMS_ITS | Clinical Summary ---
Author Organization [facility] Address [id number] [address] [place] [address] Care Team Providers Care Life Enrichment Specialist Name Role Phone Jimmie Melendez Primary Care Provider [phone] Allergies Active Allergy Reactions Criticality Noted Date Comments Gold Au 198 10/02/2020 Latex 10/02/2020 Medications atorvastatin (LIPITOR) 40 mg tablet Take 40 mg by mouth daily. 09/10/2020 Active benazepriL (LOTENSIN) 20 mg tablet Take 20 mg by mouth daily. 09/10/2020 Active Active Problems No known active problems Family History Relation Name Status Comments Daughter Alive Father Mother Sister Alive Son 1 Alive Son 2 Social History Tobacco Use Types Packs/Day Years Used Date Smoking Tobacco: Never Smokeless Tobacco: Never Alcohol Use Standard Drinks/Week Comments Never 0 (1 standard drink = 0.6 oz pur e alcohol) Childcare Answer Date Recorded Childcare Unknown 08/16/2018 Employment Answer Date Recorded Employment Unknown 08/16/2018 Comments Unknown Sex and Gender Information Value Date Recorded Sex Assigned at Not on file Legal Sex Female 12:11 PM EDT Gender Identity Not on file Sexual Orientation Not on file Last Filed Vital Signs Vital Sign Reading Time Taken Comments Blood Pressure 132/74 11/05/2020 9:32 AM EDT Pulse - - Temperature 36.6 C (97.8 F) 11/05/2020 9:32 AM EDT Respiratory Rate - - Oxygen Saturation - - Inhaled Oxygen Concentration - - Weight 75.3 kg (166 lb) 11/05/2020 9:32 AM EDT Height 152.4 cm (5') 11/05/2020 9:32 AM EDT Body Mass Index 32.42 11/05/2020 9:32 AM EDT Plan of Treatment Health Maintenance Due Date Last Done Comments Depression Screening 1963 Tobacco Screening 1963 Adult BMI Screening 1969 Zoster (Shingles) Vaccine (1 of 2) 2001 Fall Risk Screening 02/27/2016 COVID-19 Vaccine (3 - season) 2024, 03/31/2020 Influenza Vaccine 11/05/2024 DTaP,Tdap and Td Vaccines (2 - Td or Tdap) 06/21/2027 06/20/2017 Medical Devices Not on file Insurance [facility]ICARE [facility] Care Teams Life Enrichment Specialist Relationship Specialty [place] [address] [place] [address] PCP - General Internal Medicine 09/15/20
--- OUTSIDE RECORDS SUMMARY | 2024-12-20 10:14 | XMS_ITS | Patient Health Record ---
Author Organization [facility] [place] Address [address] [place] [address] Care Team Providers Care Senior Coldfusion Developer Name Role Phone Jimmie Melendez DO Primary Care Provider Unavaila ble Allergies Allergen (clinical drug ingredient) Drug/Non Drug Allergy documented on EMR Reaction Allergy Type Onset Date Status Fish derivative (substance) Fish (uncoded) Unknown Allergy Active Bee Sting Unknown Allergy Active Latex Latex Unknown Allergy Active Reason For Referral No Information Medications Medication SIG (Take, Route, Fr equency, Duration) Notes Start Date End Date Status Fosamax Active Atorvastatin Calcium Active Aspirin Active Vitamin D Active Triamterene Active Social History Tobacco Use: Social History Observation Description Date Details (start date - stop date) Never Smoker NA - NA Tobacco Use/Smoking Question Answer Notes Patient is a nonsmoker Problems Problem Type SNOMED Code ICD Code Onset Dates Problem Status W/U Status Risk Notes Problem Acquired hallux valgus (20972406) Hallux valgus (acquired), left foot (M20.12) Active confirmed Problem Acquired hammer toe of left foot (88827634035 ) Other hammer toe(s) (acquired), left foot (M20.42) Active confirmed Problem Disorder of joint of ankle and/or foot (disorder) (322275270) Other specified joint disorders, left ankle and foot (M25.872) Active confirmed Problem Acquired hallux valgus (77672773) Acquired hallux interphalangeus of left foot (M20.12) Active confirmed Problem Acquired hammer toe of left foot (03251636677 ) Acquired hammer toe deformity of lesser toe of left foot (M20.42) Active confirmed Plan Of Treatment No Information Insurance Providers Payer Name Payer Address Payer Phone Subscriber Number Group Number Insured Name Patient Relationship to Insured Coverage Start Date Coverage End Date [place]IC[place] [address] [place] [address] [id number] Molly Chiu Self - patient is the insured 8 Medical (General) History Medical History History ICD Code Hallux Valgus left foot Hypertension 401.9 High cholesterol 272.0 Surgical History Surgery Date(Month/Year) Bilateral Knee Replacements 03/22/2013 Gallbladder Removed 10/22/2020 Tonsillectomy 1957 Tubuligation 03/11/85 Herniated Discectomy 02/28/2012 Right Ear tube 07/09/2021 Cholecystectomy Cataract Removed right eye 11/22/2022 left foot 1st MPJ fusion, dennis rvest of distal tibial bone graft, correction of 2nd and 3rd hammertoes with PIPJ arthroplasty, 2nd metatarsal Lauren osteotomy, capsulotomy of 3rd MPJ / Hospitalization History Reason Date(Month/Year) See above
--- OUTSIDE RECORDS SUMMARY | 2024-12-20 10:14 | XMS_ITS | Patient Health Record ---
Author Organization [facility] Address [address] [place] [address] Care Team Providers Care Bulk Mail Technician Name Role Phone AndriyRayshawn [email or web address] Primary Care Provider [phone] Viviana Valdez Unavailable [phone] Reason For Referral No Information Encounters Encounter Location Date Provider Diagnosis [facility] [address] [place] [address] 01/05/2024 Viviana Valdez Acute gingivitis, pl aque induced K05.00 and Dental caries on pit and fissure surface penetrating into dentin K02.52 Assessments Encounter Date Diagnosis (ICD Code) Assessment Notes Treatment Notes Treatment Clinical Notes Section Notes 01/05/2024 Acute gingivitis, plaque induced (ICD-10 - K05.00) 01/05/2024 Dental caries on pit and fissure surface penetrating into dentin (ICD-10 - K02.52) Plan Of Treatment No Information Insurance Providers Payer Name Payer Address Payer Phone Subscriber Number Group Number Insured Name Patient Relationship to Insured Coverage Start Date Coverage End Date [employer] [facility] [address] [address] [place] [phone] [id number] SANTOS VALADEZ Self - patient is the insured 4
--- OUTSIDE RECORDS SUMMARY | 2024-12-20 10:14 | XMS_ITS | Encounter Summary ---
Author Organization [facility] Address [address] [place] [address] Care Team Providers Care Truck Driver Name Role Phone Jimmie Melendez DO Primary Care Provider [phone] Encounter Details Date Type Department Care Team (Late st Contact Info) Description 07/31/2022 Abstract [facility] [address] [place] [address] Abby Wilder S, AUD [address] [place] [address] Social History Tobacco Use Types Packs/Day Years [...] suspected to have Coronavirus/COVID-19? No / Unsure 07/29/2022 8:40 PM EDT documented as of this encounter Plan of Treatment Not on file documented as of this encounter Visit Diagnoses Not on filedocumented in this encounter Care Teams Truck Driver Relationship Specialty Start Date End Date Jimmie Melendez DO PCP - General Internal Medicine 5/30/23 documented as of this encounter
--- OUTSIDE RECORDS SUMMARY | 2024-12-20 10:15 | XMS_ITS | CCD ---
Author Organization [facility] Care Team Providers Care Popcorn Attendant Name Role Phone Marivel Whitlock Unavailable AL, [...] Care Unavailable HIGHLANDER, KIERRA Colmenares Attending Unavailable HIGHLANDER, KIERRA Colmenares Admitting Unavailable WEST, DR PURNIMA Sarkar Consulting Unavailable HIGHLKIERRA RAMIREZ Consulting Unavailable AL, DR LUCAS Admitting Unavailable BALL, DR LUCAS Primary Care Unavailable BALL, DR LUCAS Consulting Unavailable BALL, DR LUCAS Attending Unavailable WEST, DR PURNIMA Sarkar Consulting Unavailable AlJimmie Unavailable Siomara Mcfarland Unavailable DO Jimmie Melendez Primary Care Provider MD Mohamud Lee Attending Provider Mohamud Lee Attending Unavailable Mohamud Lee Admitting Unavailable Al Jimmie Primary Care Unavailable Al ANTUNEZJimmie Primary Care Provider [phone] Jimmie Melendez DO Attending Provider John PA-C, [address] [facility] Attending Unavai lable Ball DO, [facility] Primary Care Unavailab le John PA-C, [facility] Attending Unavai lable Ball DO, [facility] Primary Care Unavailab le John PA-C, [address] [facility] Attending Unavai lable Ball DO, [facility] Primary Care Unavailab le Ball DO, [facility] Primary Care Unavailab le John PA-C, [facility] Attending Unavai lable John PA-C, [facility] Attending Unavai lable Ball DO, [facility] Primary Care Unavailab le John PA-C, [facility] [facility] Attending Unavai lable Ball DO, [facility] Primary Care Unavailab le John PA-C, [facility] [facility] Attending Unavai lable Ball DO, [facility] Primary Care Unavailab le Ball DO, Jimmie Primary Care Provider Jimmie Melendez DO Attending Provider Allergies Allergy Classification Reported Allergen(s) Allergy Type Date of Onset Reaction(s) Facility (1 source) Chlorotrianisene Drug Allergy 02-27-20 13 [facility] Repository (7 sources) Latex Drug allergy (disorder) 02-27-20 13 [facility] Repository (9 sources) Gold Drug Allergy Unknown [address] Other (9 sources) Latex Drug allergy Unknown [address] Other (7 sources) Gold and/or gold compound (FN) Drug allergy Unknown [facility] Other (6 sources) Bee pollen Allergy to substance 09-20-19 24 [facility] (6 sources) Gold Drug Allergy 09-20-19 24 Unknown Reaction [facility] (6 sources) Gold-containing Drug Products Allergy to substance 09-20-19 24 Unknown Reaction [facility] (6 sources) gold jewery Allergy to substance 10-30-19 21 Hives [facility] (1 source) No Known Medication Allergies; Translations: [No Known Medication Allergies] Propensity to adverse reactions to drug (disorder) [facility] Repository Medications Current Medications Medication Drug Class(es) Dates Sig (Normalized) Sig (Original) alendronic acid 70 mg oral tablet (2 sources) Bisphosphonate Start: 02-05-2023 take 1 tablet by mouth once daily Alendronate Sodium 70 MG 1 tablet 30 minutes before the first food, beverage or medicine of the day with plain water Orally for 30 day(s) Feb, Active atorvastatin 40 mg oral tablet (20 sources) HMG-CoA Reductase Inhibitor Start: 05-02-2024 take 1 tablet by mouth once daily Atorvastatin 40 mg tablet Active 0 .ROUTE .COMPLEX May 02, 2024 8:34am TAKE 1 TABLET BY MOUTH EVERY DAY Complies with drug therapy Start: 10-29-2020 End: 05-02-2024 take 1 tablet by mouth once daily Atorvastatin 40 mg tablet Discontinued 40 MG PO Daily October 29, 2020 12:00am May 02, 2024 8:34am Atorvastatin [place] Active benazepril hydrochloride 20 mg oral tablet (20 sources) Angiotensin Converting Enzyme Inhibitor Start: 11-22-2023 take 1 tablet by mouth once daily Benazepril Active 0 .ROUTE .COMPLEX November 22, 2023 10:18pm TAKE 1 TABLET BY MOUTH EVERY DAY FOR 90 DAYS Start: 08-17-2023 End: 10-29-2024 take 1 tablet by mouth once daily Benazepril 20 mg tablet Active 0 .ROUTE .COMPLEX October 29, 2024 8:27pm TAKE 1 TABLET BY MOUTH EVERY DAY FOR 90 DAYS Complies with drug therapy Start: 08-17-2023 End: 11-22-2023 take 1 tablet [...] 90 DAYS Start: 10-29-2020 End: 08-17-2023 take 1 tablet by mouth once daily Benazepril 20 mg tablet Discontinued 20 MG PO Daily October 29, [...] / oxyCODONE hydrochloride 5 mg oral tablet (6 sources) Opioid Agonist Start: 10-29-2020 End: 12-07-2023 take 1 tablet by mouth every six hours as needed for pain Oxycodone-Acetamin ophen 5-325 mg tablet Discontinued 1 TAB PO Q6H as needed for Pain October 29, 2020 12:00am December 07, 2023 11:30am [id number] 200 actuat albuterol 0.09 mg/actuat metered dose inhaler (6 sources) beta2-Adrenergic Agonist Start: 09-20-2023 End: 12-07-2023 Albuterol Sulfate 90 mcg/actuation HFA aerosol inhaler Discontinued INHALATION September 20, 2023 12:00am December 07, 2023 11:31am amoxicillin 875 mg / clavulanate 125 mg oral tablet (9 sources) Penicillin-class Antibacterial Start: 09-04-2024 End: 12-10-2024 take 1 tablet by mouth twice daily Amoxicillin-Pot Clavulanate 875-125 mg tablet Discontinued 1 TAB PO Twice daily 14 7 September 04, 2024 1:29pm December 10, 2024 11:30am Start: 09-20-2023 End: 12-07-2023 take 1 tablet by mouth twice daily Amoxicillin-Pot Clavulanate 875-125 mg tablet Discontinued 1 TAB PO Twice daily 20 September 20, 2023 12:00am December 07, 2023 11:30am Start: 02-05-2023 take 1 tablet by arvind th every twelve hours Amoxicillin-Pot Clavulanate 875-125 MG 1 tablet Orally every 12 hrs for 10 day(s) Feb, Active benzonatate 200 mg oral capsule (6 sources) Non-narcotic Antitussive Start: 09-20-2023 End: 12-07-2023 Benzonatate 200 mg capsule Discontinued MG PO September 20, 2023 12:00am December 07, 2023 11:31am Start: 09-20-2023 End: 12-07-2023 Benzonatate Discontinued MG PO September 20, 2023 12:00am December 07, 2023 11:31am doxycycline hyclate 100 mg oral capsule (6 sources) Tetracycline-class Drug Start: 09-20-2023 End: 12-07-2023 Doxycycline Hyclate 100 mg capsule Discontinued MG PO September 20, 2023 12:00am December 07, 2023 11:30am Start: 09-20-2023 End: 12-07-2023 Doxycycline Hyclate Disconti nued MG PO September 20, 2023 12:00am December 07, 2023 11:30am hydroCHLOROthiazide 25 mg / triamterene 37.5 mg oral capsule (9 sources) Potassium-sparing Diuretic, Thiazide Diuretic Start: 06-21-2022 take 1 capsule by mouth every twenty-four hours Triamterene-HCTZ 37.5-25 MG 1 capsule in the morning Orally Once a day for 30 days Jun, Not-Taking/PRN hydrocortisone 10 mg/ml / neomycin 3.5 mg/ml / polymyxin b [id number] unt/ml otic suspension (6 sources) Aminoglycoside Antibacterial, Polymyxin-class Antibacterial, Corticosteroid Start: 11-02-2022 Etaayfov-Ygkiiccin-D C 3.5-67957-0 3 drops right ear Three times a day for 7 days Oct, Not-Taking/PRN methylPREDNISolone 4 mg oral tablet (12 sources) Corticosteroid Start: 09-20-2023 End: 12-07-2023 Methylprednisolone 4 mg tablets,dose pack Discontinued MG PO September 20, 2023 12:00am December 07, 2023 11:30am Start: 09-20-2023 End: 12-07-2023 Methylprednisolone Discontin ued MG PO September 20, 2023 12:00am December 07, 2023 11:30am Start: 09-20-2023 Methylpredniso lone Active MG PO September 20, 2023 12:00am Start: 11-02-2022 Medrol 4 MG as directed Orally As Directed for 6 days Oct, Not-Taking/PRN Nirmatrelvir-Ritonavir (2 sources) Start: 03-05-2024 End: 07-03-2024 Nirmatrelvir-Ritonavir (Paxlovid) 150-100 mg tablets,dose pack Discontinued 0 PO per package directions March 05, 2024 1:00am July 03, 2024 1:36pm PO PER PKG DIR Nirmatrelvir-Ritonavir (Paxlovid) 150-100 mg tablets,dose pack (1 source) Start: 03-05-2024 End: 07-03-2024 Nirmatrelvir-Ritonavir (Paxlovid) 150-100 mg tablets,dose pack Discontinued 0 PO per package directions March 05, 2024 1:00am July 03, 2024 1:36pm PO PER PKG DIR Toradol 30 mg/ml (6 sources) Start: 11-02-2022 Toradol 30 mg/ ml Oct, 30 mg Problems Active Problems Problem Classification Problem Date Documented Da te Episodic/Chronic Acute and unspecified renal failure (6 sources) Acute renal failure syndrome; Translations: [Acute kidney failure, unspecified] 02-16-2023 Episodic Comment on above: Problem List clean-u p per request of Phys. EHR Cmte Biliary tract disease (16 sources) Biliary sludge; Translations: [Other specified diseases of biliary tract] 02-16-2023 Chronic Comment on above: Problem List clean-u p per request of Phys. EHR Cmte Cardiac dysrhythmias (10 sources) Intermittent palpitations; Translations: [Palpitations] Episodic Chronic kidney disease (17 sources) Chronic kidney disease stage 3A ; Translations: [Stage 3a chronic kidney disease] 12-04-2023 Chronic Disorders of lipid metabolism (20 sources) Pure hypercholesterolemi a, unspecified; Translations: [Hyperlipidemia, unspecified] Onset: 07-17-2021 Chronic Comment on above: Problem List clean-u p per request of Phys. EHR Cmte E Codes: Fall (1 source) Fall from other furniture, initial encounter; Translations: [FALL FROM OTHER FURNITURE INITIAL] Onset: 11-30-2021 Episodic Essential hypertension (20 sources) Essential (primary) hypertension; Translations: [Essential hypertension] Onset: 09-18-2021 Chronic Comment on above: Problem List clean-u p per request of Phys. EHR Cmte Headache; including migraine (3 sources) Headache; including migraine; Translations: [HEADACHE UNSPECIFIED] Onset: 11-26-2021 Heart valve disorders (10 sources) Murmur; Translations: [Cardiac murmur, unspecified] Episodic Immunizations and screening for infectious disease (6 sources) Contact with and (suspected) exposure to other viral communicable diseases; Translations: [Encounter for immunization] Onset: 02-27-2021 Resolved: 02-27-2021 Episodic Malaise and fatigue (8 sources) Other fatigue; Translations: [Fatigue] Onset: 11-24-2021 12-07-2023 Episodic Nausea and vomiting (6 sources) Nausea and vomiting; Translations: [Nausea with vomiting, unspecified] 02-16-2023 Episodic Comment on above: Problem List clean-u p per request of Phys. EHR Cmte Open wounds of head; neck; and trunk [...] region] Chronic Other aftercare (2 sources) Other hat model (current) drug therapy; Translations: [OTH RESIDENTIAL CURRENT DRUG THERAPY] Onset: 11-30-2021 Episodic Other [...] not elsewhere classified] Chronic Other liver diseases (17 sources) Fatty (change of) liver, not elsewhere [...] Chronic Other nutritional; endocrine; and metabolic disorders (4 sources) Obesity, unspecified; Translations: [Obesity, unspecified] Chronic Other nutritional; endocrine; and metabolic disorders (7 sources) Obesity; Translations: [Obesity, unspecified] 12-07-2023 Chronic Other screening for suspected conditions (not mental disorders or infectious disease) (15 sources) Encounter for screening mammogram for malignant neoplasm of breast; Translations: [Other specified abnormal findings of blood chemistry] Onset: 09-17-2021 Episodic Comment on above: Problem List clean-u p per request of Phys. EHR Cmte Other skin disorders (9 sources) Callosity; Translations: [Corns and callosities] Episodic Other upper respiratory infections (7 sources) Acute sinusitis, unspecified; Translations: [Acute maxillary sinusitis, unspecified] Onset: 02-27-2021 Resolved: 02-27-2021 Episodic Pancreatic disorders (not diabetes) (12 sources) Acute pancreatitis; Translations: [Biliary acute pancreatitis without necrosis or infection] 02-16-2023 Episodic Comment on above: Problem List clean-u p per request of Phys. EHR Cmte Residual codes; unclassified (1 source) Family history of malignant neoplasm of breast; Translations: [FAMILY HX MALIG NEOPLASM OF BREAST] Onset: 09-18-2021 Episodic Residual codes; unclassified (1 source) Asymptomatic menopausal state Episodic Rheumatoid arthritis and related disease (10 sources) Inflammatory polyarthropathy; Translations: [Inflammatory polyarthropathy] 12-07-2023 [...] PRT HEAD INITIAL ENCNTR] Onset: 11-30-2021 Episodic Thyroid disorders (6 sources) Thyroid nodule; Translations: [Nontoxic single thyroid nodule] 02-05-2024 Chronic Comment on above: US: right 6mm TR3 no dule - 01/2024 Viral infection (3 sources) Disease caused by 2019-nCoV; Translations: [COVID-19] 03-05-2024 Episodic Past or Other Problems Problem Classification [...] Interpretation Reference Range Facility Otolaryngology Office/Clinic Noteon 11-29-2024 Otolaryngology Office/Clinic Note Chief Complaint Patient states I am coming in for a right tube check History of Present Illness Molly is a pleasant 74-year-old female who presents today for follow-up. History of PE tube placement in July 2021 at an outlying ENT office. Previous rail technician had mentioned to her how she may have cochlear hydrops and/or M?ni?re's disease. She has been on a low-salt diet for years. She did take Dyazide for a short period of time though she did not tolerate this due to blood pressure dropping. She has not had any vertigo episodes in over 3+ years. 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 History of sensorineural hearing loss on the left. At last visit she was found to have 1 flange of the tube out of the tympanic membrane on the right. She believes that this might have fallen out. She presents today for a follow-up. She reports that her hearing has improved. Physical Exam Vitals & Measurements HR: 62 (Peripheral) BP: 117/74 Constitutional: Well-developed, well-nourished Communication and Voice: Clear [...] non-obstructing Right - Normal amount and character, non-obstructing; PE tube removed with microinstrumentation Tympanic Membranes: Left - Clear and mobile Right -50% perforation inferiorly that is clean and dry Middle Ears: Left - Aerated, no effusion, no masses Right - Aerated, no effusion, no masses Additional Vitals No qualifying data available. Assessment/Plan 1. Perforated right tympanic membrane on examination PE tube was within the EAC and removed today with microinstrumentation. Patient has a large tympanic membrane perforation that is residual. We discussed that we will follow-up in 2 months to reassess the perforation and see if this is healed and to what extent. If this does not fully heal this would essentially be acting as a permanent tube for her which in her case could potentially be beneficial. She actually currently feels as though her hearing is improved. She is going to continue with hearing amplification. She is aware that tympanic membrane perforations can lead to increased risk of infection especially with water exposure. She uses a earplug when showering. She is going to continue with this. We also discussed out tympanic membrane perforations can lead to conductive hearing loss especially at low frequencies. She will call sooner with any concerns. 2. Tympanostomy tube check Medical Decision Making Chronic conditions NOT treated [...] Given Electronically signed by Zulay Lopez PA-C 11/29/24 15:01 EDT Normal [facility] Otolaryngology Office/Clinic Noteon 10-29-2024 Otolaryngology Office/Clinic Note Chief Complaint pt states here for an ear cleaning. History of Present Illness Molly is a pleasant 74-year-old female who presents today for a follow-up. She was last seen in June 2024. Previous history of PE tube placement in July 2021 at an outlying ENT office. Previous rail technician had mentioned to her how she may have cochlear hydrops and/or M?ni?re's disease. She has been on a low-salt diet for years. She did take Dyazide for a short period of time though she did not tolerate this due to blood pressure dropping. She has not had any vertigo episodes in over 3 years. She does have mixed hearing loss on the right and a patent PE tube. She also has a history of sensorineural hearing loss on the left. At last visit we trialed her on levocetirizine for postnasal drip. She reports that she was unable to take this as it made her very tired. She is currently using XClear and nasal saline spray. She reports that she still has allergy-like symptoms but she is unable to tolerate any oral antihistamines due to drowsiness. She also did not feel that Flonase was helping her. Physical Exam Vitals & Measurements T: 37.0 ?C (Temporal Artery) HR: 77 (Peripheral) BP: 120/65 HT: 152.5 cm WT: 79.0 kg (Dosing) WT: 79.0 kg BMI: 33.97 Constitutional: Well-developed, well-nourished Communication and Voice: Clear [...] Tympanic Membranes: Left - Clear and mobile right- tube with one flange out Middle Ears: Left - Aerated, no effusion, no masses Right - Aerated, no effusion, no masses Additional Vitals BP Position/Location: Sitting, Left arm Assessment/Plan 1. Tympanostomy tube check Discussed with patient how the right tube is extruding from the tympanic membrane. 1 flange has already extruded. There is no evidence of infection. We discussed how we could remove this in the office or let this continue to fall out on its own. She elects to have this continue to fall out on its own. Will follow-up in 1 month. Continue with hearing amplification. 2. Mixed hearing loss of right ear 3. Allergic rhinitis We will trial her on montelukast. She can continue with nasal sprays. Medical Decision Making Chronic conditions NOT treated [...] solution, 1 drops, Eye-Both, HS (at bedtime) Xyzal 5 mg oral tablet, 5 mg= 1 tabs, Oral, qPM, 3 refills Allergies No Known Allergies No Known Medication Allergies Social History Tobacco Never (less than 100 in lifetime) Use:. Family History Family history is negative Immunizations Vaccine Date Status diphth/haemoph/pertuss is/tetanus/polio 11/13/2022 Given pneumococcal 13-valent conjugate vaccine 07/11/2022 Given Electronically signed by Zulay Lopez PA-C 10/29/24 14:48 EDT Normal [facility] Estimated glomerular filtrat ion rate (GFR) non- Americanon 06-15-2024 GFR/1.73 sq M.predicted among non-blacks MDRD (S/P/Bld) [Vol rate/Area] Estimated glomerular filtration rate (GFR) non- Low >=60 mL/min/1.73 m 2 [facility] GFR/1.73 sq M.predicted among non-blacks MDRD (S/P/Bld) [Vol rate/Area] 44 mL/min/{1.73_m2} Low >=60 mL/min/1.73 m 2 [facility] Laboratory - Chemistry and C hemistry - challengeon 06-15-2024 Calcium [Mass/Vol] 9.7 mg/dL 8.5-10.1 [facility] Chloride [Moles/Vol] 106 mmol/L 98-107 [facility] CO2 [Moles/Vol] 27.1 mmol/L 21.0-32.[address] [facility] Creatinine [Mass/Vol] 1.20 mg/dL High 0.55-1.02 [facility] GFR/1.73 sq M.predicted MDRD (S/P/Bld) [Vol rate/Area] 53 mL/min/{1.73_m2} Low >=60 mL/min/1.73 m 2 [facility] Glucose [Mass/Vol] 97 mg/dL 74-106 [facility] Potassium [Moles/Vol] 4.5 mmol/L 3.5-5.1 [facility] Sodium [Moles/Vol] 139 mmol/L 136-145 [facility] Urea nitrogen [Mass/Vol] 24.0 mg/dL High 7.0-18.0 [facility] Urea nitrogen/Creatinine [Mass ratio] 20.0 mg/mg [facility] No Panel Informationon 06-15 Urine Random Creatinine 75.87 mg/dL 20.00-300.0 0 [facility] Urine Random Total Protein <6.0 mg/dL <=11.9 [facility] Serum or plasma anion gap de terminationon 06-15-2024 Anion gap [Moles/Vol] Serum or plasma an ion gap determination [facility] Anion gap [Moles/Vol] 10.4 mmol/L [facility] 06-05-2024 Otolaryngology Office/Clinic Note Chief Complaint pt states here for follow up on hearing loss. History of Present Illness Molly is a very pleasant 73-year-old female who presents today as a fu. Last visit was May of 2023. Previous right PE tube was placed in July 2021 at an outlying otolaryngology office for middle ear effusion. Previous rail technician had mentioned that she may have cochlear [...] mL, 3 Refill(s), 07/03/24 14:29:00 EDT, Pharmacy: [facility]/pharmacy #[id number] 2. Mixed hearing loss of right ear Reviewed audiogram and compared to previous from 05-31-2023 this has remained unchanged. She has left-sided sensorineural hearing loss and mixed hearing loss on the right. Continue with hearing amplification. She is going to take this most recent audiogram to her car mechanic helper next week. 3. Left SNHL 4. Throat [...] qPM, # 30 tabs, 3 Refill(s), Pharmacy: [facility]/pharmacy #[id number] Medical Decision Making Chronic conditions NOT treated [...] solution, 1 (more content not included)... Normal [facility] Bacteria [Presence] in Urine by AutomatedOrdered By: Mohamud Lee on 01-03-2024 Bacteria Auto Ql (U) None seen [HPF] None Seen [facility] Bilirubin Test strip Ql (U)O rdered By: Mohamud Lee on 01-03-2024 Bilirubin Ql (U) Negative Negative [facility] C reactive protein [Mass/vol ume] in Serum or PlasmaOrdered By: Mohamud Lee on 01-03-2024 CRP [Mass/Vol] < 0.5 mg/dL 0.0-0.5 [facility] C-Reactive Proteinon 024 CRP [Mass/Vol] mg/L Normal 0.0-0.5 [facility] Comment on above: Performed By: #### C RP, ESR, TSH3, PTH, ADDONUAPLUS #### [facility] [address] [place] [address] #### C4, C3, CH50 #### [facility] , Color of Urine by AutoOrdere d By: Mohamud Cruzana maría on 01-03-2024 Color (U) Light-yellow Normal Yellow [facility] Comment on above: Order Comment: Name Collection Type:: Clean-Voided Midstream Performed By: #### C RP, ESR, TSH3, PTH, ADDONUAPLUS #### [address] #### C4, C3, CH50 #### [facility] , Complement C3on 01-03-2024 Complement C3 138 mg/dL Normal 82-167 [facility] Comment on above: Result Comment: Perf ormed at: - [facility] [address] [id number] Flexible Nanny: Reid West PhD, Phone: [phone] Performed By: #### C RP, ESR, TSH3, PTH, ADDONUAPLUS #### [address] #### C4, C3, CH50 #### [facility] , Complement C4on 01-03-2024 Complement C4 32 mg/dL Normal 12-38 [facility] Comment on above: Result Comment: PERF ORMED BY: [place] [address] PATHOLOGIST MACHINE ENGINEER JENNIFER IRIZARRY M.D. Performed By: #### C RP, ESR, TSH3, PTH, ADDONUAPLUS #### [address] #### C4, C3, CH50 #### [facility] , Complement Total (CH50)on Complement Total (CH50) 52 Normal >41 [facility] Comment on above: [...] out of range values. Performed at: - [facility] [id number] Flex[employer] Nanny: Reid West PhD, Phone: [phone] PERFORMED BY: [place] [address] PATHOLOGIST MACHINE ENGINEER JENNIFER IRIZARRY M.D. Performed By: #### C RP, ESR, TSH3, PTH, ADDONUAPLUS #### [address] #### C4, C3, CH50 #### [facility] , Dipstick and Microscopicon 1 Bacteria,Urine None Seen Normal None Seen [facility] Comment on above: Order Comment: Name Collection Type:: Clean-Voided Midstream Performed By: #### C RP, ESR, TSH3, PTH, ADDONUAPLUS #### [address] #### C4, C3, CH50 #### [facility] , Bilirubin,Urine Negative Normal Negative [facility] Comment on above: Order Comment: Name Collection Type:: Clean-Voided Midstream Performed By: #### C RP, ESR, TSH3, PTH, ADDONUAPLUS #### [place] [address] [place] #### C4, C3, CH50 #### [facility] , Glucose Ql (U) Normal Normal Normal [facility] Comment on above: Order Comment: Name Collection Type:: Clean-Voided Midstream Performed By: #### C RP, ESR, TSH3, PTH, ADDONUAPLUS #### [address] #### C4, C3, CH50 #### [facility] , Hyaline Casts,Urine None Normal 0-8 [facility] Comment on above: Order Comment: Name Collection Type:: Clean-Voided Midstream Performed By: #### C RP, ESR, TSH3, PTH, ADDONUAPLUS #### [address] #### C4, C3, CH50 #### [facility] , Mucus,Urine Rare Normal [facility] Comment on above: Order Comment: Name Collection Type:: Clean-Voided Midstream Result Comment: PERF ORMED BY: [place] [address] PATHOLOGIST MACHINE ENGINEER JENNIFER IRIZARRY M.D. Performed By: #### C RP, ESR, TSH3, PTH, ADDONUAPLUS #### [address] #### C4, C3, CH50 #### [facility] , Nitrite,Urine Negative Normal Negative [facility] Comment on above: Order Comment: Name Collection Type:: Clean-Voided Midstream Performed By: #### C RP, ESR, TSH3, PTH, ADDONUAPLUS #### [address] #### C4, C3, CH50 #### [facility] , Non-Squamous Epithelial Cell,U 1-2 High None Seen [facility] Comment on above: Order Comment: Name Collection Type:: Clean-Voided Midstream Performed By: #### C RP, ESR, TSH3, PTH, ADDONUAPLUS #### [address] #### C4, C3, CH50 #### [facility] , Occult Blood,Urine Trace High Negative The Count includes the [facility] Comment on above: Order Comment: Name Collection Type:: Clean-Voided Midstream Performed By: #### C RP, ESR, TSH3, PTH, ADDONUAPLUS #### [address] #### C4, C3, CH50 #### [facility] , Protein,Urine Negative Normal Negative [facility] Comment on above: Order Comment: Name Collection Type:: Clean-Voided Midstream Performed By: #### C RP, ESR, TSH3, PTH, ADDONUAPLUS #### [address] #### C4, C3, CH50 #### [facility] , RBC,Urine 3-4 Normal 0-4 [facility] Comment on above: Order Comment: Name Collection Type:: Clean-Voided Midstream Performed By: #### C RP, ESR, TSH3, PTH, ADDONUAPLUS #### [address] #### C4, C3, CH50 #### [facility] , Specificy [place],Urine 1.020 Normal 1.001-1.030 [facility] Comment on above: Order Comment: Name Collection Type:: Clean-Voided Midstream Performed By: #### C RP, ESR, TSH3, PTH, ADDONUAPLUS #### [address] #### C4, C3, CH50 #### [facility] , Squamous Epithelial Cell,Urine 1-2 Normal 0-2 [facility] Comment on above: Order Comment: Name Collection Type:: Clean-Voided Midstream Performed By: #### C RP, ESR, TSH3, PTH, ADDONUAPLUS #### [address] #### C4, C3, CH50 #### [facility] , Urobilinogen,Urine Normal Normal Normal The Count includes the [facility] Comment on above: Order Comment: Name Collection Type:: Clean-Voided Midstream Performed By: #### C RP, ESR, TSH3, PTH, ADDONUAPLUS #### [address] #### C4, C3, CH50 #### [facility] , WBC,Urine 3-4 Normal 0-4 [facility] Comment on above: Order Comment: Name Collection Type:: Clean-Voided Midstream Performed By: #### C RP, ESR, TSH3, PTH, ADDONUAPLUS #### [address] #### C4, C3, CH50 #### [facility] , Epithelial cells.non-squamou s [#/area] in Urine sediment by Automated countOrdered By: Mohamud Lee on 01-03-2024 Epithelial cells.non-squamous Auto (Urine sed) [#/Area] 1-2 [HPF] High None Seen [facility] Epithelial cells.squamous [# /area] in Urine sediment by Automated countOrdered By: Mohamud Lee on 01-03-2024 Epithelial cells.squamous Auto (Urine sed) [#/Area] 1-2 [HPF] 0-2 [facility] Erythrocyte Sedimentation Ra yandy 01-03-2024 ESR (Bld) [Velocity] 24 mm/h Normal 0-29 [facility] Comment on above: Result Comment: PERF ORMED BY: [place] [address] PATHOLOGIST MACHINE ENGINEER JENNIFER IRIZARRY M.D. Performed By: #### C RP, ESR, TSH3, PTH, ADDONUAPLUS #### [address] #### C4, C3, CH50 #### [facility] , Erythrocyte sedimentation ra te by Photometric methodOrdered By: Mohamud Lee on 01-03-2024 ESR Photometric method (Bld) [Velocity] 24 mm/hr 0-29 [facility] Erythrocytes [#/area] in Uri ne sediment by Automated countOrdered By: Mohamud Lee on 01-03-2024 RBC Auto (Urine sed) [#/Area] 3-4 [HPF] 0-4 [facility] Glucose [Mass/volume] in Uri ne by Test stripOrdered By: Mohamud Lee on 01-03-2024 Glucose Test strip (U) [Mass/Vol] Normal mg/dL Normal [facility] Hemoglobin Test strip Ql (U) Ordered By: Mohamud Lee on 01-03-2024 Hemoglobin Ql (U) Trace High Negative [facility] Hyaline casts [#/area] in Ur ine sediment by Automated countOrdered By: Mohamud Lee on 01-03-2024 Hyaline casts Auto (Urine sed) [#/Area] None [LPF] 0-8 [facility] Ketones [Presence] in Urine by Test stripOrdered By: Mohamud Lee on 01-03-2024 Ketones Ql (U) Negative Normal Negative [facility] Comment on above: Order Comment: Name Collection Type:: Clean-Voided Midstream Performed By: #### C RP, ESR, TSH3, PTH, ADDONUAPLUS #### [address] #### C4, C3, CH50 #### [facility] , Leukocyte esterase [Presence ] in Urine by Test stripOrdered By: Mohamud Lee on 01-03-2024 Leukocyte esterase Test strip Ql (U) 2+ High Negative [facility] Comment on above: Order Comment: Name Collection Type:: Clean-Voided Midstream Performed By: #### C RP, ESR, TSH3, PTH, ADDONUAPLUS #### [place] [address] [place] #### C4, C3, CH50 #### [facility] , Leukocytes [#/area] in Urine sediment by Automated countOrdered By: Mohamud Lee on 01-03-2024 WBC Auto (Urine sed) [#/Area] 3-4 [HPF] 0-4 [facility] Mucus [Presence] in Urine by AutomatedOrdered By: Mohamud Lee on 01-03-2024 Mucus Auto Ql (U) Rare [LPF] [facility] Nitrite Test strip Ql (U)Ord ered By: Mohamud Lee on 01-03-2024 Nitrite Ql (U) Negative Negative [facility] Parathyrin.intact [Mass/volu me] in Serum or PlasmaOrdered By: Mohamud Lee on 01-03-2024 Parathyrin.intact [Mass/Vol] 40.7 pg/mL [facility] Parathyroid Hormone Intacton 01-03-2024 Parathyroid Hormone Intact 40.7 pg/mL Normal [facility] Comment on above: Result Comment: PERF ORMED BY: [place] [address] PATHOLOGIST MACHINE ENGINEER JENNIFER IRIZARRY M.D. Performed By: #### C RP, ESR, TSH3, PTH, ADDONUAPLUS #### [address] #### C4, C3, CH50 #### [facility] , Protein Test strip (U) [Mass /Vol]Ordered By: Mohamud Lee on 01-03-2024 Protein (U) [Mass/Vol] Negative Negative [facility] Specific gravity Test strip (U) [Rel density]Ordered By: Mohamud Lee on 01-03-2024 Specific gravity (U) [Rel density] 1.020 1.001-1.030 [facility] Thyrotropin [Units/volume] i n Serum or PlasmaOrdered By: Mohamud Lee on 01-03-2024 TSH Qn 0.84 m[IU]/L Normal 0.45-5.33 [facility] Comment on above: Result Comment: PERF ORMED BY: [place] [address] PATHOLOGIST MACHINE ENGINEER JENNIFER IRIZARRY M.D. Performed By: #### C RP, ESR, TSH3, PTH, ADDONUAPLUS #### [facility] [address] [place] [address] #### C4, C3, CH50 #### [facility] , Urine appearanceOrdered By: Mohamud Lee on 01-03-2024 Appearance (U) Clear Normal Clear [facility] Comment on above: Order Comment: Name Collection Type:: Clean-Voided Midstream Performed By: #### C RP, ESR, TSH3, PTH, ADDONUAPLUS #### [place] [address] [place] #### C4, C3, CH50 #### [facility] , Urobilinogen Test strip (U) [Mass/Vol]Ordered By: Mohamud Lee on 01-03-2024 Urobilinogen (U) [Mass/Vol] Normal mg/dL Normal [facility] XR hand BI 2Von 01-03-2024 XR hand BI 2V [facility] [place] [address] [place] [address] XRay Report Signed Patient: Molly Garcia MR#: [id number] : 1950 Acct:[id number] Age/Sex: 73 / F ADM Date: 01/03/24 Loc: [facility] Room: Type: [facility] Attending Dr: Mohamud Lee MD Copies to: [...] Abbe Ludwig M.D.01/03/2024 6:04 PM Dictation Location: [place] [address] Transcribed By: [facility] 01/03/241803 Dictated By: Abbe Ludwig DO 01/03/241801 Signed By: 01/03/241803 [place] pH of Urine by Test stripOrd ered By: Mohamud Lee on 01-03-2024 pH (U) 5.5 [pH] Normal 5.0-9.0 [facility] Comment on above: Order Comment: Name Collection Type:: Clean-Voided Midstream Performed By: #### C RP, ESR, TSH3, PTH, ADDONUAPLUS #### [address] #### C4, C3, CH50 #### [facility] , Basophils Auto (Bld) [#/Vol] on 12-08-2023 Basophils (Bld) [#/Vol] 0.0 10 3/uL 0.0-0.1 [facility] Basophils/100 WBC Auto (Bld) on 12-08-2023 Basophils/100 WBC (Bld) 0.6 % 0.2-2.0 [facility] Centriole Ab [Titer] in Seru m by Immunofluorescenceon 12-08-2023 Centriole Ab IF (S) [Titer] TNP . [facility] Centromere Ab [Titer] in Ser um by Immunofluorescenceon 12-08-2023 Centromere Ab IF (S) [Titer] TNP . [facility] Cholesterol in LDL Calc [Mas s/Vol]on 12-08-2023 Cholesterol in LDL [Mass/Vol] 88.0 mg/dL [facility] Comment on above: <100 mg/dl [id number] 0-129 mg/dl NEAR OR ABOVE [id number] mg/dl BORDERLINE [id number] mg/dl HIGH>190 mg/dl VERY HIGH Cholesterol in VLDL Calc [Ma ss/Vol]on 12-08-2023 Cholesterol in VLDL [Mass/Vol] 12.4 mg/dL [facility] Eosinophils/100 WBC Auto (Bl d)on 12-08-2023 Eosinophils/100 WBC (Bld) 2.3 % 0.9-7.0 [facility] Erythrocyte distribution wid th Auto (RBC) [Ratio]on 12-08-2023 Erythrocyte distribution width (RBC) [Ratio] 13.2 % 11.0-15.0 [facility] Estimated glomerular filtrat ion rate (GFR) non- Americanon 12-08-2023 GFR/1.73 sq M.predicted among non-blacks MDRD (S/P/Bld) [Vol rate/Area] 43 mL/min/{1.73_m2} Low >=60 mL/min/1.73 m 2 [facility] Globulin Calc (S) [Mass/Vol] on 12-08-2023 Globulin (S) [Mass/Vol] 3.5 g/dL [facility] Hematocrit Auto (Bld) [Volum e fraction]on 12-08-2023 Hematocrit (Bld) [Volume fraction] 44.4 % 36.0-48.0 [facility] Hemoglobin [Mass/volume] in Bloodon 12-08-2023 Hemoglobin (Bld) [Mass/Vol] 14.3 g/dL 12.0-16.0 [facility] Laboratory - Chemistry and C hemistry - challengeon 12-08-2023 Albumin [Mass/Vol] 3.7 g/dL 3.4-5.0 [facility] ALP [Catalytic activity/Vol] 124 U/L High 46-116 [facility] ALT [Catalytic activity/Vol] 31 U/L 14-59 [facility] AST [Catalytic activity/Vol] 25 U/L 15-37 [facility] Bilirubin [Mass/Vol] 0.7 mg/dL 0.2-1.0 [facility] Calcium [Mass/Vol] 9.6 mg/dL 8.5-10.1 [facility] Chloride [Moles/Vol] 104 mmol/L 98-107 [facility] Cholesterol [Mass/Vol] 161 mg/dL <=200 [facility] Cholesterol in HDL [Mass/Vol] 61 mg/dL High 40-60 [facility] Comment on above: > or =60 mg/dl - LOW CARDIOVASCULAR RISK<40 mg/dl - HIGH CARDIOVASCULAR RISK CO2 [Moles/Vol] 26.5 mmol/L 21.0-32.[address] [facility] Creatinine [Mass/Vol] 1.23 mg/dL High 0.55-1.02 [facility] GFR/1.73 sq M.predicted MDRD (S/P/Bld) [Vol rate/Area] 52 mL/min/{1.73_m2} Low >=60 mL/min/1.73 m 2 [facility] Glucose [Mass/Vol] 88 mg/dL 74-106 [facility] Potassium [Moles/Vol] 3.8 mmol/L 3.5-5.1 [facility] Protein [Mass/Vol] 7.2 g/dL 6.4-8.2 [facility] Sodium [Moles/Vol] 139 mmol/L 136-145 [facility] Triglyceride [Mass/Vol] 62 mg/dL <=150 [facility] TSH Qn 1.173 m[IU]/L 0.358-3.740 [facility] Urea nitrogen [Mass/Vol] 20.0 mg/dL High 7.0-18.0 [facility] Urea nitrogen/Creatinine [Mass ratio] 16.3 mg/mg [facility] Laboratory - Hematology and Cell countson 12-08-2023 Immature granulocytes/100 WBC (Bld) 0.2 % 0.0-0.5 [facility] Leukocytes [#/volume] correc magali for nucleated erythrocytes in Blood by Automated counon 12-08-2023 WBC corrected for nucl RBC Auto (Bld) [#/Vol] 5.3 10 3/uL 4.0-11.0 [facility] Lymphocytes Auto (Bld) [#/Vo l]on 12-08-2023 Lymphocytes (Bld) [#/Vol] 1.8 10 3/uL 1.2-3.8 [facility] Lymphocytes/100 WBC Auto (Bl d)on 12-08-2023 Lymphocytes/100 WBC (Bld) 33.6 % 20.5-60.0 [facility] MCH Auto (RBC) [Entitic mass ]on 12-08-2023 MCH (RBC) [Entitic mass] 30.1 pg 26.7-34.0 [facility] MCHC Auto (RBC) [Mass/Vol]on 12-08-2023 MCHC (RBC) [Mass/Vol] 32.2 g/dL 29.9-35.2 [facility] MCV Auto (RBC) [Entitic vol] on 12-08-2023 MCV (RBC) [Entitic vol] 93.5 fL 81.0-99.0 [facility] Midbody Ab [Titer] in Serum by Immunofluorescenceon 12-08-2023 Midbody Ab IF (S) [Titer] TNP . [facility] Mitotic spindle apparatus Ab [Titer] in Serum or Plasma by Immunofluorescenceon 12-08-2023 Mitotic spindle apparatus Ab IF [Titer] TNP . [facility] Monocytes Auto (Bld) [#/Vol] on 12-08-2023 Monocytes (Bld) [#/Vol] 0.4 10 3/uL 0.3-0.8 [facility] Monocytes/100 WBC Auto (Bld) on 12-08-2023 Monocytes/100 WBC (Bld) 7.0 % 1.7-12.0 [facility] Neutrophils Auto (Bld) [#/Vo l]on 12-08-2023 Neutrophils (Bld) [#/Vol] 3.0 10 3/uL 1.4-6.5 [facility] Neutrophils/100 WBC Auto (Bl d)on 12-08-2023 Neutrophils/100 WBC (Bld) 56.3 % 43.0-75.0 [facility] No Panel Informationon 12-07 Anti-Nuclear Antibody Comment 2 Comment . [facility] Comment on above: Pattern Potential Di sease Association Homogeneous Systemic Lupus Erythematosus, Drug Induced Systemic Lupus Erythematosus, Chronic Autoimmune hepatitis, Juvenile Idiopathic Arthritis Speckled Sjogren Syndrome, Systemic Lupus Erythematosus, Subacute Cutaneous Lupus, Lupus, Congenital Heart Block, Mixed Connective Tissue Disease, Scleroderma-diffuse, Scleroderma-Autoimmune Myositis Overlap Syndrome, Systemic Lupus Otglzzguszvrd-Cmtewrrlftk-Eherpqutss Myositis Overlap Syndrome, Systemic Autoimmune Rheumatic Disease, [...] Cytopenias, Linear Scleroderma, Antiphospholipid Syndrome Performed at: - [facility] [id number] Director: Reid West PhD, Phone: [phone] C-Reactive Protein, Quantitative <0.50 mg/dL <=0.50 [facility] Eosinophils # (Auto) 0.1 10 3/uL 0.0-0.7 [facility] Immature Granulocyte # (Auto) 0.01 10 3/uL 0.00-0.03 [facility] Nuclear dots nuclear Ab seth dilia [Titer] in Serum by Immunofluorescenceon 12-08-2023 Nuclear dots nuclear Ab pattern IF (S) [Titer] TNP . [facility] Nuclear membrane pores nucle ar Ab pattern [Titer] in Serum by Immunofluorescenceon 12-08-2023 Nuclear membrane pores nuclear Ab pattern IF (S) [Titer] TNP . [facility] PCNA extractable nuclear Ab [Titer] in Serum by Immunofluorescenceon 12-08-2023 PCNA extractable nuclear Ab IF (S) [Titer] TNP . [facility] Platelet mean volume Auto (B ld) [Entitic vol]on 12-08-2023 Platelet mean volume (Bld) [Entitic vol] 9.0 fL Low 9.5-13.5 [facility] Platelets Auto (Bld) [#/Vol] on 12-08-2023 Platelets (Bld) [#/Vol] 241 10 3/uL 150-450 [facility] RBC Auto (Bld) [#/Vol]on RBC (Bld) [#/Vol] 4.75 10 6/uL 4.20-5.40 [facility] Serum homogeneous pattern an tinuclear antibody (ROHIT) titeron 12-08-2023 Homogenous nuclear Ab pattern (S) [Titer] 1:160 Abnormal . [facility] Comment on above: ICAP nomenclature: A C-1 Serum nuclear antibody titer on 12-08-2023 Nuclear Ab (S) [Titer] Positive Abnormal . [facility] Comment on above: Negative <1:80 Borde rline 1:80 Positive >1:80 Serum nucleolar pattern anti nuclear antibody (ROHIT) titeron 12-08-2023 Nucleolar nuclear Ab pattern (S) [Titer] TNP . [facility] Serum or plasma albumin/glob ulin mass ratioon 12-08-2023 Albumin/Globulin [Mass ratio] 1.1 {ratio} [facility] Serum or plasma anion gap de terminationon 12-08-2023 Anion gap [Moles/Vol] 12.3 mmol/L [facility] Serum or plasma rheumatoid f actor measurement (units/volume)on 12-08-2023 Rheumatoid factor Qn [IU]/mL <14.0 [facility] Comment on above: Performed at: [address] [id number] Director: Reid West PhD, Phone: [phone] Serum or plasma total choles terol/high density lipoprotein (HDL) cholesterol mass shania 12-08-2023 Cholesterol.total/Chol esterol in HDL [Mass ratio] 2.6 {ratio} [facility] Comment on above: 3.3 - 4.4 LOW RISK4. 4 - 7.1 AVERAGE RISK7.1 - 11.0 MODERATE RISK>11.0 HIGH RISK Serum speckled pattern antin uclear antibody (ROHIT) titeron 12-08-2023 Speckled nuclear Ab pattern (S) [Titer] TNP . [facility] PROF CHEM 8 (BAS METB)on Anion gap [Moles/Vol] 11.4 mmol/L Normal [facility] Comment on above: Performed By: #### B MP ####[facility] [address] [place] [address]Dr. Glenda Basurto Calcium [Mass/Vol] 9.2 mg/dL Normal 8.5-10.1 [facility] Comment on above: Performed By: #### B MP ####[facility] [address] [place] [address]Dr. Glenda Basurto Chloride [Moles/Vol] 106 mmol/L Normal 98-107 [facility] Comment on above: Performed By: #### B MP ####[facility] [address] [place], [place] [address]Dr. Glenda Basurto CO2 [Moles/Vol] 27.6 mmol/L Normal 21.0-32.0 [facility] Comment on above: Performed By: #### B MP ####[facility] [address] [place] [address]Dr. Glenda Basurto Creatinine [Mass/Vol] 1.19 mg/dL Critically high 0.55-1.02 [facility] Comment on above: Performed By: #### B MP ####[facility] [address] [place] [address]Dr. Glenda Basurto EGFR-AF SWEDISH 54 mL/min/1.73m2 Critically low >=[address] [facility] Comment on above: Performed By: #### B MP ####[facility] [address] [place], [place] [address]Dr. Glenda Basurto EGFR-NON AF SW[place]ISH 45 mL/min/1.73m2 Critically low >=[address] [facility] Comment on above: Performed By: #### B MP ####[facility] [address] [place] [address]Dr. Glenda Basurto Glucose [Mass/Vol] 100 mg/dL Normal 74-106 [facility] Comment on above: Performed By: #### B MP ####[facility] [address] [place] [address]Dr. Glenda Basurto Potassium [Moles/Vol] 4.0 mmol/L Normal 3.5-5.1 [facility] Comment on above: Performed By: #### B MP ####[facility] [address] [place] [address]Dr. Rolajaron Basurto Sodium [Moles/Vol] 141 mmol/L Normal 136-145 [facility] Comment on above: Performed By: #### B MP ####[facility] [address] [place] [address]Dr. Glenda Basurto Urea nitrogen [Mass/Vol] 20.0 mg/dL Critically high 7.0-18.0 [facility] Comment on above: Performed By: #### B MP ####[facility] [address] [place] [address]Dr. Rolajaron Basurto Urea nitrogen/Creatinine [Mass ratio] 16.8 mg/mg Normal [facility] Comment on above: Performed By: #### B MP ####[facility] [address] [place], [place] [address]Dr. Glenda Basurto CT CSPINE WO CONon 2 [...] RONA MALONEY Date: 2021-11-26 22:07 Normal [facility] CT HEAD WO CONon 11-26-2021 CT [...] RONA MALONEY Date: 2021-11-26 21:43 Normal [facility] CBC AUTO DIFFon 11-20-2021 BASO # 0.0 103/ul Normal 0.0-0.1 [facility] Comment on above: Performed By: #### C BC #### [facility] [address] [place] [address] [address] Glenda Basurto Basophils/100 WBC (Bld) 0.7 % Normal 0.2-2.0 [facility] Comment on above: Performed By: #### C BC #### [facility] [address] [place] [address] [address] Glenda Basurto EO # 0.1 103/ul Normal 0.0-0.[address] [facility] Comment on above: Performed By: #### C BC #### [facility] [address] [place] [address] Dr. Glenda Basurto Eosinophils/100 WBC (Bld) 1.8 % Normal 0.9-7.0 [facility] Comment on above: Performed By: #### C BC #### [facility] [address] [place] [address] Dr. Glenda Basurto Erythrocyte distribution width (RBC) [Ratio] 13.2 % Normal 11.0-15.0 [facility] Comment on above: Performed By: #### C BC #### [facility] [address] [place] [address] Dr. Glenda Basurto Hematocrit (Bld) [Volume fraction] 39.4 % Normal 36.0-48.0 [facility] Comment on above: Performed By: #### C BC #### [facility] [address] [place] [address] Dr. Glenda Basurto Hemoglobin (Bld) [Mass/Vol] 12.9 g/dL Normal 12.0-16.0 [facility] Comment on above: Performed By: #### C BC #### [facility] [address] [place] [address] Dr. Glenda Basurto IG # 0.01 10e3/ul Normal 0.00-0.03 [facility] Comment on above: Performed By: #### C BC #### [facility] [address] [place] [address] Dr. Glenda Basurto IG % 0.2 % Normal 0.0-0.[address] [facility] Comment on above: Performed By: #### C BC #### [facility] [address] [place] [address] Dr. Glenda Basurto LYMPH # 2.6 103/ul Normal 1.2-3.[address] [facility] Comment on above: Performed By: #### C BC #### [facility] [address] [place] [address] Dr. Glenda Basurto Lymphocytes/100 WBC (Bld) 41.9 % Normal 20.5-60.0 [facility] Comment on above: Performed By: #### C BC #### [facility] [address] [place] [address] Dr. Glenda Basurto MANUAL DIFF REQ NO Normal [facility] Comment on above: Performed By: #### C BC #### [facility] [address] [place] [address] Dr. Glenda Basurto MCH (RBC) [Entitic mass] 30.1 pg Normal 26.7-34.0 [facility] Comment on above: Performed By: #### C BC #### [facility] [address] [place] [address] Dr. Glenda Basurto MCHC (RBC) [Mass/Vol] 32.7 g/dL Normal 29.9-35.2 [facility] Comment on above: Performed By: #### C BC #### [facility] [address] [place] [address] Dr. Glenda Basurto MCV (RBC) [Entitic vol] 92.1 fL Normal 81.0-99.0 [facility] Comment on above: Performed By: #### C BC #### [facility] [address] [place] [address] Dr. Glenda Basurto MONO # 0.5 103/ul Normal 0.3-0.8 [facility] Comment on above: Performed By: #### C BC #### [facility] [address] [place] [address] Dr. Glenda Basurto Monocytes/100 WBC (Bld) 7.7 % Normal 1.7-12.0 [facility] Comment on above: Performed By: #### C BC #### [facility] [address] [place] [address] Dr. Glenda Basurto NEUT # 2.9 103/ul Normal 1.4-6.5 [facility] Comment on above: Performed By: #### C BC #### [facility] [address] [place] [address] Dr. Glenda Basurto Neutrophils/100 WBC (Bld) 47.7 % Normal 43.0-75.0 [facility] Comment on above: Performed By: #### C BC #### [facility] [address] [place] [address] [address] Glenda Basurto Platelet mean volume (Bld) [Entitic vol] 8.8 fL Critically low 9.5-13.5 [facility] Comment on above: Performed By: #### C BC #### [facility] [facility] [address] [address] [address] Glenda Basurto PLT 215 103/ul Normal 150-450 [facility] Comment on above: Performed By: #### C BC #### [facility] [address] [address] [address] Glenda Basurto RBC 4.28 106/ul Normal 4.20-5.40 [facility] Comment on above: Performed By: #### C BC #### [facility] [address] [address] [address] Glenda Basurto WBC 6.1 103/ul Normal 4.0-11.0 [facility] Comment on above: Performed By: #### C BC #### [facility] [address] [address] [address] Glenda Basurto PROF CHEM 8 (BAS METB)on Anion gap [Moles/Vol] 10.1 mmol/L Normal [facility] Comment on above: Performed By: #### B MP, TSH ####[facility] [address] [address]Dr. Glenda Basurto Calcium [Mass/Vol] 8.8 mg/dL Normal 8.5-10.1 [facility] Comment on above: Performed By: #### B MP, TSH ####[facility] [address] [address]Dr. Glenda Basurto Chloride [Moles/Vol] 103 mmol/L Normal 98-107 [facility] Comment on above: Performed By: #### B MP, TSH ####[facility] [address] [address]Dr. Glenda Basurto CO2 [Moles/Vol] 29.1 mmol/L Normal 21.0-32.0 [facility] Comment on above: Performed By: #### B NATALY, TSH ####[facility] [address] [place], [place] [address]Dr. Glenda Basurto Creatinine [Mass/Vol] 1.62 mg/dL Critically high 0.55-1.02 [facility] Comment on above: Performed By: #### B NATALY, TSH ####[facility] [address] [place], [place] [address]Dr. Glenda Basurto EGFR-AF SWEDISH 38 mL/min/1.73m2 Critically low >=60 [facility] Comment on above: Performed By: #### B NATALY, TSH ####[facility] [address] [place], [place] [address]Dr. Glenda Basurto EGFR-NON AF SWEDISH 31 mL/min/1.73m2 Critically low >=60 [facility] Comment on above: Performed By: #### Richelle INGRAM, TSH ####[facility] [address] [place], [place] [address]Dr. Rolajaron Basurto Glucose [Mass/Vol] 112 mg/dL Critically high 74-106 [facility] Comment on above: Performed By: #### Richelle INGRAM, TSH ####[facility] [address] [place], [place] [address]Dr. Glenda Basurto Potassium [Moles/Vol] 4.2 mmol/L Normal 3.5-5.1 [facility] Comment on above: Performed By: #### Richelle INGRAM, TSH ####[facility] [address] [address]Dr. Glenda Sb Sodium [Moles/Vol] 138 mmol/L Normal 136-145 [facility] Comment on above: Performed By: #### B NATALY, TSH ####[facility] [address] [place], [place] [address]Dr. Glenda Basurto Urea nitrogen [Mass/Vol] 25.0 mg/dL Critically high 7.0-18.0 [facility] Comment on above: Performed By: #### Richelle INGRAM, TSH ####[facility] [address] [place], [place] [address]Cc. Glenda Basurto Urea nitrogen/Creatinine [Mass ratio] 15.4 mg/mg Normal [facility] Comment on above: Performed By: #### B MP, TSH ####[facility] [address] [place], [place] [address]Cv. Glenda Basurto TSHon 11-20-2021 TSH 0.942 uIU/mL Normal 0.358-3.740 [facility] Comment on above: Performed By: #### B MP, TSH ####[facility] [address] [place], [place] [address]Kc. Glenda Basurto MG MAMM SCREEN 3D FERMÍN CADon 09-17-2021 MG MAMM SCREEN 3D FERMÍN CAD Patient: MOLLY GARCIA Exam Date: 09/17/2021 : 1950 Gender:F Ordering : DR JIMMIE MELENDEZ D.O. Admission #: [id number] Family : Order #: [id number] CLICK HERE TO VIEW EXAM RADIOLOGY REPORT [...] breast cancer at age 75. LOCATION: [facility] BREAST COMPOSITION: Heterogeneously dense,which may obscure [...] Cortez MD on 09/17/2021 at 12:43 Normal [facility] CBC AUTO DIFFon 09-16-2021 BASO # 0.0 103/ul Normal 0.0-0.1 [facility] Comment on above: Performed By: #### C BC #### [facility] [address] [place] [address] Dr. Glenda Basurto Basophils/100 WBC (Bld) 0.5 % Normal 0.2-2.0 [facility] Comment on above: Performed By: #### C BC #### [facility] [address] [place] [address] Dr. Glenda Basurto EO # 0.1 103/ul Normal 0.0-0.[address] [facility] Comment on above: Performed By: #### C BC #### [facility] [address] [place] [address] Dr. Glenda Basurto Eosinophils/100 WBC (Bld) 2.2 % Normal 0.9-7.0 [facility] Comment on above: Performed By: #### C BC #### [facility] [address] [place] [address] Dr. Glenda Basurto Erythrocyte distribution width (RBC) [Ratio] 13.2 % Normal 11.0-15.0 [facility] Comment on above: Performed By: #### C BC #### [facility] [address] [place] [address] Dr. Glenda Basurto Hematocrit (Bld) [Volume fraction] 42.0 % Normal 36.0-48.0 [facility] Comment on above: Performed By: #### C BC #### [facility] [address] [place] [address] Dr. Glenda Basurto Hemoglobin (Bld) [Mass/Vol] 13.7 g/dL Normal 12.0-16.0 [facility] Comment on above: Performed By: #### C BC #### [facility] [address] [place] [address] Dr. Glenda Basurto IG # 0.01 10e3/ul Normal 0.00-0.03 [facility] Comment on above: Performed By: #### C BC #### [facility] [address] [place] [address] Dr. Glenda Basurto IG % 0.2 % Normal 0.0-0.5 [facility] Comment on above: Performed By: #### C BC #### [facility] [address] [place] [address] Dr. Glenda Basurto LYMPH # 2.7 103/ul Normal 1.2-3.8 [facility] Comment on above: Performed By: #### C BC #### [facility] [address] [place] [address] Dr. Glenda Basurto Lymphocytes/100 WBC (Bld) 41.9 % Normal 20.5-60.0 [facility] Comment on above: Performed By: #### C BC #### [facility] [address] [place] [address] Dr. Glenda Basurto MANUAL DIFF REQ NO Normal [facility] Comment on above: Performed By: #### C BC #### [facility] [address] [place] [address] Dr. Glenda Basurto MCH (RBC) [Entitic mass] 30.6 pg Normal 26.7-34.0 [facility] Comment on above: Performed By: #### C BC #### [facility] [address] [place] [address] Dr. Glenda Basurto MCHC (RBC) [Mass/Vol] 32.6 g/dL Normal 29.9-35.2 [facility] Comment on above: Performed By: #### C BC #### [facility] [address] [place] [address] Dr. Glenda Basurto MCV (RBC) [Entitic vol] 93.8 fL Normal 81.0-99.0 [facility] Comment on above: Performed By: #### C BC #### [facility] [address] [place] [address] Dr. Glenda Basurto MONO # 0.6 103/ul Normal 0.3-0.8 [facility] Comment on above: Performed By: #### C BC #### [facility] [address] [place] [address] Dr. Glenda Basurto Monocytes/100 WBC (Bld) 9.8 % Normal 1.7-12.0 [facility] Comment on above: Performed By: #### C BC #### [facility] [address] [place] [address] Dr. Glenda Basurto NEUT # 2.9 103/ul Normal 1.4-6.5 [facility] Comment on above: Performed By: #### C BC #### [facility] [address] [place] [address] Dr. Glenda Basurto Neutrophils/100 WBC (Bld) 45.4 % Normal 43.0-75.0 [facility] Comment on above: Performed By: #### C BC #### [facility] [address] [place] [address] Dr. Glenda Basurto Platelet mean volume (Bld) [Entitic vol] 8.9 fL Critically low 9.5-13.5 [facility] Comment on above: Performed By: #### C BC #### [facility] [address] [place] [address] Dr. Glenda Basurto PLT 226 103/ul Normal 150-[address] [facility] Comment on above: Performed By: #### C BC #### [facility] [address] [place] [address] Dr. Glenda Basurto RBC 4.48 106/ul Normal 4.20-5.40 [facility] Comment on above: Performed By: #### C BC #### [facility] [address] [place] [address] Dr. Glenda Basurto WBC 6.4 103/ul Normal 4.0-11.0 [facility] Comment on above: Performed By: #### C BC #### [facility] [address] [place] [address] Dr. Glenda Basurto CRPon 09-16-2021 CRP [Mass/Vol] mg/L Normal <=1.0 [facility] Comment on above: Performed By: #### U LEANNA, CRP #### [facility] [address] [place] [address] Dr. Glenda Basurto PROF CHEM 8 (BAS METB)on Anion gap [Moles/Vol] 12.2 mmol/L Normal Th e [facility] Comment on above: Performed By: #### B MP #### [facility] [address] [address] [address] Glenda Basurto Calcium [Mass/Vol] 9.3 mg/dL Normal 8.5-10.1 [facility] Comment on above: Performed By: #### B MP #### [facility] [address] [address] [address] Glenda Basurto Chloride [Moles/Vol] 107 mmol/L Normal 98-107 [facility] Comment on above: Performed By: #### B MP #### [facility] [address] [address] [address] Glenda Basurto CO2 [Moles/Vol] 27.3 mmol/L Normal 21.0-32.0 [facility] Comment on above: Performed By: #### B MP #### [facility] [address] [address] [address] Glenda Basurto Creatinine [Mass/Vol] 1.04 mg/dL Critically high 0.55-1.02 [facility] Comment on above: Performed By: #### B MP #### [facility] [address] [place] [address] Dr. Glenda Basurto EGFR-AF SWEDISH >60 Normal >=60 [facility] Comment on above: Performed By: #### B MP #### [facility] [address] [address] [address] Glenda Basurto EGFR-NON AF SWEDISH 52 mL/min/1.73m2 Critically low >=60 [facility] Comment on above: Performed By: #### B MP #### [facility] [address] [address] [address] Glenda Basurto Glucose [Mass/Vol] 92 mg/dL Normal 74-106 [facility] Comment on above: Performed By: #### B MP #### [facility] [address] [place] [address] Dr. Glenda Basurto Potassium [Moles/Vol] 4.5 mmol/L Normal 3.5-5.1 [facility] Comment on above: Performed By: #### B MP #### [facility] [address] [address] [address] Glenda Basurto Sodium [Moles/Vol] 142 mmol/L Normal 136-145 [facility] Comment on above: Performed By: #### B MP #### [facility] [address] [address] [address] Glenda Basurto Urea nitrogen [Mass/Vol] 21.0 mg/dL Critically high 7.0-18.0 [facility] Comment on above: Performed By: #### B MP #### [facility] [address] [address] [address] Glenda Basurto Urea nitrogen/Creatinine [Mass ratio] 20.2 mg/mg Normal [facility] Comment on above: Performed By: #### B MP #### [facility] [address] [address] [address] Glenda Basurto SED RATE WESTERGRENon 2021 SED RATE 22 mm/hr Normal <=30 [facility] Comment on above: Performed By: #### S EDR ####[facility] [address] [address]Dr. Glenda Basurto URIC ACID SERUMon 09-16-2021 Urate [Mass/Vol] 4.8 mg/dL Normal 2.6-6.0 [facility] Comment on above: Performed By: #### U LEANNA, CRP #### [facility] [address] [address] [address] Glenda Basurto XR TIB_FIB RT 2Von [...] by: PURNIMA SANDOVAL Date: 2021-09-16 21:21 Normal [facility] CBC AUTO DIFFon 07-06-2021 BASO # 0.0 103/ul Normal 0.0-0.1 [facility] Comment on above: Performed By: #### C BC #### [facility] [address] [place] [address] Dr. Glenda Basurto Basophils/100 WBC (Bld) 0.6 % Normal 0.2-2.0 [facility] Comment on above: Performed By: #### C BC #### [facility] [address] [place] [address] Dr. Glenda Basurto EO # 0.1 103/ul Normal 0.0-0.7 [facility] Comment on above: Performed By: #### C BC #### [facility] [address] [place] [address] Dr. Glenda Basurto Eosinophils/100 WBC (Bld) 1.5 % Normal 0.9-7.0 [facility] Comment on above: Performed By: #### C BC #### [facility] [address] [place] [address] Dr. Glenda Basurto Erythrocyte distribution width (RBC) [Ratio] 13.6 % Normal 11.0-15.0 [facility] Comment on above: Performed By: #### C BC #### [facility] [address] [place] [address] Dr. Glenda Basurto Hematocrit (Bld) [Volume fraction] 43.9 % Normal 36.0-48.0 [facility] Comment on above: Performed By: #### C BC #### [facility] [address] [place] [address] Dr. Glenda Basurto Hemoglobin (Bld) [Mass/Vol] 14.2 g/dL Normal 12.0-16.0 [facility] Comment on above: Performed By: #### C BC #### [facility] [address] [place] [address] Dr. Glenda Basurto IG # 0.02 10e3/ul Normal 0.00-0.03 [facility] Comment on above: Performed By: #### C BC #### [facility] [address] [place] [address] Dr. Glenda Basurto IG % 0.3 % Normal 0.0-0.5 [facility] Comment on above: Performed By: #### C BC #### [facility] [address] [place] [address] Dr. Glenda Basurto LYMPH # 2.0 103/ul Normal 1.2-3.8 [facility] Comment on above: Performed By: #### C BC #### [facility] [address] [place] [address] Dr. Glenda Basurto Lymphocytes/100 WBC (Bld) 29.8 % Normal 20.5-60.0 [facility] Comment on above: Performed By: #### C BC #### [facility] [address] [place] [address] Dr. Glenda Basurto MANUAL DIFF REQ NO Normal [facility] Comment on above: Performed By: #### C BC #### [facility] [address] [place] [address] Dr. lGenda Basurto MCH (RBC) [Entitic mass] 30.9 pg Normal 26.7-34.0 [facility] Comment on above: Performed By: #### C BC #### [facility] [address] [place] [address] Dr. Glenda Basurto MCHC (RBC) [Mass/Vol] 32.3 g/dL Normal 29.9-35.2 [facility] Comment on above: Performed By: #### C BC #### [facility] [address] [place] [address] Dr. Glenda Basurto MCV (RBC) [Entitic vol] 95.4 fL Normal 81.0-99.0 [facility] Comment on above: Performed By: #### C BC #### [facility] [address] [place] [address] Dr. Glenda Basurto MONO # 0.5 103/ul Normal 0.3-0.8 [facility] Comment on above: Performed By: #### C BC #### [facility] [address] [place] [address] Dr. Glenda Basurto Monocytes/100 WBC (Bld) 7.1 % Normal 1.7-12.0 [facility] Comment on above: Performed By: #### C BC #### [facility] [address] [place] [address] Dr. Glenda Basurto NEUT # 4.1 103/ul Normal 1.4-6.5 [facility] Comment on above: Performed By: #### C BC #### [facility] [address] [place] [address] Dr. Glenda Basurto Neutrophils/100 WBC (Bld) 60.7 % Normal 43.0-75.0 [facility] Comment on above: Performed By: #### C BC #### [facility] [address] [place] [address] Dr. Glenda Basurto Platelet mean volume (Bld) [Entitic vol] 8.7 fL Critically low 9.5-13.5 [facility] Comment on above: Performed By: #### C BC #### [facility] [address] [place] [address] Dr. Glenda Basurto PLT 234 103/ul Normal 150-[address] [facility] Comment on above: Performed By: #### C BC #### [facility] [address] [place] [address] Dr. Glenda Basurto RBC 4.60 106/ul Normal 4.20-5.[address] [facility] Comment on above: Performed By: #### C BC #### [facility] [address] [place] [address] Dr. Glenda Basurto WBC 6.7 103/ul Normal 4.0-11.[address] [facility] Comment on above: Performed By: #### C BC #### [facility] [address] [place] [address] Dr. Glenda Basurto XR SINUSES 3 VIEWS [...] PURNIMA CORTEZ Date: 2021-05-21 12:11 Normal [facility] COVID Quick Testingon [address] Other Vital Signs Date Time Vital Sign Value Performing Clinician Facility 12-10-2024 11:35-0400 Body height 154.94 cm Jimmie Ball DO Work Phone: [facility] 12-10-2024 11:35-0400 Body mass index (BMI) [Ratio] 32.5 kg/m2 Jimmie Ball DO Work Phone: [facility] 12-10-2024 11:35-0400 Body weight 78.24 kg Jimmie Ball DO Work Phone: [facility] 12-10-2024 11:35-0400 Diastolic blood pressure 65 mm[Hg] Jimmie Ball DO Work Phone: [facility] 12-10-2024 11:35-0400 Heart rate 69 /min Jimmie Ball DO Work Phone: [facility] 12-10-2024 11:35-0400 Respiratory rate 12 /min Jimmie Ball DO Work Phone: [facility] 12-10-2024 11:35-0400 Systolic blood pressure 109 mm[Hg] Jimmie Ball DO Work Phone: [facility] 09-04-2024 13:13-0400 Body height 154.94 cm Jimmie Ball DO Work Phone: [facility] 09-04-2024 13:13-0400 Body mass index (BMI) [Ratio] 32.8 kg/m2 Jimmie Ball DO Work Phone: [facility] 09-04-2024 13:13-0400 Body weight 78.98 kg Jimmie Ball DO Work Phone: [facility] 09-04-2024 13:13-0400 Diastolic blood pressure 72 mm[Hg] Jimmie Ball DO Work Phone: [facility] 09-04-2024 13:13-0400 Heart rate 80 /min Jimmie Ball DO Work Phone: [facility] 09-04-2024 13:13-0400 Respiratory rate 12 /min Jimmie Ball DO Work Phone: [facility] 09-04-2024 13:13-0400 Systolic blood pressure 134 mm[Hg] Jimmie Ball DO Work Phone: [facility] 07-03-2024 13:40-0400 Body height 154.94 cm [facility] 07-03-2024 13:40-0400 Body mass index (BMI) [Ratio] 32.8 kg/m2 [facility] 07-03-2024 13:40-0400 Body weight 78.92 kg [facility] 07-03-2024 13:40-0400 Diastolic blood pressure 72 mm[Hg] [facility] 07-03-2024 13:40-0400 Heart rate 80 /min [facility] 07-03-2024 13:40-0400 Respiratory rate 12 /min [facility] 07-03-2024 13:40-0400 Systolic blood pressure 124 mm[Hg] [facility] 12-07-2023 11:28-0400 Body height 154.94 cm [facility] 12-07-2023 11:28-0400 Body mass index (BMI) [Ratio] 33.1 kg/m2 [facility] 12-07-2023 11:28-0400 Body weight 79.54 kg [facility] 12-07-2023 11:28-0400 Diastolic blood pressure 72 mm[Hg] [facility] 12-07-2023 11:28-0400 Heart rate 76 /min [facility] 12-07-2023 11:28-0400 Respiratory rate 12 /min [facility] 12-07-2023 11:28-0400 Systolic blood pressure 123 mm[Hg] [facility] 09-20-2023 10:54-0400 Body height 154.94 cm [facility] 09-20-2023 10:54-0400 Body mass index (BMI) [Ratio] 33.3 kg/m2 [facility] 09-20-2023 10:54-0400 Body temperature 97.5 [degF] [facility] 09-20-2023 10:54-0400 Body weight 79.97 kg [facility] 09-20-2023 10:54-0400 Diastolic blood pressure 78 mm[Hg] [facility] 09-20-2023 10:54-0400 Heart rate 70 /min [facility] 09-20-2023 10:54-0400 Respiratory rate 16 /min [facility] 09-20-2023 10:54-0400 SaO2% (BldA) [Mass fraction] 96 % [facility] 09-20-2023 10:54-0400 Systolic blood pressure 121 mm[Hg] [facility] 02-05-2023 12:00-0500 Body height 154.94 cm Siomara Mcfarland Other [employer] [facility] [place] Other 02-05-2023 12:00-0500 Body mass index (BMI) [Ratio] 34.2 kg/m2 Siomara Mcfarland Other [address] Other 02-05-2023 12:00-0500 Body temperature 98.2 [degF] Siomara Mcfarland Other [address] Other 02-05-2023 12:00-0500 Body weight 82.1 kg Siomara Mcfarland Other [address] Other 02-05-2023 12:00-0500 Diastolic blood pressure 78 mm[Hg] Siomara Mcfarland Other [address] Other 02-05-2023 12:00-0500 Respiratory rate 19 /min Siomara Mcfarland Other [address] Other 02-05-2023 12:00-0500 SaO2% (BldA) [Mass fraction] 97 % Siomara Mcfarland Other [address] Other 02-05-2023 12:00-0500 Systolic blood pressure 135 mm[Hg] Siomara Mcfarland Other [address] Other 11-12-2022 09:15-0400 Body height 154.94 cm Jimmie Ball Other [address] Other 11-12-2022 09:15-0400 Body mass index (BMI) [Ratio] 32.91 kg/m2 Jimmie Ball Other [address] Other 11-12-2022 09:15-0400 Body weight 79.02 kg Jimmie Ball Other [address] Other 11-12-2022 09:15-0400 Diastolic blood pressure 71 mm[Hg] Jimmie Ball Other [address] Other 11-12-2022 09:15-0400 Respiratory rate 12 /min Jimmie Ball Other [address] Other 11-12-2022 09:15-0400 Systolic blood pressure 130 mm[Hg] Jimmie Ball Other [address] Other 11-02-2022 17:55-0400 Body height 154.94 cm Marivel Chinyere Other [address] Other 11-02-2022 17:55-0400 Body mass index (BMI) [Ratio] 32.87 kg/m2 Marivel Chinyere Other [address] Other 11-02-2022 17:55-0400 Body temperature 98.2 [degF] Marivel Chinyere Other [address] Other 11-02-2022 17:55-0400 Body weight 78.93 kg Marivel Whitlock Other [address] Other 11-02-2022 17:55-0400 Diastolic blood pressure 72 mm[Hg] Marivel Whitlock Other [address] Other 11-02-2022 17:55-0400 Respiratory rate 18 /min Marivel Whitlock Other [address] Other 11-02-2022 17:55-0400 SaO2% (BldA) [Mass fraction] 97 % Marivel Whitlock Other [address] Other 11-02-2022 17:55-0400 Systolic blood pressure 136 mm[Hg] Marivel Whitlock Other [address] Other 06-21-2022 12:30-0400 Body height 154.94 cm Jimmie Ball Other [address] Other 06-21-2022 12:30-0400 Body mass index (BMI) [Ratio] 32.42 kg/m2 Jimmie Ball Other [address] Other 06-21-2022 12:30-0400 Body weight 77.84 kg Jimmie Ball Other [address] Other 06-21-2022 12:30-0400 Diastolic blood pressure 75 mm[Hg] Jimmie Ball Other [address] Other 06-21-2022 12:30-0400 Respiratory rate 12 /min Jimmie Ball Other [address] Other 06-21-2022 12:30-0400 Systolic blood pressure 126 mm[Hg] Jimmie Melendez Other [address] Other 02-27-2021 11:30-0500 Body height 154.94 cm Marivel Whitlock Other [address] Other 02-27-2021 11:30-0500 Body mass index (BMI) [Ratio] 31.17 kg/m2 Marivel Whitlock Other [address] Other 02-27-2021 11:30-0500 Body temperature 97.5 [degF] Marivel Whitlock Other [address] Other 02-27-2021 11:30-0500 Body weight 74.84 kg Marivel Whitlock Other [address] Other 02-27-2021 11:30-0500 Respiratory rate 18 /min Marivel Whitlock Other [address] Other 02-27-2021 11:30-0500 SaO2% (BldA) [Mass fraction] 98 % Marivel Whitlock Other [address] Other Encounters Encounter Date Encounter Type Care Provider Facility Start: 12-10-2024 End: 12-10-2024 ambulatory Jimmie Melendez Work Phone: [facility] Work Phone: Start: 12-10-2024 End: 12-10-2024 Patient encounter procedure Jimmie Melendez DO [facility] Work Phone: Start: 11-29-2024 End: 11-29-2024 ambulatory Zulay Lopez PA-C [facility] Start: 10-29-2024 End: 10-29-2024 ambulatory Zulay Lopez PA-C Facility[facility] Start: 09-04-2024 End: 09-04-2024 ambulatory Jimmie Ball DO Work Phone: [facility] Work Phone: Start: 09-04-2024 End: 09-04-2024 Patient encounter procedure Jimmie Melendez DO -[facility] Work Phone: Start: 07-03-2024 End: 07-03-2024 ambulatory [facility] Work Phone: Start: 07-03-2024 End: 07-03-2024 Patient encounter procedure [facility] Work Phone: Start: 06-15-2024 Non-patient / Non-visit [facility] Physician [facility] Work Phone: Start: 06-05-2024 End: 06-05-2024 ambulatory Zulay Lopez PA-C Facility[facility] Start: 05-29-2024 ambulatory Zulay oh PA-C Facility[facility] Start: 05-29-2024 ambulatory Alvaro Melendez DO [facility] Start: 01-03-2024 End: 01-03-2024 Patient encounter procedure DO Jimmie Melendez Work Phone: [facility] [address] Work Phone: Start: 01-03-2024 End: 01-03-2024 ambulatory DO Jimmie Melendez Work Phone: [facility] Work Phone: Start: 12-08-2023 Non-patient / Non-visit DO David webb Ball Work Phone: [facility] Physician [facility] Work Phone: Start: 12-07-2023 End: 12-07-2023 ambulatory [facility] Work Phone: Start: 12-07-2023 End: 12-07-2023 Patient encounter procedure [facility] Work Phone: Start: 12-04-2023 Patient encounter procedure [facility] Start: 09-20-2023 End: 09-20-2023 ambulatory [facility] Work Phone: Start: 09-20-2023 End: 09-20-2023 Patient encounter procedure [facility] Work Phone: Start: 03-02-2023 End: 03-02-2023 ambulatory Jimmie Melendez Other [address] Other Start: 03-02-2023 Office outpatient vi sit 15 minutes [facility] Start: 02-05-2023 End: 02-05-2023 ambulatory Siomara Mcfarland Other [address] Other Start: 02-05-2023 Office outpatient vi sit 15 minutes Siomara Mcfarland [facility] Start: 11-12-2022 End: 11-12-2022 ambulatory Jimmie Melendez Other [address] Other Start: 11-12-2022 Office outpatient vi sit 15 minutes Jimmie Melendez [facility] Start: 11-12-2022 Telephone encounter Jimmie Melendez [facility] Start: 11-05-2022 End: 11-05-2022 ambulatory Jimmie Melendez Other [address] Other Start: 11-05-2022 Telephone encounter Jimmie Melendez FP [facility] Start: 11-02-2022 End: 11-02-2022 ambulatory Marivel Whitlock Other [address] Other Start: 11-02-2022 Office outpatient vi sit 15 minutes Marivledoug Whitlock [facility] Start: 10-05-2022 End: 10-05-2022 ambulatory Jimmie Melendez Other [address] Other Start: 10-05-2022 Nursing evaluation o f patient and report [facility] Start: 08-17-2022 End: 08-17-2022 ambulatory Jimmie Melendez Other [address] Other Start: 08-17-2022 Telephone encounter Jimmie Melendez FP [facility] Start: 06-21-2022 End: 06-21-2022 ambulatory Jimmie Melendez Other [address] Other Start: 06-21-2022 Office outpatient vi sit 25 minutes [facility] Start: 12-07-2021 End: 12-08-[address] JIMMIE [...] preprocedural cardiovascular examination DR CINTHIA BERNARD [facility] Start: 07-08-2021 Encounter for preprocedural laboratory examination DR CINTHIA BERNARD [facility] Start: 07-06-2021 End: 07-07-[address] CINTHIA BERNARD Facility:[facility] Start: 07-06-2021 End: 07-07-2021 Encounter for preprocedural cardiovascular examination DR CINTHIA BERNARD Facility:[facility] Start: 05-21-2021 End: 05-22-[address] CINTHIA BERNARD Facility:[facility] Start: 02-27-2021 End: 02-27-2021 ambulatory Marivel Whitlock Other [address] Other Start: 02-27-2021 Office outpatient vi sit 15 minutes Marivel Whitlock [facility] Procedures Date Procedure Procedure Detail Performing Clinician Start: 01-03-2024 Plain X-ray of bilat eral hands DO Jimmie Melendez Work Phone: History of cholecystectomy Jimmie Melendez Other History of cholecystectomy Status post laparoscopic cholecystectomy Comment on above: 10/22Problem List kenneth an-up per request of Phys. EHR Cmte Plan of Treatment Date Care Activity Detail Author Start: 01-03-2024 Hemolytic complement CH50 level [facility] Complement C3 [Mass/ volume] in Serum or Plasma [facility] Complement C4 [Mass/ volume] in Serum or Plasma [facility] Comprehensive metabo lic 2000 panel - Serum or Plasma [facility] MG Breast - bilateral Screening [facility] Rheumatoid factor [U nits/volume] in Serum or Plasma [facility] Immunizations Immunization Date Immunization Notes Care Provider Fa cility 11-04-2023 Fluzone QIV High-Dos e 65YR+ [facility] 10-05-2022 Prevnar 20 Jimmie Melendez Other [facility] 01-20-2022 COVID-19 Pfizer (Pediatric) Jimmie Melendez Other [facility] 12-21-2021 influenza virus vaccine, unspecified formulation [facility] 12-21-2021 influenza, high dose seasonal, preservative-free Jimmie Melendez Other [address] Other 11-26-2021 diphtheria, tetanus toxoids and acellular pertussis vaccine, unspecified formulation Jimmie Melendez Other [facility] 08-20-2021 COVID-19 Vaccine Pfi zer - Documentation Purposes Only Jimmie Melendez Other [facility] 12-22-2020 COVID-19 Vaccine Pfi zer - Documentation Purposes Only Jimmie Melendez Other [facility] 11-30-2020 influenza virus vaccine, split virus (incl. purified surface antigen) Jimmie Melendez Other [facility] Other 11-30-2020 influenza virus vaccine, unspecified formulation [facility] 04-23-2020 COVID-19 Vaccine Pfi zer - Documentation Purposes Only Jimmie Melendez Other [facility] 03-31-2020 COVID-19 Vaccine Pfi zer - Documentation Purposes Only Jimmie Melendez Other [facility] 12-27-2019 influenza virus vaccine, split virus (incl. purified surface antigen) Jimmie Melendez Other [facility] Other 12-27-2019 influenza virus vaccine, unspecified formulation [facility] 08-09-2019 pneumococcal polysaccharide vaccine, 23 valent Jimmie Melendez Other [facility] 01-02-2019 influenza virus vaccine, split virus (incl. purified surface antigen) Jimmie Melendez Other [facility] Other 01-02-2019 influenza virus vaccine, unspecified formulation [facility] 12-14-2017 diphtheria, tetanus toxoids and acellular pertussis vaccine, unspecified formulation Jimmie Melendez Other [facility] Payers Date Payer Category Payer Private Health Insurance 2020 Unknown 2016 Medicare 1958 Medicare [id number] 2.1 [id number] 1959 Private Health Insurance CLI [id number] 1951 Unknown [id number] 2.16.84 [id number] 1950 Unknown [id number] 2.16.84 0.1.790042.3.579.2.593 1950 Unknown [id number] 2.16.84 0.1.503759.3.579.2.593 1951 Unknown [id number] 2.16.84 0.1.494561.3.579.2.593 1950 Unknown [id number] 2.16.84 0.1.977232.3.579.2.593 1951 Unknown [id number] 2.16.84 0.1.992872.3.579.2.593 1951 Unknown [id number] 2.16.84 0.1.678659.3.579.2.593 1951 Unknown [id number] 2.16.84 0.1.236939.3.579.2.593 1951 Unknown [id number] 2.16.84 0.1.714806.3.579.2.593 1951 Unknown [id number] 2.16.84 0.1.175495.3.579.2.593 1950 Unknown [id number] 2.16. 840.1.577035.3.579.2.196 1950 Unknown [id number] 2.16. 840.1.133793.3.579.2.196 1950 Unknown [id number] 2.16. 840.1.960786.3.579.2.196 1950 Unknown [id number] 2.16. 840.1.349425.3.579.2.196 1951 Unknown [id number] 2.16. 840.1.447748.3.579.2.196 1950 Unknown [id number] 2.16. 840.1.498112.3.579.2.196 1950 Unknown [id number] 2.16. 840.1.916707.3.579.2.196 Self-pay Self Pay [id number] Social History Date Type Detail Facility Sex Assigned At [address] Other Start: 03-02-2023 Tobacco smoking stat us NHIS Never smoked tobacco (finding) [facility] Start: 1950 Sex Assigned At Female F [facility] Start: 07-03-2024 Sex Female (finding) [facility] Clinical Notes 02-27-2021 to 07-03-2024 Note Date & Type Note Facility 07-03-2024 Evaluation note Diagnosis Onset Date Resolution Chronic kidney disease acute Ap ril 2024 1:35pm Hypercholesterolemia acute Apri l 2024 1:35pm Inflammatory polyarthritis acute July 03, 2024 1:35pm Metabolic dysfunction-associated steatotic liver disease (MASLD) acute July 03, 2024 1:35pm Obesity acute July 03 1:35pm Primary hypertension acute Apri l 2024 1:35pm Thyroid nodule acute June 1:35pm [facility] Work Phone: [phone] Evaluation note* Encounter Date Diagnosis Assessment Notes Treatment Notes Treatment Clinical Notes Feb, Acute non-recurrent maxillary sinusitis (ICD-10 - J01.00) Instructed to use Robitussin or Mucinex for cough, saline or Flonase NS for congestion, Tylenol for pain and fever. Feb, Suspected COVID-19 virus infection (ICD-10 - Z20.822) Will send testing to [facility] to be completed tomorrow - this [...] Increases risk of more severe, prolonged illness [address] Other 12-02-2023 Evaluation note* Encounter Date Diagnosis [...] with PCP if febrile or new/worsening s/s. [address] Other 09-08-2023 Evaluation note* Encounter Date Diagnosis [...] continue exercise to achieve/maintain a normal BMI. [address] Other 08-29-2023 Evaluation note* Encounter Date Diagnosis [...] back pain home care material was printed [address] Other 04-17-2023 Evaluation note* Encounter Date Diagnosis [...] High risk medication use (ICD-10 - Z79.899) [address] Other 07-21-2022 NotePROCEDURE: XR FOOT RT MIN 3 VIEWS, XR ANKLE RT MIN 3 VIEWS COMPARISON: None. HISTORY: Pain FINDINGS: BONES:No acute fracture or dislocation. Severe osteoarthritis of the first metatarsal phalangeal joint with sokp-yw-dyeh articulation and bony remodeling. Moderate bulky enthesopathic spurring of the calcaneus at the Achilles and plantar insertions. Moderate degenerative changes mid foot with joint space narrowing and marginal osteophyte formation SOFT TISSUES:Negative. No visible soft tissue swelling. EFFUSION:None visible. OTHER: Negative. IMPRESSION: Degenerative osteoarthritis with severe changes at the first metatarsal-phalangeal joint Electronically authenticated by: PURNIMA CORTEZ Date: 2021-09-24 07:23[facility]07-21-2022 NotePROCEDURE: XR FOOT RT MIN 3 VIEWS, XR ANKLE RT MIN 3 VIEWS COMPARISON: None. HISTORY: Pain FINDINGS: BONES:No acute fracture or dislocation. Severe osteoarthritis of the first metatarsal phalangeal joint with tbhs-ob-ccug articulation and bony remodeling. Moderate bulky enthesopathic spurring of the calcaneus at the Achilles and plantar insertions. Moderate degenerative changes mid foot with joint space narrowing and marginal osteophyte formation SOFT TISSUES:Negative. No visible soft tissue swelling. EFFUSION:None visible. OTHER: Negative. IMPRESSION: Degenerative osteoarthritis with severe changes at the first metatarsal-phalangeal joint Electronically authenticated by: PURNIMA CORTEZ Date: 2021-09-24 07:23[facility]05-10-2022 NoteOPERATIVE NOTE OPERATION DATE: 07/14/2021 PRIMARY [...] to the recovery room in good condition. [facility] Signed and Approved by: DR CINTHIA BERNARD 07/15/2021 07:48:00[facility]12-24-2021 Evaluation note* Encounter Date Diagnosis Assessment [...] Patient care instructions given in writting by [facility] Care At Home document. [address] Other Evaluation noteNo InformationNort Bit [employer] Other Evaluation noteNo assessment information available [facility] Work Phone: Evaluation note* Diagnosis Onset Date Resolution Status Chronic kidney disease acute Fatigue acute Hypercholesterolemia acute Inflammatory polyarthritis a cute Medicare annual wellness visit, subsequent acute Metabolic dysfunction-associ ated steatotic liver disease (MASLD) acute Obesity acute Primary hypertension acute Screening for colon cancer n oneactive [facility] Work Phone: Evaluation note* Diagnosis Onset Date Resolution Status Admit Date Chronic kidney disease acute Ap ril 2024 1:35pm Hypercholesterolemia acute Apri l 2024 1:35pm Inflammatory polyarthritis acute July 03, 2024 1:35pm Metabolic dysfunction-associ ated steatotic liver disease (MASLD) acute July 03, 2024 1:35pm Obesity acute July 03 1:35pm Primary hypertension acute Apri l 2024 1:35pm Thyroid nodule acute June 1:35pm [facility] Work Phone: Evaluation note* Diagnosis Onset Date Resolution Status Admit Date Chronic kidney disease acute Oc tober 2024 11:25am Hypercholesterolemia acute Deco 2024 11:25am Inflammatory polyarthritis acute December 10, 2024 11:25am Medicare annual wellness vis it, subsequent acute December 10 11:25am Metabolic dysfunction-associ ated steatotic liver disease (MASLD) acute December 10, 2024 11:25am Obesity acute December 10, 2 025 11:25am Primary hypertension acute 2024 11:25am Thyroid nodule acute December 11:25am Screening for colon cancer noneactiv e December 10, 2024 11:25am [facility] Work Phone: Hislaji general Narrative - Reported* Type Description Date Surgical History Bilateral Knees Replacement 03/07 Surgical History Herniated Discs-Low back Surgical History gallbladder removed 2020 Hospitalization History See past surgical histor y [address] Other Hisqcfu general Narrative - Reported* Type Description Date [...] Hospitalization History See past surgical histor y [address] Other history general Narrative - Reported* Type [...] Hospitalization History See past surgical histor y [facility] Other Reason for referral (narrative)No reason for referral information available[facility] Work [facility]: Summary Purpose Family History Relationship Condition Age at Onset Recorded Date/T lavonne sister Malignant neoplasm of breast Unknown mother Hypertension Unknown Heart failure Unknown father Unknown mother Unknown Hypertension Unknown son Unknown Advance Directives Advance Directive Response Recorded Date/ Time Advance Directives Yes October 29, 2020 2:29pm Chief Complaint and Reason for Visit Chief Complaint Admit Date 6 month f/u July 03, 2024 1:3 5pm Sinus pressure, ear pain September 04, 2024 1:08pm Reason for Visit Admit Date Chronic kidney disease July 03, 2024 1:35pm Hypercholesterolemia July 03, 2024 1: 35pm Inflammatory polyarthritis July 03 025 1:35pm Metabolic dysfunction-associ ated steatotic liver disease (MASLD) July 03, 2024 1:35pm Obesity July 03, 2024 1:3 5pm Primary hypertension July 03, 2024 1: 35pm Thyroid nodule July 03, 2024 1:3 5pm Chief Complaint Congestion Chief Complaint Congestion Wellness [...] hypertension Screening for colon cancer Chief Complaint Admit Date 6 month f/u July 03, 2024 1:3 5pm Chief Complaint Admit Date Wellness December 10, 2024 11 :25am Reason for Visit Admit Date Chronic kidney disease December 10, 2024 11:25am Hypercholesterolemia December 10, 2024 1 1:25am Inflammatory polyarthritis December 10, 2024 11:25am Medicare annual wellness visit, subseque nt December 10, 2024 11:25am Metabolic dysfunction-associ ated steatotic liver disease (MASLD) December 10, 2024 11:25am Obesity December 10, 2024 11 :25am Primary hypertension December 10, 2024 1 1:25am Thyroid nodule December 10, 2024 11 :25am Screening for colon cancer December 10, 2024 11:25am Additional Source Comments REASON FOR VISIT (unrecogniz ed section and content) #7 BAIGE C COUGH, CONGESTI ON, SORE THROAT4 MONTH CHECK UPMedication ClarificationPNEUMONIA SHOTEAR ACHE IN RIGHT EAR, BACK PAIN ALSORefillReferralXray resultsPOSS SINUS INFECTIONExposed to COVID-Negative, All symptoms- [phone] INFORMATION SOURCE (unrecogn ized section and content) DATE CREATED AUTHOR 12/11/2021 [facility] DATE CREATED AUTHOR AUTHOR'S ORGANIZ ATION 01/05/2024 [facility] DATE CREATED AUTHOR AUTHOR'S ORGANIZ ATION 12/06/2024 [facility] Care Teams (unrecognized sec tion and content) Team Status: Active Member Role Status Dates Jimmie Melendez DO Primary Care Provider Active Team Status: Inactive Member Role Status Dates Jimmie Melendez DO Primary Care Provider Active Start: December 10, 2024 End: December 10, 2024 Jimmie Melendez DO Attending Provider Active Sta rt: December 10, 2024 End: December 10, 2024 Team Status: Active Member Role Status Dates Jimmie Melendez DO Primary Care Provider Active Team Status: Active Member Role Status Lara Melendez DO Primary Care Provide r, Attending Provider Active Start: June 15, 2024 Team Status: Inactive Member Role Status Lara Melendez DO Primary Care Provide r, Attending Provider Active Start: July 03, 2024 End: July 03, 2024 Team Status: Inactive Member Role Status Lara Melendez DO Primary Care Provider Active Start: September 20, 2023 End: September 20, 2023 Doreen Cortez APRN Attending Provider Active S tart: September 20, 2023 End: September 20, 2023 Team Status: Inactive Member Role Status Dates Jimmie Melendez DO Primary Care Provide r, Attending Provider Active Start: December 07, 2023 End: December 07, 2023 Team Status: Active Member Role Status Lara Melendez DO Primary Care Provide r, Attending Provider Active Start: December 08, 2023 Team Status: Inactive Member Role Status Lara Melendez DO Primary Care Provider Active Start: January 03, 2024 End: January 03, 2024 Mohamud Lee MD Attending Provider Active St art: January 03, 2024 End: January 03, 2024 Team Status: Active Member Role Status Dates Jimmie Melendez , Primary Care Provider Active Start: June 15, 2024 Jimmie Melendez , Attending Provider Active Sta rt: June 15, 2024 Team Status: Inactive Member Role Status Dates Jimmie Melendez , DO Primary Care Provider Active Start: July 03, 2024 End: July 03, 2024 Jimmie Melendez , DO Attending Provider Active Sta rt: July 03, 2024 End: July 03, 2024 Team Status: Inactive Member Role Status Dates Jimmie Melendez , Primary Care Provider Active Start: September 04, 2024 End: September 04, 2024 Jimmie Melendez , DO Attending Provider Active Sta rt: September 04, 2024 End: September 04, 2024 Team Status: Inactive Member Role Status Dates Jimmie Melendez , Primary Care Provider Active Start: December 10, 2024 End: December 10, 2024 Jimmie Melendez , DO Attending Provider Active Sta rt: December 10, 2024 End: December 10, 2024 Goals (unrecognized section and content) Goals [...] BE BASED ON THE PRIMARY CLINICAL RECORDS. [facility]. provides no warranty or guarantee of the accuracy or completeness of information in this document.
[2024-12-20 10:45] LABS: Hematocrit 46.2 % (36.0-48.0); Hemoglobin 14.9 g/dL (12.0-16.0); Immature Granulocytes Abs Auto 0.02 10^3/uL (0.00-0.03); Immature Granulocytes Pct Auto 0.3 % (0.0-0.5); Lymphocytes Absolute Auto 1.8 10^3/uL (1.2-3.8); Mean Corpuscular HGB Conc 32.3 g/dL (29.9-35.2); Mean Corpuscular Hemoglobin 30.3 pg (26.7-34.0); Mean Corpuscular Volume 93.9 fL (81.0-99.0); Platelet Count 220 10^3/uL (150-450); Red Blood Count 4.92 10^6/uL (4.20-5.40); White Blood Count 6.6 10^3/uL (4.0-11.0)
[2024-12-20 12:08] LABS: Alanine Aminotransferase 31 U/L (14-59); Albumin Globulin Ratio 1.0; Albumin Level 3.8 g/dL (3.4-5.0); Alkaline Phosphatase 116 U/L (46-116); Anion Gap 13.7; Aspartate Amino Transferase 25 U/L (15-37); Blood Urea Nitrogen 16.0 mg/dL (7.0-18.0); Calcium 9.6 mg/dL (8.5-10.1); Carbon Dioxide 27.0 mmol/L (21.0-32.0); Chloride 108 mmol/L (98-107); Cholesterol 127 mg/dL (<=200); Estimated GFR (African America >60 (>=60 mL/min/1.73m^2); Estimated GFR (Non-African Ame 51 (>=60 mL/min/1.73m^2); Globulin 3.8 g/dL; Glucose 93 mg/dL (74-106); HDL Cholesterol 56 mg/dL (40-60); Potassium 4.7 mmol/L (3.5-5.1); Sodium 144 mmol/L (136-145); Thyroid Stimulating Hormone 0.939 uIU/mL (0.358-3.740); Total Protein 7.6 g/dL (6.4-8.2); Triglycerides 84 mg/dL (<=150); VLDL CHOLESTEROL 16.8 mg/dL
== END 2024-12-20 10:07 | disposition home or self-care (01) ==
PROVIDERS: PCP Internal Medicine; Visit Provider Internal Medicine
DX: E04.1 Nontoxic single thyroid nodule (principal); K76.0 Fatty (change of) liver, not elsewhere classified; E78.00 Pure hypercholesterolemia, unspecified; N18.32 Chronic kidney disease, stage 3b; I12.9 Hypertensive chronic kidney disease with stage 1 through stage 4 chronic kidney disease, or unspecified chronic kidney disease
CPT/HCPCS: 36415; 80053; 80061; 82043; 82570; 84443; 85025

== ENCOUNTER 2024-12-27 11:02 | Outpatient (OUT) | payer MEDICARE, SELFPAY ==
--- OUTSIDE RECORDS SUMMARY | 2024-12-27 11:04 | XMS_ITS | Clinical Summary ---
Author Organization [facility] Address [address] [place] [address] Care Team Providers Care Pelt Grader Name Role Phone Jimmie Melendez Primary Care Provider [phone] Allergies Active AllergyReactionsCriticalityNoted DateCommentsBee SwmbbkRqmylks33/19/2023 Fish Protein-Containing Drug WcewvscmXtdvgsq07/19/2056ChpcJehlfgp68/19/2023Latex Hives07/23/2022 Medications MedicationSigDispense QuantityRefillsLast FilledStart DateEnd DateStatus atorvastatin (Lipitor) 40 MG tablet Take 40 mg by mouth in the morning.Active fluticasone (Flonase) 50 MCG/ACT nasal spray Administer 2 sprays into each nostril in the morning and 2 sprays before bedtime.05/20/2021ctive triamterene-hydroCHLOROthiazide (Dyazide) 37.5-25 MG capsule Take 1 capsule by mouth in the morning.Active Active Problems ProblemNoted DateDiagnosed DateETD (Eustachian tube dysfunction), right 3Cochlear hydrops of right ear07/23/2022ysfunction of both eustachian tubes07/23/2022erforation of tympanic yyczjjbw76/19/2023Sensorineural hearing loss (SNHL), zngmnrrom02/19/2023 Family History Medical HistoryRelationNameCommentsMental illnessFatherHeart failureMother HypertensionMotherOsteoarthritisMotherRelationNameStatusCommentsFatherMother Social History Tobacco UseTypesPacks/DayYears UsedDateSmoking Tobacco: NeverSmokeless Tobacco: Never Tobacco Cessation:Counseling Given: Not Answered Alcohol UseStandard Drinks/WeekCommentsNot Currently0 (1 standard drink = 0.6 oz pure alcohol)CommentsUnknownSex and Gender InformationValueDate Recorded Sex Assigned at BirthNot on fileLegal RmwHeihea39/15/2023 6:57 PM EDTGender IdentityNot on fileSexual OrientationNot on file Last Filed Vital Signs Vital SignReadingTime TakenCommentsBlood Wlypnedr464/6906 10:20 AM EDT Pulse--Temperature--Respiratory Rate--Oxygen Saturation--Inhaled Oxygen Concentration--Kkyncb93.6 kg (171 lb)08/06/2022 10:20 AM FHGAkhtkv398.4 cm (5') 08/06/2022 10:20 AM EDTBody Mass Index33.406 10:20 AM EDT Plan of Treatment Not on file Insurance Care Teams Team MemberRelationshipSpecialtyStart DateEnd Date Jimmie Melendez DO PCP - GeneralInternal Medicine08/03/22
--- OUTSIDE RECORDS SUMMARY | 2024-12-27 11:05 | XMS_ITS | Clinical Summary ---
Author Organization [facility] tem Address [facility] [id number] [address] [place] [address] Care Team Providers Care Cane Flume Watcher Name Role Phone Jimmie Melendez Primary Care Provider [phone] Allergies Active AllergyReactionsCriticalityNoted DateCommentsGold Au atex 10/02/2020 Medications MedicationSigDispense QuantityRefillsLast FilledStart DateEnd DateStatus atorvastatin (LIPITOR) 40 mg tablet Take 40 mg by mouth daily.09/10/2020ctive benazepriL (LOTENSIN) 20 mg tablet Take 20 mg by mouth daily.09/10/2020ctive Active Problems No known active problems Family History RelationNameStatusCommentsDaughterAliveFatherDeceasedMotherDeceasedSisterAlive Son 1AliveSon 2Deceased Social History Tobacco UseTypesPacks/DayYears UsedDateSmoking Tobacco: NeverSmokeless Tobacco: NeverAlcohol UseStandard Drinks/WeekCommentsNever0 (1 standard drink = 0.6 oz pure alcohol)ChildcareAnswerDate JpcdntssUgzftqhohEjmgeyz39/12/2019Employment AnswerDate VdztruywUwzusivlqkOrnbqfo08/12/2019CommentsUnknownSex and Gender InformationValueDate RecordedSex Assigned at BirthNot on fileLegal Sex Eiispx0910/10/2014 12:11 PM EDTGender IdentityNot on fileSexual OrientationNot on file Last Filed Vital Signs Vital SignReadingTime TakenCommentsBlood Ucbbltrq971/7409/03/2020 9:32 AM EDT Pulse--Bwlgjdoiimw22.6 ??C (97.8 ??F)11/05/2020 9:32 AM EDTRespiratory Rate-- Oxygen Saturation--Inhaled Oxygen Concentration--Estoal76.3 kg (166 lb) 11/05/2020 9:32 AM ETIHzemzf353.4 cm (5')11/05/2020 9:32 AM EDTBody Mass Index 32.42011/05/2020 9:32 AM EDT Plan of Treatment Health MaintenanceDue DateLast DoneCommentsDepression Uyfkkqdvi52/23/1963Tobacco Ikffigaqu17/23/1963Adult BMI Elmlviarj36/23/1969Zoster (Shingles) Vaccine (1 of 2)2001Fall Risk Vidofqlqk68/23/2016COVID-19 Vaccine (3 - 2024- season) 502/, 03/31/2020Influenza Nsinjyc8011/05/2024DTaP,Tdap and Td Vaccines (2 - Td or Tdap) Medical Devices Not on file Insurance Care Teams Team MemberRelationshipSpecialtyStart DateEnd Date Jimmie Melendez DO [address] [place] [address] PCP - GeneralInternal Medicine09/15/20
--- NOTE | 2024-12-27 11:08 | MM_ITS ---
Patient Name: SANTOS VILLALPANDO MR#: [id number] : 1950 Exam Date: 12/27/2024 Ordering Doctor: DR LANCE LONG D.O. RADIOLOGY REPORT PROCEDURE: MM TOMOSYNTHESIS SCREENING BI COMPARISON: MM TOMOSYNTHESIS SCREENING BI, 12/05/2023. MM TOMOSYNTHESIS SCREENING BI, 09/21/2022. MG MAMM SCREEN 3D FERMÍN CAD, 09/17/2021. MG MAMM SCREEN 3D FERMÍN CAD, 09/05/2020. INDICATIONS: screening mammogram for malignant neoplasm Calculator Name NCI Breast Cancer Risk Assessment Tool 5 Year Breast Cancer Risk 9.00% Lifetime Breast Cancer Risk 20.60% Personal Breast Cancer No Personal Ovarian Cancer No Treatments None Family Cancers Sister with breast cancer at age 69; Sister with breast cancer at age 74. LOCATION: [facility] BREAST COMPOSITION: The breasts are heterogeneously dense, which may obscure small masses. FINDINGS: RIGHT BREAST: No significant suspicious finding. LEFT BREAST: No significant suspicious finding. DIAGNOSTIC CATEGORY 1--NEGATIVE. RECOMMENDATIONS: ROUTINE MAMMOGRAM AND CLINICAL EVALUATION IN 12 MONTHS. Dictated by: Abbe Ludwig DO on 12/27/2024 at 15:07 Approved by: Abbe Ludwig DO on 12/27/2024 at 15:10
--- OUTSIDE RECORDS SUMMARY | 2024-12-27 11:08 | XMS_ITS | CCD ---
Author Organization [facility] Care Team Providers Care Graphics Intern Name Role Phone Marivel Whitlock Unavailable [...] Attending Unavailable HIGHLANDER, KIERRA Colmenares Admitting Unavailable DANA, DR PURNIMA [...] Lee Attending Unavailable Mohamud Lee Admitting Unavailable AlJimmie Primary Care Unavailable Al ANTUNEZ Jimmie Primary Care Provider [phone] Jimmie Melendez DO Attending Provider John PA-C, [address] [facility] Attending Unavai lable Ball DO, [facility] Primary Care Unavailab le John PA-C, [address] Attending Unavai lable Ball DO, [facility] Primary Care Unavailab le John PA-C, [facility] Attending Unavai lable Ball DO, [facility] Primary Care Unavailab le Ball DO, [facility] Primary Care Unavailab le John PA-C, [facility] Attending Unavai lable John PA-C, [facility] Attending Unavai lable Ball DO, [facility] Primary Care Unavailab le John PA-C, [facility] Attending Unavai lable Ball DO, [facility] Primary Care Unavailab le John PA-C, [facility] [facility] Attending Unavai lable Ball DO, [facility] Primary Care Unavailab le Ball DO, Jimmie Primary Care Provider [phone] Jimmie Melendez DO Attending Provider [phone] Allergies Allergy ClassificationReported Allergen(s)Allergy TypeDate of OnsetReaction(s) Facility (1 source)ChlorotrianiseneDrug Xntdzfk62-01-2541[facility] (7 sources)LatexDrug allergy (disorder)92-97-8873WsezeNqtC[facility] (9 sources)GoldDrug AllergyUnkEduora Other (9 sources)LatexDrug allergyUnkEduora Other (7 sources)Gold and/or gold compound (FN)Drug allergyUnkMosaic Life Care at St. [facility] [employer] Other (6 sources)Bee pollenAllergy to yinoaqnas39-00-0633SdnutFllkiiguqPaulding County Hospital (6 sources)GoldDrug Jkdejfv68-27-1265Aeuuzii ReactionSelect Medical Specialty Hospital - [facility] (6 sources)Gold-containing Drug ProductsAllergy to zfxykjbnv07-80-8769Hdykqip ReactionSelect Medical Specialty Hospital - [facility] (6 sources)gold jeweryAllergy to ngktdawih80-13-8234BqhcmTjsgkxxpyMarion Hospital (1 source)No Known Medication Allergies; Translations: [No Known Medication Allergies]Propensity to adverse reactions to drug (disorder)[facility] Rep[facility] Medications Current Medications MedicationDrug Class(es)DatesSig (Normalized)Sig (Original)alendronic acid 70 mg oral tablet (2 sources)BisphosphonateStart: 27-59-1462ownx 1 tablet by mouth once daily Alendronate Sodium 70 MG 1 tablet 30 minutes before the first food, beverage or medicine of the daywith plain water Orally for 30 day(s) Feb, Active atorvastatin 40 mg oral tablet (20 sources)HMG-CoA Reductase InhibitorStart: 95-09-2524yozg 1 tablet by mouth once dailyAtorvastatin 40 mg tablet Active 0 .ROUTE .COMPLEX May 02, 2024 8:34am TAKE 1 TABLET BY MOUTH EVERY DAY Complies with drug therapyStart: 10-29-2020 End: 40-75-1428zcgi 1 tablet by mouth once dailyAtorvastatin 40 mg tablet Discontinued 40 MG PO Daily October 29, 2020 12:00am May 0258:34am Atorvastatin Calcium Activebenazepril hydrochloride 20 mg oral tablet (20 sources)Angiotensin Converting Enzyme InhibitorStart: 13-15-1314taqn 1 tablet by mouth once dailyBenazepril Active 0 .ROUTE .COMPLEX November 22, 2023 10:18pm TAKE 1 TABLET BY MOUTH EVERY DAY FOR 90 DAYSStart: 08-17-2023 End: 68-03-8041xyfz 1 tablet by mouth once dailyBenazepril 20 mg tablet Active 0 .ROUTE .COMPLEX October 29, 2024 8:27pm TAKE 1 TABLET BY MOUTHEVERY DAY FOR 90 DAYS Complies with drug therapyStart: 08-17-2023 End: 18-43-4387outo 1 tablet by mouth once dailyBenazepril Discontinued 0 .ROUTE .COMPLEX August 17, 2023 12:53pm November 22, 2023 10:20pm TAKE 1 TABLET BY MOUTH EVERY DAY FOR 90 DAYSStart: 69-43-5864vffc 1 tablet by mouth once daily Benazepril Active 0 .ROUTE .COMPLEX 90 August 17, 2023 12:53pm TAKE 1 TABLET BY MOUTH EVERY DAY FOR90 DAYSStart: 10-29-2020 End: 77-47-8059yyrd 1 tablet by mouth once dailyBenazepril 20 mg tablet Discontinued 20 MG PO Daily October 29, 2020 12:00am August 17, 2023 12:53pm latanoprost 0.05 mg/ml ophthalmic solution (2 sources)Prostaglandin Analogtake 1 drop(s) into the eye(s) once daily in the eveningLatanoprost 0.005 % 1 drop into affected eye in the evening Ophthalmic Once a day Activetake 1 drop(s) into the eye(s) once daily in the evening Latanoprost 0.005 % 1 drop into affected eye in the evening Ophthalmic Once a day ActiveLisinopril (1 source)Angiotensin Converting Enzyme InhibitorLisinopril ActivepredniSONE 20 mg oral tablet (1 source)Start: 22-65-6093mixy 1 tablet by mouth every twelve hourspredniSONE 20 MG 1 tablet Orally bid for 5 day(s) Feb, ActiveTriamcinolone (2 sources)CorticosteroidTriamcinolone (oint)-Silicone Active Completed/Discontinued Medications MedicationDrug Class(es)DatesSig (Normalized)Sig (Original)acetaminophen 325 mg / oxyCODONE hydrochloride 5 mg oral tablet (6 sources)Opioid AgonistStart: 10-29-2020 End: 88-60-0303orts 1 tablet by mouth every six hours as needed for pain Oxycodone-Acetaminophen 5-325 mg tablet Discontinued 1 TAB PO Q6H as needed for Pain October 29, 2020 12:00am December 07, 2023 11:00ojyby020548 200 actuat albuterol 0.09 mg/actuat metered dose inhaler (6 sources)beta2-Adrenergic AgonistStart: 09-20-2023 End: 13-67-1256Ecqjpdiak Sulfate 90 mcg/actuation HFA aerosol inhaler Discontinued INHALATION September 20, 2023 12:00am December 07, 2023 11:31am amoxicillin 875 mg / clavulanate 125 mg oral tablet (9 sources)Penicillin-class AntibacterialStart: 09-04-2024 End: 10-49-4884fzfg 1 tablet by mouth twice dailyAmoxicillin-Pot Clavulanate 875-125 mg tablet Discontinued 1 TAB PO Twice daily 14 7 September 0451:29pm December 10, 2024 11:30amStart: 09-20-2023 End: 33-36-9401oubs 1 tablet by mouth twice dailyAmoxicillin-Pot Clavulanate 875-125 mg tablet Discontinued 1 TAB PO Twice daily 20 September 20, 2023 12:00am December 07, 2023 11:30amStart: 68-03-7050hlnw 1 tablet by mouth every twelve hoursAmoxicillin-Pot Clavulanate 875-125 MG 1 tablet Orally every 12 hrs for 10 day(s) Feb, Activebenzonatate 200 mg oral capsule (6 sources)Non-narcotic AntitussiveStart: 09-20-2023 End: 20-26-2451Tpcvdtnnjee 200 mg capsule Discontinued MG PO September 20, 2023 12:00am December 07, 2023 11:31amStart: 09-20-2023 End: 84-07-6936Vjcvgbdjqwp Discontinued MG PO September 20, 2023 12:00am December 07, 2023 11:31amdoxycycline hyclate 100 mg oral capsule (6 sources)Tetracycline-class DrugStart: 09-20-2023 End: 44-90-2330Ivqoyuuprkv Hyclate 100 mg capsule Discontinued MG PO September 20, 2023 12:00am December 07, 2023 11:30amStart: 09-20-2023 End: 11-17-0237Sxurcddtknh Hyclate Discontinued MG PO September 20, 2023 12:00am December 07, 2023 11:30amhydroCHLOROthiazide 25 mg / triamterene 37.5 mg oral capsule (9 sources)Potassium-sparing Diuretic, Thiazide DiureticStart: 17-00-8050udtr 1 capsule by mouth every twenty-four hoursTriamterene-HCTZ 37.5-25 MG 1 capsule in the morning Orally Once a day for 30 days Jun, Not-Taking/PRN hydrocortisone 10 mg/ml / neomycin 3.5 mg/ml / polymyxin b 14130 unt/ml otic suspension (6 sources)Aminoglycoside Antibacterial, Polymyxin-class Antibacterial, CorticosteroidStart: 99-38-4056Dhaflvkp-Polymyxin-HC 3.5-21363-4 3 drops right ear Three times a day for 7 days Oct, Not-Taking/PRNmethylPREDNISolone 4 mg oral tablet (12 sources)CorticosteroidStart: 09-20-2023 End: 49-29-4430Eqrbqelitbmebpchsg 4 mg tablets,dose pack Discontinued MG PO September 20, 2023 12:00am December 07, 2023 11:30amStart: 09-20-2023 End: 09-40-1232Arnqwgkpweyqawsifj Discontinued MG PO September 20, 2023 12:00am December 07, 2023 11:30amStart: 78-36-8121Pmdrcrlkoasozgjcvu Active MG PO September 20, 2023 12:00amStart: 24-72-3609Ajfipo 4 MG as directed Orally As Directed for 6 days Oct, Not-Taking/PRNNirmatrelvir-Ritonavir (2 sources)Start: 03-05-2024 End: 87-57-9401Tjauhcusvudt-Ritonavir (Paxlovid) 150-100 mg tablets,dose pack Discontinued 0 PO per package directions March 05, 2024 1:00am July 03, 2024 1:36pm PO PER PKG DIRNirmatrelvir-Ritonavir (Paxlovid) 150-100 mg tablets,dose pack (1 source)Start: 03-05-2024 End: 45-13-5140Wevpppaktywv-Ritonavir (Paxlovid) 150-100 mg tablets,dose pack Discontinued 0 PO per package directions March 05, 2024 1:00am July 03, 2024 1:36pm PO PER PKG DIRToradol 30 mg/ml (6 sources)Start: 46-66-2588Hczdopn 30 mg/ml Oct, 30 mg Problems Active Problems Problem ClassificationProblemDateDocumented DateEpisodic/ChronicAcute and unspecified renal failure (6 sources)Acute renal failure syndrome; Translations: [Acute kidney failure, unspecified]82-95-2924OentcrazLgyizsq on above:Problem List clean-up per request of Phys. EHR CmteBiliary tract disease (16 sources)Biliary sludge; Translations: [Other specified diseases of biliary tract]37-44-3073QaavocaZgtisma on above:Problem List clean-up per request of Phys. EHR CmteCardiac dysrhythmias (10 sources)Intermittent palpitations; Translations: [Palpitations]Episodic Chronic kidney disease (17 sources)Chronic kidney disease stage 3A ; Translations: [Stage 3a chronic kidney disease]25-75-9103IkjradwVhnsjrpah of lipid metabolism (20 sources)Pure hypercholesterolemia, unspecified; Translations: [Hyperlipidemia, unspecified]Onset: 53-25-7638BtgxcfdUceorvk on above:Problem List clean-up per request of Phys. EHR CmteE Codes: Fall (1 source)Fall from other furniture, initial encounter; Translations: [FALL FROM OTHER FURNITURE INITIAL]Onset: 22-78-3917PcmdtfryTtiuwydyt hypertension (20 sources)Essential (primary) hypertension; Translations: [Essential hypertension]Onset: 84-10-6012YkdbbydSnaozbn on above:Problem List clean-up per request of Phys. EHR CmteHeadache; including migraine (3 sources)Headache; including migraine; Translations: [HEADACHE UNSPECIFIED] Onset: 78-42-8907Wtdrc valve disorders (10 sources)Murmur; Translations: [Cardiac murmur, unspecified]Episodic Immunizations and screening for infectious disease (6 sources)Contact with and (suspected) exposure to other viral communicable diseases; Translations: [Encounter for immunization]Onset: 02-27-2021 Resolved: 46-17-7900QhgnzpvwWaivlzv and fatigue (8 sources)Other fatigue; Translations: [Fatigue]Onset: 054145-61-7677 EpisodicNausea and vomiting (6 sources)Nausea and vomiting; Translations: [Nausea with vomiting, unspecified]05-29-2941EvbyvsqkLrapavg on above:Problem List clean-up per request of Phys. EHR CmteOpen wounds of head; neck; and trunk (1 source)Laceration without foreign body of scalp, initial encounter; Translations: [LACERATION W/O FB SCALPINITIAL ENC]Onset: 70-15-0843Fqfsoffk Osteoarthritis (2 sources)Unspecified osteoarthritis, unspecified site; Translations: [Primary osteoarthritis, right ankle and foot]Onset: 04-20-0757BgczimzBlrsf acquired deformities (1 source)Scoliosis, unspecified; Translations: [SCOLIOSIS UNSPECIFIED]Onset: 27-29-6779CqmmdhhBqixq acquired deformities (5 sources)Thoracogenic scoliosis, thoracolumbar region; Translations: [Thoracogenic scoliosis of thoracolumbar region]ChronicOther aftercare (2 sources)Other longterm (current) drug therapy; Translations: [OTH SENIOR CARE CURRENT DRUG THERAPY]Onset: 86-75-2489WodxqzgfGpgwo circulatory disease (9 sources)Orthostatic hypotension; Translations: [Orthostatic hypotension] EpisodicOther connective tissue disease (1 source)Presence of artificial knee joint, bilateral; Translations: [PRESENCE ARTIFICIAL KNEE JNT BILAT]Onset: 42-21-7875FkyzhqnAezzl connective tissue disease (3 sources)Pain in right leg; Translations: [PAIN IN RIGHT LEG]Onset: 09-16-2021 EpisodicOther connective tissue disease (1 source)Other specified soft tissue disorders; Translations: [OTHER SPEC SOFT TISSUE DISORDERS]Onset: 56-02-1166CmzlbvfuYuauo connective tissue disease (9 sources)Muscle pain; Translations: [Myalgia, other site]EpisodicOther ear and sense organ disorders (1 source)Unspecified acute noninfective otitis externa, right earEpisodicOther gastrointestinal disorders (9 sources)Irritable bowel syndrome with diarrhea; Translations: [Irritable bowel syndrome with diarrhea]ChronicOther gastrointestinal disorders (4 sources)Diarrhea, unspecified; Translations: [DIARRHEA UNSPECIFIED]Onset: 30-48-3163CneneiwhShlno gastrointestinal disorders (9 sources)Abnormal feces; Translations: [Other fecal abnormalities]Episodic Other liver diseases (1 source)Non-alcoholic fatty liver; Translations: [Fatty (change of) liver, not elsewhere classified]ChronicOther liver diseases (17 sources)Fatty (change of) liver, not elsewhere classified; Translations: [Non-alcoholic fatty liver disease]ChronicOther liver diseases (2 sources)Steatosis of liver; Translations: [Fatty (change of) liver, not elsewhere classified]58-43-5357XhlgtyxFzpmw non-traumatic joint disorders (4 sources)Pain in right ankle and joints of right foot; Translations: [PAIN IN RIGHT ANKLE]Onset: 26-00-2559MhqeluwpEcscl nutritional; endocrine; and metabolic disorders (9 sources)Body mass index 30+ - obesity; Translations: [Obesity, unspecified] ChronicOther nutritional; endocrine; and metabolic disorders (4 sources)Obesity, unspecified; Translations: [Obesity, unspecified]Chronic Other nutritional; endocrine; and metabolic disorders (7 sources)Obesity; Translations: [Obesity, unspecified]02-98-4602GkfdkobSmqyn screening for suspected conditions (not mental disorders or infectious disease) (15 sources)Encounter for screening mammogram for malignant neoplasm of breast; Translations: [Other specified abnormal findings of blood chemistry]Onset: 55-10-6742YmwnjqstLkuobsw on above:Problem List clean-up per request of Phys. EHR CmteOther skin disorders (9 sources)Callosity; Translations: [Corns and callosities]EpisodicOther upper respiratory infections (7 sources)Acute sinusitis, unspecified; Translations: [Acute maxillary sinusitis, unspecified]Onset: 02-27-2021 Resolved: 15-66-2992KsgsjbmcDfkhnexghz disorders (not diabetes) (12 sources)Acute pancreatitis; Translations: [Biliary acute pancreatitis without necrosis or infection]77-04-0516GuycvzyuXttsggd on above:Problem List clean-up per request of Phys. EHR CmteResidual codes; unclassified (1 source)Family history of malignant neoplasm of breast; Translations: [FAMILY HX MALIG NEOPLASM OF BREAST]Onset: 89-98-9167RozceyxqQxxibukn codes; unclassified (1 source)Asymptomatic menopausal stateEpisodicRheumatoid arthritis and related disease (10 sources)Inflammatory polyarthropathy; Translations: [Inflammatory polyarthropathy]99-05-3212LenqxpgUdyastvrxaa; intervertebral disc disorders; other back problems (15 sources)Lumbar spondylosis; Translations: [Spondylosis without myelopathy or radiculopathy, lumbar region]ChronicSprains and strains (2 sources)Strain of muscle, fascia and tendon at neck level, initial encounter; Translations: [Strain of muscle, fascia and tendon of lower back, initial encounter]Onset: 37-24-6237MybiksxdPigmiouretx injury; contusion (1 source)Contusion of unspecified part of head, initial encounter; Translations: [CONTUS UNS PRT HEAD INITIAL ENCNTR]Onset: 01-51-1191Eaihdxjq Thyroid disorders (6 sources)Thyroid nodule; Translations: [Nontoxic single thyroid nodule] 75-80-4798HtekoziPbvmczs on above:US: right 6mm TR3 nodule - 01/2024Viral infection (3 sources)Disease caused by 2019-nCoV; Translations: [COVID-19]03-05-2024 Episodic Past or Other Problems Problem ClassificationProblemDateDocumented DateEpisodic/ChronicChronic kidney disease (1 source)Chronic kidney diseaseOtitis media and related conditions (5 sources)Other specified disorders of Eustachian tube, right ear; Translations: [OTH SPEC D/O EUST TUBE RT EAR]Onset: 91-86-8974Jaffrxno Unclassified (9 sources)Elevated transaminase level; Translations: [Elevated transaminase level]Unclassified (1 source)Suspected COVID-19 virus infection Z20.822 Results Test NameValueInterpretationReference RangeFacilityOtolaryngology Office/Clinic Noteon 09-07-9681Xkwnsonwnixlay Office/Clinic NoteChief Complaint Patient states I am coming in for a right tube check History of Present Illness Molly is a pleasant 74-year-old female who presents today for follow-up. History of PE tube placement in July 2021 at an outlying ENT office. 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 She be lieves that this might have fallen out. She [...] we will follow-up in 2 months to reassessthe perforation and see if this is healed [...] earplug when showering. She is going to continuewith this. We also discussed out tympanic membrane perforations can lead to conductive hearing lossespecially at low frequencies. She will call sooner with any concerns. 2. Tympanostomy tube check Medical Decision Making Chronic conditions NOT treated during this visit that affected my overall medical decision making: [] Treatment plans discussed but not opted for at this time: [] Prescribed medication that requires intensive monitoring for toxicity: [] I have reviewed the patient?s medication list for medication interactions/contraindications and/or for upcoming procedures: [yes or no] [...] history is negative Immunizations Vaccine Date Status diphth/haemoph/pertussis/tetanus/polio 11/13/2022 Given pneumococcal 13-valent conjugate vaccine 07/11/2022 Given Electronically signed by Zulay Lopez PA-C 11/29/24 15:01 [facility] Otolaryngology Office/Clinic Noteon 52-46-3885Cmwuivkcpynkqk Office/Clinic Note Chief Complaint pt states here for an ear cleaning. History of Present Illness Molly is a pleasant 74-year-old female who presents today for a follow-up. She was last seen in June 2024. Previous history of PE tube placement in July 2021 at an outlying ENT office. 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 She has been on a low- salt diet for years. She did take Dyazide for a short period of time though she didnot tolerate this due to blood pressure dropping. [...] she is unable to tolerate any oral antihistaminesdue to drowsiness. She also did not feel [...] reviewed the patient?s medication list for medication interactions/contraindications and/or for upcoming procedures: [yes or no] [...] history is negative Immunizations Vaccine Date Status diphth/haemoph/pertussis/tetanus/polio 11/13/2022 Given pneumococcal 13-valent conjugate vaccine 07/11/2022 Given Electronically signed by Zulay Lopez PA-C 10/29/24 14:48 [facility] Estimated glomerular filtration rate (GFR) non- Americanon 06-15-2024 GFR/1.73 sq M.predicted among non-blacks MDRD (S/P/Bld) [Vol rate/Area]Estimated glomerular filtration rate (GFR) non- AmericanLow>=60 mL/min/1.73m 2 [facility]GFR/1.73 sq M.predicted among non-blacks MDRD (S/P/Bld) [Vol rate/Area]44 mL/min/{1.73_m2}Low>=60 mL/min/1.73m 2FMarion HospitalLaboratory - Chemistry and Chemistry - challengeon 24-60-1080Yvulpzq [Mass/Vol]9.7 mg/dL8.5-10.1FMarion Hospital Chloride [Moles/Vol]106 mmol/U55-575NrmzcokhySelect Medical Specialty Hospital - ColumbusCO2 [Moles/Vol]27.1 mmol/L21.0-32.0[facility] ColumbusCreatinine [Mass/Vol]1.20 mg/dLHigh0.55-1.02[facility] ColumbusGFR/1.73 sq M.predicted MDRD (S/P/Bld) [Vol rate/Area]53 mL/min/{1.73_m2}Low>=60 mL/min/1.73m 2FMarion HospitalGlucose [Mass/Vol]97 mg/zJ16-666 [facility] ColumbusPotassium [Moles/Vol]4.5 mmol/L3.5-5.1FAvita Health System Ontario Hospitalodium [Moles/Vol]139 mmol/P017-641UjmhrhfmeSelect Medical Specialty Hospital - ColumbusUrea nitrogen [Mass/Vol]24.0 mg/dLHigh7.0-18.0[facility] ColumbusUrea nitrogen/Creatinine [Mass ratio]20.0 mg/mgSelect Medical Specialty Hospital - ColumbusNo Panel Informationon 42-01-8617Hkkem Random Rdaywmnvwj77.87 mg/dL20.00-300.00[facility] ColumbusUrine Random Total Protein<6.0 mg/dL<=11.9ACMC Healthcare Systemerum or plasma anion gap determinationon 43-52-0883Jjxru gap [Moles/Vol]Serum or plasma anion gap determinationSelect Medical Specialty Hospital - ColumbusAnion gap [Moles/Vol]10.4 mmol/L [facility] ColumbusOtolaryngology Office/Clinic Noteon 06-05-2024 Otolaryngology Office/Clinic NoteChief Complaint pt states here for follow up on hearing loss. History of Present Illness Molly is a very pleasant 73-year-old female who presents today as a fu. Last visit was May of 2023. Previous right PE tube was placed in July 2021 at an outlying otolaryngology office for middle ear effusion. Previous derrick worker well service had mentioned that she may have cochlear hydrops and/or M?ni?r e's disease. She had been on a low-salt [...] tried oral antihistamines and nasal sprays without significantimprovement. Denies any nasal drainage, anosmia, facial pressure, [...] the left. Type B tympanogram on the left.Flat tympanogram on the right with a large [...] concerns. We will also repeat an audiogram atthat time. 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 She has left-sided sensorineural hearing loss and mixed hearing loss on the right. Continue with hearing amplification. She is going to take this most recent audiogram to her [employer] [employer] next week. 3. Left SNHL 4. Throat clearing Regarding her symptoms of throat clearing we discussed how this could be due to postnasal drip fromsinonasal symptoms versus LPR. She would like to trial the allergy route first. We will trial her on Xyzal at bedtime. Side effects were reviewed. We will have a telephone encounter in roughly 1 month. If she has not had improvement we discussed considering treatment for LPR. Ordered: levocetirizine, 1 tabs, Oral, qPM, # 30 tabs, 3 Refill(s), [id number] Medical Decision Making Chronic conditions NOT treated during this visit that affected my overall medical decision making: [] Treatment plans discussed but not opted for at this time: [] Prescribed medication that requires intensive monitoring for toxicity: [] I have reviewed the patient?s medication list for medication interactions/contraindications and/or for upcoming procedures: [yes or no] [...] 0.005% ophthalmic solution, 1 (more content not included)...Normal [facility] HospitalBacteria [Presence] in Urine by AutomatedOrdered By: Mohamud Lee on 14-43-8767Qvtvdmsp Auto Ql (U)None seen [HPF]None Seen [facility] ColumbusBilirubin Test strip Ql (U)Ordered By: Mohamud Lee on 16-76-7940Kcbtgdvom Ql (U)NegativeNegativeFirelands Regional Medical CenterC reactive protein [Mass/volume] in Serum or PlasmaOrdered By: Mohamud Lee on 42-99-5386ASP [Mass/Vol]< 0.5 mg/dL0.0-0.5FMarion HospitalC-Reactive Proteinon 96-58-7554LRS [Mass/Vol]mg/LNormal0.0-0.5The [facility] Physician GroupComment on above:Performed By: #### CRP, ESR, TSH3, PTH, ADDONUAPLUS #### [address] #### C4, C3, CH50 #### [facility] ,Color of Urine by AutoOrdered By: Mohamud Lee on 32-63-5680Rbqah (U) Light-yellowNormalYellowSelect Medical Specialty Hospital - ColumbusComment on above:Order Comment: Name Collection Type:: Clean-Voided MidstreamPerformed By: #### CRP, ESR, TSH3, PTH, ADDONUAPLUS #### [address] #### C4, C3, CH50 #### [facility] ,Complement C3on 25-92-9249Fiafeihsih C3138 mg/vJQpftgh73-654Szn [facility] Physician GroupComment on above:Result Comment: Performed at: - [facility] [id number] Paper Cup Handle Machine Operator: Reid West PhD, Phone: [phone] By: #### CRP, ESR, TSH3, PTH, ADDONUAPLUS #### [facility] [address] [place] [address] [place] #### C4, C3, CH50 #### [facility] ,Complement C4on 68-36-6625Bmrpfapeim C432 mg/gPOthjfr48-13Itg [facility] Physician GroupComment on above:Result Comment: PERFORMED BY: [place] [address] PATHOLOGIST ASSISTANT TODDLER TEACHER JENNIFER IRIZARRY M.D.Performed By: #### CRP, ESR, TSH3, PTH, ADDONUAPLUS #### [address] #### C4, C3, CH50 #### [facility] ,Complement Total (CH50)on 39-44-7218Wgvtmjjjvu Total (CH50)52Normal>41The [facility] Physician GroupComment on above:Result Comment: Age Male Female 1 - 30 [...] out of range values. Performed at: - [facility] [id number] Paper Cup Handle Machine Operator: Reid West PhD, Phone: [phone] PERFORMED BY: [place] [address] PATHOLOGIST ASSISTANT TODDLER TEACHER JENNIFER IRIZARRY M.D.Performed By: #### CRP, ESR, TSH3, PTH, ADDONUAPLUS #### [address] #### C4, C3, CH50 #### [facility] ,Dipstick and Microscopicon 96-10-1667Cyblqfkh,UrineNone SeenNormalNone SeenThe [facility]ly [facility] Physician GroupComment on above:Order Comment: Name Collection Type:: Clean-Voided MidstreamPerformed By: #### CRP, ESR, TSH3, PTH, ADDONUAPLUS #### [place] [address] [place] #### C4, C3, CH50 #### [facility] ,Bilirubin,UrineNegativeNormalNegativeThe [facility] Physician GroupComment on above:Order Comment: Name Collection Type:: Clean-Voided MidstreamPerformed By: #### CRP, ESR, TSH3, PTH, ADDONUAPLUS #### [address] #### C4, C3, CH50 #### [facility] ,Glucose Ql (U)NormalNormalNormalThe [facility] Physician GroupComment on above: Order Comment: Name Collection Type:: Clean-Voided MidstreamPerformed By: #### CRP, ESR, TSH3, PTH, ADDONUAPLUS #### [address] #### C4, C3, CH50 #### [facility] ,Hyaline Casts,UrineNoneNormal0-8The [facility] Physician GroupComment on above: Order Comment: Name Collection Type:: Clean-Voided MidstreamPerformed By: #### CRP, ESR, TSH3, PTH, ADDONUAPLUS #### [address] #### C4, C3, CH50 #### [facility] ,Mucus,UrineRareNormalThe [facility] Physician GroupComment on above:Order Comment: Name Collection Type:: Clean-Voided MidstreamResult Comment: PERFORMED BY: [place] [address] PATHOLOGIST ASSISTANT TODDLER TEACHER JENNIFER IRIZARRY M.D.Performed By: #### CRP, ESR, TSH3, PTH, ADDONUAPLUS #### [address] #### C4, C3, CH50 #### [facility] ,Nitrite,UrineNegativeNormalNegativeThe [facility] Physician GroupComment on above:Order Comment: Name Collection Type:: Clean-Voided MidstreamPerformed By: #### CRP, ESR, TSH3, PTH, ADDONUAPLUS #### [address] #### C4, C3, CH50 #### [facility] ,Non-Squamous Epithelial Cell,U1-2HighNone SeenThe [facility] Comment on above:Order Comment: Name Collection Type:: Clean-Voided Midstream Performed By: #### CRP, ESR, TSH3, PTH, ADDONUAPLUS #### [address] #### C4, C3, CH50 #### [facility] ,Occult Blood,UrineTraceHighNegativeThe [facility] Physician GroupComment on above:Order Comment: Name Collection Type:: Clean-Voided MidstreamPerformed By: #### CRP, ESR, TSH3, PTH, ADDONUAPLUS #### [address] #### C4, C3, CH50 #### [facility] ,Protein,UrineNegativeNormalNegativeSt. Vincent'[facility]side Physician GroupComment on above:Order Comment: Name Collection Type:: Clean-Voided MidstreamPerformed By: #### CRP, ESR, TSH3, PTH, ADDONUAPLUS #### [address] #### C4, C3, CH50 #### [facility] ,RBC,Epmik5-3Xntisd5-5Vnd [facility] Physician GroupComment on above:Order Comment: Name Collection Type:: Clean-Voided MidstreamPerformed By: #### CRP, ESR, TSH3, PTH, ADDONUAPLUS #### [address] #### C4, C3, CH50 #### [facility] ,Specificy Helix,Urine1.739Kcjmlx9.001-1.030The [facility] Comment on above:Order Comment: Name Collection Type:: Clean-Voided Midstream Performed By: #### CRP, ESR, TSH3, PTH, ADDONUAPLUS #### [address] #### C4, C3, CH50 #### [facility] ,Squamous Epithelial Cell,Dddos5-8Vfgveb9-9Arl [facility] Physician GroupComment on above:Order Comment: Name Collection Type:: Clean-Voided MidstreamPerformed By: #### CRP, ESR, TSH3, PTH, ADDONUAPLUS #### [address] #### C4, C3, CH50 #### [facility] ,Urobilinogen,UrineNormalNormalNormalThe [facility] Physician GroupComment on above:Order Comment: Name Collection Type:: Clean-Voided MidstreamPerformed By: #### CRP, ESR, TSH3, PTH, ADDONUAPLUS #### [facility] [address] [place] [address] #### C4, C3, CH50 #### [facility] ,WBC,Jlebd3-8Fkwiqg5-1Hxn [facility] Physician GroupComment on above:Order Comment: Name Collection Type:: Clean-Voided MidstreamPerformed By: #### CRP, ESR, TSH3, PTH, ADDONUAPLUS #### [facility] [address] [place] [address] #### C4, C3, CH50 #### [facility] ,Epithelial cells.non-squamous [#/area] in Urine sediment by Automated count Ordered By: Mohamud Lee on 86-18-9649Jgprbhpecq cells.non-squamous Auto (Urine sed) [#/Area]1-2 [HPF]HighNone [facility] Epithelial cells.squamous [#/area] in Urine sediment by Automated countOrdered By: Mohamud Lee on 65-38-4446Qjqqqmfdiw cells.squamous Auto (Urine sed) [#/Area]1-2 [HPF]0-2FMarion HospitalErythrocyte Sedimentation Rateon 82-43-8985ASD (Bld) [Velocity]24 mm/hNormal0-29The [facility] Physician GroupComment on above:Result Comment: PERFORMED BY: [place] [address] PATHOLOGIST ASSISTANT TODDLER TEACHER JENNIFER IRIZARRY M.D.Performed By: #### CRP, ESR, TSH3, PTH, ADDONUAPLUS #### [facility] [address] [place] [address] [place] #### C4, C3, CH50 #### [facility] ,Erythrocyte sedimentation rate by Photometric methodOrdered By: Mohamud Lee on 92-87-7179GDB Photometric method (Bld) [Velocity]24 mm/hrSelect Medical Specialty Hospital - ColumbusErythrocytes [#/area] in Urine sediment by Automated countOrdered By: Mohamdu Lee on 34-86-2945UDF Auto (Urine sed) [#/Area]3-4 [HPF]0-4FMarion HospitalGlucose [Mass/volume] in Urine by Test stripOrdered By: Mohamud Lee on 74-45-1981Efwfenw Test strip (U) [Mass/Vol] Normal mg/dLNormOhioHealth Marion General HospitalHemoglobin Test strip Ql (U) Ordered By: Mohamud Lee on 18-82-8816Cszhnrmwmh Ql (U)TraceHighNegative [facility] Hospital - ColumbusHyaline casts [#/area] in Urine sediment by Automated countOrdered By: Mohamud Lee on 40-63-5728Txjeyff casts Auto (Urine sed) [#/Area]None [LPF]0-8[facility] - ColumbusKetones [Presence] in Urine by Test stripOrdered By: Mohamud Lee on 82-85-8690Lipyftd Ql (U) NegativeNormalNegMetroHealth Cleveland Heights Medical CenterComment on above:Order Comment: Name Collection Type:: Clean-Voided MidstreamPerformed By: #### CRP, ESR, TSH3, PTH, ADDONUAPLUS #### [facility] [address] [place] [address] [place] #### C4, C3, CH50 #### [facility] ,Leukocyte esterase [Presence] in Urine by Test stripOrdered By: Mohamud Lee on 79-16-3012Dcvftqvcv esterase Test strip Ql (U)2+HighNegativeSelect Medical Specialty Hospital - ColumbusComment on above:Order Comment: Name Collection Type:: Clean-Voided MidstreamPerformed By: #### CRP, ESR, TSH3, PTH, ADDONUAPLUS #### [address] #### C4, C3, CH50 #### [facility] ,Leukocytes [#/area] in Urine sediment by Automated countOrdered By: Mohamud Lee on 43-79-5973DJG Auto (Urine sed) [#/Area]3-4 [HPF]0-4FMarion HospitalMucus [Presence] in Urine by AutomatedOrdered By: Mohamud Lee on 73-52-0119Vtgfl Auto Ql (U)Rare [LPF][facility] - ColumbusNitrite Test strip Ql (U)Ordered By: Mohamud Lee on 13-73-3074Mmmxisa Ql (U)Negative NegativeSelect Medical Specialty Hospital - ColumbusParathyrin.intact [Mass/volume] in Serum or PlasmaOrdered By: Mohamud Lee on 06-46-7926Yhgmsllllq.intact [Mass/Vol]40.7 pg/zG29-10CtyxmzdxwSelect Medical Specialty Hospital - ColumbusParathyroid Hormone Intacton 78-26-8814Bmqwaboshiu Hormone Tntjvd35.7 pg/sFVgorfb49-98Knx [facility] Physician GroupComment on above:Result Comment: PERFORMED BY: [place] [address] PATHOLOGIST ASSISTANT TODDLER TEACHER JENNIFER IRIZARRY M.D.Performed By: #### CRP, ESR, TSH3, PTH, ADDONUAPLUS #### [facility] [address] [place] [address] #### C4, C3, CH50 #### [facility] ,Protein Test strip (U) [Mass/Vol]Ordered By: Mohamud Lee on 01-03-2024 Protein (U) [Mass/Vol]NegativeNegativeACMC Healthcare Systempecific gravity Test strip (U) [Rel density]Ordered By: Mohamud Lee on 01-03-2024 Specific gravity (U) [Rel density]1.0201.001-1.030[facility] Hospital - ColumbusThyrotropin [Units/volume] in Serum or PlasmaOrdered By: Mohamud Lee on 56-10-8937KCY Qn0.84 m[IU]/LNormal0.45-5.33[facility] Comment on above:Result Comment: PERFORMED BY: [place] [address] PATHOLOGIST ASSISTANT TODDLER TEACHER JENNIFER IRIZARRY M.D.Performed By: #### CRP, ESR, TSH3, PTH, ADDONUAPLUS #### [facility] [address] [place] [address] [place] #### C4, C3, CH50 #### [facility] ,Urine appearanceOrdered By: Mohamud Lee on 52-89-2469Icwxdqvhdh (U)Clear NormalCleSelect Medical Cleveland Clinic Rehabilitation Hospital, BeachwoodComment on above:Order Comment: Name Collection Type:: Clean-Voided MidstreamPerformed By: #### CRP, ESR, TSH3, PTH, ADDONUAPLUS #### [facility] [address] [place] [address] #### C4, C3, CH50 #### [facility] ,Urobilinogen Test strip (U) [Mass/Vol]Ordered By: Mohamud Lee on 01-03-2024 Urobilinogen (U) [Mass/Vol]Normal mg/dLNormalSelect Medical Specialty Hospital - ColumbusXR hand BI 2Von 31-01-7353RE hand BI 2VPOM[place] [address] XRay Report Signed Patient: Molly Garcia MR#: [id number] : 1950 Acct:[id number] Age/Sex: 73 / F ADM Date: 01/03/24 Loc: ICXD Room: Type: [facility] Attending Dr: Mohamud Lee MD Copies [...] Abbe Ludwig M.D.01/03/2024 6:04 PM Dictation Location: [place] [address] Transcribed By: [facility] 01/03/241803 Dictated By: Abbe Ludwig DO 01/03/241801 Signed By: 01/03/241803[facility] Physician GrouppH of Urine by Test stripOrdered By: Mohamud Lee on 02-98-3588xA (U)5.5 [pH]Normal5.0-9.0[facility] - ColumbusComment on above:Order Comment: Name Collection Type:: Clean- Voided MidstreamPerformed By: #### CRP, ESR, TSH3, PTH, ADDONUAPLUS #### [facility] [address] [place] [address] [place] #### C4, C3, CH50 #### [facility] ,Basophils Auto (Bld) [#/Vol]on 73-91-5549Cptnpixmh (Bld) [#/Vol]0.0 10 3/uL 0.0-0.1FMarion HospitalBasophils/100 WBC Auto (Bld)on 74-73-2870Xbkfoybhz/100 WBC (Bld)0.6 %0.2-2.0[facility] Centriole Ab [Titer] in Serum by Immunofluorescenceon 48-46-0082Miceuiyur Ab IF (S) [Titer]TNUc Medical CenterCentromere Ab [Titer] in Serum by Immunofluorescenceon 03-51-2837Vulwhuhjjt Ab IF (S) [Titer]TNUc Medical CenterCholesterol in LDL Calc [Mass/Vol]on 12-08-2023 Cholesterol in LDL [Mass/Vol]88.0 mg/dLSelect Medical Specialty Hospital - ColumbusComment on above:<100 mg/dl UGQNRRK488-325 mg/dl NEAR OR ABOVE LBVDAXO224-690 mg/dl BORDERLINE HZXK722-025 mg/dl HIGH>190 mg/dl VERY HIGHCholesterol in VLDL Calc [Mass/Vol]on 94-84-9162Vyxcaqnporp in VLDL [Mass/Vol]12.4 mg/dLSelect Medical Specialty Hospital - ColumbusEosinophils/100 WBC Auto (Bld)on 12-08-2023 Eosinophils/100 WBC (Bld)2.3 %0.9-7.0[facility] Erythrocyte distribution width Auto (RBC) [Ratio]on 90-67-7562Vxdwfhrquab distribution width (RBC) [Ratio]13.2 %11.0-15.0[facility] Estimated glomerular filtration rate (GFR) non- Americanon 12-08-2023 GFR/1.73 sq M.predicted among non-blacks MDRD (S/P/Bld) [Vol rate/Area]43 mL/min/{1.73_m2}Low>=60 mL/min/1.73m 2FMarion HospitalGlobulin Calc (S) [Mass/Vol]on 59-95-3470Vrkqjvmv (S) [Mass/Vol]3.5 g/dLSelect Medical Specialty Hospital - ColumbusHematocrit Auto (Bld) [Volume fraction]on 12-08-2023 Hematocrit (Bld) [Volume fraction]44.4 %36.0-48.0[facility] - ColumbusHemoglobin [Mass/volume] in Bloodon 70-32-1552Bidiqqwksd (Bld) [Mass/Vol] 14.3 g/dL12.0-16.0[facility] - ColumbusLaboratory - Chemistry and Chemistry - challengeon 46-82-7151Micxsps [Mass/Vol]3.7 g/dL3.4-5.0[facility] ColumbusALP [Catalytic activity/Vol]124 U/GLqzq98-215KzmponohuSelect Medical Specialty Hospital - ColumbusALT [Catalytic activity/Vol]31 U/I01-46EzcgfurtnSelect Medical Specialty Hospital - ColumbusAST [Catalytic activity/Vol]25 U/D70-95Jqllqvbgg Regional Medical CenterBilirubin [Mass/Vol]0.7 mg/dL0.2-1.0[facility] Calcium [Mass/Vol]9.6 mg/dL8.5-10.1FMarion HospitalChloride [Moles/Vol]104 mmol/U61-110IthhbqektSelect Medical Specialty Hospital - ColumbusCholesterol [Mass/Vol]161 mg/dL<=200[facility] - ColumbusCholesterol in HDL [Mass/Vol]61 mg/tRMzmo43-85LppvvzfzgSelect Medical Specialty Hospital - ColumbusComment on above:> or =60 mg/dl - LOW CARDIOVASCULAR RISK<40 mg/dl - HIGH CARDIOVASCULAR RISKCO2 [Moles/Vol]26.5 mmol/L21.0-32.0[facility] - ColumbusCreatinine [Mass/Vol]1.23 mg/dLHigh0.55-1.02[facility] - ColumbusGFR/1.73 sq M.predicted MDRD (S/P/Bld) [Vol rate/Area]52 mL/min/{1.73_m2}Low>=60 mL/min/1.73m 2FMarion HospitalGlucose [Mass/Vol]88 mg/wX45-761 [facility] - ColumbusPotassium [Moles/Vol]3.8 mmol/L3.5-5.1FMarion HospitalProtein [Mass/Vol]7.2 g/dL6.4-8.2FAvita Health System Ontario Hospitalodium [Moles/Vol]139 mmol/C815-788HtlcfsmlgSelect Medical Specialty Hospital - ColumbusTriglyceride [Mass/Vol]62 mg/dL<=150[facility] - ColumbusTSH Qn1.173 m[IU]/L0.358-3.740[facility] - ColumbusUrea nitrogen [Mass/Vol]20.0 mg/dLHigh7.0-18.0[facility] - ColumbusUrea nitrogen/Creatinine [Mass ratio]16.3 mg/mgSelect Medical Specialty Hospital - Columbus Laboratory - Hematology and Cell countson 63-01-8397Jsmwzmbo granulocytes/100 WBC (Bld)0.2 %0.0-0.5FMarion HospitalLeukocytes [#/volume] corrected for nucleated erythrocytes in Blood by Automated counon 05-07-4395LBO corrected for nucl RBC Auto (Bld) [#/Vol]5.3 10 3/uL4.0-11.0[facility] - ColumbusLymphocytes Auto (Bld) [#/Vol]on 46-77-3527Lvtgouzljld (Bld) [#/Vol]1.8 10 3/uL1.2-3.8[facility] - ColumbusLymphocytes/100 WBC Auto (Bld)on 06-92-2868Nxmhsksojlk/100 WBC (Bld)33.6 %20.5-60.0[facility] CenterH Auto (RBC) [Entitic mass]on 78-65-6309JPM (RBC) [Entitic mass]30.1 pg26.7-34.0[facility] Medical CenterHC Auto (RBC) [Mass/Vol]on 83-98-1937IJNT (RBC) [Mass/Vol]32.2 g/dL29.9-35.2FMarion HospitalMCV Auto (RBC) [Entitic vol]on 12-40-7134SRG (RBC) [Entitic vol] 93.5 fL81.0-99.0[facility] - ColumbusMidbody Ab [Titer] in Serum by Immunofluorescenceon 56-14-3154Yyvruwn Ab IF (S) [Titer]TN.[facility] - ColumbusMitotic spindle apparatus Ab [Titer] in Serum or Plasma by Immunofluorescenceon 21-98-2705Wvrblla spindle apparatus Ab IF [Titer]TNP. [facility] Hospital - ColumbusMonocytes Auto (Bld) [#/Vol]on 12-08-2023 Monocytes (Bld) [#/Vol]0.4 10 3/uL0.3-0.8[facility] Monocytes/100 WBC Auto (Bld)on 58-18-8509Qttydjnut/100 WBC (Bld)7.0 %1.7-12.0 [facility] - ColumbusNeutrophils Auto (Bld) [#/Vol]on 12-08-2023 Neutrophils (Bld) [#/Vol]3.0 10 3/uL1.4-6.5FMarion Hospital Neutrophils/100 WBC Auto (Bld)on 29-90-0673Czgwxzqvhfr/100 WBC (Bld)56.3 % 43.0-75.0[facility] ColumbusNo Panel Informationon 12-14-4987Dbyp- Nuclear Antibody Comment 2Comment.[facility] Hospital - ColumbusComment on above:Pattern Potential Disease Association Homogeneous Systemic Lupus Erythematosus, Drug Induced Systemic Lupus Erythematosus, Chronic Autoimmune hepatitis, Juvenile Idiopathic Arthritis Speckled Sjogren Syndrome, Systemic Lupus Erythematosus, Subacute Cutaneous Lupus, Lupus, Congenital Heart Block, Mixed Connective Tissue Disease, Scleroderma-diffuse, Scleroderma- Autoimmune Myositis Overlap Syndrome, Systemic Lupus Vbeuleybxexxs-Fqnafivellk-Audjfjdjjz Myositis Overlap Syndrome, Systemic Autoimmune Rheumatic Disease, Undifferentiated Connective Tissue Disease Nucleolar Systemic Sclerosis, Scleroderma-Autoimmune Myositis Overlap Syndrome, Sjogren Syndrome, Raynaud phenomenon, Pulmonary Arterial Hypertension, Systemic Autoimmune Rheumatic Disease, Cancer Centromere Scleroderma-CREST, Limited Cutaneous SSc, Raynaud's Phenomenon, Primary Biliary Cholangit is Nuclear Dot Primary Biliary Cholangitis Nuclear Primary Biliary Cholangitis, AutoimmuneMembrane Hepatitis/Liver disease, Systemic Autoimmune Rheumatic Disease, Autoimmune Cytopenias, Linear Scleroderma, Antiphospholipid Syndrome Performed at: [employer] [facility] [address] [id number] Director: Reid West PhD, Phone: [phone]-Awtgjvwp Protein, Quantitative<0.50 mg/dL <=0.50[facility] - ColumbusEosinophils # (Auto)0.1 10 3/uL0.0-0.7 [facility] - ColumbusImmature Granulocyte # (Auto)0.01 10 3/uL 0.00-0.03[facility] - ColumbusNuclear dots nuclear Ab pattern [Titer] in Serum by Immunofluorescenceon 20-01-8632Ppmafhw dots nuclear Ab pattern IF (S) [Titer]TN.[facility] ColumbusNuclear membrane pores nuclear Ab pattern [Titer] in Serum by Immunofluorescenceon 12-08-2023 Nuclear membrane pores nuclear Ab pattern IF (S) [Titer]TNP.[facility] Hospital - ColumbusPCNA extractable nuclear Ab [Titer] in Serum by Immunofluorescence on 87-44-1492HQAS extractable nuclear Ab IF (S) [Titer]TNP.[facility] - ColumbusPlatelet mean volume Auto (Bld) [Entitic vol]on 08-18-8857Iqffmsxt mean volume (Bld) [Entitic vol]9.0 fLLow9.5-13.5FMarion HospitalPlatelets Auto (Bld) [#/Vol]on 88-28-6965Gnjolkxcc (Bld) [#/Vol]241 10 3/uI083-310DyvxnslwjSelect Medical Specialty Hospital - ColumbusRBC Auto (Bld) [#/Vol]on 12-08-2023 RBC (Bld) [#/Vol]4.75 10 6/uL4.20-5.40ACMC Healthcare Systemerum homogeneous pattern antinuclear antibody (ROHIT) titeron 90-62-1736Zwxvxwdmfv nuclear Ab pattern (S) [Titer]1:160Abnormal.[facility] Comment on above:ICAP nomenclature: AC-1Serum nuclear antibody titeron 38-15-5485Tficbbq Ab (S) [Titer]PositiveAbnormal.[facility] Hospital - ColumbusComment on above:Negative <1:80 Borderline 1:80 Positive >1:80Serum nucleolar pattern antinuclear antibody (ROHIT) titeron 74-50-5329Ucnwxrayj nuclear Ab pattern (S) [Titer]TNP.ACMC Healthcare Systemerum or plasma albumin/globulin mass ratioon 30-37-3849Xdafmgg/Globulin [Mass ratio]1.1 {ratio} ACMC Healthcare Systemerum or plasma anion gap determinationon 94-81-7399Pzomf gap [Moles/Vol]12.3 mmol/LFAvita Health System Ontario Hospitalerum or plasma rheumatoid factor measurement (units/volume)on 21-22-6537Lpsjujfakz factor Qn[IU]/mL<14.0[facility] - ColumbusComment on above:Performed at: [facility] [id number] Director: Reid West PhD, Phone: [phone] or plasma total cholesterol/high density lipoprotein (HDL) cholesterol mass shania 12-08-2023 Cholesterol.total/Cholesterol in HDL [Mass ratio]2.6 {ratio}[facility] - ColumbusComment on above:3.3 - 4.4 LOW RISK4.4 - 7.1 AVERAGE RISK7.1 - 11.0 MODERATE RISK>11.0 HIGH RISKSerum speckled pattern antinuclear antibody (ROHIT) titeron 35-96-4088Xcapanjb nuclear Ab pattern (S) [Titer]TN.[facility] - ColumbusPROF CHEM 8 (BAS METB)on 39-53-5504Opihz gap [Moles/Vol] 11.4 mmol/LNPremier HealthComment on above:Performed By: #### BMP ####[facility] [address] [place], [place] [address]Dr. Yilan ChangCalcium [Mass/Vol]9.2 mg/dLNormal8.5-10.1The [facility] Medical CenterComment on above:Performed By: #### BMP ####[facility] [address] [place], [place] [address]Dr.Yilan ChangChloride [Moles/Vol]106 mmol/LNormal 98-107The [facility] Medical CenterComment on above:Performed By: #### BMP ####[facility] S[address] [place], [place] [address]Dr.Yilan ChangCO2 [Moles/Vol]27.6 mmol/CKzpkdu86.0-32.0The [facility] Medical CenterComment on above: Performed By: #### BMP ####[facility] [address] [place], [place] [address]Dr.Yilan ChangCreatinine [Mass/Vol]1.19 mg/dL Critically high0.55-1.02The [facility] Medical CenterComment on above:Performed By: #### BMP ####[facility] [address] [place], [place] [address]Dr.Yilan ChangEGFR-AF JNHFYXPG21 mL/min/1.04r9Bccatwvbcu low>=60The [facility] Medical CenterComment on above:Performed By: #### BMP ####[facility] [address] [place], [place] [address]Dr.Yilan ChangEGFR-NON AF MSDYCFHN96 mL/min/1.90u1Irfdncbtyn low>=60The [facility] Medical CenterComment on above: Performed By: #### BMP ####[facility] [address] [place], [place] [address]Dr.Yilan ChangGlucose [Mass/Vol]100 mg/hUOzhvtr22-826 The [facility] CenterComchildren[facility] hospital [facility] on above:Performed By: #### BMP ####[facility] [address] [place], [place] [address]Dr.Yilan Basurto Potassium [Moles/Vol]4.0 mmol/LNormal3.5-5.1The [facility] Medical CenterComment on above:Performed By: #### BMP ####[facility] [address] [place] [address]Dr.Yilan ChangSodium [Moles/Vol]141 mmol/LNormal 136-145The [facility] Medical CenterComment on above:Performed By: #### BMP ####[facility] [address] [place] [address]Dr.Yilan ChangUrea nitrogen [Mass/Vol]20.0 mg/dLCritically high7.0-18.0The [facility] Medical CenterComment on above:Performed By: #### BMP ####[facility] [address] [place] [address]Dr.Yilan ChangUrea nitrogen/Creatinine [Mass ratio] 16.8 mg/mgNoChildren's Hospital of ColumbusComment on above:Performed By: #### BMP ####[facility] [address] [place] [address]Dr. Yilan ChangCT CSPINE WO CONon 47-76-6696FM CSPINE WO CONEXAMINATION: CT CSPINE WO CON HISTORY: UNSPECIFIED INJURY [...] Electronically authenticated by: RONA MALONEY Date: 2021-11-26 22:07[facility] HospitalCT HEAD WO CONon 51-64-5371GN HEAD WO CONEXAMINATION: CT HEAD WO CON HISTORY: UNSPECIFIED INJURY [...] Electronically authenticated by: RONA MALONEY Date: 2021-11-26 21:43NoOhioHealth Grove City [facility] AUTO DIFFon 68-61-5314YXQO #0.0 103/ulNormal0.0-0.1[facility] HospitalComment on above:Performed By: #### CBC #### [facility] [address] [place] [address] Dr. Glenda BasurtoBasophils/100 WBC (Bld)0.7 %Normal0.2-2.0[facility] Comment on above:Performed By: #### CBC #### [facility] [address] [place] [address] Dr. Glenda Shoemaker #0.1 103/ulNormal0.0-0.7The [facility] Va Medical CenterComment on above: Performed By: #### CBC #### [facility] [address] [place] [address] Dr. Glenda Jaquezosinophils/100 WBC (Bld)1.8 %Normal0.9-7.0[facility] Comment on above:Performed By: #### CBC #### [facility] [address] [place] [address] Dr. Glenda Jaquezrythrocyte distribution width (RBC) [Ratio]13.2 %Dusgct67.0-15.0 The [facility] Medical CenterComment on above:Performed By: #### CBC #### [facility] [address] [place] [address] Dr. Glenda BasurtoHematocrit (Bld) [Volume fraction]39.4 %Sreglv49.0-48.0The [facility] Medical CenterComment on above:Performed By: #### CBC #### [facility] [facility] [address] [place] [address] Dr. Glenda BasurtoHemoglobin (Bld) [Mass/Vol]12.9 g/kXQwlcob65.0-16.0The [facility] CenterComment on above:Performed By: #### CBC #### [facility] [address] [place] [address] Dr. Glenda BasurtoIG #0.01 10e3/ulNormal0.00-0.03The [facility] CenterComment on above:Performed By: #### CBC #### [facility] [address] [place] [address] Dr. Glenda BasurtoIG %0.2 %Normal0.0-0.5The [facility] CenterComment on above: Performed By: #### CBC #### [facility] [address] [place] [address] Dr. Glenda Palomo #2.6 103/ulNormal1.2-3.8The [facility] CenterComment on above:Performed By: #### CBC #### [facility] [address] [place] [address] Dr. Glenda Escobedomphocytes/100 WBC (Bld)41.9 %Zngmdj71.5-60.0The [facility] CenterComment on above:Performed By: #### CBC #### [facility] [address] [place] [address] Dr. Glenda JuradoUAL DIFF REQNONormalThe [facility] CenterComment on above: Performed By: #### CBC #### [facility] [address] [place] [address] Dr. Glenda Bailey (RBC) [Entitic mass]30.1 gaXwcolb49.7-34.0The [facility] CenterComment on above:Performed By: #### CBC #### [facility] [address] [place] [address] Dr. Glenda Katz (RBC) [Mass/Vol]32.7 g/vJPgsvgi21.9-35.2The [facility] CenterComment on above:Performed By: #### CBC #### [facility] [address] [place] [address] Dr. Glenda Katz (RBC) [Entitic vol]92.1 aNCkoaaq86.0-99.0The [facility] CenterComment on above:Performed By: #### CBC #### [facility] [address] [place] [address] Dr. Glenda Longoria #0.5 103/ulNormal0.3-0.8The [facility] CenterComment on above:Performed By: #### CBC #### [facility] [address] [place] [address] Dr. Glenda Bainocytes/100 WBC (Bld)7.7 %Normal1.7-12.0The [facility] Comment on above:Performed By: #### CBC #### [facility] [address] [place] [address] Dr. Glenda Acevedo #2.9 103/ulNormal1.4-6.5The [facility] CenterComment on above:Performed By: #### CBC #### [facility] [address] [place] [address] Dr. Glenda Dialloutrophils/100 WBC (Bld)47.7 %Gcmpvk65.0-75.0The [facility] CenterComment on above:Performed By: #### CBC #### [facility] [address] [place] [address] Dr. Glenda Adamslet mean volume (Bld) [Entitic vol]8.8 fLCritically low 9.5-13.5The [facility] CenterComment on above:Performed By: #### CBC #### [facility] [address] [address] [address] Glenda BasurtoPLT215 103/wsBkxwhm378-185Zzj [facility] [place] on above: Performed By: #### CBC #### [facility] [address] [address] [address] Glenda BasurtoRBC4.28 106/ulNormal4.20-5.40The [facility] CenterComment on above:Performed By: #### CBC #### [facility] [address] [address] [address] Glenda BasurtoWBC6.1 103/ulNormal4.0-11.0The [facility] CenterCom[facility] [place] on above: Performed By: #### CBC #### [facility] [address] [address] [address] Glenda BasurtoPROF CHEM 8 (BAS METB)on 23-43-7714Xcwwu gap [Moles/Vol]10.1 mmol/LNormalThe [facility] CenterComchildren[facility] [place] on above:Performed By: #### BMP, TSH ####[facility] [address] [address]Dr. Glenda ChangCalcium [Mass/Vol]8.8 mg/dLNormal8.5-10.1The [facility] [place] on above:Performed By: #### BMP, TSH ####[facility] [address] [address]Dr. Glenda ChangChloride [Moles/Vol]103 mmol/L Xdhknr16-558Uvs [facility] [place] on above:Performed By: #### BMP, TSH ####[facility] [address] [address]Dr. Glenda ChangCO2 [Moles/Vol]29.1 mmol/YTvyylv82.0-32.0The [facility] [place] on above:Performed By: #### BMP, TSH ####[facility] [address] [address]Dr. Glenda ChangCreatinine [Mass/Vol]1.62 mg/dL Critically high0.55-1.02The [facility] CenterComment on above:Performed By: #### BMP, TSH ####[facility] [address] [id number]. Yilan ChangEGFR-AF TPFENEIV55 mL/min/1.08w1Hjtszetnph low>=60The [facility] CenterComment on above:Performed By: #### BMP, TSH ####[facility] [address] [address]Dr. Yilan ChangEGFR- NON AF MVUTOHJS07 mL/min/1.19f7Olioytkdwr low>=60The [facility] HospitalComment on above:Performed By: #### BMP, TSH ####[facility] [address] [place], [place] [address]Dr. Yilan ChangGlucose [Mass/Vol]112 mg/dL Critically utws72-344Shd [facility] CenterComment on above:Performed By: #### BMP, TSH ####[facility] [address] [place], [place] [address]Dr. Yilan ChangPotassium [Moles/Vol]4.2 mmol/LNormal3.5-5.1[facility] HospitalComment on above:Performed By: #### BMP, TSH ####[facility] [address] [place], [place] [address]Dr. Yilan ChangSodium [Moles/Vol]138 mmol/ODsjwet036-503Mzr [facility] CenterComment on above: Performed By: #### BMP, TSH ####[facility] [address] [place], [place] [address]Dr. Yilan ChangUrea nitrogen [Mass/Vol]25.0 mg/dL Critically high7.0-18.0The [facility] CenterComment on above:Performed By: #### BMP, TSH ####[facility] [address] [place], [place] [address]Dr. Yilan ChangUrea nitrogen/Creatinine [Mass ratio]15.4 mg/mgNormalThe [facility] CenterComchildren[facility] [place] on above:Performed By: #### BMP, TSH ####[facility] [address] [place], [place] [address]Dr. Yilan ChangTSHon 80-60-4496JLK5.942 uIU/mLNormal0.358-3.740The [facility] CenterComment on above: Performed By: #### BMP, TSH ####[facility] [address] [place], [place] [address]WjDr. Glenda Pinto MAMM SCREEN 3D FERMÍN CADon 09-17-2021 MG MAMM SCREEN 3D FERMÍN CADPatient: MOLLY GARCIA Exam Date: 09/17/2021 : 1950 Gender:F Ordering : DR JIMMIE MELENDEZ D.O. Admission #: [id number] Family : Order #: [id number] CLICK HERE TO VIEW EXAM RADIOLOGY REPORT [...] breast cancer at age 75. LOCATION: [facility] BREAST COMPOSITION: Heterogeneously dense,which may obscure small [...] by: Purnima Cortez MD on 09/17/2021 at 12:43No[facility] AUTO DIFFon [id number] #0.0 103/ulNormal0.0-0.1The [facility] CenterComment on above:Performed By: #### CBC #### [facility] [address] [place], [place] [address] Dr. Glenda BasurtoBasophils/100 WBC (Bld)0.5 %Normal0.2-2.0The [facility] Comment on above:Performed By: #### CBC #### [facility] [address] [place] [address] Dr. Glenda Shoemaker #0.1 103/ulNormal0.0-0.7The [facility] CenterComment on above: Performed By: #### CBC #### [facility] [address] [place] [address] Dr. Glenda Jaquezosinophils/100 WBC (Bld)2.2 %Normal0.9-7.0The [facility] Comment on above:Performed By: #### CBC #### [facility] [address] [place] [address] Dr. Glenda Jaquezrythrocyte distribution width (RBC) [Ratio]13.2 %Xcembr08.0-15.0 The [facility] Medical CenterComment on above:Performed By: #### CBC #### [facility] [address] [place] [address] Dr. Glenda BasurtoHematocrit (Bld) [Volume fraction]42.0 %Ebzioy65.0-48.0The [facility] CenterComment on above:Performed By: #### CBC #### [facility] [address] [place] [address] Dr. Glenda BasurtoHemoglobin (Bld) [Mass/Vol]13.7 g/vLCsbnux96.0-16.0The [facility] CenterComment on above:Performed By: #### CBC #### [facility] [address] [place] [address] Dr. Glenda Escobar #0.01 10e3/ulNormal0.00-0.03The [facility] CenterComment on above:Performed By: #### CBC #### [facility] [address] [place] [address] Dr. Glenda Escobar %0.2 %Normal0.0-0.5The [facility] CenterComment on above: Performed By: #### CBC #### [facility] [address] [place] [address] Dr. Glenda Palomo #2.7 103/ulNormal1.2-3.8The [facility] CenterComment on above:Performed By: #### CBC #### [facility] [address] [place] [address] Dr. Glenda Castellanoshocytes/100 WBC (Bld)41.9 %Vnypoi76.5-60.0The [facility] CenterComment on above:Performed By: #### CBC #### [facility] [address] [place] [address] Dr. Glenda Nur DIFF REQNONormalThe [facility] CenterComment on above: Performed By: #### CBC #### [facility] [address] [place] [address] Dr. Glenda Katz (RBC) [Entitic mass]30.6 nbDgfatj82.7-34.0The [facility] CenterComment on above:Performed By: #### CBC #### [facility] [address] [place] [address] Dr. Gelnda Katz (RBC) [Mass/Vol]32.6 g/fXQwjrmf61.9-35.2The [facility] CenterComment on above:Performed By: #### CBC #### [facility] [address] [place] [address] Dr. Glenda Campbell (RBC) [Entitic vol]93.8 aQFgsvxk77.0-99.0The [facility] CenterComment on above:Performed By: #### CBC #### [facility] [address] [place] [address] Dr. Glenda Longoria #0.6 103/ulNormal0.3-0.8The [facility] CenterComment on above:Performed By: #### CBC #### [facility] [address] [place] [address] Dr. Glenda Bainocytes/100 WBC (Bld)9.8 %Normal1.7-12.0The [facility] Comment on above:Performed By: #### CBC #### [facility] [address] [place] [address] Dr. Glenda Acevedo #2.9 103/ulNormal1.4-6.5The [facility] CenterComment on above:Performed By: #### CBC #### [facility] [address] [place] [address] Dr. Glenda Dialloutrophils/100 WBC (Bld)45.4 %Vwanrp29.0-75.0The [facility] CenterComment on above:Performed By: #### CBC #### [facility] [address] [place] [address] Dr. Glenda Larry mean volume (Bld) [Entitic vol]8.9 fLCritically low 9.5-13.5The [facility] CenterComment on above:Performed By: #### CBC #### [facility] [address] [place] [address] Dr. Glenda PlascenciaT226 103/unOgksxg628-241Bla [facility] CenterComment on above: Performed By: #### CBC #### [facility] [address] [place] [address] Dr. Glenda BasurtoRBC4.48 106/ulNormal4.20-5.40The [facility] CenterComment on above:Performed By: #### CBC #### [facility] [address] [place] [address] Dr. Glenda BasurtoWBC6.4 103/ulNormal4.0-11.0The [facility] CenterComchildren[facility] [place] on above: Performed By: #### CBC #### [facility] [address] [place] [address] Dr. Glenda Osborne 89-73-7258UIK [Mass/Vol]mg/LNormal<=1.0The [facility] CenterComchildren[facility] [place] on above:Performed By: #### URIC, CRP #### [facility] [address] [place] [address] Dr. Glenda Murphy CHEM 8 (BAS METB)on 25-26-3523Mrqtz gap [Moles/Vol]12.2 mmol/LNormalThe [facility] CenterComment on above:Performed By: #### BMP #### [facility] [address] [address] [address] Glenda BasurtoCalcium [Mass/Vol]9.3 mg/dLNormal8.5-10.1The [facility] Comment on above:Performed By: #### BMP #### [facility] [address] [address] [address] Glenda BasurtoChloride [Moles/Vol]107 mmol/LCllvwp79-249Agq [facility] Comment on above:Performed By: #### BMP #### [facility] [address] [address] [address] Glenda BasurtoCO2 [Moles/Vol]27.3 mmol/HJofxkj53.0-32.0The [facility] Comment on above:Performed By: #### BMP #### [facility] [address] [address] [address] Glenda BasurtoCreatinine [Mass/Vol]1.04 mg/dLCritically high0.55-1.02[place] [facility] HospitalComment on above:Performed By: #### BMP #### [facility] [address] [address] [address] Doshi ChangEGFR-AF RWANDAN>60Normal>=60The [facility] CenterComment on above:Performed By: #### BMP #### [facility] [address] [address] [address] Glenda JaquezGFR-NON AF HXGAHBHH80 mL/min/1.82e1Nvyvllphuv low>=60The [facility] CenterComment on above:Performed By: #### BMP #### [facility] [address] [address] [address] Glenda BasurtoGlucose [Mass/Vol]92 mg/kIFofzzr16-954GhcOhio Valley Hospital Comment on above:Performed By: #### BMP #### [facility] [address] [address] [address] Glenda BasurtoPotassium [Moles/Vol]4.5 mmol/LNormal3.5-5.1The [facility] Comment on above:Performed By: #### BMP #### [facility] [address] [address] [address] Glenda BasurtoSodium [Moles/Vol]142 mmol/HJblzru942-688Xkr [facility] Comment on above:Performed By: #### BMP #### [facility] [address] [address] [address] Glenda BasurtoUrea nitrogen [Mass/Vol]21.0 mg/dLCritically high7.0-18.0The [facility] CenterComment on above:Performed By: #### BMP #### [facility] [address] [address] [address] Glenda BasurtoUrea nitrogen/Creatinine [Mass ratio]20.2 mg/mgNoChildren's Hospital of ColumbusComment on above:Performed By: #### BMP #### [facility] [address] [address] [address] Glenda CortesD RATE WESTERGRENon 85-21-4160FPH RATE22 mm/hrNormal<=30The [facility] CenterComment on above:Performed By: #### SEDR ####[facility] [address] [address]Dr. Glenda BasurtoURIC ACID SERUMon 03-45-2893Usqnt [Mass/Vol]4.8 mg/dLNormal2.6-6.0The [facility] Comment on above:Performed By: #### URIC, CRP #### [facility] [address] [address] [address] Glenda BasurtoXR TIB_FIB RT 2Von [id number] TIB_FIB RT 2VEXAM: XR TIB_FIB RT 2V HISTORY: Pain in lower limb COMPARISON: None. TECHNIQUE: 5 views FINDINGS: No fracture, dislocation, subluxation or osseous lesion. Patient is status post total knee replacement arthroplasty. The prosthesis is unremarkable. No joint effusion. Age-related dorsal bossing of the hindfoot. Dorsal and plantar calcaneal enthesophytes. IMPRESSION: No acute osseous abnormalities Electronically authenticated by: PURNIMA SANDOVAL Date: 2021-09-16 21:21[facility] AUTO DIFFon [id number] #0.0 103/ulNormal0.0-0.1The [facility] CenterComment on above:Performed By: #### CBC #### [facility] [address] [place] [address] Dr. Glenda BasrutoBasophils/100 WBC (Bld)0.6 %Normal0.2-2.0[facility] Comment on above:Performed By: #### CBC #### [facility] [address] [place] [address] Dr. Glenda Shoemaker #0.1 103/ulNormal0.0-0.7The [facility] CenterComment on above: Performed By: #### CBC #### [facility] [address] [place] [address] Dr. Glenda Jaquezosinophils/100 WBC (Bld)1.5 %Normal0.9-7.0The [facility] Comment on above:Performed By: #### CBC #### [facility] [address] [place] [address] Dr. Glenda Jaquezrythrocyte distribution width (RBC) [Ratio]13.6 %Gciuox17.0-15.0 The [facility] CenterComment on above:Performed By: #### CBC #### [facility] [address] [place] [address] Dr. Glenda BasurtoHematocrit (Bld) [Volume fraction]43.9 %Mfslqz02.0-48.0The [facility] CenterComment on above:Performed By: #### CBC #### [facility] [address] [place] [address] Dr. Glenda BasurtoHemoglobin (Bld) [Mass/Vol]14.2 g/kEKeuiuc19.0-16.0The [facility] CenterComment on above:Performed By: #### CBC #### [facility] [address] [place] [address] Dr. Glenda Escobar #0.02 10e3/ulNormal0.00-0.03The [facility] CenterComment on above:Performed By: #### CBC #### [facility] [address] [place] [address] Dr. Glenda Escobar %0.3 %Normal0.0-0.5The [facility] CenterComment on above: Performed By: #### CBC #### [facility] [address] [place] [address] Dr. Glenda Palomo #2.0 103/ulNormal1.2-3.8The [facility] CenterComment on above:Performed By: #### CBC #### [facility] [address] [place] [address] Dr. Glenda Castellanoshocytes/100 WBC (Bld)29.8 %Binvdj27.5-60.0The [facility] CenterComment on above:Performed By: #### CBC #### [facility] [address] [place] [address] Dr. Glenda Nur DIFF REQNONormalThe [facility] CenterComment on above: Performed By: #### CBC #### [facility] [address] [place] [address] Dr. Glenda Bailey (RBC) [Entitic mass]30.9 ebVkyopf40.7-34.0The [facility] CenterComment on above:Performed By: #### CBC #### [facility] [address] [place] [address] Dr. Glenda Katz (RBC) [Mass/Vol]32.3 g/yUXcvpge83.9-35.2The [facility] CenterComment on above:Performed By: #### CBC #### [facility] [address] [place] [address] Dr. Glenda Katz (RBC) [Entitic vol]95.4 bQMtqlxi25.0-99.0The [facility] CenterComment on above:Performed By: #### CBC #### [facility] [address] [place] [address] Dr. Glenda Longoria #0.5 103/ulNormal0.3-0.8The [facility] CenterComment on above:Performed By: #### CBC #### [facility] [address] [place] [address] Dr. Glenda Bainocytes/100 WBC (Bld)7.1 %Normal1.7-12.0The [facility] Comment on above:Performed By: #### CBC #### [facility] [address] [place] [address] Dr. Glenda DialloUT #4.1 103/ulNormal1.4-6.5The [facility] CenterComment on above:Performed By: #### CBC #### [facility] [address] [place] [address] Dr. Glenda Dialloutrophils/100 WBC (Bld)60.7 %Gaweit63.0-75.0The [facility] CenterComment on above:Performed By: #### CBC #### [facility] [address] [place] [address] Dr. Glenda BasurtoPlatelet mean volume (Bld) [Entitic vol]8.7 fLCritically low 9.5-13.5The [facility] CenterComment on above:Performed By: #### CBC #### [facility] [address] [place] [address] Dr. Glenda BasurtoPLT234 103/ddReiowc732-078Mii [facility] CenterComment on above: Performed By: #### CBC #### [facility] [address] [place] [address] Dr. Glenda BasurtoRBC4.60 106/ulNormal4.20-5.40The [facility] CenterComment on above:Performed By: #### CBC #### [facility] [address] [place] [address] Dr. Glenda BasurtoWBC6.7 103/ulNormal4.0-11.0The [facility] CenterComment on above: Performed By: #### CBC #### [facility] [address] [place] [address] Dr. Glenda BasurtoXR SINUSES 3 VIEWS OR GREATERon 53-10-6963JK SINUSES 3 VIEWS OR GREATEREXAMINATION: XR SINUSES 3 VIEWS OR GREATER HISTORY: Acute maxillary sinusitis COMPARISON: No relevant comparison available. FINDINGS: MAXILLARY: No mucosal thickening or fluid level. ETHMOID: No mucosal thickening or fluid level. FRONTAL: No mucosal thickening or fluid level. SPHENOID: No mucosal thickening or fluid level. OTHER: Negative. IMPRESSION: Clear paranasal sinuses Electronically authenticated by: PURNIMA CORTEZ Date: 2021-05-21 12:11NoChildren's Hospital of ColumbusCOVID Quick Testingon 90-74-7530LieqhaZmhpxenkCnvfo [employer] Other Vital Signs Date TimeVital SignValuePerforming ClytdhoxoMcshpkbz82-39-3171 11:35-0400Body uqtykz386.94 cmBenjamin Ball DO Work Phone: [phone]10-06-2025 11:35-0400 Body mass index (BMI) [Ratio]32.5 kg/t9Ruttpozy Ball DO Work Phone: [phone]10-06-2025 11:35-0400 Body bzjuix62.24 kgBenjamin Ball DO Work Phone: [phone]10-06-2025 11:35-0400 Diastolic blood aswbjcdo42 mm[Hg]Jimmie Ball DO Work Phone: [phone]10-06-2025 11:35-0400 Heart rate69 /minBenjamin Ball DO Work Phone: [phone]10-06-2025 11:35-0400 Respiratory rate12 /minBenjamin Ball DO Work Phone: [phone]10-06-2025 11:35-0400 Systolic blood zwdnwdli448 mm[Hg]Jimmie Ball DO Work Phone: [phone]07-01-2025 13:130400 Body onorbv283.94 cmBenjamin Ball DO Work Phone: [phone] [address]07-01-2025 13:13-0400 Body mass index (BMI) [Ratio]32.8 kg/y9Nmfpsilv Ball DO Work Phone: [phone] [place], [place] 2087207-01-2025 13:13-0400 Body .98 kgBenjamin Ball DO Work Phone: [facility]07-01-2025 13:13-0400 Diastolic blood penrukrn82 mm[Hg]Jimmie Ball DO Work Phone: [facility]07-01-2025 13:13-0400 Heart rate80 /minBenjamin Ball DO Work Phone: [facility]07-01-2025 13:13-0400 Respiratory rate12 /minBenjamin Ball DO Work Phone: [facility]07-01-2025 13:13-0400 Systolic blood vjmudtfc592 mm[Hg]Jimmie Ball DO Work Phone: [facility]04-29-2025 13:40-0400 Body kjuiax929.94 cmSelect [facility]04-29-2025 13:40-0400Body mass index (BMI) [Ratio]32.8 kg/x5XsxfdwqnjSelect Medical [facility]ty [facility]04-29-2025 13:40-0400Body yfwnak25.92 kgSelect Medical Specialty Hospital - [facility]04-29-2025 13:40-0400Diastolic blood vamxyxnk55 mm[Hg][facility] 07-03-2024 13:40-0400Heart rate80 /[facility] 07-03-2024 13:40-0400Respiratory rate12 /[facility] 07-03-2024 13:40-0400Systolic blood ihluqzua586 mm[Hg][facility]10-02-2024 11:28-0400Body alqlsv175.94 cmSelect [facility]10-02-2024 11:28-0400Body mass index (BMI) [Ratio]33.1 kg/y3DkreflqorSelect Medical Specialty Hospital - [facility]10-02-2024 11:28-0400Body .54 kgSelect [facility]ty [facility]10-02-2024 11:28-0400Diastolic blood hdhlmucd98 mm[Hg] [facility]10-02-2024 11:28-0400Heart rate76 /[facility]10-02-2024 11:28-0400Respiratory rate12 /[facility]10-02-2024 11:28-0400Systolic blood elqktqwj943 mm[Hg] [facility]07-16-2024 10:54-0400Body gxlrik573.94 cm [facility]07-16-2024 10:54-0400Body mass index (BMI) [Ratio]33.3 kg/z1AbothfgdvSelect Medical Specialty Hospital - [facility]07-16-2024 10:54-0400Body bfeaobynqvy74.5 [degF][facility]07-16-2024 10:54-0400Body quntbu72.97 kgSelect Medical Specialty [facility]07-16-2024 10:54-0400Diastolic blood mm[Hg][facility]07-16-2024 10:54-0400 Heart rate70 /[facility]07-16-2024 10:54-0400 Respiratory rate16 /[facility]07-16-2024 10:54-0400 SaO2% (BldA) [Mass fraction]96 %[facility]07-16-2024 10:54-0400Systolic blood amsehpfu424 mm[Hg][facility] 02-05-2023 12:00-0500Body rxzfla241.94 cmPeggy Mcfarland Other [employer] Other 12-02-2023 12:00-0500Body mass index (BMI) [Ratio]34.2 kg/c2Srchs Mcfarland Other [employer] Other 12-02-2023 12:00-0500Body rgiyqfvczus40.2 [degF]Siomara Mcfarland Other [employer] Other 12-02-2023 12:00-0500Body ozsuxa09.1 kgPeggy Mcfarland Other [employer] Other 12-02-2023 12:00-0500Diastolic blood wmbbwial06 mm[Hg] Siomara Mcfarland Other [employer] Other 12-02-2023 12:00-0500Respiratory rate19 /minPeggy Mcfarland Other [place] Other 12-02-2023 12:00-2707EdN8% (BldA) [Mass fraction]97 % Siomara Mcfarland Other [employer] Other 12-02-2023 12:00-0500Systolic blood rdvuygxo762 mm[Hg] Siomara Mcfarland Other [employer] Other 09-08-2023 09:15-0400Body fzrmfe140.94 cmBenjamin Ball Other [employer] Other 09-08-2023 09:15-0400Body mass index (BMI) [Ratio] 32.91 kg/d8Kwlmvqit Ball Other [employer] Other 09-08-2023 09:15-0400Body vvoctb40.02 kgBenjamin Ball Other [employer] Other 09-08-2023 09:15-0400Diastolic blood hfyktwnz04 mm[Hg] Jimmie Ball Other [employer] Other 09-08-2023 09:15-0400Respiratory rate12 /minBenjamin Ball Other [employer] Other 09-08-2023 09:15-0400Systolic blood nbmwpseb134 mm[Hg] Jimmie Ball Other [employer] Other 08-29-2023 17:55-0400Body evlsgf669.94 cmPamelpetros Whitlock Other [employer] Other 08-29-2023 17:55-0400Body mass index (BMI) [Ratio] 32.87 kg/z0Koaqtrmarty Whitlock Other [employer] Other 08-29-2023 17:55-0400Body gfwicpdpdtk09.2 [degF]Marivel Alvesmond Other [employer] Other 08-29-2023 17:55-0400Body jgrgjy50.93 kgMarivel Whitlock Other [employer] Other 08-29-2023 17:55-0400Diastolic blood qohqgeqv73 mm[Hg] Marivel Alvesmond Other [employer] Other 08-29-2023 17:55-0400Respiratory rate18 /minMarivel Whitlock Other [employer] Other 08-29-2023 17:55-3522JmD2% (BldA) [Mass fraction]97 % Marivel Alvesmond Other [employer] Other 08-29-2023 17:55-0400Systolic blood twqimqep189 mm[Hg] Marivel Chinyere Other [employer] Other 04-17-2023 12:30-0400Body rybrdb822.94 cmBenjon Ball Other [employer] Other 04-17-2023 12:30-0400Body mass index (BMI) [Ratio] 32.42 kg/o2Ftzdyuxk Ball Other [employer] Other 04-17-2023 12:30-0400Body wyslti36.84 kgBenjamin Ball Other [employer] Other 04-17-2023 12:30-0400Diastolic blood mm[Hg] Jimmie Ball Other [employer] Other 04-17-2023 12:30-0400Respiratory rate12 /minBenjamin Ball Other [employer] Other 04-17-2023 12:30-0400Systolic blood tepvelhz567 mm[Hg] Jimmie Ball Other [employer] Other 12-24-2021 11:30-0500Body iovvaj660.94 cmPamela Chinyere Other [employer] Other 12-24-2021 11:30-0500Body mass index (BMI) [Ratio] 31.17 kg/e6Yrecwo Chinyere Other [employer] Other 12-24-2021 11:30-0500Body izppgvmljgw70.5 [degF]Marivel Chinyere Other [employer] Other 12-24-2021 11:30-0500Body yslefm32.84 kgPamela Chinyere Other [employer] Other 12-24-2021 11:30-0500Respiratory rate18 /minPamela Chinyere Other [employer] Other 12-24-2021 11:30-4464QdW9% (BldA) [Mass fraction]98 % Marivel Whitlock Other [employer] Other Encounters Encounter DateEncounter TypeCare ProviderFacilityStart: 12-10-2024 End: 41-88-5076kmcqqmqewoMocpukhl Ball DO Work Phone: [facility] Work Phone: Start: 12-10-2024 End: 85-99-7411Jwiyjbx encounter procedureBenjamin Ball DO-[facility] Work Phone: Start: 11-29-2024 End: 24-63-7208jdxhaeawxsVberkoh Lee Schulte PA-CFacility:ENT SpecStart: 10-29-2024 End: 24-38-7655yfdjukhsdbTatynrx Lee Schulte PA-CFacility:ENT SpecStart: 09-04-2024 End: 59-91-3053ftczuqoyqkIsuesgzo Ball DO Work Phone: [facility] Work Phone: Start: 09-04-2024 End: 29-63-9630Annmwco encounter procedureBenshellymin Al DO-[facility] Work Phone: Start: 07-03-2024 End: 54-45-2651dezmiwdusbMcamsamrgMer[facility] Health [facility] Work Phone: Start: 07-03-2024 End: 88-44-0327Ntcqrww encounter procedureFirroxies Physician Group-[facility] Work Phone: Start: 95-21-4870Tzv-patient / Non-visitFirroxies Physician Group-[employer] Work Phone: Start: 06-05-2024 End: 66-94-8662lxhfauhapwYbzqnyb Lee Schulte PA-CFacility:ENT SpecStart: 73-17-1651ymcbqyjyxxNgbpbdf Maciel Lopez PA-CFacility:ENT SpecStart: 05-29-2024 ambulatoryKyle Jimmie Melendez DOFacility:ENT SpecStart: 01-03-2024 End: 43-90-3969Skpdjad encounter procedureDO Jimmie Melendez Work Phone: [facility] [address] Work Phone: Start: 01-03-2024 End: 00-79-4716jbfrbwntieNS Jimmie Melendez Work Phone: [facility] Work Phone: Start: 58-12-3968Dmg-patient / Non-visitDO Jimmie Melendez Work Phone: [facility] Work Phone: Start: 12-07-2023 End: 83-16-1900ugieacqbyeGjocfzwdfMer[facility] Health [facility] Work Phone: Start: 12-07-2023 End: 74-19-0579Kxbhmrl encounter procedureFormerly [facility] Work Phone: Start: 55-67-7735Goivrpb encounter procedureACMC Healthcare Systemtart: 09-20-2023 End: 10-01-5437ghapxaklisFninpgdijMercy Health [facility] Work Phone: Start: 09-20-2023 End: 13-36-1310Pgovpqz encounter procedureFormerly [facility] [place] Work Phone: Start: 03-02-2023 End: 33-09-2528wpxqfvywchCnqqheod Ball Other [employer] Other Start: 35-96-4052Fgjwvo outpatient visit 15 minutes Jimmie Yvette [facility]endez [facility]: 02-05-2023 End: 20-51-7967bqikmkyqzsJvokx Hart Other [employer] Other Start: 03-46-1143Dykdhd outpatient visit 15 minutes Siomara HartFPG [facility]deStart: 11-12-2022 End: 93-16-5100kfwxxobtbhEyicnelr Ball Other [employer] Other Start: 55-71-5804Pbrkvj outpatient visit 15 minutes Jimmie BallFP[facility] ClinicStart: 15-30-5371Upwnsnink encounterBenjamin BallFPG [facility] ClinicStart: 11-05-2022 End: 28-03-5904fotuxfjvdtMlefocbl Ball Other [employer] Other Start: 68-77-3941Xaheiukrx encounterBenjamin BallFPG [facility] ClinicStart: 11-02-2022 End: 81-07-6449alxuirgeewDuxaxr Dymond Other [facility] [employer] Other Start: 72-40-3717Nhocyd outpatient visit 15 minutes Marivel ChinyereFPG [facility] ClydeStart: 10-05-2022 End: 71-99-9274sxadwdwzpbCkhuqwsw Ball Other [employer] Other Start: 86-21-0519Owbovxj evaluation of patient and reportBenjamin BallFPG [facility] ClinicStart: 08-17-2022 End: 97-02-6504dsfdakbdouGevmgyna Ball Other [employer] Other Start: 41-71-6078Jyhyjabqn encounterBenjamin BallFPG [facility] ClinicStart: 06-21-2022 End: 18-15-2900rwtvmrcproEysykwra Ball Other [employer] Other Start: 59-58-7825Ftclah outpatient visit 25 minutes Jimmie BallFPG [facility] ClinicStart: 12-07-2021 End: 60-26-2779cgfscmwlgzWL JIMMIE BALLFacility:Q2Iceli: 11-26-2021 End: 36-83-0022amcutsqalfXE JIMMIE BALLFacility:B4Bpbwh: 11-20-2021 End: 37-26-5577xcfsxlguyfYU JIMMIE BALLFacility:T3Uytan: 09-23-2021 End: 98-03-7601cqroyocbriZO JIMMIE BALLFacility:M3Iozdj: 09-17-2021 End: 25-69-9085wjafiiwhccVN JIMMIE BALLFacility:W9Qdgqq: 09-16-2021 End: 63-31-3741jvzvymfgdgOH KRISTIE MARKERFacility:C6Qapsn: 07-14-2021 End: 66-49-6107mvjifxlyhsEE CINTHIA TIMMISFacility:W6Kujck: 40-84-9581idoazmtnpv DR CINTHIA TIMMISFacility:Q1Trhhd: 21-51-2246Exsqejfna for preprocedural cardiovascular examinationDR CINTHIA [facility] HospitalStart: 07-08-2021 Encounter for preprocedural laboratory examinationDR CINTHIA [facility] HospitalStart: 07-06-2021 End: 38-53-0556wmjiowboqwIG CINTHIA TIMMISFacility:V1Mpecl: 07-06-2021 End: 09-73-1311Gnjfaollf for preprocedural cardiovascular examinationDR CINTHIA TIMMISFacility:I7Exsbj: 05-21-2021 End: 37-89-1570rpvoaputpmHF CINTHIA TIMMISFacility:W3Pmhjt: 02-27-2021 End: 73-25-5310geckmfntntFcaout Dymond Other [employer] Other Start: 89-47-4695Mktxgh outpatient visit 15 minutes Marivel WhitlockFPAnahy [facility] [place] Procedures DateProcedureProcedure DetailPerforming ClinicianStart: 77-81-9298Dyodl X-ray of bilateral handsDO Jimmie Ball Work Phone: History of cholecystectomyBenjon Melendez Other History of cholecystectomyStatus post laparoscopic cholecystectomyComment on above:10/22Problem List clean-up per request of Phys. EHR Cmte Plan of Treatment DateCare ActivityDetailAuthorStart: 64-74-3196Wwcaxkrmc complement CH50 level [facility] [Mass/volume] in Serum or Plasma [facility]Complement C4 [Mass/volume] in Serum or Plasma [facility] ColumbusComprehensive metabolic 2000 panel - Serum or PlasmaSelect Medical Specialty Hospital - ColumbusMG Breast - bilateral ScreeningSelect [facility] Specialty Hospital - ColumbusRheumatoid factor [Units/volume] in Serum or Plasma [facility] Immunizations Immunization DateImmunizationNotesCare YewffyjzVmwrkrwf97-21-9749Ejmttmm QIV High-Dose 65YR+[facility]08-01-2023Prevnar 20Benjon Melendez Other [facility]11-16-2022COVID-19 Pfizer (Pediatric)Jimmie Melendez Other [facility]10-17-2022influenza virus vaccine, unspecified formulationSelect [facility] 74-02-1917lqwuepahi, high dose seasonal, preservative-freeBenjon Melendez Other [employer] Other [id number], tetanus toxoids and acellular pertussis vaccine, unspecified formulationBenjon Melendez Other [facility]06-16-2022COVID-19 Vaccine Pfizer - Documentation Purposes OnlyBenshellygold Melendez Other [facility]10-18-2021COVID-19 Vaccine Pfizer - Documentation Purposes OnlyGreggnshellygold Melendez Other [facility]09-26-2021influenza virus vaccine, split virus (incl. purified surface antigen)Jimmie Melendez Other [employer] Other [id number] virus vaccine, unspecified formulationSelect [facility]02-17-2021COVID-19 Vaccine Pfizer - Documentation Purposes OnlyBenjon Melendez Other [facility]01-25-2021COVID-19 Vaccine Pfizer - Documentation Purposes OnlyBenshellygold Melendez Other [facility]10-22-2020influenza virus vaccine, split virus (incl. purified surface antigen)Jimmie Melendez Other [employer] Other [id number] virus vaccine, unspecified formulationSelect [facility]06-04-2020pneumococcal polysaccharide vaccine, 23 valentBenshellygold Melendez Other [facility]10-29-2019influenza virus vaccine, split virus (incl. purified surface antigen)Jimmie Melendez Other [employer] Other 873049-02-8412jdfztmlne virus vaccine, unspecified formulationSelect [facility]10-10-2018diphtheria, tetanus toxoids and acellular pertussis vaccine, unspecified formulationDavidjon Melendez Other [facility] Payers DatePayer CategoryPayerPolicy [id number] Health [id number] Unknown[id number] 39-95-1864Cekjymp Health [id number] 2..1.193153.7324-23-1951 [id number] 2..1.773895.3.57[id number] 2..1.180556.3.57[id number] 2.16.840.1.145910.3.57[id number] 2.16.840.1.497006.3.57[id number] 2.16.840.1.121280.3.57[id number] 2.16.840.1.296577.3.57[id number] 2.16.840.1.438241.3.57[id number] 2.16.840.1.731567.3.57[id number] 2.840.1.724781.3.57[id number] 2.16840.1.135001.3.57[id number] 2.16.840.1.173598.3.57[id number] 2.16840.1.929944.3.57[id number] 2.840.1.550474.3.57[id number] 2.16.840.1.849928.3.57[id number] 2.16.840.1.328935.3.57[id number] 2.16.840.1.572782.3.57[id number] 2.16.840.1.266309.3.579.2.196Self-paySelf Pay [id number] Social History DateTypeDetailFacilitySex Assigned At [facility] [employer] Other Start: 73-26-2803Mcddmzb smoking status NHISNever smoked tobacco (finding)[facility] Systemtart: 46-77-1356Eom [facility]igned At [facility]: 56-76-3822Xpr Female (finding)[facility] Clinical Notes 02-27-2021 to 07-03-2024 Note Date & FvekGdcoUnhyiepl34-33-4333 Evaluation note* Diagnosis Onset Date Resolution Status Admit Date Chronic kidney disease acuteApril 2024 1:35pmHypercholesterolemiaacuteApril 2024 1:35pm Inflammatory polyarthritisacuteApril 2024 1:35pmMetabolic dysfunction- associated steatotic liver disease (MASLD)acuteApril 2024 1:35pmObesity acuteApril 2024 1:35pmPrimary hypertensionacuteApril 2024 1:35pm Thyroid noduleacuteApril 2024 1:35pm [facility] Work Phone: [phone] 640-817612-27-2023 Evaluation note* Encounter Date Diagnosis Assessment Notes Treatment Notes Treatment Clinical Notes Feb, Acute non-recurrent maxillary si nusitis (ICD-10 - J01.00) Instructed to use Robitussin or Mucinex for cough, saline or Flonase NS for congestion, Tylenol forpain and fever. Feb,Suspected COVID-19 virus infection (ICD-10 - Z20.822)Will send testing to [facility] to be completed tomorrow - this [...] in public places for complete 10 days Feb,rimary hypertension (ICD-10 - I10)Avoid use of decongestants. Rest and push fluids. Increases risk of more severe, prolonged illness [employer] Other 12-02-2023 Evaluation note* Encounter Date Diagnosis Assessment Notes Treatment Notes Treatment Clinical Notes Feb, Acute pansinusitis (ICD-10 - J01 .40) rx sent, take as directed. continue symptomatic tx c otc meds prn. recommended hot steam baths and/or cool mist humidifier. push rest/fluids. reinforced universal infection control protocols and goodhand hygiene for infection control. pt education and anticipatory guidance provided on viral vs bacterial infection progression. immediate eval if warning s/s of intractable fevers, respir distress or other emergent symptoms. otherwise f/u with PCP if febrile or new/worsening s/s. [employer] Other 09-08-2023 Evaluation note* Encounter Date Diagnosis Assessment Notes Treatment Notes Treatment Clinical Notes Nov, Thoracogenic scoliosis of thorac olumbar region (ICD-10 - M41.35) ROM/stretching exercises Heat/ice and Tylenol Has Oxycodone from previous surgery using for severe pain - aware of sedative side effects Nov,ervical spondylosis (ICD-10 - M47.812)ROM exercises, heat/ice and Tylenol. XR to assess for arthritis Refer to PT if XR negative for fx Nov,Lumbar spondylosis (ICD-10 - M47.816)ROM exercises, heat/ice and Tylenol. XR to assess for arthritis Refer to PT if XR negative for fx Nov,Stage 3a chronic kidney disease (ICD-10 - N18.31)The patient is instructed on adequate control of hypertension and diabetes, if appropriate. They are also educated on the associated risks of NSAIDs and PPI use with kidney disease. They were instructed on adequate fluid balance and to avoid dehydration. AVoid use of NSAIDs Nov,rimary hypertension (ICD-10 - I10)This patient is instructed to consume a healthy, low-fat, low-salt diet. They are also encouraged to continue exercise to achieve/maintain a normal BMI. [employer] Other 08-29-2023 Evaluation note* Encounter Date Diagnosis Assessment Notes Treatment Notes Treatment Clinical Notes Oct, Acute otitis externa of right ear, unspecified type (ICD-10 - H60.501) Otitis externa home care material was printed Drink plenty fluids, get plenty of rest. Continue home medications as prescribed. Take the Medrol Dosepak as prescribed until gone. Use eardrops as prescribed. Follow-up with your family doctor if noimprovement in 2 to 3 days. Take Tylenol as needed for pain. Oct,Strain of lumbar region, initial encounter (ICD-10 - S39.012A)Low back pain home care material was printed [employer] Other 04-17-2023 Evaluation note* Encounter Date Diagnosis Assessment Notes Treatment Notes Treatment Clinical Notes Jun, Essential (primary) hypertension (ICD-10 - I10) This patient is instructed to consume a healthy, low-fat, low-salt diet. They are also encouraged to continue exercise to achieve/maintain a normal BMI. Jun,Hyperlipidemia type II (ICD-10 - E78.01)Diet and exercise with continued statin therapy. Jun,Non-alcoholic fatty liver disease (ICD-10 - K76.0)Healthy low fat, high protein diet. Exercise w/ goal of weight loss Jun,Intermittent palpitations (ICD-10 - R00.2)Avoid stimulants and hydrate Jun,Obesity (BMI 30-39.9) (ICD-10 - E66.9)This patient has been instructed on a low-fat, high-fiber diet. They are instructed to reduce calori es, portion sizes and snacks. It is recommended that they exercise for 30 minutes, 3-5 times weekly. Jun,Heart murmur (ICD-10 - R01.1)Asymptomatic, denies CP, palpitations, lightheadedness, orthopnea or edema Jun,Screening mammogram for breast cancer (ICD-10 - Z12.31)Monthly SBE and yearly mammogram Jun,Menopause (ICD-10 - Z78.0)DEXA scan qoy. Exercise, Ca and Vitamine D supplements Jun,High risk medication use (ICD-10 - Z79.899) [employer] Other 07-21-2022 NotePROCEDURE: XR FOOT RT MIN 3 VIEWS, XR ANKLE RT MIN 3 VIEWS COMPARISON: None. HISTORY: Pain FINDINGS: BONES:No acute fracture or dislocation. Severe osteoarthritis of the first metatarsal phalangeal joint with lpmc-kg-gzsc articulation and bony remodeling. Moderate bulky enthesopathic spurring of the calcaneus at the Achilles and plantar insertions. Moderate degenerative changes mid foot with joint space narrowing and marginal osteophyte formation SOFT TISSUES:Negative. No visible soft tissue swelling. EFFUSION:None visible. OTHER: Negative. IMPRESSION: Degenerative osteoarthritis with severe changes at the first metatarsal-phalangeal joint Electronically authenticated by: PURNIMA CORTEZ Date: 2021-09-24 07:23[facility]07-21-2022 NotePROCEDURE: XR FOOT RT MIN 3 VIEWS, XR ANKLE RT MIN 3 VIEWS COMPARISON: None. HISTORY: Pain FINDINGS: BONES:No acute fracture or dislocation. Severe osteoarthritis of the first metatarsal phalangeal joint with hzhg-xg-gqmf articulation and bony remodeling. Moderate bulky enthesopathic spurring of the calcaneus at the Achilles and plantar insertions. Moderate degenerative changes mid foot with joint space narrowing and marginal osteophyte formation SOFT TISSUES:Negative. No visible soft tissue swelling. EFFUSION:None visible. OTHER: Negative. IMPRESSION: Degenerative osteoarthritis with severe changes at the first metatarsal-phalangeal joint Electronically authenticated by: PURNIMA CORTEZ Date: 2021-09-24 07:23[facility]05-10-2022 NoteOPERATIVE NOTE OPERATION DATE: 07/14/2021 PRIMARY [...] to the recovery room in good condition. [facility] Signed and Approved by: DR CINTHIA BERNARD 07/15/2021 07:48:00[facility]12-24-2021 Evaluation note* Encounter Date Diagnosis Assessment Notes Treatment Notes Treatment Clinical Notes Feb, Contact with and (brock spected) exposure to other viral communicable diseases (ICD-10 - Z20.828) Feb,cute sinusitis, recurrence not specified, unspecified location (ICD-10 - J01.90) Drink plenty fluids, get plenty of rest. Take Tylenol Motrin as needed for aches pains or fevers. Continue to use your Flonase inhaler as prescribed. Take your home medications as prescribed including the Zithromax. Take the prednisone as prescribed until gone. Follow-up with your family physician if no improvement in 2 to 3 days. Feb,Other Additional time spent conducting pre-visit phone call, screening for symptoms, instructions on social distancing, application and removal of PPE, and cleaning of examination room, equipment and supplies was preformed. Patient education given for testing methodology and results. Patient care instructions given in writting by [facility] Care At Home document. [place] [employer] Other Evaluation noteNo InformationNortBarnes-[facility] [employer] Other Evaluation noteNo assessment information available [facility] Work Phone: Evaluation note* Diagnosis Onset Date Resolution Status Chronic kidney disease acuteFatigueacuteHypercholesterolemiaacuteInflammatory polyarthritisacute Medicare annual wellness visit, subsequentacuteMetabolic dysfunction-associated steatotic liver disease (MASLD)acuteObesityacutePrimary hypertensionacute Screening for colon cancernoneactive [facility] Work Phone: Evaluation note* Diagnosis Onset Date Resolution Status Admit Date Chronic kidney disease acuteApril 2024 1:35pmHypercholesterolemiaacuteApril 2024 1:35pm Inflammatory polyarthritisacuteApril 2024 1:35pmMetabolic dysfunction- associated steatotic liver disease (MASLD)acuteApril 2024 1:35pmObesity acuteApril 2024 1:35pmPrimary hypertensionacuteApril 2024 1:35pm Thyroid noduleacuteApril 2024 1:35pm [facility] Work Phone: Evaluation note* Diagnosis Onset Date Resolution Status Admit Date Chronic kidney disease acuteOctober 2024 11:25amHypercholesterolemiaacuteOctober 2024 11:25am Inflammatory polyarthritisacuteOctober 2024 11:25amMedicare annual wellness visit, subsequentacuteOctober 2024 11:25amMetabolic dysfunction-associated steatotic liver disease (MASLD)acuteOctober 2024 11:25amObesityacute December 10, 2024 11:25amPrimary hypertensionacuteOctober 2024 11:25am Thyroid noduleacuteOctober 2024 11:25amScreening for colon cancernoneactive December 10, 2024 11:25am [facility] Work Phone: Hisgdti general Narrative - Reported* Type Description Date Surgical History Bilateral Knees Replacement 03/07 Surgical History Herniated Discs-Low back Surgical Historygallbladder eejddah5127Dqbtaexapviuxex HistorySee past surgical history [facility] [employer] Other Hisxnhe general Narrative - Reported* Type Description Date Medical History Positive colorectal cancer scree jose using Cologuard test Medical HistoryIntermittent palpitationsMedical HistoryHyperlipidemia type II Medical HistoryIrritable bowel syndrome with diarrheaMedical HistoryNon- alcoholic fatty liver diseaseMedical HistoryEssential (primary) hypertension Medical HistoryOrthostatic hypotensionMedical HistoryCallusMedical HistoryMurmur Medical HistoryBrachioradialis muscle tendernessMedical HistoryHistory of cholecystectomyMedical HistoryElevated transaminase levelMedical HistoryLumbar spondylosisSurgical HistoryBilateral Knees Replacement03/20Surgical History Herniated Discs-Low backSurgical Historygallbladder pmsadkh7591Duurlgcy History EXPLORATORY MYRINGOTOMY OF RIGHT EARSurgical HistoryERCP, ADULTHospitalization HistorySee past surgical history [employer] Other History general Narrative - Reported* Type Description Date Medical History Positive colorectal cancer scree jose using Cologuard test Medical HistoryIntermittent palpitationsMedical HistoryHyperlipidemia type II Medical HistoryIrritable bowel syndrome with diarrheaMedical HistoryNon- alcoholic fatty liver diseaseMedical HistoryEssential (primary) hypertension Medical HistoryOrthostatic hypotensionMedical HistoryCallusMedical HistoryMurmur Medical HistoryBrachioradialis muscle tendernessMedical HistoryHistory of cholecystectomyMedical HistoryElevated transaminase levelMedical HistoryLumbar spondylosisSurgical HistoryBilateral Knees Replacement03/20Surgical History Herniated Discs-Low backSurgical Historygallbladder qiqmrig1154Tsolxzah History EXPLORATORY MYRINGOTOMY OF RIGHT EARSurgical HistoryERCP, ADULTSurgical History cataract surgerySurgical HistorybunionectomyHospitalization HistorySee past surgical history [employer] Other Reason for referral (narrative)No reason for referral information availableW[facility]umedicine [facility] Work Phone: Summary Purpose Family History Relationship Condition Age at Onset Recorded Date/T lavonne sister Malignant neoplasm of breast Unknown motherHypertensionUnknownHeart failureUnknownfatherDeceasedUnknownmotherDeceased UnknownHypertensionUnknownsonDeceasedUnknown Advance Directives Advance Directive Response Recorded Date/ Time Advance Directives Yes October 29, 2020 2:29pm Chief Complaint and Reason for Visit Chief Complaint Admit Date 6 month f/u July 03, 2024 1:3 5pm Sinus pressure, ear pain September 04, 2024 1:08pm Reason for Visit Admit Date Chronic kidney disease July 03, 2024 1:35pm Hypercholesterolemia July 03, 2024 1: 35pm Inflammatory polyarthritis July 03, 2 025 1:35pm Metabolic dysfunction-associ ated steatotic liver disease (MASLD) July 03, 2024 1:35pm Obesity July 03, 2024 1:3 5pm Primary hypertension July 03, 2024 1: 35pm Thyroid nodule July 03, 2024 1:3 5pm Chief Complaint Congestion Chief Complaint Congestion WellnessReason for VisitChronic kidney disease Fatigue Hypercholesterolemia Inflammatory polyarthritis Medicare annual wellness [...] resultsPOSS SINUS INFECTIONExposed to COVID-Negative, All symptoms- [phone] INFORMATION SOURCE (unrecogn ized section and content) DATE CREATED AUTHOR 12/11/2021 [facility] DATE CREATED AUTHOR AUTHOR'S ORGANIZ ATION 01/05/2024 [facility] DATE CREATED AUTHOR AUTHOR'S ORGANIZ ATION 12/06/2024 [facility] Care Teams (unrecognized sec tion and content) Team Status: Active Member Role Status Dates Jimmie Melendez DO Primary Care Provider Active Team Status: Inactive Member Role Status Dates Jimmie Melendez DO Primary Care Provider Active Start: December 10, 2024 End: December 10enjamin Ball , DOAttending ProviderActiveStart: December 10, 2024 End: December 10, 2024 Team Status: Active Member Role Status Lara Melendez DO Primary Care Provider Active Team [...] Active Start: September 20, 2023 End: September 19manda Mariah Cortez , VERÓNICANAttenshun ProviderActiveStart: September 20, 2023 End: September 20, 2023 [...] Active Start: January 03, 2024 End: January 02obervictorina Lee MDAttending ProviderActiveStart: January 03, 2024 End: January 03, 2024 Team Status: Active Member Role Status Lara Melendez DO Primary Care Provider Active Start: June 15, 2024 Jimmie Melendez DOAttending ProviderActiveStart: June 15, 2024 Team Status: Inactive Member Role Status Lara Melendez DO Primary Care Provider Active Start: July 03, 2024 End: July 03melchor Melendez DOAttending ProviderActiveStart: July 03, 2024 End: July 03, 2024 Team Status: Inactive Member Role Status Dates Jimmie Melendez DO Primary Care Provider Active Start: September 04, 2024 End: September 04melchor Melendez DOAttending ProviderActiveStart: September 04, 2024 End: September 04, 2024 Team Status: Inactive Member Role Status Lara Melendez DO Primary Care Provider Active Start: December 10, 2024 End: December 10melchor Melendez DOAttending ProviderActiveStart: December 10, 2024 End: December 10, 2024 [...] BE BASED ON THE PRIMARY CLINICAL RECORDS. [facility] [employer] [facility]. provides no warranty or guarantee of the accuracy or completeness of information in this document.
== END 2024-12-27 11:03 | disposition home or self-care (01) ==
LOC: MAMMO 11:02
PROVIDERS: PCP Internal Medicine; Visit Provider Internal Medicine
DX: Z12.31 Encounter for screening mammogram for malignant neoplasm of breast (principal); Z80.3 Family history of malignant neoplasm of breast
CPT/HCPCS: 77063; 77067